=== PATIENT | female | born 1955 | race Caucasian/White ===

== ENCOUNTER 2023-06-04 11:19 | Outpatient (OUT) | payer MEDICARE, OTHER, SELFPAY ==
--- NOTE | 2023-06-04 12:31 | P.CN_ITS ---
Consult Note: HPI Data of Consult Patient: new to practice Consult date: 06/04/23 Requesting Physician: Kamryn Ceja MD Primary Care Provider: CAR Rich Narrative Reason for consult: low back pain Narrative: 68yof who presents for evaluation. ongoing axial low back pain for several years, recently worsened. mri shows multilevel facet arthropathy and spondylosis. engages in >6 weeks of provider directed home exercises, with minimal benefit. utilizing mobic and tizanidine, with mild benefit. otherwise denies adverse med side effects. cc:: CC: Kamryn Ceja MD Review of Systems ROS Status of ROS 10 or more systems reviewed and unremark able except as noted in history and below Exam Narrative Exam Narrative: Psych-alert and oriented x 3. Attentive and appropriate, constitutionally normal, displays normal mood and affect per situation.? There are no obvious deficits in memory, reasoning, or intellect.? Skin-no obvious rashes, bruising, erythema noted to the patient's area of pain. Extremities- extremities are warm with minimal edema and palpable pulses. Lumbar-no significant tenderness to palpation noted in the lumbar spine and paraspinal musculature.? Pain is elicited with extension, and lateral rotation of the lumbar spine. Range of motion is slightly diminished with these motions due to pain. Facet loading maneuvers are positive bilaterally and do appear to be concordant with the patient's normal complaints of pain.? Coordination remains intact.? Gait remains non-antalgic. Assessment and Plan Assessment and Plan (1) Lumbar spondylosis: (2) Lumbar stenosis with neurogenic claudication: Plan 68yof who presents for evaluation. failed conservative measures, as noted. imaging reviewed, as noted. given symptoms and imaging, prudent to attempt diagnostic bilateral l4-5, l5-s1 medial branch blocks under fluoroscopic guidance with intention of proceeding to radiofrequency ablation. she is in agreement. medications reviewed, no changes. follow up after procedure.
== END 2023-06-04 11:20 | disposition home or self-care (01) ==
PROVIDERS: PCP Family Medicine; Visit Provider Anesthesiology
DX: M47.816 Spondylosis without myelopathy or radiculopathy, lumbar region (principal); M48.062 Spinal stenosis, lumbar region with neurogenic claudication
CPT/HCPCS: G0463

== ENCOUNTER 2023-06-11 10:08 | Day surgery (SDC) | payer MEDICARE, OTHER, SELFPAY ==
[2023-06-11 10:51] VITALS: BP 155/93; PULSE 77; RESP 16; TEMP 36.4; O2SAT 98
[2023-06-11 11:34] VITALS: RESP 20
[2023-06-11 11:38] VITALS: BP 167/80; PULSE 78; O2SAT 96
[2023-06-11] MEDS: LIDOCAINE HCL 2% PF 100 MG/5 ML VIAL INJ (11:40)
[2023-06-11] MEDS: BUPIVACAINE HCL 0.5% PF 50 MG/10 ML VIAL 8 ML INJ (11:40)
[2023-06-11 11:41] VITALS: BP 160/76; PULSE 80; O2SAT 99
--- NOTE | 2023-06-11 11:42 | W.PM.PROCNOT ---
Date of procedure: 06/11/23 Pre-op diagnosis: Lumbar spondylosis Post-op diagnosis: same as pre-op Procedure: Procedure: Bilateral L4-5, l5-S1 medial branch block Medications: Bupivacaine 0.25% 6cc The patient was seen and examined in the preoperative holding area.? An informed consent was obtained and placed on the chart.? The patient was brought to the medical procedure unit and placed in the prone position.? A timeout was completed verifying correct patient, procedure site, positioning, plan, and special equipment.? Using aseptic technique, the needle was placed at left L4. Under direct fluoroscopic visualization a Quincke-tipped spinal needle was advanced to the junction of the superior articulating process with the transverse process at the designated medial branch segment.? Preceded by negative aspiration, the above-mentioned injectate was placed in 1 mL aliquots.? The procedure was repeated at left L5, S1.? The needle was removed and insertion site was covered. The same procedure, at the same levels, was completed on the right side. The patient was taken to the postprocedural recovery area and monitored for an appropriate length of time before found suitable for discharge in the company of a responsible adult. Anesthesia: Local Surgeon: Kamryn Ceja Pathology: none sent Condition: stable Disposition: no change
== END 2023-06-11 11:45 | disposition home or self-care (01) ==
PROVIDERS: PCP Family Medicine; Visit Provider Anesthesiology
DX: M47.816 Spondylosis without myelopathy or radiculopathy, lumbar region (principal)
CPT/HCPCS: 64493; 64494; J0665

== ENCOUNTER 2023-06-21 11:23 | Outpatient (OUT) | payer MEDICARE, OTHER, SELFPAY ==
--- NOTE | 2023-06-21 11:36 | P.CN_ITS ---
Consult Note: HPI Data of Consult Patient: new to practice Consult date: 06/04/23 Requesting Physician: Angie Casarez NP Primary Care Provider: CAR Rich Narrative Reason for consult: low back pain Narrative: 68yof who presents for evaluation. ongoing axial low back pain for several years, recently worsened. mri shows multilevel facet arthropathy and spondylosis. engages in >6 weeks of provider directed home exercises, with minimal benefit. utilizing mobic and tizanidine, with mild benefit. otherwise denies adverse med side effects. recently underwent bilateral facet medial branch block #1 with 100% immediate pain relief and functional improvement lasting hours after the procedure. Noticed increased ability in ADLs, walking up and down stairs, and getting in and out of the car. cc:: CC: Angie Casarez NP Review of Systems ROS Status of ROS 10 or more systems reviewed and unremark able except as noted in history and below [facility] Medical History (Updated 06/05/23 @ 13:39 by Naty Haile RN) Lupus ?M32.9 - Systemic lupus erythematosus, unspecified (ICD-10) Heartburn ?R12 - Heartburn (ICD-10) Hypothyroid ?E03.9 - Hypothyroidism, unspecified (ICD-10) Asthma ?J45.909 - Unspecified asthma, uncomplicated (ICD-10) Palpitations ?R00.2 - Palpitations (ICD-10) Surgical History History of hand surgery ?Z98.890 - Other specified postprocedural states (ICD-10) History of ear surgery ?Z98.890 - Other specified postprocedural states (ICD-10) History of hip surgery ?Z98.890 - Other specified postprocedural states (ICD-10) History of shoulder surgery ?Z98.890 - Other specified postprocedural states (ICD-10) Meds Home Medications and Allergies Home Medications Medication Instructions Recorded Confirmed Type albuterol 90 mcg/actuation aerosol mcg inhalation 06/05/23 History inhaler carvedilol 12.5 mg tablet 25 mg PO Q12H 06/05/23 06/11/23 History cyclosporine 0.05 % eye drops in a 1 drp ophthalmic (eye) Q12H 06/05/23 06/11/23 History dropperette (Restasis) hydrochlorothiazide 12.5 mg tablet 12.5 mg PO DAILY 06/05/23 06/11/23 History hydroxychloroquine 200 mg tablet 200 mg PO BID 06/05/23 06/11/23 History (Plaquenil) losartan 100 mg tablet 100 mg PO DAILY 06/05/23 06/11/23 History meloxicam 15 mg tablet 15 mg PO DAILY 06/05/23 06/11/23 History metoprolol succinate 25 mg 12.5 mg PO DAILY 06/05/23 06/11/23 History tablet,extended release 24 hr omeprazole 20 mg capsule,delayed 20 mg PO DAILY 06/05/23 06/11/23 History release thyroid (pork) 90 mg tablet 90 mg PO DAILY 06/05/23 06/11/23 History ([place] Thyroid) tizanidine 4 mg tablet 4 mg PO BEDTIME 06/05/23 06/11/23 History Allergies Allergy/AdvReac Type Severity Reaction Status Date / Time amoxicillin Allergy Verified 06/11/23 10:55 ciprofloxacin [From Cipro] Allergy Verified 06/11/23 10:55 gabapentin Allergy Verified 06/11/23 10:55 Sulfa (Sulfonamide Allergy Verified 06/11/23 10:55 Antibiotics) Exam Narrative Exam Narrative: Psych-alert and oriented x 3. Attentive and appropriate, constitutionally normal, displays normal mood and affect per situation.? There are no obvious deficits in memory, reasoning, or intellect.? Skin-no obvious rashes, bruising, erythema noted to the patient's area of pain. Extremities- extremities are warm with minimal edema and palpable pulses. Lumbar-no significant tenderness to palpation noted in the lumbar spine and paraspinal musculature.? Pain is elicited with extension, and lateral rotation of the lumbar spine. Range of motion is slightly diminished with these motions due to pain. Facet loading maneuvers are positive bilaterally and do appear to be concordant with the patient's normal complaints of pain.? Coordination remains intact.? Gait remains non-antalgic. Results Additional Findings Additional findings: I have checked an [place] report on this patient today and there are no aberrancies noted in the prescribing history.?? A drug screen was completed and reviewed within the last year, and if there has not been a drug screen completed we ordered one today to monitor higher risk, state monitored pain medication use. As part of providing excellent, safe, comprehensive care, the following was completed at our patient's visit: 1. A medication reconciliation and review to ensure accurate knowledge of current/active medications, including asking our patients to inform us about any [id number] medications or herbal remedies/nutritional supplements/alternative remedies. 2. A review to specifically ensure our patients have had annual screening for: elevated body mass index (BMI), tobacco use, screening for depression, and screening for unhealthy alcohol use. When screening is concerning, patients are provided with education and the specific recommendation to discuss the concerning health issue and treatment options with their primary care provider. Assessment and Plan Assessment and Plan (1) Lumbar spondylosis: (2) Lumbar stenosis with neurogenic claudication: Plan proceed with bilateral L4-5 L5-S1 facet medial branch block #2 working towards thermal RFA continue HEP as tolerated f/u 1 week after injection
--- OUTSIDE RECORDS SUMMARY | 2023-06-21 11:45 | XMS_ITS | CCD ---
Author Name Unknown Address [address] [place] [address] Organization [facility] Care Team Providers Care Gis Software Developer Name Role Phone PHYSICIAN, DEFAULT Unavailable Unavailable PHYSICIAN, DEFAULT Unavailable Unavailable ORIANA LAGUERRE Unavailable Unavailable MISC, DR CHEEK Attending Unavailable MISC, DR CHEEK Admitting Unavailable MISC, DR CHEEK Consulting Unavailable SHADE, DR ORIANA Lora Primary Care Unavailable NATY KIRKPATRICK Admitting Unavailable NATY KIRKPATRICK Consulting Unavailable NATY KIRKPATRICK Attending Unavailable SHADE, DR ORIANA Lora Referring Unavailable Abena Hawkins Unavailable Oriana Laguerre Unavailable José Miguel Grey Unavailable Addy ROUSSEAU Attending Unavailable Addy ROUSSEAU Attending Unavailable MD Oriana Laguerre Primary Care Provider SHANKAR Santiago Attending Provider ARMAND DOCKERY Attending Unavailable ORIANA LAGUERRE Attending Unavailable NATY KIRKPATRICK Referring Unavailable LATRICE PEÑA Referring Unavailable ORIANA LAGUERRE Primary Care Unavailable MD Oriana Laguerre Primary Care Provider MD Endy Abreu Attending Provider [phone] Oriana Laguerre Primary Care Unavailable Endy Abreu Admitting Unavailable Endy Abreu Attending Unavailable Huong Santiago Admitting Unavailable Huong Santiago Attending Unavailable Oriana Laguerre Primary Care Unavailable Huong Santiago Attending Unavailable Oriana Laguerre Primary Care Unavailable Huong Santiago Admitting Unavailable Marcial RAMIREZ, Kamryn Rodriguez Attending Unavailable Marcial RAMIREZ, Kamryn Rodriguez Attending Unavailable Allergies Allergy Classification Reported Allergen(s) Allergy Type Date of Onset Reaction(s) Facility (1 source) Sulfonamides (Antibiotic); Translations: [SULFA] Propensity to adverse reactions (disorder) 11-11-19 11 [facility] Repository (4 sources) gabapentin; Translations: [gabapentin] Drug Allergy 02-12-20 Hives [facility] Repository (1 source) rosuvastatin Drug Allergy 02-26-20 [facility] Repository (1 source) Sulfonamides (Antibiotic) Drug allergy (disorder) 02-26-20 [facility] Repository (7 sources) gabapentin Drug Allergy Unknown [facility] Other (7 sources) Sulfacetamide / Sulfur Drug Allergy Unknown [facility] Other (1 source) Sulfonamides (Antibiotic); Translations: [sulfa drugs] Propensity to adverse reactions (disorder) [facility] Repository (4 sources) Ciprofloxacin; Translations: [CIPROFLOXACIN] Drug Allergy 02-12-20 Unknown Reaction [facility] (3 sources) Sulfacetamide; Translations: [sulfacetamide] Drug Allergy 02-12-20 Vomiting [facility] (3 sources) Sulfur; Translations: [sulfur] Drug Allergy 02-12-20 Vomiting [facility] (1 source) gabapentin; Translations: [GABAPENTIN (BULK)] Drug Allergy 11-02-19 [facility] Repository (1 source) Hmg-Coa Reductase Inhibitors (Statins); Translations: [[id number] REDUCTASE INHIBITORS] Propensity to adverse reactions to drug (disorder) 11-02-19 [facility] Repository (1 source) Sulfonamides (Antibiotic); Translations: [SULFA (SULFONAMIDE ANTIBIOTICS)] Propensity to adverse reactions to drug (disorder) 11-02-19 [facility] Repository (1 source) gabapentin Drug Allergy 02-12-20 [facility] Repository Medications Current Medications Medication Drug Class(es) Dates Sig (Normalized) Sig (Original) acetaminophen 500 mg oral capsule (3 sources) take 2 capsules by mouth every six hours Acetaminophen 500 MG 2 capsule as needed Orally every 6 hrs Active albuterol 0.833 mg/ml / ipratropium bromide 0.167 mg/ml inhalation solution (3 sources) Anticholinergic, beta2-Adrenergic Agonist take 3 mL by inhalation every six hours as needed Ipratropium-Albute rol 0.5-2.5 (3) MG/3ML 3 mL as needed Inhalation every 6 hrs Active calcium carbonate 1250 mg oral tablet (3 sources) take 1 tablet by mouth every twelve hours Calcium 500 MG 1 tablet with meals Orally Twice a day Active carvedilol 12.5 mg oral tablet (3 sources) alpha-Adrenergic Aleks, beta-Adrenergic Aleks take 1 tablet by mouth every twelve hours Carvedilol 12.5 MG 1 tablet with food Orally Twice a day Active celecoxib 200 mg oral capsule (9 sources) Nonsteroidal Anti-inflammatory Drug Start: 02-11-2021 Celecoxib Active 200 MG PO As Directed February 10, 2021 11:00pm clotrimazole 10 mg oral lozenge (2 sources) Azole Antifungal Start: 02-11-2021 Clotrimazole Active 10 MG PO As Directed February 10, 2021 11:00pm cycloSPORINE 0.5 mg/ml ophthalmic suspension (5 sources) Calcineurin Inhibitor Immunosuppressant Start: 02-11-2021 Cyclosporine (Restasis) 0.05 % dropperette Active 0.05 DROPS OPHTHALMIC As Directed February 10, 2021 11:00pm take 1 drop(s) into the eye(s) twice daily cycloSPORINE 0.05 % 1 drop into affected eye Ophthalmic Twice a day Not-Taking Roxy-C - (3 sources) Roxy-C - as dir ected Orally Active ferrous sulfate (3 sources) take 1 tablet by delisa th once daily Ferrous Sulfate 325 (65 Fe) MG 1 tablet Orally Once a day Active take 1 tablet by delisa th every twenty-four hours Ferrous Sulfate 325 (65 Fe) MG 1 tablet Orally Once a day Active fluocinolone acetonide 0.25 mg/ml topical cream (3 sources) Corticosteroid Fluocinolone Charlie tonide 0.025 % 1 application Externally Twice a day Active furosemide 20 mg oral tablet (3 sources) Loop Diuretic Start: 2021 take 0.5 tablet by mouth twice daily Lasix 20 MG 0.5 tab Orally twice daily for 90 days Apr, Active glucosamine 750 mg oral tablet (3 sources) Glucosamine 750 MG as directed Orally Active hydroCHLOROthiazide 12.5 mg oral tablet (6 sources) Thiazide Diuretic Start: 2020 Hydrochlorothiazide Active 12.5 MG PO As Directed February 10, 2021 11:00pm take 1 capsule by [facility] every twenty-four hours hydroCHLOROthiazide 12.5 MG 1 capsule in the morning Orally Once a day Active hydroxychloroquine sulfate 200 mg oral tablet (9 sources) Antimalarial, Antirheumatic Agent Start: 02-11-2021 Hydroxychloroquine Active 200 MG PO As Directed February 10, 2021 11:00pm krill oil 500 mg oral capsule (3 sources) take 2 capsules by mouth once daily Krill Oil 500 MG 2 capsules Orally once a day Active losartan potassium 50 mg oral tablet (9 sources) Angiotensin 2 Receptor Aleks Start: 02-11-2021 Losartan Active 50 MG PO As Directed February 10, 2021 11:00pm take 1 tablet by [facility] every twenty-four hours Losartan Potassium 100 MG 1 tablet Orally Once a day Active magnesium oxide 500 mg oral tablet (3 sources) Magnesium Oxide 500 MG as directed Orally Active Magnesium Oxide 500 MG as directed Orally Active methylPREDNISolone 4 mg oral tablet (2 sources) Corticosteroid Start: 02-11-2021 Methylprednisolone Active 4 MG PO As Directed February 10, 2021 11:00pm Multi Vitamin Daily - (3 sources) take 1 tablet by mouth once daily Multi Vitamin Daily - 1 tablet Orally Once a day Active omeprazole 20 mg delayed release oral capsule (9 sources) Proton Pump Inhibitor Start: 02-11-2021 Omeprazole Active 20 MG PO As Directed February 10, 2021 11:00pm Restasis Multidose (3 sources) Restasis Multido se Active saccharomyces boulardii 250 mg oral capsule (3 sources) Probiotic 250 MG as directed Orally Active thioctic acid 100 mg oral capsule (3 sources) take 1 capsule by mouth every twenty-fou r hours Alpha-Lipoic Acid 100 MG 1 capsule Orally Once a day Active thyroid (penitentiary) 120 mg oral tablet (9 sources) Start: 02-11-2021 Thyroid (Pork) ([place] Thyroid) 120 mg tablet Active 120 MG PO As Directed February 10, 2021 11:00pm tiZANidine 4 mg oral tablet (3 sources) Central alpha-2 Adrenergic Agonist take 2 tablets by mouth once daily at bedtime as needed tiZANidine HCl 4 MG 2 tablet as needed Orally once a day at [facility] Active vitamin b12 1 mg/ml injectable solution (5 sources) Vitamin B12 Start: 02-11-2021 Cyanocobalamin (Vitamin B-12) Active 1000 MCG IM As Directed February 10, 2021 11:00pm Cyanocobalamin 1 00 MCG as directed Orally Active Vitamin D-3 125 MCG (5000 UT ) (3 sources) Vitamin D-3 125 MCG (5000 UT) as directed Orally Active Completed/Discontinued Medications Medication Drug Class(es) Dates Sig (Normalized) Sig (Original) triamcinolone acetonide 40 mg/ml injectable suspension (20 sources) Corticosteroid Start: 03-29-2022 Kenalog-40 Mar, 40 mg Start: 08-26-2021 Kenalog-40 Nov, 20 mg Start: 08-26-2021 Kenalog -40 mg Aug, 20 mg Start: 05-04-2021 Kenalog -40 mg Apr, 20 mg Start: 02-02-2021 Kenalog -40 mg Jan, 20 mg Start: 02-02-2021 Kenalog -40 mg Jan, 40 mg Start: 10-13-2020 Kenalog -40 mg September, 20 mg Start: 06-29-2020 Kenalog -40 mg Jun, 40 mg Start: 03-24-2020 Kenalog -40 mg Mar, 40 mg Problems Problem Classification Problem Date Documented Da te Episodic/Chronic Esophageal disorders (9 sources) Gastroesophageal reflux disease; Translations: [Gastro-esophageal reflux disease without esophagitis] 02-11-2021 Chronic Essential hypertension (4 sources) Essential hypertension; Translations: [Essential (primary) hypertension] Chronic Fluid and electrolyte disorders (1 source) Hypo-osmolality and hyponatremia Episodic Immunizations and screening for infectious disease (5 sources) Encounter for immunization; Translations: [Contact with and (suspected) exposure to other viral communicable diseases] Onset: 0 Episodic Osteoarthritis (14 sources) Arthropathy of joint of hand; Translations: [Primary osteoarthritis, unspecified hand] Onset: 2 Resolved: 2 Chronic Other connective tissue disease (5 sources) Pain in left hand Onset: 2 Resolved: 2 Episodic Other connective tissue disease (5 sources) Pain in right hand Onset: 2 Resolved: 2 Episodic Other connective tissue disease (1 source) Other enthesopathies, not elsewhere classified; Translations: [Other enthesopathies, not elsewhere classified] Onset: 3 Episodic Other gastrointestinal disorders (9 sources) Dysphagia; Translations: [Dysphagia, unspecified] 02-11-2021 Episodic Systemic lupus erythematosus and connective tissue disorders (1 source) Systemic involvement of connective tissue, unspecified; Translations: [Systemic involvement of connective tissue, unspecified] Onset: 3 Chronic Viral infection (4 sources) COVID-19; Translations: [COVID-19] Onset: 1 Results Test Name Value Interpretation Reference Range Facility Alanine aminotransferase [En zymatic activity/volume] in Serum or PlasmaOrdered By: Endy Abreu on 05-30-2023 ALT [Catalytic activity/Vol] 16 U/L 7-52 [facility] Albumin [Mass/volume] in Ser um or Plasma by Bromocresol green (BCG) dye binding methoOrdered By: Endy Abreu on 05-30-2023 Albumin BCG dye [Mass/Vol] 4.2 g/dL 3.5-5.7 [facility] Alkaline phosphatase [Enzyma tic activity/volume] in Serum or PlasmaOrdered By: Endy Abreu on 05-30-2023 ALP [Catalytic activity/Vol] 109 U/L 34-104 [facility] Aspartate aminotransferase [ Enzymatic activity/volume] in Serum or PlasmaOrdered By: Endy Abreu on 05-30-2023 AST [Catalytic activity/Vol] 22 U/L 13-39 [facility] Automated erythrocytes count in urine sediment (number/area)Ordered By: Endy Abreu on 05-30-2023 RBC Auto (Urine sed) [#/Area] 0-1 [HPF] 0-4 [facility] Automated leukocytes count i n urine sediment (number/area)Ordered By: Endy Abreu on 05-30-2023 WBC Auto (Urine sed) [#/Area] 0-1 [HPF] 0-4 [facility] Basophils Auto (Bld) [#/Vol] Ordered By: Endy Abreu on 05-30-2023 Basophils (Bld) [#/Vol] 0.1 10*3/uL 0.0-0.2 [facility] Basophils/100 WBC Auto (Bld) Ordered By: Endy Abreu on 05-30-2023 Basophils/100 WBC (Bld) 1.1 % . [facility] Bilirubin Test strip Ql (U)O rdered By: Endy Abreu on 05-30-2023 Bilirubin Ql (U) Negative Negative [facility] Bilirubin.total [Mass/volume ] in Serum or PlasmaOrdered By: Endy Abreu on 05-30-2023 Bilirubin [Mass/Vol] 0.5 mg/dL 0.3-1.0 [facility] Calcium [Mass/volume] in Ser um or PlasmaOrdered By: Endy Abreu on 05-30-2023 Calcium [Mass/Vol] 10.0 mg/dL 8.6-10.3 [facility] Carbon dioxide, total [Moles /volume] in Serum or PlasmaOrdered By: Endy Abreu on 05-30-2023 CO2 [Moles/Vol] 26.9 mmol/L 21.0-31.0 [facility] Chloride [Moles/volume] in S mary ellen or PlasmaOrdered By: Endy Abreu on 05-30-2023 Chloride [Moles/Vol] 98 mmol/L 98-107 [facility] Color Auto (U)Ordered By: Ngoc Abreu on 05-30-2023 Color (U) Yellow Yellow [facility] Complement C3on 05-30-2023 Complement C3 143 mg/dL Normal 82-167 [facility] Comment on above: Result Comment: Perf ormed at: CB - [facility] [place] [address] Deputy Chief Magistrate: Marvel Barahona PhD, Phone: [phone] Performed By: #### E SR, CMP, ADDONUAPLUS, CBC #### [facility] [address] [place] [address] #### C4, C3, CH50 #### [facility] , Complement C4on 05-30-2023 Complement C4 29 mg/dL Normal 12-38 [facility] Comment on above: Result Comment: PERF ORMED BY: [address] [address] PATHOLOGIST ORDNANCE ARTIFICER ALTHEA BARRAGAN M.D. Performed By: #### E SR, CMP, ADDONUAPLUS, CBC #### [place] [address] [place] #### C4, C3, CH50 #### [facility] , Complement Total (CH50)on Complement Total (CH50) >60 Normal >41 [facility] Comment on above: Result Comment: Age Male Female 1 - 30 days Not Estab. Not Estab. 31 days - 6 months >32 >20 7 months - 17 years >39 >39 >17 years >41 >41 NOTE: The adult ( >17 years ) reference interval range is used to flag abnormals on this report. If the patient is 17 years old or younger, use the table above to determine out of range values. Performed at: - [facility] [id number] Deputy Chief Magistrate: Marvel Barahona PhD, Phone: [phone] PERFORMED BY: [place] [address] PATHOLOGIST ORDNANCE ARTIFICER ALTHEA BARRAGAN M.D. Performed By: #### E SR, CMP, ADDONUAPLUS, CBC #### [address] #### C4, C3, CH50 #### [facility] , Complete Blood Count Auto Di ffon 05-30-2023 Basophils (Bld) [#/Vol] 0.1 10*3/uL Normal 0.0-0.2 [facility] Comment on above: Performed By: #### E SR, CMP, ADDONUAPLUS, CBC #### [place] [address] [place] #### C4, C3, CH50 #### [facility] , Basophils/100 WBC (Bld) 1.1 % Normal . [facility] Comment on above: Performed By: #### E SR, CMP, ADDONUAPLUS, CBC #### [facility] [address] [place] [address] [place] #### C4, C3, CH50 #### [facility] , Eosinophils (Bld) [#/Vol] 0.0 10*3/uL Normal 0.0-0.45 [facility] Comment on above: Performed By: #### E SR, CMP, ADDONUAPLUS, CBC #### [facility] [address] [place] [address] [place] #### C4, C3, CH50 #### [facility] , Eosinophils/100 WBC (Bld) 0.6 % Normal . [facility] Comment on above: Performed By: #### E SR, CMP, ADDONUAPLUS, CBC #### [address] #### C4, C3, CH50 #### [facility] , Erythrocyte distribution width (RBC) [Ratio] 13.8 % Normal 11.9-15.3 [facility] Comment on above: Performed By: #### E SR, CMP, ADDONUAPLUS, CBC #### [facility] [address] [place] [address] [place] #### C4, C3, CH50 #### [facility] , Hematocrit (Bld) [Volume fraction] 36.4 % Normal 34.0-46.4 [facility] Comment on above: Performed By: #### E SR, CMP, ADDONUAPLUS, CBC #### [place] [address] [place] #### C4, C3, CH50 #### [facility] , Hemoglobin (Bld) [Mass/Vol] 12.3 g/dL Normal 11.8-15.4 [facility] Comment on above: Performed By: #### E SR, CMP, ADDONUAPLUS, CBC #### [facility] [address] [place] [address] [place] #### C4, C3, CH50 #### [facility] , Lymphocytes (Bld) [#/Vol] 2.4 10*3/uL Normal 1.00-4.8 [facility] Comment on above: Performed By: #### E SR, CMP, ADDONUAPLUS, CBC #### [address] #### C4, C3, CH50 #### [facility] , Lymphocytes/100 WBC (Bld) 29.2 % Normal . [facility] Comment on above: Performed By: #### E SR, CMP, ADDONUAPLUS, CBC #### [address] #### C4, C3, CH50 #### [facility] , MCH (RBC) [Entitic mass] 31.0 pg Normal 24.7-34.3 [facility] Comment on above: Performed By: #### E SR, CMP, ADDONUAPLUS, CBC #### [address] #### C4, C3, CH50 #### [facility] , MCV (RBC) [Entitic vol] 91.5 fL Normal 80-100 [facility] Comment on above: Performed By: #### E SR, CMP, ADDONUAPLUS, CBC #### [facility] [address] [place] [address] [place] #### C4, C3, CH50 #### [facility] , Mean Corpuscular HGB Conc 33.8 g/dL Normal 32.0-35.0 [facility] Comment on above: Performed By: #### E SR, CMP, ADDONUAPLUS, CBC #### [place] [address] [place] #### C4, C3, CH50 #### [facility] , Monocytes (Bld) [#/Vol] 0.5 10*3/uL Normal 0.0-0.8 [facility] Comment on above: Performed By: #### E SR, CMP, ADDONUAPLUS, CBC #### [facility] [address] [place] [address] [place] #### C4, C3, CH50 #### [facility] , Monocytes/100 WBC (Bld) 6.2 % Normal . [facility] Comment on above: Performed By: #### E SR, CMP, ADDONUAPLUS, CBC #### [place] [address] [place] #### C4, C3, CH50 #### [facility] , Neutrophils (Bld) [#/Vol] 5.1 10*3/uL Normal 1.8-7.7 [facility] Comment on above: Performed By: #### E SR, CMP, ADDONUAPLUS, CBC #### [facility] [address] [place] [address] [place] #### C4, C3, CH50 #### [facility] , Neutrophils/100 WBC (Bld) 62.9 % Normal . [facility] Comment on above: Performed By: #### E SR, CMP, ADDONUAPLUS, CBC #### [place] [address] [place] #### C4, C3, CH50 #### [facility] , NRBC% 0.0 /100{WBC} Normal 0-0.5 [facility] Comment on above: Performed By: #### E SR, CMP, ADDONUAPLUS, CBC #### [facility] [address] [place] [address] [place] #### C4, C3, CH50 #### [facility] , Platelet mean volume (Bld) [Entitic vol] 7.4 fL Normal 6.3-10.7 [facility] Comment on above: Performed By: #### E SR, CMP, ADDONUAPLUS, CBC #### [address] [address] [place] #### C4, C3, CH50 #### [facility] , Platelets (Bld) [#/Vol] 461 10*3/uL High 150-450 [facility] Comment on above: Performed By: #### E SR, CMP, ADDONUAPLUS, CBC #### [facility] [address] [place] [address] [place] #### C4, C3, CH50 #### [facility] , RBC (Bld) [#/Vol] 3.97 10*6/uL Normal 3.60-5.00 [facility] Comment on above: Performed By: #### E SR, CMP, ADDONUAPLUS, CBC #### [address] #### C4, C3, CH50 #### [facility] , WBC (Bld) [#/Vol] 8.1 10*3/uL Normal 3.8-11.6 [facility] Comment on above: Performed By: #### E SR, CMP, ADDONUAPLUS, CBC #### [facility] [address] [place] [address] [place] #### C4, C3, CH50 #### [facility] , Comprehensive Metabolic Pane chema 05-30-2023 Albumin [Mass/Vol] 4.2 g/dL Normal 3.5-5.7 [facility] Comment on above: Performed By: #### E SR, CMP, ADDONUAPLUS, CBC #### [facility] [address] [place] [address] [place] #### C4, C3, CH50 #### [facility] , Albumin/Globulin [Mass ratio] 1.8 {ratio} Normal [facility] Comment on above: Performed By: #### E SR, CMP, ADDONUAPLUS, CBC #### [facility] [address] [place] [address] [place] #### C4, C3, CH50 #### [facility] , ALP [Catalytic activity/Vol] 109 U/L High 34-104 [facility] Comment on above: Result Comment: PERF ORMED BY: [place] [address] PATHOLOGIST ORDNANCE ARTIFICER ALTHEA BARRAGAN M.D. Performed By: #### E SR, CMP, ADDONUAPLUS, CBC #### [facility] [address] [place] [address] #### C4, C3, CH50 #### [facility] , ALT [Catalytic activity/Vol] 16 U/L Normal 7-52 [facility] Comment on above: Performed By: #### E SR, CMP, ADDONUAPLUS, CBC #### [address] #### C4, C3, CH50 #### [facility] , Anion gap [Moles/Vol] 12.2 mmol/L Normal 6.0-15.0 [facility] Comment on above: Performed By: #### E SR, CMP, ADDONUAPLUS, CBC #### [facility] [address] [place] [address] #### C4, C3, CH50 #### [facility] , AST [Catalytic activity/Vol] 22 U/L Normal 13-39 [facility] Comment on above: Performed By: #### E SR, CMP, ADDONUAPLUS, CBC #### [facility] [address] [place] [address] [place] #### C4, C3, CH50 #### [facility] , Bilirubin [Mass/Vol] 0.5 mg/dL Normal 0.3-1.0 [facility] Comment on above: Performed By: #### E SR, CMP, ADDONUAPLUS, CBC #### [facility] [address] [place] [address] [place] #### C4, C3, CH50 #### [facility] , Calcium [Mass/Vol] 10.0 mg/dL Normal 8.6-10.3 [facility] Comment on above: Performed By: #### E SR, CMP, ADDONUAPLUS, CBC #### [facility] [address] [place] [address] [place] #### C4, C3, CH50 #### [facility] , Chloride [Moles/Vol] 98 mmol/L Normal 98-107 [facility] Comment on above: Performed By: #### E SR, CMP, ADDONUAPLUS, CBC #### [facility] [address] [place] [address] [place] #### C4, C3, CH50 #### [facility] , CO2 [Moles/Vol] 26.9 mmol/L Normal 21.0-31.0 [facility] Comment on above: Performed By: #### E SR, CMP, ADDONUAPLUS, CBC #### [facility] [address] [place] [address] [place] #### C4, C3, CH50 #### [facility] , Creatinine [Mass/Vol] 0.86 mg/dL Normal 0.60-1.20 [facility] Comment on above: Performed By: #### E SR, CMP, ADDONUAPLUS, CBC #### [facility] [address] [place] [address] [place] #### C4, C3, CH50 #### [facility] , GFR/1.73 sq M.predicted MDRD (S/P/Bld) [Vol rate/Area] mL/min/{1.73_m2} [facility] Comment on above: Performed By: #### E SR, CMP, ADDONUAPLUS, CBC #### [facility] [address] [place] [address] [place] #### C4, C3, CH50 #### [facility] , Globulin (S) [Mass/Vol] 2.4 g/dL Normal [facility] Comment on above: Performed By: #### E SR, CMP, ADDONUAPLUS, CBC #### [facility] [address] [place] [address] [place] #### C4, C3, CH50 #### [facility] , Glucose [Mass/Vol] 123 mg/dL High 70-100 [facility] Comment on above: Result Comment: [place] Glucose Reference Range is dependent on time and content of last meal. Glucose of more than 200 mg/dL in a nonstressed, ambulatory subject supports the diagnosis of Diabetes Mellitus. ADA recommended reference range Performed By: #### E SR, CMP, ADDONUAPLUS, CBC #### [place] [address] [place] #### C4, C3, CH50 #### [facility] , Potassium [Moles/Vol] 4.1 mmol/L Normal 3.5-5.1 [facility] Comment on above: Performed By: #### E SR, CMP, ADDONUAPLUS, CBC #### [facility] [address] [place] [address] [place] #### C4, C3, CH50 #### [facility] , Protein [Mass/Vol] 6.6 g/dL Normal 6.4-8.9 [facility] Comment on above: Performed By: #### E SR, CMP, ADDONUAPLUS, CBC #### [facility] [address] [place] [address] [place] #### C4, C3, CH50 #### [facility] , Sodium [Moles/Vol] 133 mmol/L Low 136-145 [facility] Comment on above: Performed By: #### E SR, CMP, ADDONUAPLUS, CBC #### [facility] [address] [place] [address] [place] #### C4, C3, CH50 #### [facility] , Urea nitrogen [Mass/Vol] 20 mg/dL Normal 7-25 [facility] Comment on above: Performed By: #### E SR, CMP, ADDONUAPLUS, CBC #### [facility] [address] [place] [address] [place] #### C4, C3, CH50 #### [facility] , Creatinine [Mass/volume] in Serum or PlasmaOrdered By: Endy Abreu on 05-30-2023 Creatinine [Mass/Vol] 0.86 mg/dL 0.60-1.20 [facility] Dipstick and Microscopicon 0 05-30-2023 Appearance (U) Clear Normal Clear [facility] Comment on above: Order Comment: Name Collection Type:: Clean-Voided Midstream Performed By: #### E SR, CMP, ADDONUAPLUS, CBC #### [address] #### C4, C3, CH50 #### [facility] , Bacteria,Urine None Seen Normal None Seen [facility] Comment on above: Order Comment: Name Collection Type:: Clean-Voided Midstream Performed By: #### E SR, CMP, ADDONUAPLUS, CBC #### [facility] [address] [place] [address] #### C4, C3, CH50 #### [facility] , Bilirubin,Urine Negative Normal Negative [facility] Comment on above: Order Comment: Name Collection Type:: Clean-Voided Midstream Performed By: #### E SR, CMP, ADDONUAPLUS, CBC #### [facility] [address] [place] [address] [place] #### C4, C3, CH50 #### [facility] , Color (U) Yellow Normal Yellow [facility] Comment on above: Order Comment: Name Collection Type:: Clean-Voided Midstream Performed By: #### E SR, CMP, ADDONUAPLUS, CBC #### [facility] [address] [place] [address] [place] #### C4, C3, CH50 #### [facility] , Glucose Ql (U) Normal Normal Normal [facility] Comment on above: Order Comment: Name Collection Type:: Clean-Voided Midstream Performed By: #### E SR, CMP, ADDONUAPLUS, CBC #### [address] #### C4, C3, CH50 #### [facility] , Hyaline Casts,Urine None Seen Normal 0-8 [facility] Comment on above: Order Comment: Name Collection Type:: Clean-Voided Midstream Result Comment: PERF ORMED BY: [place] [address] PATHOLOGIST ORDNANCE ARTIFICER ALTHEA BARRAGAN M.D. Performed By: #### E SR, CMP, ADDONUAPLUS, CBC #### [address] #### C4, C3, CH50 #### [facility] , Ketones Ql (U) Negative Normal Negative [facility] Comment on above: Order Comment: Name Collection Type:: Clean-Voided Midstream Performed By: #### E SR, CMP, ADDONUAPLUS, CBC #### [address] #### C4, C3, CH50 #### [facility] , Leukocyte esterase Test strip Ql (U) Negative Normal Negative [facility] Comment on above: Order Comment: Name Collection Type:: Clean-Voided Midstream Performed By: #### E SR, CMP, ADDONUAPLUS, CBC #### [facility] [address] [place] [address] #### C4, C3, CH50 #### [facility] , Nitrite,Urine Negative Normal Negative [facility] Comment on above: Order Comment: Name Collection Type:: Clean-Voided Midstream Performed By: #### E SR, CMP, ADDONUAPLUS, CBC #### [address] #### C4, C3, CH50 #### [facility] , Occult Blood,Urine Negative Normal Negative [facility] Comment on above: Order Comment: Name Collection Type:: Clean-Voided Midstream Performed By: #### E SR, CMP, ADDONUAPLUS, CBC #### [address] #### C4, C3, CH50 #### [facility] , pH (U) 6.5 [pH] Normal 5.0-9.0 [facility] Comment on above: Order Comment: Name Collection Type:: Clean-Voided Midstream Performed By: #### E SR, CMP, ADDONUAPLUS, CBC #### [address] #### C4, C3, CH50 #### [facility] , Protein,Urine Negative Normal Negative [facility] Comment on above: Order Comment: Name Collection Type:: Clean-Voided Midstream Performed By: #### E SR, CMP, ADDONUAPLUS, CBC #### [address] #### C4, C3, CH50 #### [facility] , RBC LM.HPF (Urine sed) [#/Area] 0 /[HPF] Normal 0-4 [facility] Comment on above: Order Comment: Name Collection Type:: Clean-Voided Midstream Performed By: #### E SR, CMP, ADDONUAPLUS, CBC #### [address] #### C4, C3, CH50 #### [facility] , Specificy [place],Urine 1.011 Normal 1.001-1.030 [facility] Comment on above: Order Comment: Name Collection Type:: Clean-Voided Midstream Performed By: #### E SR, CMP, ADDONUAPLUS, CBC #### [place] [address] [place] #### C4, C3, CH50 #### [facility] , Squamous Epithelial Cell,Urine None Seen Normal 0-2 [facility] Comment on above: Order Comment: Name Collection Type:: Clean-Voided Midstream Performed By: #### E SR, CMP, ADDONUAPLUS, CBC #### [facility] [address] [place] [address] #### C4, C3, CH50 #### [facility] , Urobilinogen,Urine Normal Normal Normal [facility] Comment on above: Order Comment: Name Collection Type:: Clean-Voided Midstream Performed By: #### E SR, CMP, ADDONUAPLUS, CBC #### [facility] [address] [place] [address] #### C4, C3, CH50 #### [facility] , WBC LM.HPF (Urine sed) [#/Area] 0 /[HPF] Normal 0-4 [facility] Comment on above: Order Comment: Name Collection Type:: Clean-Voided Midstream Performed By: #### E SR, CMP, ADDONUAPLUS, CBC #### [facility] [address] [place] [address] #### C4, C3, CH50 #### [facility] , Eosinophils Auto (Bld) [#/Vo l]Ordered By: Endy Abreu on 05-30-2023 Eosinophils (Bld) [#/Vol] 0.0 10*3/uL 0.0-0.45 [facility] Eosinophils/100 WBC Auto (Bl d)Ordered By: Endy Abreu on 05-30-2023 Eosinophils/100 WBC (Bld) 0.6 % . [facility] Erythrocyte Sedimentation Ra sid 05-30-2023 ESR (Bld) [Velocity] 16 mm/h Normal 0-29 [facility] Comment on above: Result Comment: PERF ORMED BY: [place] [address] PATHOLOGIST ORDNANCE ARTIFICER ALTHEA BARRAGAN M.D. Performed By: #### E SR, CMP, ADDONUAPLUS, CBC #### [facility] [address] #### C4, C3, CH50 #### [facility] , Erythrocyte distribution wid th Auto (RBC) [Ratio]Ordered By: Endy Abreu on 05-30-2023 Erythrocyte distribution width (RBC) [Ratio] 13.8 % 11.9-15.3 [facility] Erythrocyte sedimentation ra te by Photometric methodOrdered By: Endy Abreu on 05-30-2023 ESR Photometric method (Bld) [Velocity] 16 mm/hr 0-29 [facility] Globulin Calc (S) [Mass/Vol] Ordered By: Endy Abreu on 05-30-2023 Globulin (S) [Mass/Vol] 2.4 g/dL [facility] Glucose [Mass/volume] in Ser um or PlasmaOrdered By: Endy Abreu on 05-30-2023 Glucose [Mass/Vol] 123 mg/dL 70-100 [facility] Comment on above: ADA recommended refe rence rangeRandom Glucose Reference Range is dependent on time and content of last meal. Glucose of more than 200 mg/dL in a nonstressed, ambulatory subject supports the diagnosis of Diabetes Mellitus. Hematocrit Auto (Bld) [Volum e fraction]Ordered By: Endy Abreu on 05-30-2023 Hematocrit (Bld) [Volume fraction] 36.4 % 34.0-46.4 [facility] Hemoglobin [Mass/volume] in BloodOrdered By: Endy Abreu on 05-30-2023 Hemoglobin (Bld) [Mass/Vol] 12.3 g/dL 11.8-15.4 [facility] Ketones Auto test strip (U) [Mass/Vol]Ordered By: Endy Abreu on 05-30-2023 Ketones (U) [Mass/Vol] Negative Negative [facility] - UrinalysisOrder ed By: Endy Abreu on 05-30-2023 Hyaline casts LM Ql (Urine sed) None seen [LPF] 0-8 [facility] Leukocytes [#/volume] correc leonor for nucleated erythrocytes in Blood by Automated counOrdered By: Endy Abreu on 05-30-2023 WBC corrected for nucl RBC Auto (Bld) [#/Vol] 8.1 10*3/uL 3.8-11.6 [facility] Lymphocytes Auto (Bld) [#/Vo l]Ordered By: Endy Abreu on 05-30-2023 Lymphocytes (Bld) [#/Vol] 2.4 10*3/uL 1.00-4.8 [facility] Lymphocytes/100 WBC Auto (Bl d)Ordered By: Endy Abreu on 05-30-2023 Lymphocytes/100 WBC (Bld) 29.2 % . [facility] MCH Auto (RBC) [Entitic mass ]Ordered By: Endy Abreu on 05-30-2023 MCH (RBC) [Entitic mass] 31.0 pg 24.7-34.3 [facility] MCHC Auto (RBC) [Mass/Vol]Or dered By: Endy Abreu on 05-30-2023 MCHC (RBC) [Mass/Vol] 33.8 g/dL 32.0-35.0 [facility] MCV Auto (RBC) [Entitic vol] Ordered By: Endy Abreu on 05-30-2023 MCV (RBC) [Entitic vol] 91.5 fL 80-100 [facility] Monocytes Auto (Bld) [#/Vol] Ordered By: Endy Abreu on 05-30-2023 Monocytes (Bld) [#/Vol] 0.5 10*3/uL 0.0-0.8 [facility] Monocytes/100 WBC Auto (Bld) Ordered By: Endy Abrue on 05-30-2023 Monocytes/100 WBC (Bld) 6.2 % . [facility] Neutrophils Auto (Bld) [#/Vo l]Ordered By: Endy Abreu on 05-30-2023 Neutrophils (Bld) [#/Vol] 5.1 10*3/uL 1.8-7.7 [facility] Neutrophils/100 WBC Auto (Bl d)Ordered By: Endy Abreu on 05-30-2023 Neutrophils/100 WBC (Bld) 62.9 % . [facility] Nitrite Test strip Ql (U)Ord ered By: Endy Abreu on 05-30-2023 Nitrite Ql (U) Negative Negative [facility] No Panel InformationOrdered By: Endy Abreu on 05-30-2023 Estimated GFR (CKD-EPI) > 60.0 mL/Min [facility] Creatinine Clearance (Chem N/A [facility] Nucleated erythrocytes [Pres ence] in Blood by Automated countOrdered By: Endy Abreu on 05-30-2023 Nucleated RBC Auto Ql (Bld) 0.0 /100{WBC} 0-0.5 [facility] Platelet mean volume Auto (B ld) [Entitic vol]Ordered By: Endy Abreu on 05-30-2023 Platelet mean volume (Bld) [Entitic vol] 7.4 fL 6.3-10.7 [facility] Platelets Auto (Bld) [#/Vol] Ordered By: Endy Abreu on 05-30-2023 Platelets (Bld) [#/Vol] 461 10*3/uL 150-450 [facility] Potassium [Moles/volume] in Serum or PlasmaOrdered By: Endy Abreu on 05-30-2023 Potassium [Moles/Vol] 4.1 mmol/L 3.5-5.1 [facility] Protein Auto test strip (U) [Mass/Vol]Ordered By: Endy Abreu on 05-30-2023 Protein (U) [Mass/Vol] Negative Negative [facility] Protein [Mass/volume] in Ser um or PlasmaOrdered By: Endy Abreu on 05-30-2023 Protein [Mass/Vol] 6.6 g/dL 6.4-8.9 [facility] RBC Auto (Bld) [#/Vol]Ordere d By: Endy Abreu on 05-30-2023 RBC (Bld) [#/Vol] 3.97 10*6/uL 3.60-5.00 [facility] Serum or plasma albumin/glob ulin mass ratioOrdered By: Endy Abreu on 05-30-2023 Albumin/Globulin [Mass ratio] 1.8 {ratio} [facility] Serum or plasma anion gap de terminationOrdered By: Endy Abreu on 05-30-2023 Anion gap [Moles/Vol] 12.2 mmol/L 6.0-15.0 [facility] Sodium [Moles/volume] in Ser um or PlasmaOrdered By: Endy Abreu on 05-30-2023 Sodium [Moles/Vol] 133 mmol/L 136-145 [facility] Specific gravity Auto test s trip (U) [Rel density]Ordered By: Endy Abreu on 05-30-2023 Specific gravity (U) [Rel density] 1.011 1.001-1.030 [facility] Squamous epithelial cells de tection in urine sediment by light microscopyOrdered By: Endy Abreu on 05-30-2023 Epithelial cells.squamous LM Ql (Urine sed) None seen [HPF] 0-2 [facility] Urea nitrogen [Mass/volume] in Serum or PlasmaOrdered By: Endy Abreu on 05-30-2023 Urea nitrogen [Mass/Vol] 20 mg/dL 7-25 [facility] Urine bacteria detection by automated methodOrdered By: Endy Abreu on 05-30-2023 Bacteria Auto Ql (U) None seen None Seen [facility] Urine clarity by refractomet ry automatedOrdered By: Endy Abreu on 05-30-2023 Clarity Refractometry automated (U) Clear Clear [facility] Urine glucose measurement by automated test strip (mass/volume)Ordered By: Endy Abreu on 05-30-2023 Glucose Auto test strip (U) [Mass/Vol] Normal mg/dL Normal [facility] Urine hemoglobin detection b y automated test stripOrdered By: Endy Abreu on 05-30-2023 Hemoglobin Auto test strip Ql (U) Negative Negative [facility] Urine leukocyte esterase det ection by automated test stripOrdered By: Endy Abreu on 05-30-2023 Leukocyte esterase Auto test strip Ql (U) Negative Negative [facility] Urobilinogen Auto test strip (U) [Mass/Vol]Ordered By: Endy Abreu on 05-30-2023 Urobilinogen (U) [Mass/Vol] Normal mg/dL Normal [facility] WBC Auto (Bld) [#/Vol]Ordere d By: Endy Abreu on 05-30-2023 WBC (Bld) [#/Vol] 8.1 10*3/uL 3.8-11.6 [facility] pH Auto test strip (U)Ordere d By: Endy Abreu on 05-30-2023 pH (U) 6.5 [pH] 5.0-9.0 [facility] BI MAMMOGRAM SCREENING TOMOS YNTHESIS BILATERALon 05-02-2023 BI MAMMOGRAM SCREENING TOMOSYNTHESIS BILATERAL This is a summary report. The complete report is available in the patient's medical record. If you cannot access the medical record, please contact the sending organization for a detailed fax or copy. EXAMINATION: BI MAMMOGRAM SCREENING TOMOSYNTHESIS BILATERAL CLINICAL HISTORY: screening COMPARISON: May 01, 2022 . RESULT: Digital mammography and 3D tomosynthesis of bilateral breasts was performed. There are scattered areas of fibroglandular density. There is no suspicious mass, asymmetry, architectural distortion, or calcification. Typically benign calcifications. Overall appearance stable. IMPRESSION: BIRADS 2 - Benign. Follow-up: Routine Screening Mamm . Board Certified Radiologists. Accredited by the ACR and FDA. MAMMOGRAPHY IS VERY IMPORTANT TO YOUR HEALTH. THE [employer] [employer] GUIDELINES RECOMMEND THAT WOMEN 40 YEARS OF AGE AND OLDER SHOULD HAVE A MAMMOGRAM EVERY YEAR. A REMINDER LETTER WILL BE SENT AT THE APPROPRIATE TIME. THIS FACILITY UTILIZES A REMINDER SYSTEM TO ENSURE ALL PATIENTS RECEIVE REMINDER NOTIFICATIONS AT THE APPROPRIATE TIME BASED ON THE RECOMMENDATIONS OF THIS EXAM. THIS INCLUDES REMINDERS FOR ROUTINE SCREENING MAMMOGRAMS, DIAGNOSTIC MAMMOGRAMS IN WHICH THE PATIENT IS ASKED TO RETURN FOR ADDITIONAL VIEWS, OR OTHER BREAST IMAGING INTERVENTIONS WHEN APPROPRIATE. THE PATIENT WILL BE PLACED IN THE APPROPRIATE REMINDER SYSTEM INCLUDING A REMINDER AT THE APPROPRIATE TIME FOR ANY PENDING ADDITIONAL VIEWS. TRANSCRIBED BY: ELECTRONICALLY SIGNED BY: Atul Bentley MD Normal Not Available DEXA BONE DENSITYon 03-19-20 DEXA BONE DENSITY DEXA BONE DENSITY : 03/19/2023 12:32 PM CLINICAL HISTORY: Hx of osteopenia COMPARISON: February 19, 2020. TECHNIQUE: The lumbar spine and left forearm were scanned. FINDINGS: The mean bone mineral density from L1 through L4 is 0.94, and the T-score is -1, which is the standard deviation below the standard reference value for young adult. The densitometry trend: L1-L4: 1.2% BMD change versus previous Bone mineral density of the mid one third forearm is 0.636 and the T-score is -0.8, which is the standard deviation below the standard reference value for young adult. These values are within the normal range. The NOF/ISD guideline recommended FRAX for patients if the lowest T score for Spine(L1-L4), Femur Neck or Femur Total indicates low bone density (T score -1 to -2.5, osteopenia). IMPRESSION: NORMAL BONE MINERAL DENSITY. RECOMMENDATIONS: !. All patients should optimize their calcium and Vitamin D intake. 2. Consider FDA approved medical therapies in Postmenopausal women and men aged 50 and older, based on the following: -A hip or vertebral (clinical or morphometric) fracture -T-score less than or equal to -2.5 at the femoral neck or spine after appropriate evaluation to exclude secondary causes -Low bone density (T-score between -1.0 and -2.5 at the femoral neck or spine) and a 10 year probability of a hip fracture greater than or equal to 3% or a 10 year probability of a major osteoporosis-relate d fracture greater than or equal to 20% based on FRAX calculation. -Clinical judgment and/or patient preferences may indicate treatment for people with 10-year facture probabilities above or below these levels -Further guidance on treatment can be found at the National Osteoporosis Foundation's website: bonesource.org. 3. Patient's with diagnosis of osteoporosis or at high risk for fracture should have regular bone mineral density tests. For patients eligible for Medicare, routine testing is allowed once every 2 years. The testing frequency can be increased to one year for patients who have rapidly progressing disease, those who are receiving or discontinuing medical therapy to restore bone mass or have additional risk factors. ELECTRONICALLY SIGNED BY: Joshua Calle, DO Normal Not Available Alanine aminotransferase [En zymatic activity/volume] in Serum or PlasmaOrdered By: Endy Abreu on 01-18-2023 ALT [Catalytic activity/Vol] 25 U/L [facility] Albumin [Mass/volume] in Ser um or Plasma by Bromocresol green (BCG) dye binding methoOrdered By: Endy Abreu on 01-18-2023 Albumin BCG dye [Mass/Vol] 4.0 g/dL 3.5-5.7 [facility] Alkaline phosphatase [Enzyma tic activity/volume] in Serum or PlasmaOrdered By: Endy Abreu on 01-18-2023 ALP [Catalytic activity/Vol] 100 U/L 34-104 [facility] Aspartate aminotransferase [ Enzymatic activity/volume] in Serum or PlasmaOrdered By: Endy Abreu on 01-18-2023 AST [Catalytic activity/Vol] 29 U/L 13-39 [facility] Automated erythrocytes count in urine sediment (number/area)Ordered By: Endy Abreu on 01-18-2023 RBC Auto (Urine sed) [#/Area] 3-4 [HPF] 0-4 [facility] Automated leukocytes count i n urine sediment (number/area)Ordered By: Endy Abreu on 01-18-2023 WBC Auto (Urine sed) [#/Area] 10-19 [HPF] 0-4 [facility] Basophils Auto (Bld) [#/Vol] Ordered By: Endy Abreu on 01-18-2023 Basophils (Bld) [#/Vol] 0.1 10*3/uL 0.0-0.2 [facility] Basophils/100 WBC Auto (Bld) Ordered By: Endy Abreu on 01-18-2023 Basophils/100 WBC (Bld) 1.3 % . [facility] Bilirubin Test strip Ql (U)O rdered By: Endy Abreu on 01-18-2023 Bilirubin Ql (U) Negative Negative [facility] Bilirubin.total [Mass/volume ] in Serum or PlasmaOrdered By: Endy Abreu on 01-18-2023 Bilirubin [Mass/Vol] 0.4 mg/dL 0.3-1.0 [facility] Calcium [Mass/volume] in Ser um or PlasmaOrdered By: Endy Abreu on 01-18-2023 Calcium [Mass/Vol] 9.9 mg/dL 8.6-10.3 [facility] Carbon dioxide, total [Moles /volume] in Serum or PlasmaOrdered By: Endy Abreu on 01-18-2023 CO2 [Moles/Vol] 30.4 mmol/L 21.0-31.0 [facility] Chloride [Moles/volume] in S mary ellen or PlasmaOrdered By: Endy Abreu on 01-18-2023 Chloride [Moles/Vol] 101 mmol/L 98-107 [facility] Color Auto (U)Ordered By: Ngoc rai Abreu on 01-18-2023 Color (U) Yellow Yellow [facility] Complement C3on 01-18-2023 Complement C3 160 mg/dL Normal 82-167 [facility] Comment on above: Result Comment: Perf ormed at: [facility] [address] [id number] Deputy Chief Magistrate: Marvel Barahona PhD, Phone: [phone] Performed By: #### E SR, CMP, ADDONUAPLUS, CBC #### [address] #### C4, C3, CH50 #### [facility] , Complement C4on 01-18-2023 Complement C4 32 mg/dL Normal 12-38 [facility] Comment on above: Result Comment: PERF ORMED BY: [place] [address] PATHOLOGIST ORDNANCE ARTIFICER ALTHEA BARRAGAN M.D. Performed By: #### E SR, CMP, ADDONUAPLUS, CBC #### [address] #### C4, C3, CH50 #### [facility] , Complement Total (CH50)on Complement Total (CH50) >60 Normal >41 [facility] Comment on above: Result Comment: Age Male Female 1 - 30 days Not Estab. Not Estab. 31 days - 6 months >32 >20 7 months - 17 years >39 >39 >17 years >41 >41 NOTE: The adult ( >17 years ) reference interval range is used to flag abnormals on this report. If the patient is 17 years old or younger, use the table above to determine out of range values. Performed at: [facility] [id number] Deputy Chief Magistrate: Marvel Barahona PhD, Phone: [phone] PERFORMED BY: [place] [address] PATHOLOGIST ORDNANCE ARTIFICER ALTHEA BARRAGAN M.D. Performed By: #### E SR, CMP, ADDONUAPLUS, CBC #### [place] [address] [place] #### C4, C3, CH50 #### [facility] , Complete Blood Count Auto Di ffon 01-18-2023 Basophils (Bld) [#/Vol] 0.1 10*3/uL Normal 0.0-0.2 [facility] Comment on above: Performed By: #### E SR, CMP, CUU, ADDONUAPLUS, CBC #### [address] #### C4, C3, CH50 #### [facility] , Basophils/100 WBC (Bld) 1.3 % Normal . [facility] Comment on above: Performed By: #### E SR, CMP, CUU, ADDONUAPLUS, CBC #### [place] [address] [place] #### C4, C3, CH50 #### [facility] , Eosinophils (Bld) [#/Vol] 0.1 10*3/uL Normal 0.0-0.45 [facility] Comment on above: Performed By: #### E SR, CMP, CUU, ADDONUAPLUS, CBC #### [place] [address] [place] #### C4, C3, CH50 #### [facility] , Eosinophils/100 WBC (Bld) 2.1 % Normal . [facility] Comment on above: Performed By: #### E SR, CMP, CUU, ADDONUAPLUS, CBC #### [place] [address] [place] #### C4, C3, CH50 #### [facility] , Erythrocyte distribution width (RBC) [Ratio] 13.2 % Normal 11.9-15.3 [facility] Comment on above: Performed By: #### E SR, CMP, CUU, ADDONUAPLUS, CBC #### [address] #### C4, C3, CH50 #### [facility] , Hematocrit (Bld) [Volume fraction] 37.1 % Normal 34.0-46.4 [facility] Comment on above: Performed By: #### E SR, CMP, CUU, ADDONUAPLUS, CBC #### [address] #### C4, C3, CH50 #### [facility] , Hemoglobin (Bld) [Mass/Vol] 12.4 g/dL Normal 11.8-15.4 [facility] Comment on above: Performed By: #### E SR, CMP, CUU, ADDONUAPLUS, CBC #### [address] #### C4, C3, CH50 #### [facility] , Lymphocytes (Bld) [#/Vol] 1.4 10*3/uL Normal 1.00-4.8 [facility] Comment on above: Performed By: #### E SR, CMP, CUU, ADDONUAPLUS, CBC #### [place] [address] [place] #### C4, C3, CH50 #### [facility] , Lymphocytes/100 WBC (Bld) 26.3 % Normal . [facility] Comment on above: Performed By: #### E SR, CMP, CUU, ADDONUAPLUS, CBC #### [address] #### C4, C3, CH50 #### [facility] , MCH (RBC) [Entitic mass] 31.0 pg Normal 24.7-34.3 [facility] Comment on above: Performed By: #### E SR, CMP, CUU, ADDONUAPLUS, CBC #### [place] [address] [place] #### C4, C3, CH50 #### [facility] , MCV (RBC) [Entitic vol] 92.6 fL Normal 80-100 [facility] Comment on above: Performed By: #### E SR, CMP, CUU, ADDONUAPLUS, CBC #### [address] #### C4, C3, CH50 #### [facility] , Mean Corpuscular HGB Conc 33.5 g/dL Normal 32.0-35.0 [facility] Comment on above: Performed By: #### E SR, CMP, CUU, ADDONUAPLUS, CBC #### [address] #### C4, C3, CH50 #### [facility] , Monocytes (Bld) [#/Vol] 0.4 10*3/uL Normal 0.0-0.8 [facility] Comment on above: Performed By: #### E SR, CMP, CUU, ADDONUAPLUS, CBC #### [place] [address] [place] #### C4, C3, CH50 #### [facility] , Monocytes/100 WBC (Bld) 8.1 % Normal . [facility] Comment on above: Performed By: #### E SR, CMP, CUU, ADDONUAPLUS, CBC #### [place] [address] [place] #### C4, C3, CH50 #### [facility] , Neutrophils (Bld) [#/Vol] 3.4 10*3/uL Normal 1.8-7.7 [facility] Comment on above: Performed By: #### E SR, CMP, CUU, ADDONUAPLUS, CBC #### [place] [address] [place] #### C4, C3, CH50 #### [facility] , Neutrophils/100 WBC (Bld) 62.2 % Normal . [facility] Comment on above: Performed By: #### E SR, CMP, CUU, ADDONUAPLUS, CBC #### [place] [address] [place] #### C4, C3, CH50 #### [facility] , NRBC% 0.1 /100{WBC} Normal 0-0.5 [facility] Comment on above: Performed By: #### E SR, CMP, CUU, ADDONUAPLUS, CBC #### [place] [address] [place] #### C4, C3, CH50 #### [facility] , Platelet mean volume (Bld) [Entitic vol] 7.5 fL Normal 6.3-10.7 [facility] Comment on above: Performed By: #### E SR, CMP, CUU, ADDONUAPLUS, CBC #### [place] [address] [place] #### C4, C3, CH50 #### [facility] , Platelets (Bld) [#/Vol] 377 10*3/uL Normal 150-450 [facility] Comment on above: Performed By: #### E SR, CMP, CUU, ADDONUAPLUS, CBC #### [facility] [address] [place] [address] [place] #### C4, C3, CH50 #### [facility] , RBC (Bld) [#/Vol] 4.01 10*6/uL Normal 3.60-5.00 [facility] Comment on above: Performed By: #### E SR, CMP, CUU, ADDONUAPLUS, CBC #### [address] #### C4, C3, CH50 #### [facility] , WBC (Bld) [#/Vol] 5.4 10*3/uL Normal 3.8-11.6 [facility] Comment on above: Performed By: #### E SR, CMP, CUU, ADDONUAPLUS, CBC #### [facility] [address] [place] [address] #### C4, C3, CH50 #### [facility] , Comprehensive Metabolic Pane chema 01-18-2023 Albumin [Mass/Vol] 4.0 g/dL Normal 3.5-5.7 [facility] Comment on above: Performed By: #### E SR, CMP, ADDONUAPLUS, CBC #### [facility] [address] [place] [address] #### C4, C3, CH50 #### [facility] , Albumin/Globulin [Mass ratio] 1.6 {ratio} Normal [facility] Comment on above: Performed By: #### E SR, CMP, ADDONUAPLUS, CBC #### [address] #### C4, C3, CH50 #### [facility] , ALP [Catalytic activity/Vol] 100 U/L Normal 34-104 [facility] Comment on above: Result Comment: PERF ORMED BY: [place] [address] PATHOLOGIST ORDNANCE ARTIFICER ALTHEA BARRAGAN M.D. Performed By: #### E SR, CMP, ADDONUAPLUS, CBC #### [place] [address] [place] #### C4, C3, CH50 #### [facility] , ALT [Catalytic activity/Vol] 25 U/L Normal 7-52 [facility] Comment on above: Performed By: #### E SR, CMP, ADDONUAPLUS, CBC #### [facility] [address] [place] [address] [place] #### C4, C3, CH50 #### [facility] , Anion gap [Moles/Vol] 9.5 mmol/L Normal 6.0-15.0 [facility] Comment on above: Performed By: #### E SR, CMP, ADDONUAPLUS, CBC #### [facility] [address] [place] [address] [place] #### C4, C3, CH50 #### [facility] , AST [Catalytic activity/Vol] 29 U/L Normal 13-39 [facility] Comment on above: Performed By: #### E SR, CMP, ADDONUAPLUS, CBC #### [facility] [address] [place] [address] #### C4, C3, CH50 #### [facility] , Bilirubin [Mass/Vol] 0.4 mg/dL Normal 0.3-1.0 [facility] Comment on above: Performed By: #### E SR, CMP, ADDONUAPLUS, CBC #### [facility] [address] [place] [address] [place] #### C4, C3, CH50 #### [facility] , Calcium [Mass/Vol] 9.9 mg/dL Normal 8.6-10.3 [facility] Comment on above: Performed By: #### E SR, CMP, ADDONUAPLUS, CBC #### [facility] [address] [place] [address] [place] #### C4, C3, CH50 #### [facility] , Chloride [Moles/Vol] 101 mmol/L Normal 98-107 [facility] Comment on above: Performed By: #### E SR, CMP, ADDONUAPLUS, CBC #### [facility] [address] [place] [address] [place] #### C4, C3, CH50 #### [facility] , CO2 [Moles/Vol] 30.4 mmol/L Normal 21.0-31.0 [facility] Comment on above: Performed By: #### E SR, CMP, ADDONUAPLUS, CBC #### [place] [address] [place] #### C4, C3, CH50 #### [facility] , Creatinine [Mass/Vol] 0.83 mg/dL Normal 0.60-1.20 [facility] Comment on above: Performed By: #### E SR, CMP, ADDONUAPLUS, CBC #### [place] [address] [place] #### C4, C3, CH50 #### [facility] , GFR/1.73 sq M.predicted MDRD (S/P/Bld) [Vol rate/Area] mL/min/{1.73_m2} [facility] Comment on above: Performed By: #### E SR, CMP, ADDONUAPLUS, CBC #### [place] [address] [place] #### C4, C3, CH50 #### [facility] , Globulin (S) [Mass/Vol] 2.5 g/dL Normal [facility] Comment on above: Performed By: #### E SR, CMP, ADDONUAPLUS, CBC #### [facility] [address] [place] [address] [place] #### C4, C3, CH50 #### [facility] , Glucose [Mass/Vol] 94 mg/dL Normal 70-100 [facility] Comment on above: Result Comment: [place] Glucose Reference Range is dependent on time and content of last meal. Glucose of more than 200 mg/dL in a nonstressed, ambulatory subject supports the diagnosis of Diabetes Mellitus. ADA recommended reference range Performed By: #### E SR, CMP, ADDONUAPLUS, CBC #### [address] [place] [address] [place] #### C4, C3, CH50 #### [facility] , Potassium [Moles/Vol] 4.9 mmol/L Normal 3.5-5.1 [facility] Comment on above: Performed By: #### E SR, CMP, ADDONUAPLUS, CBC #### [facility] [address] [place] [address] [place] #### C4, C3, CH50 #### [facility] , Protein [Mass/Vol] 6.5 g/dL Normal 6.4-8.9 [facility] Comment on above: Performed By: #### E SR, CMP, ADDONUAPLUS, CBC #### [facility] [address] [place] [address] [place] #### C4, C3, CH50 #### [facility] , Sodium [Moles/Vol] 136 mmol/L Normal 136-145 [facility] Comment on above: Performed By: #### E SR, CMP, ADDONUAPLUS, CBC #### [facility] [address] [place] [address] [place] #### C4, C3, CH50 #### [facility] , Urea nitrogen [Mass/Vol] 22 mg/dL Normal 7-25 [facility] Comment on above: Performed By: #### E SR, CMP, ADDONUAPLUS, CBC #### [facility] [address] [place] [address] [place] #### C4, C3, CH50 #### [facility] , Creatinine [Mass/volume] in Serum or PlasmaOrdered By: Endy Abreu on 01-18-2023 Creatinine [Mass/Vol] 0.83 mg/dL 0.60-1.20 [facility] Dipstick and Microscopicon 0 01-18-2023 Appearance (U) Clear Normal Clear [facility] Comment on above: Order Comment: Name Collection Type:: Clean-Voided Midstream Performed By: #### E SR, CMP, CUU, ADDONUAPLUS, CBC #### [facility] [address] [place] [address] #### C4, C3, CH50 #### [facility] , Bacteria,Urine 1+ High None Seen [facility] Comment on above: Order Comment: Name Collection Type:: Clean-Voided Midstream Performed By: #### E SR, CMP, CUU, ADDONUAPLUS, CBC #### [facility] [address] [place] [address] #### C4, C3, CH50 #### [facility] , Bilirubin,Urine Negative Normal Negative [facility] Comment on above: Order Comment: Name Collection Type:: Clean-Voided Midstream Performed By: #### E SR, CMP, CUU, ADDONUAPLUS, CBC #### [address] #### C4, C3, CH50 #### [facility] , Color (U) Yellow Normal Yellow [facility] Comment on above: Order Comment: Name Collection Type:: Clean-Voided Midstream Performed By: #### E SR, CMP, CUU, ADDONUAPLUS, CBC #### [facility] [address] [place] [address] #### C4, C3, CH50 #### [facility] , Glucose Ql (U) Normal Normal Normal [facility] Comment on above: Order Comment: Name Collection Type:: Clean-Voided Midstream Performed By: #### E SR, CMP, CUU, ADDONUAPLUS, CBC #### [facility] [address] [place] [address] [place] #### C4, C3, CH50 #### [facility] , Hyaline Casts,Urine 0-8 Normal 0-8 [facility] Comment on above: Order Comment: Name Collection Type:: Clean-Voided Midstream Result Comment: PERF ORMED BY: [place] [address] PATHOLOGIST ORDNANCE ARTIFICER ALTHEA BARRAGAN M.D. Performed By: #### E SR, CMP, CUU, ADDONUAPLUS, CBC #### [address] #### C4, C3, CH50 #### [facility] , Ketones Ql (U) Negative Normal Negative [facility] Comment on above: Order Comment: Name Collection Type:: Clean-Voided Midstream Performed By: #### E SR, CMP, CUU, ADDONUAPLUS, CBC #### [address] #### C4, C3, CH50 #### [facility] , Leukocyte esterase Test strip Ql (U) 3+ High Negative [facility] Comment on above: Order Comment: Name Collection Type:: Clean-Voided Midstream Performed By: #### E SR, CMP, CUU, ADDONUAPLUS, CBC #### [address] #### C4, C3, CH50 #### [facility] , Nitrite,Urine Negative Normal Negative [facility] Comment on above: Order Comment: Name Collection Type:: Clean-Voided Midstream Performed By: #### E SR, CMP, CUU, ADDONUAPLUS, CBC #### [address] #### C4, C3, CH50 #### [facility] , Occult Blood,Urine Negative Normal Negative [facility] Comment on above: Order Comment: Name Collection Type:: Clean-Voided Midstream Performed By: #### E SR, CMP, CUU, ADDONUAPLUS, CBC #### [address] #### C4, C3, CH50 #### [facility] , pH (U) 6.0 [pH] Normal 5.0-9.0 [facility] Comment on above: Order Comment: Name Collection Type:: Clean-Voided Midstream Performed By: #### E SR, CMP, CUU, ADDONUAPLUS, CBC #### [address] #### C4, C3, CH50 #### [facility] , Protein,Urine Trace High Negative [facility] Comment on above: Order Comment: Name Collection Type:: Clean-Voided Midstream Performed By: #### E SR, CMP, CUU, ADDONUAPLUS, CBC #### [address] #### C4, C3, CH50 #### [facility] , RBC,Urine 3-4 Normal 0-4 [facility] Comment on above: Order Comment: Name Collection Type:: Clean-Voided Midstream Performed By: #### E SR, CMP, CUU, ADDONUAPLUS, CBC #### [address] #### C4, C3, CH50 #### [facility] , Specificy [place],Urine 1.023 Normal 1.001-1.030 [facility] Comment on above: Order Comment: Name Collection Type:: Clean-Voided Midstream Performed By: #### E SR, CMP, CUU, ADDONUAPLUS, CBC #### [facility] [address] [place] [address] [place] #### C4, C3, CH50 #### [facility] , Squamous Epithelial Cell,Urine 3-4 High 0-2 [facility] Comment on above: Order Comment: Name Collection Type:: Clean-Voided Midstream Performed By: #### E SR, CMP, CUU, ADDONUAPLUS, CBC #### [address] #### C4, C3, CH50 #### [facility] , Urobilinogen,Urine Normal Normal Normal [facility] Comment on above: Order Comment: Name Collection Type:: Clean-Voided Midstream Performed By: #### E SR, CMP, CUU, ADDONUAPLUS, CBC #### [facility] [address] [place] [address] #### C4, C3, CH50 #### [facility] , WBC,Urine 10-19 High 0-4 [facility] Comment on above: Order Comment: Name Collection Type:: Clean-Voided Midstream Performed By: #### E SR, CMP, CUU, ADDONUAPLUS, CBC #### [facility] [address] [place] [address] #### C4, C3, CH50 #### [facility] , Eosinophils Auto (Bld) [#/Vo l]Ordered By: Endy Abreu on 01-18-2023 Eosinophils (Bld) [#/Vol] 0.1 10*3/uL 0.0-0.45 [facility] Eosinophils/100 WBC Auto (Bl d)Ordered By: Endy Abreu on 01-18-2023 Eosinophils/100 WBC (Bld) 2.1 % . [facility] Erythrocyte Sedimentation Ra sid 01-18-2023 ESR (Bld) [Velocity] 10 mm/h Normal 0-29 [facility] Comment on above: Result Comment: PERF ORMED BY: [place] [address] PATHOLOGIST ORDNANCE ARTIFICER ALTHEA BARRAGAN M.D. Performed By: #### E SR, CMP, CUU, ADDONUAPLUS, CBC #### [facility] [address] [place] [address] #### C4, C3, CH50 #### [facility] , Erythrocyte distribution wid th Auto (RBC) [Ratio]Ordered By: Endy Abreu on 01-18-2023 Erythrocyte distribution width (RBC) [Ratio] 13.2 % 11.9-15.3 [facility] Erythrocyte sedimentation ra te by Photometric methodOrdered By: Endy Abreu on 01-18-2023 ESR Photometric method (Bld) [Velocity] 10 mm/hr 0-29 [facility] Globulin Calc (S) [Mass/Vol] Ordered By: Endy Abreu on 01-18-2023 Globulin (S) [Mass/Vol] 2.5 g/dL [facility] Glucose [Mass/volume] in Ser um or PlasmaOrdered By: Endy Abreu on 01-18-2023 Glucose [Mass/Vol] 94 mg/dL 70-100 [facility] Comment on above: ADA recommended refe rence rangeRandom Glucose Reference Range is dependent on time and content of last meal. Glucose of more than 200 mg/dL in a nonstressed, ambulatory subject supports the diagnosis of Diabetes Mellitus. Hematocrit Auto (Bld) [Volum e fraction]Ordered By: Endy Abreu on 01-18-2023 Hematocrit (Bld) [Volume fraction] 37.1 % 34.0-46.4 [facility] Hemoglobin [Mass/volume] in BloodOrdered By: Endy Abreu on 01-18-2023 Hemoglobin (Bld) [Mass/Vol] 12.4 g/dL 11.8-15.4 [facility] Ketones Auto test strip (U) [Mass/Vol]Ordered By: Endy Abreu on 01-18-2023 Ketones (U) [Mass/Vol] Negative Negative [facility] - UrinalysisOrder ed By: Endy Abreu on 01-18-2023 Hyaline casts LM Ql (Urine sed) 0-8 [LPF] 0-8 [facility] Leukocytes [#/volume] correc leonor for nucleated erythrocytes in Blood by Automated counOrdered By: Endy Abreu on 01-18-2023 WBC corrected for nucl RBC Auto (Bld) [#/Vol] 5.4 10*3/uL 3.8-11.6 [facility] Lymphocytes Auto (Bld) [#/Vo l]Ordered By: Endy Abreu on 01-18-2023 Lymphocytes (Bld) [#/Vol] 1.4 10*3/uL 1.00-4.8 [facility] Lymphocytes/100 WBC Auto (Bl d)Ordered By: Endy Abreu on 01-18-2023 Lymphocytes/100 WBC (Bld) 26.3 % . [facility] MCH Auto (RBC) [Entitic mass ]Ordered By: Endy Abreu on 01-18-2023 MCH (RBC) [Entitic mass] 31.0 pg 24.7-34.3 [facility] MCHC Auto (RBC) [Mass/Vol]Or dered By: Endy Abreu on 01-18-2023 MCHC (RBC) [Mass/Vol] 33.5 g/dL 32.0-35.0 [facility] MCV Auto (RBC) [Entitic vol] Ordered By: Endy Abreu on 01-18-2023 MCV (RBC) [Entitic vol] 92.6 fL 80-100 [facility] Monocytes Auto (Bld) [#/Vol] Ordered By: Endy Abreu on 01-18-2023 Monocytes (Bld) [#/Vol] 0.4 10*3/uL 0.0-0.8 [facility] Monocytes/100 WBC Auto (Bld) Ordered By: Endy Abreu on 01-18-2023 Monocytes/100 WBC (Bld) 8.1 % . [facility] Neutrophils Auto (Bld) [#/Vo l]Ordered By: Endy Abreu on 01-18-2023 Neutrophils (Bld) [#/Vol] 3.4 10*3/uL 1.8-7.7 [facility] Neutrophils/100 WBC Auto (Bl d)Ordered By: Endy Abreu on 01-18-2023 Neutrophils/100 WBC (Bld) 62.2 % . [facility] Nitrite Test strip Ql (U)Ord ered By: Endy Abreu on 01-18-2023 Nitrite Ql (U) Negative Negative [facility] No Panel InformationOrdered By: Endy Abreu on 01-18-2023 Estimated GFR (CKD-EPI) > 60.0 mL/Min [facility] Creatinine Clearance (Chem N/A [facility] Nucleated erythrocytes [Pres ence] in Blood by Automated countOrdered By: Endy Abreu on 01-18-2023 Nucleated RBC Auto Ql (Bld) 0.1 /100{WBC} 0-0.5 [facility] Platelet mean volume Auto (B ld) [Entitic vol]Ordered By: Endy Abreu on 01-18-2023 Platelet mean volume (Bld) [Entitic vol] 7.5 fL 6.3-10.7 [facility] Platelets Auto (Bld) [#/Vol] Ordered By: Endy Abreu on 01-18-2023 Platelets (Bld) [#/Vol] 377 10*3/uL 150-450 [facility] Potassium [Moles/volume] in Serum or PlasmaOrdered By: Endy Abreu on 01-18-2023 Potassium [Moles/Vol] 4.9 mmol/L 3.5-5.1 [facility] Protein Auto test strip (U) [Mass/Vol]Ordered By: Endy Abreu on 01-18-2023 Protein (U) [Mass/Vol] Trace mg/dL Negative [facility] Protein [Mass/volume] in Ser um or PlasmaOrdered By: Endy Abreu on 01-18-2023 Protein [Mass/Vol] 6.5 g/dL 6.4-8.9 [facility] RBC Auto (Bld) [#/Vol]Ordere d By: Endy Abreu on 01-18-2023 RBC (Bld) [#/Vol] 4.01 10*6/uL 3.60-5.00 [facility] Serum or plasma albumin/glob ulin mass ratioOrdered By: Endy Abreu on 01-18-2023 Albumin/Globulin [Mass ratio] 1.6 {ratio} [facility] Serum or plasma anion gap de terminationOrdered By: Endy Abreu on 01-18-2023 Anion gap [Moles/Vol] 9.5 mmol/L 6.0-15.0 [facility] Sodium [Moles/volume] in Ser um or PlasmaOrdered By: Endy Abreu on 01-18-2023 Sodium [Moles/Vol] 136 mmol/L 136-145 [facility] Specific gravity Auto test s trip (U) [Rel density]Ordered By: Endy Abreu on 01-18-2023 Specific gravity (U) [Rel density] 1.023 1.001-1.030 [facility] Squamous epithelial cells de tection in urine sediment by light microscopyOrdered By: Endy Abreu on 01-18-2023 Epithelial cells.squamous LM Ql (Urine sed) 3-4 [HPF] 0-2 [facility] Urea nitrogen [Mass/volume] in Serum or PlasmaOrdered By: Endy Abreu on 01-18-2023 Urea nitrogen [Mass/Vol] 22 mg/dL 7-25 [facility] Urine Cultureon 01-18-2023 Bacteria identified Cx Nom (U) 15,000 colonies/ml mixed bacterial skin contaminants 2 Days PERFORMED BY: [place] [address] PATHOLOGIST ORDNANCE ARTIFICER ALTHEA BARRAGAN M.D. Normal [facility] Comment on above: Performed By: #### E SR, CMP, ADDONUAPLUS, CBC #### [place] [address] [place] #### C4, C3, CH50 #### [facility] , Urine bacteria detection by automated methodOrdered By: Endy Abreu on 01-18-2023 Bacteria Auto Ql (U) 1+ None Seen [facility] Urine clarity by refractomet ry automatedOrdered By: Endy Abreu on 01-18-2023 Clarity Refractometry automated (U) Clear Clear [facility] Urine glucose measurement by automated test strip (mass/volume)Ordered By: Endy Abreu on 01-18-2023 Glucose Auto test strip (U) [Mass/Vol] Normal mg/dL Normal [facility] Urine hemoglobin detection b y automated test stripOrdered By: Endy Abreu on 01-18-2023 Hemoglobin Auto test strip Ql (U) Negative Negative [facility] Urine leukocyte esterase det ection by automated test stripOrdered By: Endy Abreu on 01-18-2023 Leukocyte esterase Auto test strip Ql (U) 3+ Negative [facility] Urobilinogen Auto test strip (U) [Mass/Vol]Ordered By: Endy Abreu on 01-18-2023 Urobilinogen (U) [Mass/Vol] Normal mg/dL Normal [facility] WBC Auto (Bld) [#/Vol]Ordere d By: Endy Abreu on 01-18-2023 WBC (Bld) [#/Vol] 5.4 10*3/uL 3.8-11.6 [facility] pH Auto test strip (U)Ordere d By: Endy Abreu on 01-18-2023 pH (U) 6.0 [pH] 5.0-9.0 [facility] Auth for Release of Medical Recordson 12-25-2022 Auth for Release of Medical Records [id number] Normal [facility] Complement C3on 10-12-2022 Complement C3 134 mg/dL Normal 82-167 [facility] Comment on above: Result Comment: Perf ormed at: - [facility] [address] [id number] Deputy Chief Magistrate: Marvel Barahona PhD, Phone: [phone] Performed By: #### E SR, CMP, ADDONUAPLUS, CBC #### [facility] [address] [place] [address] #### C4, C3, CH50 #### [facility] , Complement C4on 10-12-2022 Complement C4 29 mg/dL Normal 12-38 [facility] Comment on above: Result Comment: PERF ORMED BY: [place] [address] PATHOLOGIST ORDNANCE ARTIFICER ALTHEA BARRAGAN M.D. Performed By: #### E SR, CMP, ADDONUAPLUS, CBC #### [facility] [address] [place] [address] #### C4, C3, CH50 #### [facility] , Complement Total (CH50)on Complement Total (CH50) >60 Normal >41 [facility] Comment on above: Result Comment: Age Male Female 1 - 30 days Not Estab. Not Estab. 31 days - 6 months >32 >20 7 months - 17 years >39 >39 >17 years >41 >41 NOTE: The adult ( >17 years ) reference interval range is used to flag abnormals on this report. If the patient is 17 years old or younger, use the table above to determine out of range values. Performed at: - [facility] [id number] Deputy Chief Magistrate: Marvel Barahona PhD, Phone: [phone] PERFORMED BY: [place] [address] PATHOLOGIST ORDNANCE ARTIFICER ALTHEA BARRAGAN M.D. Performed By: #### E SR, CMP, ADDONUAPLUS, CBC #### [address] #### C4, C3, CH50 #### [facility] , Complete Blood Count Auto Di ffon 10-12-2022 Basophils (Bld) [#/Vol] 0.1 10*3/uL Normal 0.0-0.2 [facility] Comment on above: Performed By: #### E SR, CMP, ADDONUAPLUS, CBC #### [place] [address] [place] #### C4, C3, CH50 #### [facility] , Basophils/100 WBC (Bld) 0.8 % Normal . [facility] Comment on above: Performed By: #### E SR, CMP, ADDONUAPLUS, CBC #### [place] [address] [place] #### C4, C3, CH50 #### [facility] , Eosinophils (Bld) [#/Vol] 0.2 10*3/uL Normal 0.0-0.45 [facility] Comment on above: Performed By: #### E SR, CMP, ADDONUAPLUS, CBC #### [place] [address] [place] #### C4, C3, CH50 #### [facility] , Eosinophils/100 WBC (Bld) 2.6 % Normal . [facility] Comment on above: Performed By: #### E SR, CMP, ADDONUAPLUS, CBC #### [place] [address] [place] #### C4, C3, CH50 #### [facility] , Erythrocyte distribution width (RBC) [Ratio] 13.0 % Normal 11.9-15.3 [facility] Comment on above: Performed By: #### E SR, CMP, ADDONUAPLUS, CBC #### [place] [address] [place] #### C4, C3, CH50 #### [facility] , Hematocrit (Bld) [Volume fraction] 35.9 % Normal 34.0-46.4 [facility] Comment on above: Performed By: #### E SR, CMP, ADDONUAPLUS, CBC #### [place] [address] [place] #### C4, C3, CH50 #### [facility] , Hemoglobin (Bld) [Mass/Vol] 12.1 g/dL Normal 11.8-15.4 [facility] Comment on above: Performed By: #### E SR, CMP, ADDONUAPLUS, CBC #### [place] [address] [place] #### C4, C3, CH50 #### [facility] , Lymphocytes (Bld) [#/Vol] 1.9 10*3/uL Normal 1.00-4.8 [facility] Comment on above: Performed By: #### E SR, CMP, ADDONUAPLUS, CBC #### [facility] [address] [place] [address] [place] #### C4, C3, CH50 #### [facility] , Lymphocytes/100 WBC (Bld) 27.9 % Normal . [facility] Comment on above: Performed By: #### E SR, CMP, ADDONUAPLUS, CBC #### [address] #### C4, C3, CH50 #### [facility] , MCH (RBC) [Entitic mass] 32.1 pg Normal 24.7-34.3 [facility] Comment on above: Performed By: #### E SR, CMP, ADDONUAPLUS, CBC #### [place] [address] [place] #### C4, C3, CH50 #### [facility] , MCV (RBC) [Entitic vol] 95.1 fL Normal 80-100 [facility] Comment on above: Performed By: #### E SR, CMP, ADDONUAPLUS, CBC #### [address] #### C4, C3, CH50 #### [facility] , Mean Corpuscular HGB Conc 33.8 g/dL Normal 32.0-35.0 [facility] Comment on above: Performed By: #### E SR, CMP, ADDONUAPLUS, CBC #### [address] #### C4, C3, CH50 #### [facility] , Monocytes (Bld) [#/Vol] 0.4 10*3/uL Normal 0.0-0.8 [facility] Comment on above: Performed By: #### E SR, CMP, ADDONUAPLUS, CBC #### [place] [address] [place] #### C4, C3, CH50 #### [facility] , Monocytes/100 WBC (Bld) 6.2 % Normal . [facility] Comment on above: Performed By: #### E SR, CMP, ADDONUAPLUS, CBC #### [place] [address] [place] #### C4, C3, CH50 #### [facility] , Neutrophils (Bld) [#/Vol] 4.3 10*3/uL Normal 1.8-7.7 [facility] Comment on above: Performed By: #### E SR, CMP, ADDONUAPLUS, CBC #### [facility] [address] [place] [address] #### C4, C3, CH50 #### [facility] , Neutrophils/100 WBC (Bld) 62.5 % Normal . [facility] Comment on above: Performed By: #### E SR, CMP, ADDONUAPLUS, CBC #### [place] [address] [place] #### C4, C3, CH50 #### [facility] , NRBC% 0.1 /100{WBC} Normal 0-0.5 [facility] Comment on above: Performed By: #### E SR, CMP, ADDONUAPLUS, CBC #### [facility] [address] [place] [address] [place] #### C4, C3, CH50 #### [facility] , Platelet mean volume (Bld) [Entitic vol] 7.7 fL Normal 6.3-10.7 [facility] Comment on above: Performed By: #### E SR, CMP, ADDONUAPLUS, CBC #### [facility] [address] [place] [address] [place] #### C4, C3, CH50 #### [facility] , Platelets (Bld) [#/Vol] 321 10*3/uL Normal 150-450 [facility] Comment on above: Performed By: #### E SR, CMP, ADDONUAPLUS, CBC #### [facility] [address] [place] [address] [place] #### C4, C3, CH50 #### [facility] , RBC (Bld) [#/Vol] 3.77 10*6/uL Normal 3.60-5.00 [facility] Comment on above: Performed By: #### E SR, CMP, ADDONUAPLUS, CBC #### [facility] [address] [place] [address] [place] #### C4, C3, CH50 #### [facility] , WBC (Bld) [#/Vol] 6.9 10*3/uL Normal 3.8-11.6 [facility] Comment on above: Performed By: #### E SR, CMP, ADDONUAPLUS, CBC #### [facility] [address] [place] [address] #### C4, C3, CH50 #### [facility] , Comprehensive Metabolic Pane chema 10-12-2022 Albumin [Mass/Vol] 3.9 g/dL Normal 3.5-5.7 [facility] Comment on above: Performed By: #### E SR, CMP, ADDONUAPLUS, CBC #### [facility] [address] [place] [address] #### C4, C3, CH50 #### [facility] , Albumin/Globulin [Mass ratio] 1.6 {ratio} Normal [facility] Comment on above: Performed By: #### E SR, CMP, ADDONUAPLUS, CBC #### [address] #### C4, C3, CH50 #### [facility] , ALP [Catalytic activity/Vol] 97 U/L Normal 34-104 [facility] Comment on above: Result Comment: PERF ORMED BY: [place] [address] PATHOLOGIST ORDNANCE ARTIFICER ALTHEA BARRAGAN M.D. Performed By: #### E SR, CMP, ADDONUAPLUS, CBC #### [place] [address] [place] #### C4, C3, CH50 #### [facility] , ALT [Catalytic activity/Vol] 28 U/L Normal 7-52 [facility] Comment on above: Performed By: #### E SR, CMP, ADDONUAPLUS, CBC #### [facility] [address] [place] [address] [place] #### C4, C3, CH50 #### [facility] , Anion gap [Moles/Vol] 9.9 mmol/L Normal 6.0-15.0 [facility] Comment on above: Performed By: #### E SR, CMP, ADDONUAPLUS, CBC #### [facility] [address] [place] [address] [place] #### C4, C3, CH50 #### [facility] , AST [Catalytic activity/Vol] 31 U/L Normal 13-39 [facility] Comment on above: Performed By: #### E SR, CMP, ADDONUAPLUS, CBC #### [facility] [address] [place] [address] [place] #### C4, C3, CH50 #### [facility] , Bilirubin [Mass/Vol] 0.6 mg/dL Normal 0.3-1.0 [facility] Comment on above: Performed By: #### E SR, CMP, ADDONUAPLUS, CBC #### [facility] [address] [place] [address] [place] #### C4, C3, CH50 #### [facility] , Calcium [Mass/Vol] 9.2 mg/dL Normal 8.6-10.3 [facility] Comment on above: Performed By: #### E SR, CMP, ADDONUAPLUS, CBC #### [facility] [address] [place] [address] [place] #### C4, C3, CH50 #### [facility] , Chloride [Moles/Vol] 100 mmol/L Normal 98-107 [facility] Comment on above: Performed By: #### E SR, CMP, ADDONUAPLUS, CBC #### [facility] [address] [place] [address] [place] #### C4, C3, CH50 #### [facility] , CO2 [Moles/Vol] 28.4 mmol/L Normal 21.0-31.0 [facility] Comment on above: Performed By: #### E SR, CMP, ADDONUAPLUS, CBC #### [place] [address] [place] #### C4, C3, CH50 #### [facility] , Creatinine [Mass/Vol] 0.92 mg/dL Normal 0.60-1.20 [facility] Comment on above: Performed By: #### E SR, CMP, ADDONUAPLUS, CBC #### [place] [address] [place] #### C4, C3, CH50 #### [facility] , GFR/1.73 sq M.predicted MDRD (S/P/Bld) [Vol rate/Area] mL/min/{1.73_m2} Normal [facility] Comment on above: Performed By: #### E SR, CMP, ADDONUAPLUS, CBC #### [facility] [address] [place] [address] [place] #### C4, C3, CH50 #### [facility] , Globulin (S) [Mass/Vol] 2.5 g/dL Normal [facility] Comment on above: Performed By: #### E SR, CMP, ADDONUAPLUS, CBC #### [place] [address] [place] #### C4, C3, CH50 #### [facility] , Glucose [Mass/Vol] 109 mg/dL High 70-100 [facility] Comment on above: Result Comment: [place] Glucose Reference Range is dependent on time and content of last meal. Glucose of more than 200 mg/dL in a nonstressed, ambulatory subject supports the diagnosis of Diabetes Mellitus. ADA recommended reference range Performed By: #### E SR, CMP, ADDONUAPLUS, CBC #### [facility] [address] [place] [address] [place] #### C4, C3, CH50 #### [facility] , Potassium [Moles/Vol] 4.3 mmol/L Normal 3.5-5.1 [facility] Comment on above: Performed By: #### E SR, CMP, ADDONUAPLUS, CBC #### [facility] [address] [place] [address] [place] #### C4, C3, CH50 #### [facility] , Protein [Mass/Vol] 6.4 g/dL Normal 6.4-8.9 [facility] Comment on above: Performed By: #### E SR, CMP, ADDONUAPLUS, CBC #### [address] #### C4, C3, CH50 #### [facility] , Sodium [Moles/Vol] 134 mmol/L Low 136-145 [facility] Comment on above: Performed By: #### E SR, CMP, ADDONUAPLUS, CBC #### [facility] [address] [place] [address] [place] #### C4, C3, CH50 #### [facility] , Urea nitrogen [Mass/Vol] 19 mg/dL Normal 7-25 [facility] Comment on above: Performed By: #### E SR, CMP, ADDONUAPLUS, CBC #### [place] [address] [place] #### C4, C3, CH50 #### [facility] , Dipstick and Microscopicon 0 10-12-2022 Appearance (U) Clear Normal Clear [facility] Comment on above: Order Comment: Name Collection Type:: Clean-Voided Midstream Performed By: #### E SR, CMP, ADDONUAPLUS, CBC #### [facility] [address] [place] [address] [place] #### C4, C3, CH50 #### [facility] , Bacteria,Urine None Seen Normal None Seen [facility] Comment on above: Order Comment: Name Collection Type:: Clean-Voided Midstream Performed By: #### E SR, CMP, ADDONUAPLUS, CBC #### [address] #### C4, C3, CH50 #### [facility] , Bilirubin,Urine Negative Normal Negative [facility] Comment on above: Order Comment: Name Collection Type:: Clean-Voided Midstream Performed By: #### E SR, CMP, ADDONUAPLUS, CBC #### [address] #### C4, C3, CH50 #### [facility] , Color (U) Yellow Normal Yellow [facility] Comment on above: Order Comment: Name Collection Type:: Clean-Voided Midstream Performed By: #### E SR, CMP, ADDONUAPLUS, CBC #### [place] [address] [place] #### C4, C3, CH50 #### [facility] , Glucose Ql (U) Normal Normal Normal [facility] Comment on above: Order Comment: Name Collection Type:: Clean-Voided Midstream Performed By: #### E SR, CMP, ADDONUAPLUS, CBC #### [facility] [address] [place] [address] [place] #### C4, C3, CH50 #### [facility] , Hyaline Casts,Urine None Seen Normal 0-8 [facility] Comment on above: Order Comment: Name Collection Type:: Clean-Voided Midstream Result Comment: PERF ORMED BY: [place] [address] PATHOLOGIST ORDNANCE ARTIFICER ALTHEA BARRAGAN M.D. Performed By: #### E SR, CMP, ADDONUAPLUS, CBC #### [place] [id number] [place] #### C4, C3, CH50 #### [facility] , Ketones Ql (U) Negative Normal Negative [facility] Comment on above: Order Comment: Name Collection Type:: Clean-Voided Midstream Performed By: #### E SR, CMP, ADDONUAPLUS, CBC #### [address] #### C4, C3, CH50 #### [facility] , Leukocyte esterase Test strip Ql (U) Negative Normal Negative [facility] Comment on above: Order Comment: Name Collection Type:: Clean-Voided Midstream Performed By: #### E SR, CMP, ADDONUAPLUS, CBC #### [address] #### C4, C3, CH50 #### [facility] , Nitrite,Urine Negative Normal Negative [facility] Comment on above: Order Comment: Name Collection Type:: Clean-Voided Midstream Performed By: #### E SR, CMP, ADDONUAPLUS, CBC #### [address] #### C4, C3, CH50 #### [facility] , Occult Blood,Urine Negative Normal Negative [facility] Comment on above: Order Comment: Name Collection Type:: Clean-Voided Midstream Performed By: #### E SR, CMP, ADDONUAPLUS, CBC #### [address] #### C4, C3, CH50 #### [facility] , pH (U) 6.0 [pH] Normal 5.0-9.0 [facility] Comment on above: Order Comment: Name Collection Type:: Clean-Voided Midstream Performed By: #### E SR, CMP, ADDONUAPLUS, CBC #### [address] #### C4, C3, CH50 #### [facility] , Protein,Urine Negative Normal Negative [facility] Comment on above: Order Comment: Name Collection Type:: Clean-Voided Midstream Performed By: #### E SR, CMP, ADDONUAPLUS, CBC #### [address] #### C4, C3, CH50 #### [facility] , RBC,Urine 3-4 Normal 0-4 [facility] Comment on above: Order Comment: Name Collection Type:: Clean-Voided Midstream Performed By: #### E SR, CMP, ADDONUAPLUS, CBC #### [address] #### C4, C3, CH50 #### [facility] , Specificy [place],Urine 1.019 Normal 1.001-1.030 [facility] Comment on above: Order Comment: Name Collection Type:: Clean-Voided Midstream Performed By: #### E SR, CMP, ADDONUAPLUS, CBC #### [address] #### C4, C3, CH50 #### [facility] , Squamous Epithelial Cell,Urine None Seen Normal 0-2 [facility] Comment on above: Order Comment: Name Collection Type:: Clean-Voided Midstream Performed By: #### E SR, CMP, ADDONUAPLUS, CBC #### [facility] [address] [place] [address] [place] #### C4, C3, CH50 #### [facility] , Urobilinogen,Urine Normal Normal Normal [facility] Comment on above: Order Comment: Name Collection Type:: Clean-Voided Midstream Performed By: #### E SR, CMP, ADDONUAPLUS, CBC #### [address] #### C4, C3, CH50 #### [facility] , WBC LM.HPF (Urine sed) [#/Area] 0 /[HPF] Normal 0-4 [facility] Comment on above: Order Comment: Name Collection Type:: Clean-Voided Midstream Performed By: #### E SR, CMP, ADDONUAPLUS, CBC #### [facility] [address] #### C4, C3, CH50 #### [facility] , Erythrocyte Sedimentation Ra sid 10-12-2022 ESR (Bld) [Velocity] 12 mm/h Normal 0-29 [facility] Comment on above: Result Comment: PERF ORMED BY: [place] [address] PATHOLOGIST ORDNANCE ARTIFICER ALTHEA BARRAGAN M.D. Performed By: #### E SR, CMP, ADDONUAPLUS, CBC #### [facility] [address] #### C4, C3, CH50 #### [facility] , Pre-Certification Formon Pre-Certification Form [id number] 62#1.00CD:127 Normal [facility] Family Medicine Office/Clini c Noteon 02-13-2022 Family Medicine Office/Clinic Note Chief Complaint Yearly Check Up HPI Staff Jersey is a 66 year old female who presents for a yearly follow up. She has a chronic history of hypothyroidism. Currently taking [place] Thyroid 120mg once daily, as directed without adverse reaction. Patient denies fatigue, palpitations, hot/cold intolerance, constipation, hair/skin/nail issues. She has recent labs to review. She continues to fill her hormones through [facility] in [place]. History of Present Illness I have reviewed and verified the staff HPI to be accurate for this encounter. Review of Systems PHQ Score Initial Depression Screen Score: 0 Constitutional: no fever, no chills, no sweats, no weakness Respiratory: no shortness of breath, no cough, no orthopnea, no wheezing Cardiovascular: no chest pain, no palpitations, no edema Additional ROS info: Except as noted in the above Review of Systems and in the History of Present Illness all other systems have been reviewed and are negative or noncontributory. Physical Exam Vitals & Measurements T: 36.2 ?C(Temporal Artery) HR: 92(Peripheral) BP: 140/82 SpO2: 98% HT: 64 in HT: 162 cm WT: 81.6 kg WT: 179.52 lb BMI: 31.09 General: alert, no acute distress Skin: warm, dry Head: no trauma, normocephalic Neck: Trachea midline, no adenopathy, no tenderness Eye: normal conjunctiva, sclera clear ENMT: TM's clear, oral mucosa moist, no pharyngeal erythema or exudate Cardiovascular: regular rate and rhythm, normal peripheral perfusion Respiratory: Lungs CTA, respirations non labored Chest wall: no deformity. Gastrointestinal: soft, non distended, no tenderness, no guarding. Back: No tenderness, Normal ROM, Normal alignment. Extremities: no deformity, no trauma Neurological: oriented x 4, LOC appropriate for age, CN II-XII intact, motor strength equal & normal bilaterally, sensation equal & normal bilaterally, speech normal Psychiatric: cooperative, affect appropriate for age, normal judgement, normal psychiatric thoughts. Assessment/Plan 1. Lupus (M32.8: Other forms of systemic lupus erythematosus) She is well-maintained on the HCQ. 2. Rheumatoid arthritis (M06.9: Rheumatoid arthritis, unspecified) Well-maintained on the HCQ 3. Hormone imbalance (E34.9: Endocrine disorder, unspecified) she is maintained on bioidentical hormones 4. Hypertension (I10: Essential (primary) hypertension) repeat 142/82. Monitor heart rate with thyroid medication adjustment. If the heart rate does not come down will start low dose beta aleks 5. Hypothyroidism (E03.8: Other specified hypothyroidism) will decrease dose. d/c the 30's Orders: thyroid desiccated, See Instructions, 1 tab(s) Oral 3 times weekly with 120., # 36 tab(s), Refills(s) 3, [facility]acy: [facility], 162, cm, 02/01/21 11:08:00 EDT, Height/Length Dosing, 84.7, kg, 02/01/21 11:08:00 EDT, Weight Dosing Follow-up With When Contact Information Addy ROUSSEAU DO, FAM In [address] [place] [address]- Additional Instructions: Problem List/Past Medical History Ongoing BMI 30.0-30.9,adult Chronic fatigue Hormone imbalance Hypertension Hypothyroidism Lupus Non-smoker Rheumatoid arthritis Historical No qualifying data Procedure/Surgical History cervix, Endometrial biopsy, skull repair, Tonsillectomy, Total replacement of right hip joint. Medications cyanocobalamin 1000 mcg/mL Inj, 1000 mcg= 1 mL, IntraMuscular, qMonth, 1 refills Estriol/Estradiol/P rogesterone 2 mg/.5 mg/300 mg, See Instructions, 1 refills etodolac 500 mg Tab hydrochlorothiazide 12.5 mg Tab losartan 50 mg Tab, 50 mg= 1 tab(s), Oral, Daily PLANNING SUPERVISOR Thyroid 120 mg oral tablet, 120 mg= 1 tab(s), Oral, Daily, 3 refills PLANNING SUPERVISOR Thyroid 30 mg oral tablet, See Instructions omeprazole 20 mg Cap-DR, 20 mg= 1 cap(s), Oral, Daily tiZANidine 4 mg Tab, 1-2 tabs, Oral, Once a day (at bedtime) Allergies gabapentin (Hives) sulfa drugs (Upset stomach) Social History Alcohol - Denies Alcohol Use, 07/07/2019 Substance Abuse - Denies Substance Abuse, 07/07/2019 Tobacco - Denies Tobacco Use, 02/01/2021 Never (less than 100 in lifetime) Tobacco Use:. Never Smokeless Tobacco Use:., 01/15/2020 Family History Hypertension: Mother. Hyperthyroidism: Mother. Primary malignant neoplasm of prostate: Father. Immunizations Vaccine Date Status Comments influenza virus vaccine, inactivated - Not Given Patient Refuses Normal [facility] Comment on above: Result Comment: Elec tronically Signed By: Addy ROUSSEAU DO\.br\Date and Time Signed: 02/13/22 14:08 EDT Pre-Visit Planningon 022 Pre-Visit Planning -- From: Bianca WARD, Piedad To: Addy ROUSSEAU DO; Sent: 02/10/2022 09:19:11 EDT Subject: Pre-Visit Planning Due Date/Time: 02/10/2022 09:19:00 EDT Caller Name: PALOMA JERSEY A; Caller Number: H , M CESILIA During pre-visit planning review the Jose Antonion report shows that Naty Kirkpatrick documented e27.40 unspecified adrenocortical insufficiency on 03/16/2021. I do not have the actual document so I do not have further details. MARIN Alaniz, RN, [facility], CCDS -- From: Addy ROUSSEAU DO To: Bianca WARD, Piedad; Sent: 02/11/2022 11:06:34 EDT Subject: RE: Pre-Visit Planning Caller Name: JERSEY DOW; Caller Number: Stefanie , M I will look into it thanks Normal [address] [facility] Lab Reportson 02-10-2022 Lab Reports [id number] 13#1.00CD:127 Normal [facility] Basic Metabolic Panelon 01-0 Anion gap [Moles/Vol] 18 mmol/L Normal 12-20 [facility] Specialist Comment on above: Result Comment: Effe ctive 05/26/2019 reference range changed. Performed By: #### B MP, CBC #### [facility] [address] [place], [place] [id number] Calcium [Mass/Vol] 10.2 mg/dL Normal 8.6-10.2 [facility] Fusing Line Inspector Comment on above: Performed By: #### B MP, CBC #### [facility] [address] [place], [place] [id number] Chloride [Moles/Vol] 99 mmol/L Normal 98-107 [facility] Fusing Line Inspector Comment on above: Performed By: #### B MP, CBC #### [facility] [address] [facility] [place] [id number] CO2 [Moles/Vol] 22 mmol/L Normal 20-31 [facility] Specialist Comment on above: Performed By: #### B MP, CBC #### [facility] [address] [place], [place] [id number] Creatinine [Mass/Vol] 0.7 mg/dL Normal 0.6-1.4 [facility] Comment on above: Performed By: #### B MP, CBC #### [facility] [address] [place], [place] [id number] eGFRAA 109 mL/min/1.73m2 Normal >60 [facility] Comment on above: Performed By: #### B MP, CBC #### [facility] [address] [place], [place] [id number] eGFRNAA 90 mL/min/1.73m2 Normal >60 [facility] Comment on above: Performed By: #### B MP, CBC #### [facility] [address] [place], [place] [id number] Glucose [Mass/Vol] 88 mg/dL Normal 65-99 [facility] Specialist Comment on above: Result Comment: For FASTING Glucose --- ADA reference ranges: Normal 65-99 mg/dl Prediabetes 100-125 Diabetes >/= 126 Performed By: #### B MP, CBC #### [facility] [address] [place], [place] [id number] Potassium [Moles/Vol] 4.6 mmol/L Normal 3.5-5.5 [facility] Comment on above: Performed By: #### B MP, CBC #### [facility] [address] [place], [place] [id number] Sodium [Moles/Vol] 134 mmol/L Low 135-146 [facility] Specialist Comment on above: Performed By: #### B MP, CBC #### [facility] [address] [place], [place] [id number] Urea nitrogen [Mass/Vol] 17 mg/dL Normal 7-25 [facility] Comment on above: Performed By: #### B MP, CBC #### [facility] [address] [place], [place] [id number] Complete Blood Counton 05-23 Erythrocyte distribution width (RBC) [Ratio] 12.5 % Normal 11.0-15.0 [facility] Comment on above: Performed By: #### B MP, CBC #### [facility] [address] [place], [place] [id number] Hematocrit (Bld) [Volume fraction] 38.5 % Normal 35.0-47.0 [facility] Comment on above: Performed By: #### B MP, CBC #### [facility] [address] [place], [place] [id number] Hemoglobin (Bld) [Mass/Vol] 12.8 g/dL Normal 11.6-15.5 [facility] Specialist Comment on above: Performed By: #### B MP, CBC #### [facility] [address] [place], [place] [id number] MCH (RBC) [Entitic mass] 31.6 pg Normal 27.0-33.0 [facility] Comment on above: Performed By: #### B MP, CBC #### [facility] [address] [place], [place] [id number] MCHC (RBC) [Mass/Vol] 33.2 g/dL Normal 32.0-36.0 [facility] Comment on above: Performed By: #### B MP, CBC #### [facility] [address] [place], [place] [id number] MCV (RBC) [Entitic vol] 95 fL Normal 80-100 [facility] Comment on above: Performed By: #### B MP, CBC #### [facility] [address] [place], [place] [id number] Platelet mean volume (Bld) [Entitic vol] 9.40 fL Normal 7.50-12.50 [facility] Comment on above: Performed By: #### B MP, CBC #### [facility] [address] [place], [place] [id number] Platelets (Bld) [#/Vol] 372 10*3/uL Normal 140-400 [facility] Specialist Comment on above: Performed By: #### B MP, CBC #### [facility] [address] [place], [place] [id number] RBC (Bld) [#/Vol] 4.05 10*6/uL Normal 3.90-5.20 [facility] Specialist Comment on above: Performed By: #### B MP, CBC #### [facility] [address] [place], [place] [id number] RDW-SD 43.9 fL Normal 37.0-50.0 [facility] Specialist Comment on above: Performed By: #### B MP, CBC #### [facility] [address] [place], [place] [id number] WBC (Bld) [#/Vol] 6.4 10*3/uL Normal 3.8-11.0 [facility] Comment on above: Performed By: #### B MP, CBC #### [facility] [address] [place], [place] [id number] Q - SARS CoV2 COVID 19 Ab Ig To 05-23-2021 SARS-CoV-2 (COVID-19) Ab IA Qn >150.00 High <1.00 [facility] Fusing Line Inspector Comment on above: Order Comment: [facility] performed at: Q, [facility], [address] [place] [address], [address] [place] [address], [id number], Lead Installer: Mihir Arzola MD [facility] Collection Date/Time: [facility] Results Received Date/Time: [facility] Reported Date/Time: Result Comment: This test is intended to help identify individuals with antibodies to SARS-CoV-2 (COVID-19). The results of this semi-quantitative test should not be interpreted as an indication or degree of immunity or protection from reinfection. A test result that is 1.00 or more (Positive) means antibodies to SARS-CoV-2 were detected in the blood sample by the test. This could mean that the individual may have an immune response to a recent or prior infection with SARS-CoV-2. Positive results may occur after COVID-19 vaccination, but the clinical significance of a positive antibody result for individuals that have received a COVID-19 vaccine is unknown, and the performance of the test has not been established in COVID-19 vaccinees. False positive results for the test may occur due to cross-reactivity from pre-existing antibodies or other possible causes. A test result that is less than 1.00 (Negative) means that antibodies were not detected in the blood sample by the test. This could mean that the individual has not been previously infected with SARS-CoV-2. The clinical significance of a negative antibody result for individuals that have received a COVID-19 vaccine is unknown. The performance of the test has not been established in COVID-19 vaccinees. False negative results for the test may occur if the individual's antibodies have not reached a sufficient level for the test to be able to detect them. Antibodies can take up to two to three weeks (sometimes longer) to develop after someone is infected. How long antibodies to SARS-CoV-2 last after infection is not known. This test should not be used to diagnose an active SARS-CoV-2 infection. If an active infection is suspected, direct molecular or antigen testing for SARS-CoV-2 is recommended. Please review the Fact Sheets available for healthcare providers and patients using the following websites: [email or web address] Healthcare Providers: For additional information please refer to: http://education.CleanMyCRM.eGifter/faq/JFX838 (This link is being provided for informational/educational purposes only.) This test has been authorized by the FDA under an Emergency Use Authorization (EUA) for use by authorized laboratories. The FDA authorized labeling is available on the [employer] website: www.[employer]ill.eGifter/Covid19. Performed By: #### 3 [id number] #### [facility] [address] [place] [address] XR Chest 2 Views*on 05-18-20 XR Chest 2 Views* HISTORY: Follow up pneumonia FINDINGS: Mild basilar interstitial prominence, likely post inflammatory sequela. No significant peripheral consolidation, pleural effusion or pulmonary edema. No lymphadenopathy. Normal cardiac silhouette size. IMPRESSION: 1. Slight basilar interstitial prominence, likely post inflammatory sequela. 2. No significant parenchymal consolidation or edema. Report reported and signed by Atul Bentley on 05/18/2021 1321 Normal [facility] Fusing Line Inspector MRI Hip w/o Righton 05-03-20 21 MRI Hip w/o Right History: Right hip pain for 4 months radiating down the leg and into the lower back. Right groin pain. Technique: Routine MRI of the pelvis and hips with dedicated small field of view imaging of the right hip. Comparison: None. RESULT: RIGHT HIP: Moderate area of full-thickness cartilage loss involving the superior weightbearing aspects with small amount of underlying subchondral edema within the acetabulum, osteophytes. No evidence for fracture. No joint effusion. Degenerative signal in the labrum. LEFT HIP: Unremarkable on large field of view imaging. SI JOINTS: Normal appearing sacroiliac joints bilaterally. PUBIC SYMPHYSIS: Normal appearance. BONE MARROW: There is no evidence of fracture, bone bruise, marrow replacing lesion or osteonecrosis. TENDONS: The rectus femoris tendons, iliopsoas tendons, hamstring tendons, hip adductor and abductor tendons appear to be intact bilaterally. MUSCLE: Muscle bulk and signal intensity are within normal limits. NERVES: The visualized portions of the lumbosacral plexus and sciatic nerves appear to be within normal limits. VISCERAL PELVIS: Limited evaluation. Nabothian cysts within the cervix. Colonic diverticulosis. LOWER LUMBAR SPINE: Limited evaluation with degenerative changes. OTHER: No other significant abnormality. IMPRESSION: Moderate degenerative changes right hip. Report reported and signed by Bentley Hua on 05/03/2021 1548 [facility] SCREENING MAMMOGRAM W/RUY, BILATERAL*on 04-28-2021 SCREENING MAMMOGRAM W/RUY, BILATERAL* CLINICAL HISTORY: Screening Mammogram COMPARISON: Dating back to September 02, 2020, February 20, 2020, February 19, 2020 TECHNIQUE: 2D and 3D Tomosynthesis of the right and left breasts was performed. FINDINGS: Breast composition demonstrates scattered fibroglandular densities. No suspicious microcalcifications , asymmetry, architectural distortion, or associated features are present. Less conspicuous dense tissue left outer breast on the CC view from the prior examination. Typically benign calcification. IMPRESSION: BIRADS 2: Benign mammogram Board Certified Radiologist. Accredited by the ACR and FDA. MAMMOGRAPHY IS VERY IMPORTANT TO YOUR HEALTH. THE CURRENT [employer] GUIDELINES RECOMMENDS ANNUAL MAMMOGRAPHY BEGINNING AT AGE 40 THIS FACILITY USES A REMINDER SYSTEM TO ENSURE ALL PATIENTS RECEIVE REMINDER NOTIFICATIONS AT THE APPROPRIATE TIME BASED ON THE RECOMMENDATIONS OF THIS EXAM. Report reported and signed by Atul Bentley on 04/28/2021 1533 [facility] COVID-19 PCRon 04-11-2020 SARS-CoV-2 (COVID-19) RNA GRISELDA+probe Ql (Unsp spec) Not detected Normal Not Detected [facility] Comment on above: Result Comment: This nucleic acid amplification test was developed and its performance characteristics determined by [employer]. Nucleic acid amplification tests include PCR and TMA. This test has not been FDA cleared or approved. This test has been authorized by FDA under an Emergency Use Authorization (EUA). This test is only authorized for the duration of time the declaration that circumstances exist justifying the authorization of the emergency use of in vitro diagnostic tests for detection of SARS-CoV-2 virus and/or diagnosis of COVID-19 infection under section 564(b)(1) of the Act, 21 U.S.C. 360bbb-3(b) (1), unless the authorization is terminated or revoked sooner. When diagnostic testing is negative, the possibility of a false negative result should be considered in the context of a patient's recent exposures and the presence of clinical signs and symptoms consistent with COVID-19. An individual without symptoms of COVID-19 and who is not shedding SARS-CoV-2 virus would expect to have a negative (not detected) result in this assay. Performed By: #### C VDPCR #### [facility] [address] [place] [address] Giselle Pattie Brock 12-03-2018 CNTARIQ Office Visit (UROLLN) ---- JERSEY DOW ([id number]) 1955 F Date Time Provider Department 12/03/18 4:00 PM CELESTE SHAFFER During your visit today, we recorded the following information about you: Pulse Blood pressure Weight 100/minute 148/70 79.4 kg Ariela Lovett 12/03/2018 3:45 PM Signed [facility] LAB FACTS LAB HOURS: Lab is open 7:30am to 6pm M-, open 7:30am -5pm on Sunday and open 8am-12pm Sunday. Routine Lab Orders 45 days after they are entered. If your lab orders , you may be required to wait in the lab while they are reinstated FUTURE ORDERS are lab tests to be completed on the ?EXPECTED? date. These orders 45 days after the expected date. STANDING ORDERS are recurring orders with an expiration date. The interval will indicate how often the test should be completed. FASTING LAB means nothing to eat or drink (except water) 10-12 hours before your blood is drawn. CT/MRI/IVP If you have one of these radiology exams ordered along with blood work, please complete the blood work at least one day prior to the scheduled exam. Celeste Shaffer, LEGAL SERVICES MANAGER.CHIEF MARKETING OFFICER 12/03/2018 4:23 PM Signed [place] Dow [address] [place] [address] HISTORY OF PRESENT ILLNESS: Seen 09/11/18 for cystitis Pt stated that had pain in bladder in 2011 went to urologist in [place] cysto and bladder bx completed and noted it was IC, pt stated that get yeast and symptoms returned Pt was following the IC diet with good results Denies kidney/bladder stone Pt stated notice vaginal/urinary tract area and itching swelling noted in Feb And started cologene powder Painful intercourse not very active because of this Vaginal dryness will trial premarin vaginal cream Drink 3 16 oz water daily Drink 12-16 oz ice tea daily PVR=11 ml Coming for IC/bladder pain Denies gross hematuria Denies burning with urination Pt stated symptoms is much better with removing of spices from diet Pt stated that premarin vaginal cream is helping with vaginal issues U/A 09/12/18=neg Culture 09/12/18=neg ? Location: IC/bladder pain ? Pain Character: aching and swelling vaginal to urethral area ? Severity Scale: see lab ? Duration: few months PAST MEDICAL HISTORY Diagnosis Date - Bladder pain - IC (interstitial cystitis) - UTI (urinary tract infection) - Vaginal dryness No past surgical history on file. No family history on file. Social History Tobacco Use - Smoking status: Never Smoker - Smokeless tobacco: Never Used Substance Use Topics - Alcohol use: Not on file - Drug use: Not on file MEDICATIONS: Current Outpatient Medications: Hydrochlorothiazide 12.5 mg capsule Take 12.5 mg by mouth once daily. Takes 1/2 tab daily. losartan (COZAAR) 50 mg tablet Take 50 mg by mouth once daily. thyroid (ARMOUR THYROID) 120 mg tablet cyanocobalamin 1,000 mcg/mL soln conjugated estrogens (PREMARIN) vaginal cream Use 0.5 g vaginally once daily. Start daily for 2 wks then twice weekly COMPOUNDED PRESCRIPTION Bio identical hormons itraconazole (SPORANOX) 100 mg capsule No current facility-administer ed medications for this visit. ALLERGY: ALLERGIES Allergen Reactions - Gabapentin Hives REVIEW OF SYSTEMS GENERAL: No fever, no fatigue and no weight loss. HEAD AND NECK: No headache, no blurred vision and no hearing loss. CARDIOVASCULAR: No chest pain, no palpitations and no leg edema. RESPIRATORY: No cough, wheezing and no shortness of breath. : As indicated in HPI. GI: No epigastric discomfort, no blood in stool and no changes in bowel habits. MUSCLOSKELETAL: No neck pain, no back anin and no joint pain. SKIN: No varicose veins, no rash and no abnormal itching. NEUROLOGICAL: No numbness, no seizures and no tremor. BLOOD: No ekimosis, no hematomas or no bleeding from the gums. PHYSICAL EXAM: VITALS: BP 148/70 Pulse 100 Wt 79.4 kg (175 lb) BMI 30.04 kg/m? GENERAL: Alert, oriented and in no distress. HEAD: Conjuctiva: no palor Sclera: no jaundice NECK: No enlarged thyroid, no palpable lymph nodes, and no engorged neck veins. HEART: Regular, no pericardial rub CHEST: Bilateral symetrical, no crepitations. ABDOMEN: Soft, non tender with no masses or organomegaly. No CVA tenderness. HERNIA: Negative EXTREMITIES: No leg edema, No joint swelling GENITALIA: Deferred IMPRESSION: (Diagnostic Possibilities): Interstitial Cystitis Bladder pain Vaginal and urethra swelling Painful intercourse Vaginal dryness Vaginal atrophy HST of UTI Pt went though menopause at age of 42 Pt stated that had pain in bladder in 2012 went to urologist in [place] cysto and bladder bx completed and noted it was IC, pt stated that get yeast and PLAN: (Management Options): Will get urine if becomes symptomatic Pt take powder cologene for IC Bio identical hormones Cont premarin vaginal cream Probiotics tabs and natural Cont increase water intake rto 6 month for evaluation for evaluation, U/A, culture Celeste Shaffer APRN.CHIEF MARKETING OFFICER Referring Provider: CELESTE SHAFFER [[id number]] Allergies As of Date: 12/03/2018 Noted Allergy Reaction GABAPENTIN 09/11/2018 4 - Hives Date Reviewed: 12/03/2018 Reviewed by: Ariela Lovett - Fully Assessed Reason for Visit: Follow Up [171] Primary Visit Diagnosis:IC (interstitial cystitis) [N30.10] Other Visit Diagnoses:Urinary tract infection without hematuria, site unspecified [N39.0] Vaginal atrophy [N95.2] Order(s):UA CHEMSTRIP ONLY [SQUA] Order #: [id number] FUTURE URINE CULTURE [SQURCUL] Order #: [id number] conjugated estrogens (PREMARIN) vaginal creamUse 0.5 g vaginally once daily. twice weeklyDisp: 1 TubeRfl: 3 Prescriptions as of 12/03/2018 Sig: CONJUGATED ESTROGENS 0.625 MG* Use 0.5 g vaginally once liliana* HYDROCHLOROTHIAZIDE 12.5 MG C* Take 12.5 mg by mouth once da* LOSARTAN 50 MG TABLET Take 50 mg by mouth once liliana* THYROID (PORK) 120 MG TABLET CYANOCOBALAMIN (VIT B-12) 1,0* COMPOUNDED PRESCRIPTION Bio identical hormons ITRACONAZOLE 100 MG CAPSULE Problem List As Of Date 12/03/2018 Noted Resolved UTI (urinary tract infection) [N39.0] Other instructions from your clinician: [facility] LAB FACTS LAB HOURS: Lab is open 7:30am to 6pm M-, open 7:30am -5pm on Sunday and open 8am-12pm Sunday. Routine Lab Orders 45 days after they are entered. If your lab orders , you may be required to wait in the lab while they are reinstated FUTURE ORDERS are lab tests to be completed on the ?EXPECTED? date. These orders 45 days after the expected date. STANDING ORDERS are recurring orders with an expiration date. The interval will indicate how often the test should be completed. FASTING LAB means nothing to eat or drink (except water) 10-12 hours before your blood is drawn. CT/MRI/IVP If you have one of these radiology exams ordered along with blood work, please complete the blood work at least one day prior to the scheduled exam. Prescriptions ordered this encounter Disp Refills Start End CONJUGATED ESTROGENS 0.625 MG/GRAM V* 1 Tu* 3 12/03/2018 03/03/2019 Route: VAGINAL Sig: Use 0.5 g vaginally once daily. twice weekly Medications Discontinued During This Encounter conjugated estrogens (PREMARIN) vagi* 1 Tu* 3 09/11/2018 12/03/2018 Route: VAGINAL Sig: Use 0.5 g vaginally once daily. Start daily for 2 wks then twice weekly Disc: Reason for discontinue is not on file. Disposition: Return in about 6 months (around 06/05/2019) for rto for evaluation of recurrent UTI . Follow-up and Disposition History Recorded Encounter Status:Closed by CELESTE SHAFFER CNP on 12/03/18 [facility] PROGRESSon 12-03-2018 PROGRESS HNO ID: [id number] Author: eCleste Shaffer Service: ? Author Type: Nurse Practitioner Type: Progress Notes Filed: 12/03/2018 4:23 PM Note Text: [place] Dow [address] [place] [address] HISTORY OF PRESENT ILLNESS: Seen 09/11/18 for cystitis Pt stated that had pain in bladder in 2011 went to urologist in [place] cysto and bladder bx completed and noted it was IC, pt stated that get yeast and symptoms returned Pt was following the IC diet with good results Denies kidney/bladder stone Pt stated notice vaginal/urinary tract area and itching swelling noted in Feb And started cologene powder Painful intercourse not very active because of this Vaginal dryness will trial premarin vaginal cream Drink 3 16 oz water daily Drink 12-16 oz ice tea daily PVR=11 ml Coming for IC/bladder pain Denies gross hematuria Denies burning with urination Pt stated symptoms is much better with removing of spices from diet Pt stated that premarin vaginal cream is helping with vaginal issues U/A 09/12/18=neg Culture 09/12/18=neg ? Location: IC/bladder pain ? Pain Character: aching and swelling vaginal to urethral area ? Severity Scale: see lab ? Duration: few months PAST MEDICAL HISTORY Diagnosis Date - Bladder pain - IC (interstitial cystitis) - UTI (urinary tract infection) - Vaginal dryness No past surgical history on file. No family history on file. Social History Tobacco Use - Smoking status: Never Smoker - Smokeless tobacco: Never Used Substance Use Topics - Alcohol use: Not on file - Drug use: Not on file MEDICATIONS: Current Outpatient Medications: Hydrochlorothiazide 12.5 mg capsule Take 12.5 mg by mouth once daily. Takes 1/2 tab daily. losartan (COZAAR) 50 mg tablet Take 50 mg by mouth once daily. thyroid (ARMOUR THYROID) 120 mg tablet cyanocobalamin 1,000 mcg/mL soln conjugated estrogens (PREMARIN) vaginal cream Use 0.5 g vaginally once daily. Start daily for 2 wks then twice weekly COMPOUNDED PRESCRIPTION Bio identical hormons itraconazole (SPORANOX) 100 mg capsule No current facility-administer ed medications for this visit. ALLERGY: ALLERGIES Allergen Reactions - Gabapentin Hives REVIEW OF SYSTEMS GENERAL: No fever, no fatigue and no weight loss. HEAD AND NECK: No headache, no blurred vision and no hearing loss. CARDIOVASCULAR: No chest pain, no palpitations and no leg edema. RESPIRATORY: No cough, wheezing and no shortness of breath. : As indicated in HPI. GI: No epigastric discomfort, no blood in stool and no changes in bowel habits. MUSCLOSKELETAL: No neck pain, no back anin and no joint pain. SKIN: No varicose veins, no rash and no abnormal itching. NEUROLOGICAL: No numbness, no seizures and no tremor. BLOOD: No ekimosis, no hematomas or no bleeding from the gums. PHYSICAL EXAM: VITALS: BP 148/70 Pulse 100 Wt 79.4 kg (175 lb) BMI 30.04 kg/m? GENERAL: Alert, oriented and in no distress. HEAD: Conjuctiva: no palor Sclera: no jaundice NECK: No enlarged thyroid, no palpable lymph nodes, and no engorged neck veins. HEART: Regular, no pericardial rub CHEST: Bilateral symetrical, no crepitations. ABDOMEN: Soft, non tender with no masses or organomegaly. No CVA tenderness. HERNIA: Negative EXTREMITIES: No leg edema, No joint swelling GENITALIA: Deferred IMPRESSION: (Diagnostic Possibilities): Interstitial Cystitis Bladder pain Vaginal and urethra swelling Painful intercourse Vaginal dryness Vaginal atrophy HST of UTI Pt went though menopause at age of 42 Pt stated that had pain in bladder in 2011 went to urologist in [place] cysto and bladder bx completed and noted it was IC, pt stated that get yeast and PLAN: (Management Options): Will get urine if becomes symptomatic Pt take powder cologene for IC Bio identical hormones Cont premarin vaginal cream Probiotics tabs and natural Cont increase water intake rto 6 month for evaluation for evaluation, U/A, culture Celeste Shaffer APRN.JB [facility] Urine Cultureon 09-12-2018 Bacteria identified Cx Nom (U) Sp. Request/Comment: - Specimen received in preservative Culture Result - No growth (<100 CFU/ml) [facility] Comment on above: Performed By: #### U RCUL #### [facility] [address] [address] CNOVon 09-11-2018 CNOV Office Visit (UROLLN) ---- JERSEY DOW ([id number]) 1955 F Date Time Provider Department 09/11/18 8:00 AM CELESTE SHAFFER ([facility]) UROLLN During your visit today, we recorded the following information about you: Pulse Blood pressure Height 95/minute 128/86 1.626 m Ariela Lovett 09/11/2018 8:06 AM Signed [facility] LAB FACTS LAB HOURS: Lab is open 7:30am to 6pm M-, open 7:30am -5pm on Sunday and open 8am-12pm Sunday. Routine Lab Orders 45 days after they are entered. If your lab orders , you may be required to wait in the lab while they are reinstated FUTURE ORDERS are lab tests to be completed on the ?EXPECTED? date. These orders 45 days after the expected date. STANDING ORDERS are recurring orders with an expiration date. The interval will indicate how often the test should be completed. FASTING LAB means nothing to eat or drink (except water) 10-12 hours before your blood is drawn. CT/MRI/IVP If you have one of these radiology exams ordered along with blood work, please complete the blood work at least one day prior to the scheduled exam. Celeste Shaffer APRN.CHIEF MARKETING OFFICER 09/11/2018 2:03 PM Signed [place] Dow [address] [place] [address] is a 63 year old female and is here today at the request of SELF. My final recommendation will be communicated back to the requesting physician by way of shared medical record or letter. Ms. Dow presents with chief complaints of: IC/bladder pain HISTORY OF PRESENT ILLNESS: Coming for cystitis Pt stated that had pain in bladder in 2011 went to urologist in [place] cysto and bladder bx completed and noted it was IC, pt stated that get yeast and symptoms returned Pt was following the IC diet with good results Denies kidney/bladder stone Pt stated notice vaginal/urinary tract area and itching swelling noted in Feb And started cologene powder Painful intercourse not very active because of this Vaginal dryness will trial premarin vaginal cream Drink 3 16 oz water daily Drink 12-16 oz ice tea daily PVR=11 ml ? Location: IC/bladder pain ? Pain Character: aching and swelling vaginal to urethral area ? Severity Scale: see lab ? Duration: few months ? Timing: intermittently ? Modifying Factors: None ? Associated signs and symptoms: IC PAST MEDICAL HISTORY Diagnosis Date - IC (interstitial cystitis) - UTI (urinary tract infection) - Vaginal dryness No past surgical history on file. No family history on file. Social History Tobacco Use - Smoking status: Never Smoker - Smokeless tobacco: Never Used Substance Use Topics - Alcohol use: Not on file - Drug use: Not on file MEDICATIONS: Current Outpatient Medications: Hydrochlorothiazide 12.5 mg capsule Take 12.5 mg by mouth once daily. Takes 1/2 tab daily. losartan (COZAAR) 50 mg tablet Take 50 mg by mouth once daily. COMPOUNDED PRESCRIPTION Bio identical hormons thyroid (ARMOUR THYROID) 120 mg tablet itraconazole (SPORANOX) 100 mg capsule cyanocobalamin 1,000 mcg/mL soln conjugated estrogens (PREMARIN) vaginal cream Use 0.5 g vaginally once daily. Start daily for 2 wks then twice weekly No current facility-administer ed medications for this visit. ALLERGY: ALLERGIES Allergen Reactions - Gabapentin Hives REVIEW OF SYSTEMS GENERAL: No fever, no fatigue and no weight loss. HEAD AND NECK: No headache, no blurred vision and no hearing loss. CARDIOVASCULAR: No chest pain, no palpitations and no leg edema. RESPIRATORY: No cough, wheezing and no shortness of breath. : As indicated in HPI. GI: No epigastric discomfort, no blood in stool and no changes in bowel habits. MUSCLOSKELETAL: No neck pain, no back anin and no joint pain. SKIN: No varicose veins, no rash and no abnormal itching. NEUROLOGICAL: No numbness, no seizures and no tremor. BLOOD: No ekimosis, no hematomas or no bleeding from the gums. PHYSICAL EXAM: VITALS: BP 128/86 Pulse 95 Ht 162.6 cm (5' 4 ) GENERAL: Alert, oriented and in no distress. HEAD: Conjuctiva: no palor Sclera: no jaundice NECK: No enlarged thyroid, no palpable lymph nodes, and no engorged neck veins. HEART: Regular, no pericardial rub CHEST: Bilateral symetrical, no crepitations. ABDOMEN: Soft, non tender with no masses or organomegaly. No CVA tenderness. HERNIA: Negative EXTREMITIES: No leg edema, No joint swelling GENITALIA: Deferred IMPRESSION: (Diagnostic Possibilities): Interstitial Cystitis Bladder pain Vaginal and urethra swelling Painful intercourse Vaginal dryness Vaginal atrophy HST of UTI Pt went though menopause at age of 42 PLAN: (Management Options): U/A, culture, PVR call with results Pt take powder cologene for IC Hold Bio identical hormones and trial premarin vaginal cream Probiotics tabs and natural Cont increase water intake rto 3 month for evaluation for evaluation Celeste Shaffer APRN.CHIEF MARKETING OFFICER Referring Provider: SELF [[id number]] Allergies As of Date: 09/11/2018 Noted Allergy Reaction GABAPENTIN 09/11/2018 4 - Hives Date Reviewed: 09/11/2018 Reviewed by: Ariela Lovett - Fully Assessed Reason for Visit: Consult [173] Primary Visit Diagnosis:IC (interstitial cystitis) [N30.10] Other Visit Diagnoses:Vaginal dryness [N89.8] Urinary tract infection without hematuria, site unspecified [N39.0] Bladder pain [R39.89] Order(s):conjugated estrogens (PREMARIN) vaginal creamUse 0.5 g vaginally once daily. Start daily for 2 wks then twice weeklyDisp: 1 TubeRfl: 3 Prescriptions as of 09/11/2018 Sig: HYDROCHLOROTHIAZIDE 12.5 MG C* Take 12.5 mg by mouth once da* LOSARTAN 50 MG TABLET Take 50 mg by mouth once liliana* COMPOUNDED PRESCRIPTION Bio identical hormons THYROID (PORK) 120 MG TABLET ITRACONAZOLE 100 MG CAPSULE CYANOCOBALAMIN (VIT B-12) 1,0* CONJUGATED ESTROGENS 0.625 MG* Use 0.5 g vaginally once liliana* Problem List As Of Date 09/11/2018 Noted Resolved UTI (urinary tract infection) [N39.0] Other instructions from your clinician: [facility] LAB FACTS LAB HOURS: Lab is open 7:30am to 6pm M-, open 7:30am -5pm on Sunday and open 8am-12pm Sunday. Routine Lab Orders 45 days after they are entered. If your lab orders , you may be required to wait in the lab while they are reinstated FUTURE ORDERS are lab tests to be completed on the ?EXPECTED? date. These orders 45 days after the expected date. STANDING ORDERS are recurring orders with an expiration date. The interval will indicate how often the test should be completed. FASTING LAB means nothing to eat or drink (except water) 10-12 hours before your blood is drawn. CT/MRI/IVP If you have one of these radiology exams ordered along with blood work, please complete the blood work at least one day prior to the scheduled exam. Prescriptions ordered this encounter Disp Refills Start End CONJUGATED ESTROGENS 0.625 MG/GRAM V* 1 Tu* 3 09/11/2018 Route: VAGINAL Sig: Use 0.5 g vaginally once daily. Start daily for 2 wks then twice weekly Disposition: Return in about 3 months (around 12/11/2018) for rto for evaluation of IC . Follow-up and Disposition History Recorded Encounter Status:Closed by CELESTE SHAFFER CNP on 09/11/18 [facility] PROGRESSon 09-11-2018 PROGRESS HNO ID: [id number] Author: Celeste Shaffer Service: ? Author Type: Nurse Practitioner Type: Progress Notes Filed: 09/11/2018 2:03 PM Note Text: [place] Riley Paloma [address] [place] [address] is a 63 year old female and is here today at the request of SELF. My final recommendation will be communicated back to the requesting physician by way of shared medical record or letter. Ms. Dow presents with chief complaints of: IC/bladder pain HISTORY OF PRESENT ILLNESS: Coming for cystitis Pt stated that had pain in bladder in 2011 went to urologist in [place] cysto and bladder bx completed and noted it was IC, pt stated that get yeast and symptoms returned Pt was following the IC diet with good results Denies kidney/bladder stone Pt stated notice vaginal/urinary tract area and itching swelling noted in Feb And started cologene powder Painful intercourse not very active because of this Vaginal dryness will trial premarin vaginal cream Drink 3 16 oz water daily Drink 12-16 oz ice tea daily PVR=11 ml ? Location: IC/bladder pain ? Pain Character: aching and swelling vaginal to urethral area ? Severity Scale: see lab ? Duration: few months ? Timing: intermittently ? Modifying Factors: None ? Associated signs and symptoms: IC PAST MEDICAL HISTORY Diagnosis Date - IC (interstitial cystitis) - UTI (urinary tract infection) - Vaginal dryness No past surgical history on file. No family history on file. Social History Tobacco Use - Smoking status: Never Smoker - Smokeless tobacco: Never Used Substance Use Topics - Alcohol use: Not on file - Drug use: Not on file MEDICATIONS: Current Outpatient Medications: Hydrochlorothiazide 12.5 mg capsule Take 12.5 mg by mouth once daily. Takes 1/2 tab daily. losartan (COZAAR) 50 mg tablet Take 50 mg by mouth once daily. COMPOUNDED PRESCRIPTION Bio identical hormons thyroid (ARMOUR THYROID) 120 mg tablet itraconazole (SPORANOX) 100 mg capsule cyanocobalamin 1,000 mcg/mL soln conjugated estrogens (PREMARIN) vaginal cream Use 0.5 g vaginally once daily. Start daily for 2 wks then twice weekly No current facility-administer ed medications for this visit. ALLERGY: ALLERGIES Allergen Reactions - Gabapentin Hives REVIEW OF SYSTEMS GENERAL: No fever, no fatigue and no weight loss. HEAD AND NECK: No headache, no blurred vision and no hearing loss. CARDIOVASCULAR: No chest pain, no palpitations and no leg edema. RESPIRATORY: No cough, wheezing and no shortness of breath. : As indicated in HPI. GI: No epigastric discomfort, no blood in stool and no changes in bowel habits. MUSCLOSKELETAL: No neck pain, no back anin and no joint pain. SKIN: No varicose veins, no rash and no abnormal itching. NEUROLOGICAL: No numbness, no seizures and no tremor. BLOOD: No ekimosis, no hematomas or no bleeding from the gums. PHYSICAL EXAM: VITALS: BP 128/86 Pulse 95 Ht 162.6 cm (5' 4 ) GENERAL: Alert, oriented and in no distress. HEAD: Conjuctiva: no palor Sclera: no jaundice NECK: No enlarged thyroid, no palpable lymph nodes, and no engorged neck veins. HEART: Regular, no pericardial rub CHEST: Bilateral symetrical, no crepitations. ABDOMEN: Soft, non tender with no masses or organomegaly. No CVA tenderness. HERNIA: Negative EXTREMITIES: No leg edema, No joint swelling GENITALIA: Deferred IMPRESSION: (Diagnostic Possibilities): Interstitial Cystitis Bladder pain Vaginal and urethra swelling Painful intercourse Vaginal dryness Vaginal atrophy HST of UTI Pt went though menopause at age of 42 PLAN: (Management Options): U/A, culture, PVR call with results Pt take powder cologene for IC Hold Bio identical hormones and trial premarin vaginal cream Probiotics tabs and natural Cont increase water intake rto 3 month for evaluation for evaluation Celeste Shaffer, LEGAL SERVICES MANAGER.CHIEF MARKETING OFFICER Normal [facility] Urinalysison 09-11-2018 Bilirubin, Urine Negative Normal Negative [facility] Comment on above: Performed By: #### U A #### [place] [id number] [place] [address] Clarity (U) Clear Normal Clear [facility] Comment on above: Performed By: #### U A #### [place] [id number] [place] [address] Color (U) Yellow Normal Yellow [facility] Comment on above: Performed By: #### U A #### [place] [id number] [place] [address] Comments SEE COMMENT Normal [facility] Comment on above: Result Comment: Micr oscopic not warranted Performed By: #### U A #### [facility] [address] [place] [address] Glucose Ql (U) Negative Normal Negative [facility] Comment on above: Performed By: #### U A #### [place] [id number] [place] [address] Hemoglobin/Blood,Ur Negative Normal Negative [facility] Comment on above: Performed By: #### U A #### [facility] [address] [place], [place] [address] Ketones Ql (U) Negative Normal Negative [facility] Comment on above: Performed By: #### U A #### [place] [id number] [place], [place] [address] Leukest Negative Normal Negative [facility] Comment on above: Performed By: #### U A #### [place] [address] Nitrite Ql (U) Negative Normal Negative [facility] Comment on above: Performed By: #### U A #### [place] [address] pH (Bld) 7.0 Normal 4.5-8.0 [facility] Comment on above: Performed By: #### U A #### [place] [address] Protein (U) [Mass/Vol] Negative Normal Negative [facility] Comment on above: Performed By: #### U A #### [place] [address] Specific [place], Ur 1.005 Normal 1.005-1.030 [facility] Comment on above: Performed By: #### U A #### [place] [address] Urine Jayme Comment SEE COMMENT Normal [facility] Comment on above: Result Comment: N/A Performed By: #### U A #### [place] [address] Urobilinogen Qn (U) Normal Normal Normal [facility] Comment on above: Performed By: #### U A #### [address] [address] Vital Signs Date Time Vital Sign Value Performing Clinician Facility 09-12-2022 11:45-0400 Body height 161.29 cm Abena Hawkins Other [facility] Other 09-12-2022 11:45-0400 Body mass index (BMI) [Ratio] 32.43 kg/m2 Abena Hawkins Other [facility] Other 09-12-2022 11:45-0400 Body weight 84.37 kg Abena Hawkins Other [facility] Other 05-10-2022 10:40-0500 Body height 161.29 cm José Miguel AguirreMaya's Mom Other [facility] Other 05-10-2022 10:40-0500 Body mass index (BMI) [Ratio] 32.5 kg/m2 José Miguel [employer] Other [facility] Other 05-10-2022 10:40-0500 Body temperature 96.2 [degF] José Miguel [employer] Other [facility] Other 05-10-2022 10:40-0500 Body weight 84.55 kg Azval[employer] Other [facility] Other 05-10-2022 10:40-0500 Diastolic blood pressure 98 mm[Hg] [employer] Other [facility] Other 05-10-2022 10:40-0500 Respiratory rate 18 /min José Miguel [employer] Other [facility] Other 05-10-2022 10:40-0500 SaO2% (BldA) [Mass fraction] 96 % [employer] Other [facility] Other 05-10-2022 10:40-0500 Systolic blood pressure 158 mm[Hg] José Miguel Grey Other [facility] Other Encounters Encounter Date Encounter Type Care Provider Facility Start: 06-11-2023 End: 06-12-2023 ambulatory Kamryn Ceja MD Facility:[facility] Start: 06-04-2023 End: 06-05-2023 ambulatory [facility] Start: 05-30-2023 End: 05-30-2023 ambulatory Oriana Laguerre Facility:[facility] Start: 05-30-2023 End: 05-30-2023 ambulatory MD Oriana Laguerre Work Phone: [facility] Work Phone: Start: 05-30-2023 End: 05-30-2023 Patient encounter procedure MD Oriana Laguerre Work Phone: [facility] [address] Work Phone: Start: 05-07-2023 End: 05-21-2023 ambulatory LATRICE Lora [facility] Start: 05-02-2023 End: 05-03-2023 ambulatory NATY KIRKPATRICK Not Available Start: 04-23-2023 End: 04-24-2023 ambulatory ORIANA LAGUERRE Not Available Start: 04-10-2023 End: 04-10-2023 ambulatory ARMAND DOCKERY Not Available Start: 02-13-2023 ambulatory Addy De La Rosa y:ISMA Hinojosa Start: 01-18-2023 End: 01-18-2023 ambulatory Huong Santiago Facility:[facility] Start: 01-18-2023 End: 01-18-2023 ambulatory MD Oriana Laguerre Work Phone: [facility] Work Phone: Start: 01-18-2023 End: 01-18-2023 Patient encounter procedure MD Oriana Laguerre Work Phone: [facility] [place] Work Phone: Start: 10-12-2022 End: 10-12-2022 ambulatory Huong Santiago Facility:[facility] Start: 09-12-2022 End: 09-12-2022 ambulatory Abena Calvey Other [facility] Other Start: 09-12-2022 Office outpatient visit 15 minutes Abena Calvey [facility] Start: 06-14-2022 End: 06-14-2022 ambulatory Abena Calvey Other [facility] Other Start: 06-14-2022 Office outpatient visit 15 minutes Abena Calvey [facility] Start: 05-10-2022 End: 05-10-2022 ambulatory Aziz Bakhous Other [facility] Other Start: 05-10-2022 Office outpatient ne w 30 minutes Aziz Bakhous [facility] Start: 03-29-2022 End: 03-29-2022 ambulatory Abena Calvey Other [facility] Other Start: 03-29-2022 Office outpatient visit 15 minutes Abena Calvey [facility] Start: 02-13-2022 End: 02-14-2022 ambulatory Addy ROUSSEAU Facility:[facility] Start: 12-13-2021 End: 12-13-2021 ambulatory Abena Calvey Other [facility] Other Start: 12-13-2021 Office outpatient visit 25 minutes Abena Calvey [facility] Start: 08-26-2021 End: 08-26-2021 ambulatory Abena Calvey Other [facility] Other Start: 08-26-2021 Encounter by bryon Laguerre [facility] Start: 08-26-2021 Office outpatient visit 15 minutes [facility] Start: 02-25-2021 End: 02-25-[address] DOCTOR FOURNIER Facility:[facility] Start: 04-09-2020 End: 04-10-2020 ambulatory NATYLIEN KIRKPATRICK Facility:[facility] Start: 12-25-2016 End: 12-26-2016 Ambulatory DEFAULT PHYSICIAN Facility:[facility] Plan of Treatment Date Care Activity Detail Author Start: 05-30-2023 Hemolytic complement CH50 level [facility] Start: 01-18-2023 Bacteria identified in Urine by Culture [facility] Start: 01-18-2023 Hemolytic complement CH50 level [facility] Complement C3 [Mass/ volume] in Serum or Plasma [facility] Complement C3 [Mass/ volume] in Serum or Plasma [facility] Complement C4 [Mass/ volume] in Serum or Plasma [facility] Complement C4 [Mass/ volume] in Serum or Plasma [facility] Payers Date Payer Category Payer Medicare 2023 Unknown 2022 Self-pay [id number] 1959 Medicare [id number] 1959 Unknown [id number] 1955 Unknown [id number] 2.16.84 [id number] 1955 Unknown [id number] 2.16.84 0.1.539007.3.579.2.593 1955 Unknown [id number] 2.16.8 40.1.956418.3.579.2.727 1955 Unknown [id number] 2.16.8 40.1.874936.3.579.2.727 1955 Unknown [id number] 2.16.840 .1.190706.3.579.2.1259 1955 Unknown [id number] 2.16.840 .1.504806.3.579.2.1259 1955 Unknown [id number] 2.16.840 .1.851254.3.579.2.1259 1955 Unknown [id number] 2.16.84 0.1.304099.3.579.2.1286 1955 Unknown [id number] 2.16. 840.1.821248.3.579.2.196 1955 Unknown [id number] 2.16. 840.1.454796.3.579.2.196 Unknown [id number] 2.16.8 40.1.018766.3.579.2.531 Unknown [id number] 2.16.8 40.1.003986.3.579.2.531 Unknown [id number] 2.16.8 40.1.316338.3.579.2.531 Social History Date Type Detail Facility Sex Assigned At [facility] Other Start: 02-11-2021 End: 02-11-2021 Tobacco smoking status TNIS Never smoked tobacco (finding) [facility] Start: 1955 Sex Assigned At Female F [facility] Evaluation note 09-12-2022 Note Date & Type Note Facility 09-12-2022 Evaluation note Encounter Date Diagnosis Assessment Notes Aug, Arthritis of carpometacarpal joint (ICD-10 - M19.049) We performed a cortisone injection into the bilateral CMC joint under sterile technique. The patient tolerated this well without complication . We discussed that the finger may feel numb and tingle for hours after this injection. Aug, Pain in left hand (ICD-10 - M79.642) Aug, Pain in right hand (ICD-10 - M79.641) [facility] Other Evaluation note 06-14-2022 Note Date & Type Note Facility 06-14-2022 Evaluation note Encounter Date Diagnosis Assessment Notes May, Arthritis of carpometacarpal joint (ICD-10 - M19.049) Bilateral thumb CMC joints injected with cortisone under sterile technique, patient tolerated well May, Pain in left hand (ICD-10 - M79.642) May, Pain in right hand (ICD-10 - M79.641) [facility] Other Evaluation note 05-10-2022 Note Date & Type Note Facility 05-10-2022 Evaluation note Encounter Date Diagnosis Assessment Notes Apr, Hyponatremia (ICD-10 - E87.1) The patient has history of hyponatremia 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 Patient was on thiazide diuretics which also cause renal loss of sodium and subsequent hyponatremia. Last serum sodium level check is normal at 135 mmol/L.Patient is currently off thiazide diuretic. I asked the patient to follow fluid restriction of 2 L a day. I will add Lasix 2 mg twice daily to help blood pressure control And follow-up with the patient in 6 months Apr, Primary hypertension (ICD-10 - I10) Blood pressure is elevated. I will add Lasix 10 mg twice daily. I will continue same follow-up blood pressure medication [facility] Other Evaluation note 03-29-2022 Note Date & Type Note Facility 03-29-2022 Evaluation note Encounter Date Diagnosis Assessment Notes Mar, Arthritis of carpometacarpal joint (ICD-10 - M19.049) The patient continues to have pain from CMC arthritis in both thumbs. Extensive discussion was held with the patient regarding treatment options. We discussed repeating cortisone injections. The patient would like to repeat the cortisone injections today. After sterile prep, cortisone injections were performed into bilateral thumb CMC joints. Patient tolerated well. Mar, Pain in left hand (ICD-10 - M79.642) Mar, Pain in right hand (ICD-10 - M79.641) [facility] Other Evaluation note 12-13-2021 Note Date & Type Note Facility 12-13-2021 Evaluation note Encounter Date Diagnosis Assessment Notes Nov, Arthritis of carpometacarpal joint (ICD-10 - M19.049) The patient continues to have pain from CMC arthritis in both thumbs. Extensive discussion was held with the patient regarding treatment options. We discussed repeating cortisone injections as well as surgical options. The patient would like to repeat the cortisone injections today. After sterile prep, cortisone injections were performed into bilateral thumb CMC joints. Patient tolerated well. Nov, Pain in left hand (ICD-10 - M79.642) Nov, Pain in right hand (ICD-10 - M79.641) [facility] Other Evaluation note 08-26-2021 Note Date & Type Note Facility 08-26-2021 Evaluation note Encounter Date Diagnosis Assessment Notes Aug, Arthritis of carpometacarpal joint (ICD-10 - M19.049) We performed kenalog cortisone injection into the bilateral thumbs CMC joints under sterile technique. The patient tolerated this well without complication . We discussed that the finger may feel numb and tingle for hours after this injection. Aug, Pain in left hand (ICD-10 - M79.642) Aug, Pain in right hand (ICD-10 - M79.641) [facility] Other Evaluation note Note Date & Type Note Facility Evaluation note No Information [facility] Other Evaluation note Note Date & Type Note Facility Evaluation note No assessment information [facility] Work Phone: History general Narrative - Reported Note Date & Type Note Facility History general Narrative - Reported Type Medical History chronic fatigue Medical History rheumatoid arthritis Medical History sjogren syndrome Medical History lupus Surgical History tonsillectomy and adenoidectomy Surgical History cervix repair Surgical History mastoidectomy Surgical History skull surgery Hospitalization History see above Hospitalization History kidney infection Hospitalization History child Hospitalization History broken arm [facility] Other History general Narrative - Reported Note Date & Type Note Facility History general Narrative - Reported Type Medical History chronic fatigue Medical History rheumatoid arthritis Medical History sjogren syndrome Medical History lupus Medical History influenza A Medical History pneumonia Medical History CYCSTITIS OF BLADDER Medical History hyponatremia Surgical History tonsillectomy and adenoidectomy Surgical History cervix repair Surgical History mastoidectomy Surgical History skull surgery Surgical History RIGHT TOTAL HIP REPLACEMENT Surgical History LEFT ROTATOR CUFF REPAIR Surgical History EYE SURGERIES AFTER CATARACTS Surgical History CATARACTS Hospitalization History see above Hospitalization History kidney infection Hospitalization History child Hospitalization History broken arm Hospitalization History INFLUENZA A AND PNEUMONI A Hospitalization History COMPLICATIONS AFTER SKUL L SURGERY [facility] Other Summary Purpose Family History No Family History Records Found Relationship Condition Age at Onset Recorded Date/T leona Not Specified Heart disease Unknown brother Hypertension Unknown Diabetes mellitus Unknown natural son Malignant neoplasm Unknown Advance Directives No Advanced Directives Records Found Advance Directive Response Recorded Date/ Time Advance Directives No December 23 7:16am Advance Directive Response Recorded Date/ Time Advance Directives No December 23 6:16am Chief Complaint and Reason for Visit Chief Complaint M15.0 M35.9 Z79.899 Additional Source Comments INFORMATION SOURCE (unrecogn ized section and content) DATE CREATED AUTHOR 11/14/2017 [facility] DATE CREATED AUTHOR AUTHOR'S ORGANIZ ATION 12/05/2018 [facility] DATE CREATED AUTHOR AUTHOR'S ORGANIZ ATION 03/17/2021 [facility] DATE CREATED AUTHOR AUTHOR'S ORGANIZ ATION 05/25/2021 [facility] Specialist DATE CREATED AUTHOR AUTHOR'S ORGANIZ ATION 12/25/[address] [place] [facility] DATE CREATED AUTHOR AUTHOR'S ORGANIZ ATION 05/07/2023 [facility] dical Specialists [facility] DATE CREATED AUTHOR AUTHOR'S ORGANIZ ATION 05/21/2023 [facility] DATE CREATED AUTHOR AUTHOR'S ORGANIZ ATION 06/06/2023 [facility] DATE CREATED AUTHOR AUTHOR'S ORGANIZ ATION 06/15/2023 [facility] REASON FOR VISIT (unrecogniz ed section and content) Recheck Bilateral HandsUpdat e Kios[employer] DemographicsRecheck Bilateral HandsRecheck Bilateral HandsRENAL HYPONATREMIARecheck Bilateral HandsRecheck Bilateral Hands Care Teams (unrecognized sec tion and content) Team Status: Active Member Role Status Dates Oriana Laguerre MD Primary Care Provider Active Team Status: Inactive Member Role Status Dates Oriana Laguerre MD Primary Care Provider Active SHANKAR Gamble Attending Provider Active Team Status: Inactive Member Role Status Dates Oriana Laguerre MD Primary Care Provider Active Endy Abreu MD Attending Provider Active Goals (unrecognized section and content) Goals may be documented in a n alternate section FOR RECORDS PERTAINING TO PATIENTS WHO ARE OR HAVE BEEN ENROLLED IN A CHEMICAL DEPENDENCY/SUBSTANCEABUSE PROGRAM, SOME INFORMATION MAY BE OMITTED. This clinical summary was aggregated from multiple sources. Caution should be exercised in using it in the provision of clinical care. This summary normalizes information from multiple sources, and as a consequence, information in this document may materially change the coding, format and clinical context of patient data. In addition, data may be omitted in some cases. CLINICAL DECISIONS SHOULD BE BASED ON THE PRIMARY CLINICAL RECORDS. [facility]. provides no warranty or guarantee of the accuracy or completeness of information in this document.
== END 2023-06-21 11:24 | disposition home or self-care (01) ==
LOC: PM 11:24
PROVIDERS: PCP Family Medicine; Visit Provider Nurse Practitioner
DX: M47.816 Spondylosis without myelopathy or radiculopathy, lumbar region (principal); M48.062 Spinal stenosis, lumbar region with neurogenic claudication
CPT/HCPCS: G0463

== ENCOUNTER 2023-07-02 07:36 | Day surgery (SDC) | payer MEDICARE, OTHER, SELFPAY ==
--- OUTSIDE RECORDS SUMMARY | 2023-07-02 07:40 | XMS_ITS | CCD ---
Author Name Unknown Address [address] [place] [address] Organization [facility] Care Team Providers Care Networking Technology Instructor Name Role Phone PHYSICIAN, DEFAULT Unavailable Unavailable PHYSICIAN, DEFAULT Unavailable Unavailable ORIANA LAGUERRE Unavailable Unavailable MISC, DR CHEEK Attending Unavailable MISC, DR CHEEK Admitting Unavailable MISC, DR CHEEK Consulting Unavailable SHADE, DR ORIANA Lora Primary Care Unavailable NATY KIRKPATRICK Admitting Unavailable NATY KIRKPATRICK Unavailable ANTY KIRKPATRICK Attending Unavailable SHADE, DR ORIANA Lora Referring Unavailable Abena Hawkins Unavailable Oriana Laguerre Unavailable José Miguel Grey Unavailable Addy ROUSSEAU Attending Unavailable Addy ROUSSEAU Attending Unavailable MD Oriana Laguerre Primary Care Provider SHANKAR Santiago Attending Provider RHODA DOCKERY Attending Unavailable ORIANA LAGUERRE Attending Unavailable NATY KIRKPATRICK Referring Unavailable LATRICE PEÑA Referring Unavailable ORIANA LAGUERRE Primary Care Unavailable MD Oriana Laguerre Primary Care Provider MD Endy Abreu Attending Provider Marcial RAMIREZ, Kamryn Rodriguez Attending Unavailable Marcial RAMIREZ, Kamryn Rodriguez Attending Unavailable Oriana Laguerre MD Primary Care Provider Huong Santiago Admitting Unavailable Huong Santiago Attending Unavailable Oriana Laguerre Primary Care Unavailable Huong Santiago Attending Unavailable Oriana Laguerre Primary Care Unavailable Huong Santiago Admitting Unavailable Oriana Laguerre Primary Care Unavailable Endy Abreu Admitting Unavailable Endy Abreu Attending Unavailable RHODA JIN Attending Unavailable CLEMENTINA DIEGO Referring Unavailable ORIANA LAGUERRE Primary Care Unavailable Allergies Allergy Classification Reported Allergen(s) Allergy Type Date of Onset Reaction(s) Facility (1 source) Sulfonamides (Antibiotic); Translations: [SULFA] Propensity to adverse reactions (disorder) 11-11-19 11 [facility] Repository (4 sources) gabapentin; Translations: [gabapentin] Drug Allergy 02-12-20 21 [facility] Repository (1 source) rosuvastatin Drug Allergy 02-26-20 21 [facility] Repository (1 source) Sulfonamides (Antibiotic) Drug allergy (disorder) 02-26-20 [facility] Repository (8 sources) gabapentin Drug Allergy 11-02-19 17 [facility] (7 sources) Sulfacetamide / Sulfur Drug Allergy Unknown [facility] Other (1 source) Sulfonamides (Antibiotic); Translations: [sulfa drugs] Propensity to adverse reactions (disorder) [facility] Repository (6 sources) Ciprofloxacin; Translations: [CIPROFLOXACIN] Drug Allergy 02-12-20 21 Unknown Reaction [facility] (3 sources) Sulfacetamide; Translations: [sulfacetamide] Drug Allergy 02-12-20 21 Vomiting [facility] (3 sources) Sulfur; Translations: [sulfur] Drug Allergy 02-12-20 [facility] (2 sources) gabapentin; Translations: [GABAPENTIN (BULK)] Drug Allergy 11-02-19 17 [facility] Repository (3 sources) Hmg-Coa Reductase Inhibitors (Statins); Translations: [XEKGWIB-GOH-UWO REDUCTASE INHIBITORS] Propensity to adverse reactions to drug (disorder) 11-02-19 17 pain [facility] Repository (3 sources) Sulfonamides (Antibiotic); Translations: [SULFA (SULFONAMIDE ANTIBIOTICS)] Propensity to adverse reactions to drug (disorder) 11-02-19 17 GI Disturbance [facility] Repository (1 source) gabapentin Drug Allergy 12-13-19 23 [facility] Repository Medications Current Medications Medication Drug Class(es) Dates Sig (Normalized) Sig (Original) acetaminophen 500 mg oral tablet (4 sources) Start: 07-01-2021 take 2 tablets by mouth every six hours acetaminophen (TYLENOL EXTRA STRENGTH) 500 mg tablet Take 2 tablets (1,000 mg total) by mouth every 6 (six) hours. 30 tablet 0 07/01/2021 Active take 2 capsules by m outh every six hours Acetaminophen 500 MG 2 capsule as needed Orally every 6 hrs Active [id number] 200 actuat albuterol 0.09 mg/actuat metered dose inhaler (1 source) beta2-Adrenergic Agonist take 2 puff(s) by inhalation every six hours as needed for wheezing albuterol (PROVENTIL HFA;VENTOLIN HFA) 90 mcg/actuation inhaler Inhale 2 puffs every 6 (six) hours as needed for wheezing. 0 Active albuterol 0.833 mg/ml / ipratropium bromide 0.167 mg/ml inhalation solution (4 sources) Anticholinergic, beta2-Adrenergic Agonist Start: 022 take 3 mL by inhalation every four hours as needed for wheezing ipratropium-albutero L (DUONEB) 0.5 mg-3 mg(2.5 mg base)/3 mL nebulizer Indications: Influenza A Inhale 3 mL by nebulization every 4 (four) hours as needed for wheezing. 50 mL 0 04/17/2022 Active take 3 mL by inhalat ion every six hours as needed Ipratropium-Albuterol 0.5-2.5 (3) MG/3ML 3 mL as needed Inhalation every 6 hrs Active Calcium Carbonate (4 sources) take 1 tablet by delisa th twice daily calcium carbonate (CALCIUM 500 ORAL) Take 1 tablet by mouth 2 (two) times a day. 0 Active take 1 tablet by mouth every twe lve hours Calcium 500 MG 1 tablet with meals Orally Twice a day Active carvedilol 12.5 mg oral tablet (4 sources) alpha-Adrenergic Aleks, beta-Adrenergic Aleks Start: 03-06-2022 take 1 tablet by mouth in the morning, then take 1 tablet by mouth at mealtime carvediloL (COREG) 12.5 mg tablet Take 1 tablet (12.5 mg total) by mouth in the morning and 1 tablet (12.5 mg total) in the evening. Take with meals. 0 03/06/2022 Active celecoxib 200 mg oral capsule (9 sources) Nonsteroidal Anti-inflammatory Drug Start: 02-11-2021 Celecoxib Active 200 MG PO As Directed February 10, 2021 11:00pm cholecalciferol 0.05 mg oral capsule (1 source) Vitamin D cholecalciferol, vitamin D3, 2,000 units capsule Take 5,000 Units by mouth daily. 0 Active clotrimazole 10 mg oral lozenge (2 sources) Azole Antifungal Start: 02-11-2021 Clotrimazole Active 10 MG PO As Directed February 10, 2021 11:00pm cycloSPORINE 0.5 mg/ml ophthalmic suspension (6 sources) Calcineurin Inhibitor Immunosuppressant Start: 02-11-2021 Cyclosporine [...] Orally Once a day Active fluocinolone acetonide 0.32953 mg/mg topical ointment (4 sources) Corticosteroid Start: 03-16-2022 fluocinolone ( SYNALAR) 0.025 % ointment Indications: Chronic eczematous otitis externa of both ears Apply 1 application topically 2 (two) times a week. Apply to external auditory canals twice weekly 30 g 0 03/16/2022 Active Fluocinolone Charlie tonide 0.025 % 1 application Externally Twice a day Active furosemide 20 mg oral tablet (3 sources) Loop Diuretic Start: 05-10-2022 take 0.5 tablet by mouth twice daily Lasix 20 MG 0.5 tab Orally twice daily for 90 days Apr, Active ivfzhwwy-yxfn-cvh6-C-man g-bosw 750-625-30 mg tablet (1 source) take 1 tablet by mouth once daily sydygvnm-homw-wbv1-C-ma ng-bosw 750-625-30 mg tablet Take 1 tablet by mouth daily. 0 Active glucosamine 750 mg oral tablet (3 sources) Glucosamine 750 MG as directed Orally Active hydroCHLOROthiazide 12.5 mg oral tablet (7 sources) Thiazide Diuretic Start: 02-11-2021 Hydrochlorothiazide Active 12.5 MG PO As Directed February 10, 2021 11:00pm take 1 capsule by mo [facility] every twenty-four hours hydroCHLOROthiazide 12.5 MG 1 capsule in the morning Orally Once a day Active hydroxychloroquine sulfate 200 mg oral tablet (10 sources) Antimalarial, Antirheumatic Agent Start: 02-11-2021 Hydroxychloroquine Active 200 MG PO As Directed February 10, 2021 11:00pm krill oil 500 mg oral capsule (4 sources) take 2 capsules by mouth once daily krill oil 500 mg capsule Take 2 capsules by mouth daily. 0 Active lactobacillus acidophilus [id number] unt / pectin 100 mg oral tablet (1 source) take 1 tablet by mouth once daily at breakfast acidophilus-pectin, citrus 25 million cell -100 mg tablet Take 1 tablet by mouth daily with breakfast. 0 Active losartan potassium 50 mg oral tablet (10 sources) Angiotensin 2 Receptor Aleks Start: 02-11-2021 Losartan Active 50 MG PO As Directed February 10, 2021 11:00pm Start: 10-17-2016 losartan (COZA AR) 100 mg tablet 1 tablet (100 mg total) in the morning. 0 10/17/2016 Active magnesium oxide 500 mg oral tablet (4 sources) take 1 tablet by delisa in the morning magnesium oxide 500 mg tablet Take 1 tablet (500 mg total) by mouth in the morning. 0 Active Magnesium Oxide 500 MG as directed Orally Active meloxicam 15 mg oral tablet (1 source) Nonsteroidal Anti-inflammatory Drug Start: 01-30-2023 take 1 tablet by mouth once daily meloxicam (MOBIC) 15 mg tablet TAKE 1 TABLET BY MOUTH EVERY DAY 0 01/30/2023 Active methylPREDNISolone 4 mg oral tablet (3 sources) Corticosteroid Start: 02-11-2021 take 1 tablet by mouth in the morning methylPREDNISolone (MEDROL, HUGO,) 4 mg tablet Take 1 tablet (4 mg total) by mouth in the morning. follow package directions. 21 tablet 0 04/17/2022 Active 24 hr metoprolol succinate 25 mg extended release oral tablet (1 source) beta-Adrenergic Aleks take 1 tablet by mouth once daily in the morning metoprolol succinate XL (TOPROL XL) 25 mg 24 hr tablet TAKE 1 TABLET BY MOUTH EVERY MORNING 0 Active Multi Vitamin Daily - (3 sources) take 1 tablet by mouth once daily Multi Vitamin Daily - 1 tablet Orally Once a day Active ozqnmgqt-ykfd-SS-calc ium &mins (THERAGRAN-M) 9 mg iron-400 mcg tablet (1 source) dnjdbsfu-eciy-NP -calc ium &mins (THERAGRAN-M) 9 mg iron-400 mcg tablet Take 1 tablet by mouth in the morning. 0 Active omeprazole 20 mg delayed release oral capsule (10 sources) Proton Pump Inhibitor Start: 02-08-2021 Omeprazole Active 20 MG PO As Directed February 10, 2021 11:00pm Restasis Multidose (3 sources) Restasis Multido se Active saccharomyces boulardii 250 mg oral capsule (3 sources) Probiotic 250 MG as directed Orally Active thioctic acid 100 mg oral capsule (3 sources) take 1 capsule by mouth every twenty-fou r hours Alpha-Lipoic Acid 100 MG 1 capsule Orally Once a day Active thyroid (residential) 120 mg oral tablet (10 sources) Start: 10-31-2016 Thyroid (Pork) ([place] Thyroid) 120 mg tablet Active 120 MG PO As Directed February 10, 2021 11:00pm tiZANidine 4 mg oral tablet (4 sources) Central alpha-2 Adrenergic Agonist take 2 tablets by mouth once daily as needed for muscle spasms tiZANidine (ZANAFLEX) 4 mg tablet Take 2 tablets (8 mg total) by mouth nightly as needed for muscle spasms. 0 Active vitamin b12 1 mg/ml injectable solution (5 sources) Vitamin B12 Start: 02-11-2021 Cyanocobalamin (Vitamin B-12) Active 1000 MCG IM As Directed February 10, 2021 11:00pm Cyanocobalamin 1 00 MCG as directed Orally Active Vitamin D-3 125 MCG (5000 UT) (3 sources) Vitamin D-3 125 MCG (5000 UT) as directed Orally Active zinc acetate 25 mg oral capsule (1 source) take 1 tablet by delisa th once daily zinc acetate 25 mg (zinc) capsule Take 1 tablet by mouth daily. 0 Active Completed/Discontinued Medications Medication Drug Class(es) Dates Sig (Normalized) Sig (Original) triamcinolone acetonide 40 mg/ml injectable suspension (20 sources) Corticosteroid Start: 03-29-2022 Kenalog-40 Mar, 40 mg Start: 08-26-2021 Kenalog-40 Nov, 20 mg Start: 08-26-2021 Kenalog -40 mg Aug, 20 mg Start: 05-04-2021 Kenalog -40 mg Apr, 20 mg Start: 02-02-2021 Kenalog -40 mg Jan, 20 mg Start: 02-02-2021 Kenalog -40 mg 15 Jan, 2021 40 mg Start: 10-13-2020 Kenalog -40 mg September, 20 mg Start: 06-29-2020 Kenalog -40 mg Jun, 40 mg Start: 03-24-2020 Kenalog -40 mg Mar, 40 mg Problems Active Problems Problem Classification Problem Date Documented Da te Episodic/Chronic Asthma (1 source) Asthma; Translations: [Unspecified asthma, uncomplicated] Onset: 2 04-16-2022 Chronic Diverticulosis and diverticulitis (1 source) Diverticulum of large intestine without hemorrhage; Translations: [Diverticulosis of large intestine without perforation or abscess without bleeding] Onset: 7 11-01-2016 Chronic Esophageal disorders (9 sources) Gastroesophageal reflux disease; Translations: [Gastro-esophageal reflux disease without esophagitis] 02-11-2021 Chronic Essential hypertension (5 sources) Essential hypertension; Translations: [Essential (primary) hypertension] Onset: 2 Chronic Immunizations and screening for infectious disease (5 sources) Encounter for immunization; Translations: [Contact with and (suspected) exposure to other viral communicable diseases] Onset: 0 Episodic Nervous system congenital anomalies (2 sources) Encephalocele; 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, 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 Osteoarthritis (15 sources) Arthropathy of joint of hand; Translations: [...] not elsewhere classified] Onset: 3 Episodic Other ear and sense organ disorders (1 source) Sensorineural hearing loss, bilateral; Translations: [Sensorineural hearing loss, bilateral] 06-26-2023 Chronic Other ear and sense organ disorders (1 source) Hearing loss; Translations: [Unspecified hearing loss, unspecified ear] Onset: 2 01-18-2022 Chronic Other ear and sense organ disorders (1 source) Sensorineural hearing loss, bilateral; Translations: [Sensorineural hearing loss, bilateral] Onset: 4 Chronic Other gastrointestinal disorders (9 sources) Dysphagia; Translations: [Dysphagia, unspecified] 02-11-2021 Episodic Systemic lupus erythematosus and connective tissue disorders (1 source) Systemic involvement of connective tissue, unspecified; Translations: [Systemic involvement of connective tissue, unspecified] Onset: 3 Chronic Thyroid disorders (1 source) Hypothyroidism; Translations: [Hypothyroidism, unspecified] Onset: 2 04-16-2022 Chronic Viral infection (4 sources) COVID-19; Translations: [COVID-19] Onset: 1 Past or Other Problems Problem Classification Problem Date Documented Da te Episodic/Chronic Fluid and electrolyte disorders (2 sources) Hypo-osmolality and hyponatremia; Translations: [Hyponatremia] Onset: 04-16-2022 Episodic Influenza (1 source) Influenza due to Influenza A virus; Translations: [Influenza due to other identified influenza virus with other respiratory manifestations] Onset: 04-16-2022 04-16-2022 Episodic Other and unspecified benign neoplasm (1 source) Hyperplastic polyp of intestine; Translations: [Polyp of colon] Onset: 11-15-2016 11-15-2016 Episodic Other non-traumatic joint disorders (1 source) Pain in right hip joint; Translations: [Pain in right hip] Onset: 04-27-2021 04-27-2021 Episodic Other screening for suspected conditions (not mental disorders or infectious disease) (1 source) Patient encounter status; Translations: [Encounter for screening for other suspected endocrine disorder] Onset: 02-07-2023 02-07-2023 Episodic Otitis media and related conditions (2 sources) Dysfunction of eustachian tube; Translations: [Unspecified Eustachian tube disorder, left ear] Onset: 01-18-2022 01-18-2022 Episodic Spondylosis; intervertebral disc disorders; other back problems (1 source) Disorder of sacrum; Translations: [Sacrococcygeal disorders, not elsewhere classified] Onset: 04-27-2021 04-27-2021 Episodic Results Test Name Value Interpretation Reference Range Facility Comprehensive hearing testOr dered By: Roya Schroeder on 06-26-[address] [facility] Alanine aminotransferase [En zymatic activity/volume] in Serum or PlasmaOrdered By: Endy Abreu on 05-30-2023 ALT [Catalytic activity/Vol] 16 U/L 7-52 [facility] Albumin [Mass/volume] in Ser um or Plasma by Bromocresol green (BCG) dye binding methoOrdered By: Endy Abreu on 05-30-2023 Albumin BCG dye [Mass/Vol] 4.2 g/dL 3.5-5.7 [facility] Alkaline phosphatase [Enzyma tic activity/volume] in Serum or PlasmaOrdered By: Endy Abreu on 05-30-2023 ALP [Catalytic activity/Vol] 109 U/L 34-104 [facility] Aspartate aminotransferase [ Enzymatic activity/volume] in Serum or PlasmaOrdered By: Endy Abreu on 05-30-2023 AST [Catalytic activity/Vol] 22 U/L 13-39 [facility] Automated erythrocytes count in urine sediment (number/area)Ordered By: Endy Abreu on 05-30-2023 RBC Auto (Urine sed) [#/Area] 0-1 [HPF] 0-4 [facility] Automated leukocytes count i n urine sediment (number/area)Ordered By: Endy Abreu on 05-30-2023 WBC Auto (Urine sed) [#/Area] 0-1 [HPF] 0-4 [facility] Basophils Auto (Bld) [#/Vol] Ordered By: Endy Abreu on 05-30-2023 Basophils (Bld) [#/Vol] 0.1 10*3/uL 0.0-0.2 [facility] Basophils/100 WBC Auto (Bld) Ordered By: Endy Abreu on 05-30-2023 Basophils/100 WBC (Bld) 1.1 % . [facility] Bilirubin Test strip Ql (U)O rdered By: Endy Brady on 05-30-2023 Bilirubin Ql (U) Negative Negative [facility] Bilirubin.total [Mass/volume ] in Serum or PlasmaOrdered By: Endy Abreu on 05-30-2023 Bilirubin [Mass/Vol] 0.5 mg/dL 0.3-1.0 [facility] Calcium [Mass/volume] in Ser um or PlasmaOrdered By: Endy Abreu on 05-30-2023 Calcium [Mass/Vol] 10.0 mg/dL 8.6-10.3 [facility] Carbon dioxide, total [Moles /volume] in Serum or PlasmaOrdered By: Endy Abreu on 05-30-2023 CO2 [Moles/Vol] 26.9 mmol/L 21.0-31.0 [facility] Chloride [Moles/volume] in S mary ellen or PlasmaOrdered By: Endy Abreu on 05-30-2023 Chloride [Moles/Vol] 98 mmol/L 98-107 [facility] Color Auto (U)Ordered By: Ngoc Abreu on 05-30-2023 Color (U) Yellow Yellow [facility] Complement C3on 05-30-2023 Complement C3 143 mg/dL Normal 82-167 [facility] Comment on above: Result Comment: Perf ormed at: CB - [facility] [address] [id number] Induction Coordination Power Engineer: Marvel Barahona PhD, Phone: [phone] Performed By: #### C MP, ESR, CBC, ADDONUAPLUS #### [address] #### CH50, C3, C4 #### [facility] , Complement C4on 05-30-2023 Complement C4 29 mg/dL Normal 12-38 [facility] Comment on above: Result Comment: PERF ORMED BY: [place] [address] PATHOLOGIST RN PSYCHIATRIC ALTHEA BARRAGAN M.D. Performed By: #### C MP, ESR, CBC, ADDONUAPLUS #### [address] #### CH50, C3, C4 #### [facility] , Complement Total (CH50)on Complement Total (CH50) >60 Normal >41 F [facility] Comment on above: Result Comment: Age Male [...] determine out of range values. Performed at: [address] [id number] Induction Coordination Power Engineer: Marvel Barahona PhD, Phone: [phone] PERFORMED BY: [place] [address] PATHOLOGIST RN PSYCHIATRIC ALTHEA BARRAGAN M.D. Performed By: #### C MP, ESR, CBC, ADDONUAPLUS #### [address] #### CH50, C3, C4 #### [facility] , Complete Blood Count Auto Di ffon 05-30-2023 Basophils (Bld) [#/Vol] 0.1 10*3/uL Normal 0.0-0.2 [facility] Comment on above: Performed By: #### C MP, ESR, CBC, ADDONUAPLUS #### [address] #### CH50, C3, C4 #### [facility] , Basophils/100 WBC (Bld) 1.1 % Normal . [facility] Comment on above: Performed By: #### C MP, ESR, CBC, ADDONUAPLUS #### [place] [address] [place] #### CH50, C3, C4 #### [facility] , Eosinophils (Bld) [#/Vol] 0.0 10*3/uL Normal 0.0-0.45 [facility] Comment on above: Performed By: #### C MP, ESR, CBC, ADDONUAPLUS #### [address] #### CH50, C3, C4 #### [facility] , Eosinophils/100 WBC (Bld) 0.6 % Normal . [facility] Comment on above: Performed By: #### C MP, ESR, CBC, ADDONUAPLUS #### [address] #### CH50, C3, C4 #### [facility] , Erythrocyte distribution width (RBC) [Ratio] 13.8 % Normal 11.9-15.3 [facility] Comment on above: Performed By: #### C MP, ESR, CBC, ADDONUAPLUS #### [place] [address] [place] #### CH50, C3, C4 #### [facility] , Hematocrit (Bld) [Volume fraction] 36.4 % Normal 34.0-46.4 [facility] Comment on above: Performed By: #### C MP, ESR, CBC, ADDONUAPLUS #### [facility] [address] [place] [address] [place] #### CH50, C3, C4 #### [facility] , Hemoglobin (Bld) [Mass/Vol] 12.3 g/dL Normal 11.8-15.4 [facility] Comment on above: Performed By: #### C MP, ESR, CBC, ADDONUAPLUS #### [place] [address] [place] #### CH50, C3, C4 #### [facility] , Lymphocytes (Bld) [#/Vol] 2.4 10*3/uL Normal 1.00-4.8 [facility] Comment on above: Performed By: #### C MP, ESR, CBC, ADDONUAPLUS #### [address] #### CH50, C3, C4 #### [facility] , Lymphocytes/100 WBC (Bld) 29.2 % Normal . [facility] Comment on above: Performed By: #### C MP, ESR, CBC, ADDONUAPLUS #### [address] #### CH50, C3, C4 #### [facility] , MCH (RBC) [Entitic mass] 31.0 pg Normal 24.7-34.3 [facility] Comment on above: Performed By: #### C MP, ESR, CBC, ADDONUAPLUS #### [address] #### CH50, C3, C4 #### [facility] , MCV (RBC) [Entitic vol] 91.5 fL Normal 80-100 [facility] Comment on above: Performed By: #### C MP, ESR, CBC, ADDONUAPLUS #### [address] #### CH50, C3, C4 #### [facility] , Mean Corpuscular HGB Conc 33.8 g/dL Normal 32.0-35.0 [facility] Comment on above: Performed By: #### C MP, ESR, CBC, ADDONUAPLUS #### [place] [address] [place] #### CH50, C3, C4 #### [facility] , Monocytes (Bld) [#/Vol] 0.5 10*3/uL Normal 0.0-0.8 [facility] Comment on above: Performed By: #### C MP, ESR, CBC, ADDONUAPLUS #### [place] [address] [place] #### CH50, C3, C4 #### [facility] , Monocytes/100 WBC (Bld) 6.2 % Normal . [facility] Comment on above: Performed By: #### C MP, ESR, CBC, ADDONUAPLUS #### [place] [address] [place] #### CH50, C3, C4 #### [facility] , Neutrophils (Bld) [#/Vol] 5.1 10*3/uL Normal 1.8-7.7 [facility] Comment on above: Performed By: #### C MP, ESR, CBC, ADDONUAPLUS #### [address] #### CH50, C3, C4 #### [facility] , Neutrophils/100 WBC (Bld) 62.9 % Normal . [facility] Comment on above: Performed By: #### C MP, ESR, CBC, ADDONUAPLUS #### [place] [address] [place] #### CH50, C3, C4 #### [facility] , NRBC% 0.0 /100{WBC} Normal 0-0.5 [facility] Comment on above: Performed By: #### C MP, ESR, CBC, ADDONUAPLUS #### [place] [address] [place] #### CH50, C3, C4 #### [facility] , Platelet mean volume (Bld) [Entitic vol] 7.4 fL Normal 6.3-10.7 [facility] Comment on above: Performed By: #### C MP, ESR, CBC, ADDONUAPLUS #### [place] [address] [place] #### CH50, C3, C4 #### [facility] , Platelets (Bld) [#/Vol] 461 10*3/uL High 150-450 [facility] Comment on above: Performed By: #### C MP, ESR, CBC, ADDONUAPLUS #### [facility] [address] [place] [address] [place] #### CH50, C3, C4 #### [facility] , RBC (Bld) [#/Vol] 3.97 10*6/uL Normal 3.60-5.00 [facility] Comment on above: Performed By: #### C MP, ESR, CBC, ADDONUAPLUS #### [facility] [address] [place] [address] [place] #### CH50, C3, C4 #### [facility] , WBC (Bld) [#/Vol] 8.1 10*3/uL Normal 3.8-11.6 [facility] Comment on above: Performed By: #### C MP, ESR, CBC, ADDONUAPLUS #### [facility] [address] [place] [address] [place] #### CH50, C3, C4 #### [facility] , Comprehensive Metabolic Pane chema 05-30-2023 Albumin [Mass/Vol] 4.2 g/dL Normal 3.5-5.7 [facility] Comment on above: Performed By: #### C MP, ESR, CBC, ADDONUAPLUS #### [facility] [address] [place] [address] [place] #### CH50, C3, C4 #### [facility] , Albumin/Globulin [Mass ratio] 1.8 {ratio} Normal [facility] Comment on above: Performed By: #### C MP, ESR, CBC, ADDONUAPLUS #### [facility] [address] [place] [address] [place] #### CH50, C3, C4 #### [facility] , ALP [Catalytic activity/Vol] 109 U/L High 34-104 [facility] Comment on above: Result Comment: PERF ORMED BY: [place] [address] PATHOLOGIST RN PSYCHIATRIC ALTHEA BARRAGAN M.D. Performed By: #### C MP, ESR, CBC, ADDONUAPLUS #### [address] #### CH50, C3, C4 #### [facility] , ALT [Catalytic activity/Vol] 16 U/L Normal 7-52 [facility] Comment on above: Performed By: #### C MP, ESR, CBC, ADDONUAPLUS #### [address] #### CH50, C3, C4 #### [facility] , Anion gap [Moles/Vol] 12.2 mmol/L Normal 6.0-15.0 [facility] Comment on above: Performed By: #### C MP, ESR, CBC, ADDONUAPLUS #### [address] #### CH50, C3, C4 #### [facility] , AST [Catalytic activity/Vol] 22 U/L Normal 13-39 [facility] Comment on above: Performed By: #### C MP, ESR, CBC, ADDONUAPLUS #### [address] #### CH50, C3, C4 #### [facility] , Bilirubin [Mass/Vol] 0.5 mg/dL Normal 0.3-1.0 [facility] Comment on above: Performed By: #### C MP, ESR, CBC, ADDONUAPLUS #### [place] [address] [place] #### CH50, C3, C4 #### [facility] , Calcium [Mass/Vol] 10.0 mg/dL Normal 8.6-10.3 [facility] Comment on above: Performed By: #### C MP, ESR, CBC, ADDONUAPLUS #### [facility] [address] [place] [address] [place] #### CH50, C3, C4 #### [facility] , Chloride [Moles/Vol] 98 mmol/L Normal 98-107 [facility] Comment on above: Performed By: #### C MP, ESR, CBC, ADDONUAPLUS #### [facility] [address] [place] [address] [place] #### CH50, C3, C4 #### [facility] , CO2 [Moles/Vol] 26.9 mmol/L Normal 21.0-31.0 [facility] Comment on above: Performed By: #### C MP, ESR, CBC, ADDONUAPLUS #### [place] [address] [place] #### CH50, C3, C4 #### [facility] , Creatinine [Mass/Vol] 0.86 mg/dL Normal 0.60-1.20 [facility] Comment on above: Performed By: #### C MP, ESR, CBC, ADDONUAPLUS #### [address] #### CH50, C3, C4 #### [facility] , GFR/1.73 sq M.predicted MDRD (S/P/Bld) [Vol rate/Area] mL/min/{1.73_m2} Normal [facility] Comment on above: Performed By: #### C MP, ESR, CBC, ADDONUAPLUS #### [facility] [address] [place] [address] [place] #### CH50, C3, C4 #### [facility] , Globulin (S) [Mass/Vol] 2.4 g/dL Normal [facility] Comment on above: Performed By: #### C MP, ESR, CBC, ADDONUAPLUS #### [address] #### CH50, C3, C4 #### [facility] , Glucose [Mass/Vol] 123 mg/dL High 70-100 [facility] Comment on above: Result Comment: [facility] Glucose Reference Range is dependent on time and content of last meal. Glucose of more than 200 mg/dL in a nonstressed, ambulatory subject supports the diagnosis of Diabetes Mellitus. ADA recommended reference range Performed By: #### C MP, ESR, CBC, ADDONUAPLUS #### [address] #### CH50, C3, C4 #### [facility] , Potassium [Moles/Vol] 4.1 mmol/L Normal 3.5-5.1 [facility] Comment on above: Performed By: #### C MP, ESR, CBC, ADDONUAPLUS #### [place] [address] [place] #### CH50, C3, C4 #### [facility] , Protein [Mass/Vol] 6.6 g/dL Normal 6.4-8.9 [facility] Comment on above: Performed By: #### C MP, ESR, CBC, ADDONUAPLUS #### [address] #### CH50, C3, C4 #### [facility] , Sodium [Moles/Vol] 133 mmol/L Low 136-145 [facility] Comment on above: Performed By: #### C MP, ESR, CBC, ADDONUAPLUS #### [place] [address] [place] #### CH50, C3, C4 #### [facility] , Urea nitrogen [Mass/Vol] 20 mg/dL Normal 7-25 [facility] Comment on above: Performed By: #### C MP, ESR, CBC, ADDONUAPLUS #### [address] [place] [address] [place] #### CH50, C3, C4 #### [facility] , Creatinine [Mass/volume] in Serum or PlasmaOrdered By: Endy Abreu on 05-30-2023 Creatinine [Mass/Vol] 0.86 mg/dL 0.60-1.20 [facility] Dipstick and Microscopicon 0 05-30-2023 Appearance (U) Clear Normal Clear [facility] Comment on above: Order Comment: Name Collection Type:: Clean-Voided Midstream Performed By: #### C MP, ESR, CBC, ADDONUAPLUS #### [facility] [address] [place] [address] #### CH50, C3, C4 #### [facility] , Bacteria,Urine None Seen Normal None Seen [facility] Comment on above: Order Comment: Name Collection Type:: Clean-Voided Midstream Performed By: #### C MP, ESR, CBC, ADDONUAPLUS #### [facility] [address] [place] [address] #### CH50, C3, C4 #### [facility] , Bilirubin,Urine Negative Normal Negative [facility] Comment on above: Order Comment: Name Collection Type:: Clean-Voided Midstream Performed By: #### C MP, ESR, CBC, ADDONUAPLUS #### [facility] [address] [place] [address] #### CH50, C3, C4 #### [facility] , Color (U) Yellow Normal Yellow [facility] Comment on above: Order Comment: Name Collection Type:: Clean-Voided Midstream Performed By: #### C MP, ESR, CBC, ADDONUAPLUS #### [facility] [address] [place] [address] #### CH50, C3, C4 #### [facility] , Glucose Ql (U) Normal Normal Normal [facility] Comment on above: Order Comment: Name Collection Type:: Clean-Voided Midstream Performed By: #### C MP, ESR, CBC, ADDONUAPLUS #### [address] #### CH50, C3, C4 #### [facility] , Hyaline Casts,Urine None Seen Normal 0-8 [facility] Comment on above: Order Comment: Name Collection Type:: Clean-Voided Midstream Result Comment: PERF ORMED BY: [place] [address] PATHOLOGIST RN PSYCHIATRIC ALTHEA BARRAGAN M.D. Performed By: #### C MP, ESR, CBC, ADDONUAPLUS #### [address] #### CH50, C3, C4 #### [facility] , Ketones Ql (U) Negative Normal Negative [facility] Comment on above: Order Comment: Name Collection Type:: Clean-Voided Midstream Performed By: #### C MP, ESR, CBC, ADDONUAPLUS #### [address] #### CH50, C3, C4 #### [facility] , Leukocyte esterase Test strip Ql (U) Negative Normal Negative [facility] Comment on above: Order Comment: Name Collection Type:: Clean-Voided Midstream Performed By: #### C MP, ESR, CBC, ADDONUAPLUS #### [address] #### CH50, C3, C4 #### [facility] , Nitrite,Urine Negative Normal Negative [facility] Comment on above: Order Comment: Name Collection Type:: Clean-Voided Midstream Performed By: #### C MP, ESR, CBC, ADDONUAPLUS #### [address] #### CH50, C3, C4 #### [facility] , Occult Blood,Urine Negative Normal Negative [facility] Comment on above: Order Comment: Name Collection Type:: Clean-Voided Midstream Performed By: #### C MP, ESR, CBC, ADDONUAPLUS #### [address] #### CH50, C3, C4 #### [facility] , pH (U) 6.5 [pH] Normal 5.0-9.0 [facility] Comment on above: Order Comment: Name Collection Type:: Clean-Voided Midstream Performed By: #### C MP, ESR, CBC, ADDONUAPLUS #### [address] #### CH50, C3, C4 #### [facility] , Protein,Urine Negative Normal Negative [facility] Comment on above: Order Comment: Name Collection Type:: Clean-Voided Midstream Performed By: #### C MP, ESR, CBC, ADDONUAPLUS #### [address] #### CH50, C3, C4 #### [facility] , RBC LM.HPF (Urine sed) [#/Area] 0 /[HPF] Normal 0-4 [facility] Comment on above: Order Comment: Name Collection Type:: Clean-Voided Midstream Performed By: #### C MP, ESR, CBC, ADDONUAPLUS #### [address] #### CH50, C3, C4 #### [facility] , Specificy [place],Urine 1.011 Normal 1.001-1.030 [facility] Comment on above: Order Comment: Name Collection Type:: Clean-Voided Midstream Performed By: #### C MP, ESR, CBC, ADDONUAPLUS #### [address] #### CH50, C3, C4 #### [facility] , Squamous Epithelial Cell,Urine None Seen Normal 0-2 [facility] Comment on above: Order Comment: Name Collection Type:: Clean-Voided Midstream Performed By: #### C MP, ESR, CBC, ADDONUAPLUS #### [facility] [address] [place] [address] #### CH50, C3, C4 #### [facility] , Urobilinogen,Urine Normal Normal Normal [facility] Comment on above: Order Comment: Name Collection Type:: Clean-Voided Midstream Performed By: #### C MP, ESR, CBC, ADDONUAPLUS #### [facility] [address] [place] [address] #### CH50, C3, C4 #### [facility] , WBC LM.HPF (Urine sed) [#/Area] 0 /[HPF] Normal 0-4 [facility] Comment on above: Order Comment: Name Collection Type:: Clean-Voided Midstream Performed By: #### C MP, ESR, CBC, ADDONUAPLUS #### [facility] [address] [place] [address] #### CH50, C3, C4 #### [facility] , Eosinophils Auto (Bld) [#/Vo l]Ordered By: Endy Abreu on 05-30-2023 Eosinophils (Bld) [#/Vol] 0.0 10*3/uL 0.0-0.45 [facility] Eosinophils/100 WBC Auto (Bl d)Ordered By: Endy Abreu on 05-30-2023 Eosinophils/100 WBC (Bld) 0.6 % . [facility] Erythrocyte Sedimentation Ra sid 05-30-2023 ESR (Bld) [Velocity] 16 mm/h Normal 0-29 [facility] Comment on above: Result Comment: PERF ORMED BY: [place] [address] PATHOLOGIST RN PSYCHIATRIC ALTHEA BARRAGAN M.D. Performed By: #### C MP, ESR, CBC, ADDONUAPLUS #### [address] [place] [address] [facility] #### CH50, C3, C4 #### [facility] , Erythrocyte distribution wid th Auto (RBC) [Ratio]Ordered By: Endy Abreu on 05-30-2023 Erythrocyte distribution width (RBC) [Ratio] 13.8 % 11.9-15.3 [facility] Erythrocyte sedimentation ra te by Photometric methodOrdered By: Endy Abreu on 05-30-2023 ESR Photometric method (Bld) [Velocity] 16 mm/hr 0-29 [facility] Globulin Calc (S) [Mass/Vol] Ordered By: Endy Abreu on 05-30-2023 Globulin (S) [Mass/Vol] 2.4 g/dL F [facility] Glucose [Mass/volume] in Ser um or PlasmaOrdered By: Endy Abreu on 05-30-2023 Glucose [Mass/Vol] 123 mg/dL 70-100 [facility] Comment on above: ADA recommended refe rence rangeRandom Glucose Reference Range is dependent on time and content of last meal. Glucose of more than 200 mg/dL in a nonstressed, ambulatory subject supports the diagnosis of Diabetes Mellitus. Hematocrit Auto (Bld) [Volum e fraction]Ordered By: Endy Abreu on 05-30-2023 Hematocrit (Bld) [Volume fraction] 36.4 % 34.0-46.4 [facility] Hemoglobin [Mass/volume] in BloodOrdered By: Endy Abreu on 05-30-2023 Hemoglobin (Bld) [Mass/Vol] 12.3 g/dL 11.8-15.4 [facility] Ketones Auto test strip (U) [Mass/Vol]Ordered By: Endy Abreu on 05-30-2023 Ketones (U) [Mass/Vol] Negative Negative Fi [facility]aFormerly [facility] - UrinalysisOrder ed By: Endy Abreu on 05-30-2023 Hyaline casts LM Ql (Urine sed) None seen [LPF] 0-8 [facility] Leukocytes [#/volume] correc leonor for nucleated erythrocytes in Blood by Automated counOrdered By: Endy Abreu on 05-30-2023 WBC corrected for nucl RBC Auto (Bld) [#/Vol] 8.1 10*3/uL 3.8-11.6 [facility] Lymphocytes Auto (Bld) [#/Vo l]Ordered By: Endy Abreu on 05-30-2023 Lymphocytes (Bld) [#/Vol] 2.4 10*3/uL 1.00-4.8 [facility] Lymphocytes/100 WBC Auto (Bl d)Ordered By: Endy Abreu on 05-30-2023 Lymphocytes/100 WBC (Bld) 29.2 % . [facility] MCH Auto (RBC) [Entitic mass ]Ordered By: Endy Abreu on 05-30-2023 MCH (RBC) [Entitic mass] 31.0 pg 24.7-34.3 [facility] MCHC Auto (RBC) [Mass/Vol]Or dered By: Endy Abreu on 05-30-2023 MCHC (RBC) [Mass/Vol] 33.8 g/dL 32.0-35.0 [facility] MCV Auto (RBC) [Entitic vol] Ordered By: Endy Abreu on 05-30-2023 MCV (RBC) [Entitic vol] 91.5 fL 80-100 [facility] Monocytes Auto (Bld) [#/Vol] Ordered By: Endy Abreu on 05-30-2023 Monocytes (Bld) [#/Vol] 0.5 10*3/uL 0.0-0.8 [facility] Monocytes/100 WBC Auto (Bld) Ordered By: Endy Abreu on 05-30-2023 Monocytes/100 WBC (Bld) 6.2 % . [facility] Neutrophils Auto (Bld) [#/Vo l]Ordered By: Endy Abreu on 05-30-2023 Neutrophils (Bld) [#/Vol] 5.1 10*3/uL 1.8-7.7 [facility] Neutrophils/100 WBC Auto (Bl d)Ordered By: Endy Abreu on 05-30-2023 Neutrophils/100 WBC (Bld) 62.9 % . [facility] Nitrite Test strip Ql (U)Ord ered By: Endy Abreu on 05-30-2023 Nitrite Ql (U) Negative Negative [facility] No Panel InformationOrdered By: Endy Abreu on 05-30-2023 Estimated GFR (CKD-EPI) > 60.0 mL/Min [facility] Creatinine Clearance (Chem N/A [facility] Nucleated erythrocytes [Pres ence] in Blood by Automated countOrdered By: Endy Abreu on 05-30-2023 Nucleated RBC Auto Ql (Bld) 0.0 /100{WBC} 0-0.5 [facility] Platelet mean volume Auto (B ld) [Entitic vol]Ordered By: Endy Abreu on 05-30-2023 Platelet mean volume (Bld) [Entitic vol] 7.4 fL 6.3-10.7 [facility] Platelets Auto (Bld) [#/Vol] Ordered By: Endy Abreu on 05-30-2023 Platelets (Bld) [#/Vol] 461 10*3/uL 150-450 [facility] Potassium [Moles/volume] in Serum or PlasmaOrdered By: Endy Abreu on 05-30-2023 Potassium [Moles/Vol] 4.1 mmol/L 3.5-5.1 [facility] Protein Auto test strip (U) [Mass/Vol]Ordered By: Endy Abreu on 05-30-2023 Protein (U) [Mass/Vol] Negative Negative [facility] Protein [Mass/volume] in Ser um or PlasmaOrdered By: Endy Abreu on 05-30-2023 Protein [Mass/Vol] 6.6 g/dL 6.4-8.9 [facility] RBC Auto (Bld) [#/Vol]Ordere d By: Endy Abreu on 05-30-2023 RBC (Bld) [#/Vol] 3.97 10*6/uL 3.60-5.00 [facility] Serum or plasma albumin/glob ulin mass ratioOrdered By: Endy Abreu on 05-30-2023 Albumin/Globulin [Mass ratio] 1.8 {ratio} [facility] Serum or plasma anion gap de terminationOrdered By: Endy Abreu on 05-30-2023 Anion gap [Moles/Vol] 12.2 mmol/L 6.0-15.0 [facility] Sodium [Moles/volume] in Ser um or PlasmaOrdered By: Endy Abreu on 05-30-2023 Sodium [Moles/Vol] 133 mmol/L 136-145 [facility] Specific gravity Auto test s trip (U) [Rel density]Ordered By: Endy Abreu on 05-30-2023 Specific gravity (U) [Rel density] 1.011 1.001-1.030 [facility] Squamous epithelial cells de tection in urine sediment by light microscopyOrdered By: Endy Abreu on 05-30-2023 Epithelial cells.squamous LM Ql (Urine sed) None seen [HPF] 0-2 [facility] Urea nitrogen [Mass/volume] in Serum or PlasmaOrdered By: Endy Abreu on 05-30-2023 Urea nitrogen [Mass/Vol] 20 mg/dL 7-25 [facility] Urine bacteria detection by automated methodOrdered By: Endy Abreu on 05-30-2023 Bacteria Auto Ql (U) None seen None Seen [facility] Urine clarity by refractomet ry automatedOrdered By: Endy Abreu on 05-30-2023 Clarity Refractometry automated (U) Clear Clear [facility] Urine glucose measurement by automated test strip (mass/volume)Ordered By: Endy Abreu on 05-30-2023 Glucose Auto test strip (U) [Mass/Vol] Normal mg/dL Normal [facility] Urine hemoglobin detection b y automated test stripOrdered By: Endy Abreu on 05-30-2023 Hemoglobin Auto test strip Ql (U) Negative Negative [facility] Urine leukocyte esterase det ection by automated test stripOrdered By: Endy Abreu on 05-30-2023 Leukocyte esterase Auto test strip Ql (U) Negative Negative [facility] Urobilinogen Auto test strip (U) [Mass/Vol]Ordered By: Endy Abreu on 05-30-2023 Urobilinogen (U) [Mass/Vol] Normal mg/dL Normal [facility] WBC Auto (Bld) [#/Vol]Ordere d By: Endy Abreu on 05-30-2023 WBC (Bld) [#/Vol] 8.1 10*3/uL 3.8-11.6 [facility] pH Auto test strip (U)Ordere d By: Endy Abreu on 05-30-2023 pH (U) 6.5 [pH] 5.0-9.0 [facility] BI MAMMOGRAM SCREENING TOMOS YNTHESIS BILATERALon [...] IS VERY IMPORTANT TO YOUR HEALTH. THE CITIZEN OF [place] [employer]ETY GUIDELINES RECOMMEND THAT WOMEN 40 [...] on 01-18-2023 ALT [Catalytic activity/Vol] 25 U/L 7-52 [facility] Albumin [Mass/volume] in Ser um or Plasma by Bromocresol green (BCG) dye binding methoOrdered By: Endy Abreu on 01-18-2023 Albumin BCG dye [Mass/Vol] 4.0 g/dL 3.5-5.7 [facility] Alkaline phosphatase [Enzyma tic activity/volume] in Serum or PlasmaOrdered By: Endy Abreu on 01-18-2023 ALP [Catalytic activity/Vol] 100 U/L 34-104 [facility] Aspartate aminotransferase [ Enzymatic activity/volume] in Serum or PlasmaOrdered By: Endy Abreu on 01-18-2023 AST [Catalytic activity/Vol] 29 U/L 13-39 [facility] Automated erythrocytes count in urine sediment (number/area)Ordered By: Endy Abreu on 01-18-2023 RBC Auto (Urine sed) [#/Area] 3-4 [HPF] 0-4 [facility] Automated leukocytes count i n urine sediment (number/area)Ordered By: Endy Abreu on 01-18-2023 WBC Auto (Urine sed) [#/Area] 10-19 [HPF] 0-4 [facility] Basophils Auto (Bld) [#/Vol] Ordered By: Endy Abreu on 01-18-2023 Basophils (Bld) [#/Vol] 0.1 10*3/uL 0.0-0.2 [facility] Basophils/100 WBC Auto (Bld) Ordered By: Endy Abreu on 01-18-2023 Basophils/100 WBC (Bld) 1.3 % . [facility] Bilirubin Test strip Ql (U)O rdered By: Endy Abreu on 01-18-2023 Bilirubin Ql (U) Negative Negative [facility] Bilirubin.total [Mass/volume ] in Serum or PlasmaOrdered By: Endy Abreu on 01-18-2023 Bilirubin [Mass/Vol] 0.4 mg/dL 0.3-1.0 [facility] Calcium [Mass/volume] in Ser um or PlasmaOrdered By: Endy Abreu on 01-18-2023 Calcium [Mass/Vol] 9.9 mg/dL 8.6-10.3 [facility] Carbon dioxide, total [Moles /volume] in Serum or PlasmaOrdered By: Endy Abreu on 01-18-2023 CO2 [Moles/Vol] 30.4 mmol/L 21.0-31.0 [facility] Chloride [Moles/volume] in S mary ellen or PlasmaOrdered By: Endy Abreu on 01-18-2023 Chloride [Moles/Vol] 101 mmol/L 98-107 [facility] Color Auto (U)Ordered By: Ngoc Abreu on 01-18-2023 Color (U) Yellow Yellow [facility] Complement C3on 01-18-2023 Complement C3 160 mg/dL Normal 82-167 [facility] Comment on above: Result Comment: Perf ormed at: [address] [id number] [employer] Coordination Power Engineer: Marvel Barahona PhD, Phone: [phone] Performed By: #### C MP, ESR, CBC, ADDONUAPLUS #### [address] #### CH50, C3, C4 #### [facility] , Complement C4on 01-18-2023 Complement C4 32 mg/dL Normal 12-38 [facility] Comment on above: Result Comment: PERF ORMED BY: [place] [address] PATHOLOGIST RN PSYCHIATRIC ALTHEA BARRAGAN M.D. Performed By: #### C MP, ESR, CBC, ADDONUAPLUS #### [address] #### CH50, C3, C4 #### [facility] , Complement Total (CH50)on Complement Total (CH50) >60 Normal >41 [facility] Comment on above: Result Comment: Age Male [...] determine out of range values. Performed at: [facility] [id number] Induction Coordination Power Engineer: Marvel Barahona PhD, Phone: [phone] PERFORMED BY: [place] [address] PATHOLOGIST RN PSYCHIATRIC ALTHEA BARRAGAN M.D. Performed By: #### C MP, ESR, CBC, ADDONUAPLUS #### [address] #### CH50, C3, C4 #### [facility] , Complete Blood Count Auto Di ffon 01-18-2023 Basophils (Bld) [#/Vol] 0.1 10*3/uL Normal 0.0-0.2 [facility] Comment on above: Performed By: #### E SR, CBC, ADDONUAPLUS, CUU, CMP #### [address] #### CH50, C3, C4 #### [facility] , Basophils/100 WBC (Bld) 1.3 % Normal . [facility] Comment on above: Performed By: #### E SR, CBC, ADDONUAPLUS, CUU, CMP #### [address] #### CH50, C3, C4 #### [facility] , Eosinophils (Bld) [#/Vol] 0.1 10*3/uL Normal 0.0-0.45 [facility] Comment on above: Performed By: #### E SR, CBC, ADDONUAPLUS, CUU, CMP #### [place] [address] [place] #### CH50, C3, C4 #### [facility] , Eosinophils/100 WBC (Bld) 2.1 % Normal . [facility] Comment on above: Performed By: #### E SR, CBC, ADDONUAPLUS, CUU, CMP #### [address] #### CH50, C3, C4 #### [facility] , Erythrocyte distribution width (RBC) [Ratio] 13.2 % Normal 11.9-15.3 [facility] Comment on above: Performed By: #### E SR, CBC, ADDONUAPLUS, CUU, CMP #### [place] [address] [place] #### CH50, C3, C4 #### [facility] , Hematocrit (Bld) [Volume fraction] 37.1 % Normal 34.0-46.4 [facility] Comment on above: Performed By: #### E SR, CBC, ADDONUAPLUS, CUU, CMP #### [place] [address] [place] #### CH50, C3, C4 #### [facility] , Hemoglobin (Bld) [Mass/Vol] 12.4 g/dL Normal 11.8-15.4 [facility] Comment on above: Performed By: #### E SR, CBC, ADDONUAPLUS, CUU, CMP #### [place] [address] [place] #### CH50, C3, C4 #### [facility] , Lymphocytes (Bld) [#/Vol] 1.4 10*3/uL Normal 1.00-4.8 [facility] Comment on above: Performed By: #### E SR, CBC, ADDONUAPLUS, CUU, CMP #### [address] #### CH50, C3, C4 #### [facility] , Lymphocytes/100 WBC (Bld) 26.3 % Normal . [facility] Comment on above: Performed By: #### E SR, CBC, ADDONUAPLUS, CUU, CMP #### [facility] [address] [place] [address] [place] #### CH50, C3, C4 #### [facility] , MCH (RBC) [Entitic mass] 31.0 pg Normal 24.7-34.3 [facility] Comment on above: Performed By: #### E SR, CBC, ADDONUAPLUS, CUU, CMP #### [place] [address] [place] #### CH50, C3, C4 #### [facility] , MCV (RBC) [Entitic vol] 92.6 fL Normal 80-100 [facility] Comment on above: Performed By: #### E SR, CBC, ADDONUAPLUS, CUU, CMP #### [place] [address] [place] #### CH50, C3, C4 #### [facility] , Mean Corpuscular HGB Conc 33.5 g/dL Normal 32.0-35.0 [facility] Comment on above: Performed By: #### E SR, CBC, ADDONUAPLUS, CUU, CMP #### [address] #### CH50, C3, C4 #### [facility] , Monocytes (Bld) [#/Vol] 0.4 10*3/uL Normal 0.0-0.8 [facility] Comment on above: Performed By: #### E SR, CBC, ADDONUAPLUS, CUU, CMP #### [place] [address] [place] #### CH50, C3, C4 #### [facility] , Monocytes/100 WBC (Bld) 8.1 % Normal . [facility] Comment on above: Performed By: #### E SR, CBC, ADDONUAPLUS, CUU, CMP #### [place] [address] [place] #### CH50, C3, C4 #### [facility] , Neutrophils (Bld) [#/Vol] 3.4 10*3/uL Normal 1.8-7.7 [facility] Comment on above: Performed By: #### E SR, CBC, ADDONUAPLUS, CUU, CMP #### [address] [place] [address] [place] #### CH50, C3, C4 #### [facility] , Neutrophils/100 WBC (Bld) 62.2 % Normal . [facility] Comment on above: Performed By: #### E SR, CBC, ADDONUAPLUS, CUU, CMP #### [facility] [address] [place] [address] #### CH50, C3, C4 #### [facility] , NRBC% 0.1 /100{WBC} Normal 0-0.5 [facility] Comment on above: Performed By: #### E SR, CBC, ADDONUAPLUS, CUU, CMP #### [address] #### CH50, C3, C4 #### [facility] , Platelet mean volume (Bld) [Entitic vol] 7.5 fL Normal 6.3-10.7 [facility] Comment on above: Performed By: #### E SR, CBC, ADDONUAPLUS, CUU, CMP #### [place] [address] [place] #### CH50, C3, C4 #### [facility] , Platelets (Bld) [#/Vol] 377 10*3/uL Normal 150-450 [facility] Comment on above: Performed By: #### E SR, CBC, ADDONUAPLUS, CUU, CMP #### [place] [address] [place] #### CH50, C3, C4 #### [facility] , RBC (Bld) [#/Vol] 4.01 10*6/uL Normal 3.60-5.00 [facility] Comment on above: Performed By: #### E SR, CBC, ADDONUAPLUS, CUU, CMP #### [place] [address] [place] #### CH50, C3, C4 #### [facility] , WBC (Bld) [#/Vol] 5.4 10*3/uL Normal 3.8-11.6 [facility] Comment on above: Performed By: #### E SR, CBC, ADDONUAPLUS, CUU, CMP #### [address] #### CH50, C3, C4 #### [facility] , Comprehensive Metabolic Pane chema 01-18-2023 Albumin [Mass/Vol] 4.0 g/dL Normal 3.5-5.7 [facility] Comment on above: Performed By: #### C MP, ESR, CBC, ADDONUAPLUS #### [address] #### CH50, C3, C4 #### [facility] , Albumin/Globulin [Mass ratio] 1.6 {ratio} Normal [facility] Comment on above: Performed By: #### C MP, ESR, CBC, ADDONUAPLUS #### [address] #### CH50, C3, C4 #### [facility] , ALP [Catalytic activity/Vol] 100 U/L Normal 34-104 [facility] Comment on above: Result Comment: PERF ORMED BY: [place] [address] PATHOLOGIST RN PSYCHIATRIC ALTHEA BARRAGAN M.D. Performed By: #### C MP, ESR, CBC, ADDONUAPLUS #### [place] [address] [place] #### CH50, C3, C4 #### [facility] , ALT [Catalytic activity/Vol] 25 U/L Normal 7-52 [facility] Comment on above: Performed By: #### C MP, ESR, CBC, ADDONUAPLUS #### [place] [address] [place] #### CH50, C3, C4 #### [facility] , Anion gap [Moles/Vol] 9.5 mmol/L Normal 6.0-15.0 [facility] Comment on above: Performed By: #### C MP, ESR, CBC, ADDONUAPLUS #### [facility] [address] [place] [address] #### CH50, C3, C4 #### [facility] , AST [Catalytic activity/Vol] 29 U/L Normal 13-39 [facility] Comment on above: Performed By: #### C MP, ESR, CBC, ADDONUAPLUS #### [facility] [address] [place] [address] #### CH50, C3, C4 #### [facility] , Bilirubin [Mass/Vol] 0.4 mg/dL Normal 0.3-1.0 [facility] Comment on above: Performed By: #### C MP, ESR, CBC, ADDONUAPLUS #### [facility] [address] [place] [address] #### CH50, C3, C4 #### [facility] , Calcium [Mass/Vol] 9.9 mg/dL Normal 8.6-10.3 [facility] Comment on above: Performed By: #### C MP, ESR, CBC, ADDONUAPLUS #### [facility] [address] [place] [address] [place] #### CH50, C3, C4 #### [facility] , Chloride [Moles/Vol] 101 mmol/L Normal 98-107 [facility] Comment on above: Performed By: #### C MP, ESR, CBC, ADDONUAPLUS #### [facility] [address] [place] [address] [place] #### CH50, C3, C4 #### [facility] , CO2 [Moles/Vol] 30.4 mmol/L Normal 21.0-31.0 [facility] Comment on above: Performed By: #### C MP, ESR, CBC, ADDONUAPLUS #### [place] [address] [place] #### CH50, C3, C4 #### [facility] , Creatinine [Mass/Vol] 0.83 mg/dL Normal 0.60-1.20 [facility] Comment on above: Performed By: #### C MP, ESR, CBC, ADDONUAPLUS #### [address] #### CH50, C3, C4 #### [facility] , GFR/1.73 sq M.predicted MDRD (S/P/Bld) [Vol rate/Area] mL/min/{1.73_m2} [facility] Comment on above: Performed By: #### C MP, ESR, CBC, ADDONUAPLUS #### [address] #### CH50, C3, C4 #### [facility] , Globulin (S) [Mass/Vol] 2.5 g/dL Normal [facility] Comment on above: Performed By: #### C MP, ESR, CBC, ADDONUAPLUS #### [address] #### CH50, C3, C4 #### [facility] , Glucose [Mass/Vol] 94 mg/dL Normal 70-100 [facility] Comment on above: Result Comment: [place] Glucose Reference Range is dependent on time and content of last meal. Glucose of more than 200 mg/dL in a nonstressed, ambulatory subject supports the diagnosis of Diabetes Mellitus. ADA recommended reference range Performed By: #### C MP, ESR, CBC, ADDONUAPLUS #### [address] #### CH50, C3, C4 #### [facility] , Potassium [Moles/Vol] 4.9 mmol/L Normal 3.5-5.1 [facility] Comment on above: Performed By: #### C MP, ESR, CBC, ADDONUAPLUS #### [facility] [address] [place] [address] [place] #### CH50, C3, C4 #### [facility] , Protein [Mass/Vol] 6.5 g/dL Normal 6.4-8.9 [facility] Comment on above: Performed By: #### C MP, ESR, CBC, ADDONUAPLUS #### [place] [address] [place] #### CH50, C3, C4 #### [facility] , Sodium [Moles/Vol] 136 mmol/L Normal 136-145 [facility] Comment on above: Performed By: #### C MP, ESR, CBC, ADDONUAPLUS #### [place] [address] [place] #### CH50, C3, C4 #### [facility] , Urea nitrogen [Mass/Vol] 22 mg/dL Normal 7-25 [facility] Comment on above: Performed By: #### C MP, ESR, CBC, ADDONUAPLUS #### [place] [address] [place] #### CH50, C3, C4 #### [facility] , Creatinine [Mass/volume] in Serum or PlasmaOrdered By: Endy Arbeu on 01-18-2023 Creatinine [Mass/Vol] 0.83 mg/dL 0.60-1.20 [facility] Dipstick and Microscopicon 0 01-18-2023 Appearance (U) Clear Normal Clear [facility] Comment on above: Order Comment: Name Collection Type:: Clean-Voided Midstream Performed By: #### E SR, CBC, ADDONUAPLUS, CUU, CMP #### [facility] [address] [place] [address] [place] #### CH50, C3, C4 #### [facility] , Bacteria,Urine 1+ High None Seen [facility] Comment on above: Order Comment: Name Collection Type:: Clean-Voided Midstream Performed By: #### E SR, CBC, ADDONUAPLUS, CUU, CMP #### [facility] [address] [place] [address] #### CH50, C3, C4 #### [facility] , Bilirubin,Urine Negative Normal Negative [facility] Comment on above: Order Comment: Name Collection Type:: Clean-Voided Midstream Performed By: #### E SR, CBC, ADDONUAPLUS, CUU, CMP #### [facility] [address] [place] [address] #### CH50, C3, C4 #### [facility] , Color (U) Yellow Normal Yellow [facility] Comment on above: Order Comment: Name Collection Type:: Clean-Voided Midstream Performed By: #### E SR, CBC, ADDONUAPLUS, CUU, CMP #### [facility] [address] [place] [address] #### CH50, C3, C4 #### [facility] , Glucose Ql (U) Normal Normal Normal [facility] Comment on above: Order Comment: Name Collection Type:: Clean-Voided Midstream Performed By: #### E SR, CBC, ADDONUAPLUS, CUU, CMP #### [facility] [address] [place] [address] #### CH50, C3, C4 #### [facility] , Hyaline Casts,Urine 0-8 Normal 0-8 [facility] Comment on above: Order Comment: Name Collection Type:: Clean-Voided Midstream Result Comment: PERF ORMED BY: [place] [address] PATHOLOGIST RN PSYCHIATRIC ALTHEA BARRAGAN M.D. Performed By: #### E SR, CBC, ADDONUAPLUS, CUU, CMP #### [address] #### CH50, C3, C4 #### [facility] , Ketones Ql (U) Negative Normal Negative [facility] Comment on above: Order Comment: Name Collection Type:: Clean-Voided Midstream Performed By: #### E SR, CBC, ADDONUAPLUS, CUU, CMP #### [address] #### CH50, C3, C4 #### [facility] , Leukocyte esterase Test strip Ql (U) 3+ High Negative [facility] Comment on above: Order Comment: Name Collection Type:: Clean-Voided Midstream Performed By: #### E SR, CBC, ADDONUAPLUS, CUU, CMP #### [address] #### CH50, C3, C4 #### [facility] , Nitrite,Urine Negative Normal Negative [facility] Comment on above: Order Comment: Name Collection Type:: Clean-Voided Midstream Performed By: #### E SR, CBC, ADDONUAPLUS, CUU, CMP #### [address] #### CH50, C3, C4 #### [facility] , Occult Blood,Urine Negative Normal Negative [facility] Comment on above: Order Comment: Name Collection Type:: Clean-Voided Midstream Performed By: #### E SR, CBC, ADDONUAPLUS, CUU, CMP #### [place] [address] [place] #### CH50, C3, C4 #### [facility] , pH (U) 6.0 [pH] Normal 5.0-9.0 [facility] Comment on above: Order Comment: Name Collection Type:: Clean-Voided Midstream Performed By: #### E SR, CBC, ADDONUAPLUS, CUU, CMP #### [address] #### CH50, C3, C4 #### [facility] , Protein,Urine Trace High Negative [facility] Comment on above: Order Comment: Name Collection Type:: Clean-Voided Midstream Performed By: #### E SR, CBC, ADDONUAPLUS, CUU, CMP #### [address] #### CH50, C3, C4 #### [facility] , RBC,Urine 3-4 Normal 0-4 [facility] Comment on above: Order Comment: Name Collection Type:: Clean-Voided Midstream Performed By: #### E SR, CBC, ADDONUAPLUS, CUU, CMP #### [address] #### CH50, C3, C4 #### [facility] , Specificy [place],Urine 1.023 Normal 1.001-1.030 [facility] Comment on above: Order Comment: Name Collection Type:: Clean-Voided Midstream Performed By: #### E SR, CBC, ADDONUAPLUS, CUU, CMP #### [address] #### CH50, C3, C4 #### [facility] , Squamous Epithelial Cell,Urine 3-4 High 0-2 [facility] Comment on above: Order Comment: Name Collection Type:: Clean-Voided Midstream Performed By: #### E SR, CBC, ADDONUAPLUS, CUU, CMP #### [facility] [address] [place] [address] [place] #### CH50, C3, C4 #### [facility] , Urobilinogen,Urine Normal Normal Normal [facility] Comment on above: Order Comment: Name Collection Type:: Clean-Voided Midstream Performed By: #### E SR, CBC, ADDONUAPLUS, CUU, CMP #### [facility] [address] [place] [address] #### CH50, C3, C4 #### [facility] , WBC,Urine 10-19 High 0-4 [facility] Comment on above: Order Comment: Name Collection Type:: Clean-Voided Midstream Performed By: #### E SR, CBC, ADDONUAPLUS, CUU, CMP #### [facility] [address] [place] [address] #### CH50, C3, C4 #### [facility] , Eosinophils Auto (Bld) [#/Vo l]Ordered By: Endy Abreu on 01-18-2023 Eosinophils (Bld) [#/Vol] 0.1 10*3/uL 0.0-0.45 [facility] Eosinophils/100 WBC Auto (Bl d)Ordered By: Endy Abreu on 01-18-2023 Eosinophils/100 WBC (Bld) 2.1 % . [facility] Erythrocyte Sedimentation Ra sid 01-18-2023 ESR (Bld) [Velocity] 10 mm/h Normal 0- [facility] Comment on above: Result Comment: PERF ORMED BY: [place] [address] PATHOLOGIST RN PSYCHIATRIC ALTHEA BARRAGAN M.D. Performed By: #### E SR, CBC, ADDONUAPLUS, CUU, CMP #### [facility] [address] [place] [address] #### CH50, C3, C4 #### [facility] , Erythrocyte distribution wid th Auto (RBC) [Ratio]Ordered By: Endy Abreu on 01-18-2023 Erythrocyte distribution width (RBC) [Ratio] 13.2 % 11.9-15.3 [facility] Erythrocyte sedimentation ra te by Photometric methodOrdered By: Endy Abreu on 01-18-2023 ESR Photometric method (Bld) [Velocity] 10 mm/hr 0-29 [facility] Globulin Calc (S) [Mass/Vol] Ordered By: Endy Abreu on 01-18-2023 Globulin (S) [Mass/Vol] 2.5 g/dL [facility] Glucose [Mass/volume] in Ser um or PlasmaOrdered By: Endy Abreu on 01-18-2023 Glucose [Mass/Vol] 94 mg/dL 70-100 [facility] Comment on above: ADA recommended refe rence rangeRandom Glucose Reference Range is dependent on time and content of last meal. Glucose of more than 200 mg/dL in a nonstressed, ambulatory subject supports the diagnosis of Diabetes Mellitus. Hematocrit Auto (Bld) [Volum e fraction]Ordered By: Endy Abreu on 01-18-2023 Hematocrit (Bld) [Volume fraction] 37.1 % 34.0-46.4 [facility] Hemoglobin [Mass/volume] in BloodOrdered By: Endy Abreu on 01-18-2023 Hemoglobin (Bld) [Mass/Vol] 12.4 g/dL 11.8-15.4 [facility] Ketones Auto test strip (U) [Mass/Vol]Ordered By: Endy Abreu on 01-18-2023 Ketones (U) [Mass/Vol] Negative Negative [facility] - UrinalysisOrder ed By: Endy Abreu on 01-18-2023 Hyaline casts LM Ql (Urine sed) 0-8 [LPF] 0-8 [facility] Leukocytes [#/volume] correc leonor for nucleated erythrocytes in Blood by Automated counOrdered By: Endy Abreu on 01-18-2023 WBC corrected for nucl RBC Auto (Bld) [#/Vol] 5.4 10*3/uL 3.8-11.6 [facility] Lymphocytes Auto (Bld) [#/Vo l]Ordered By: Endy Abreu on 01-18-2023 Lymphocytes (Bld) [#/Vol] 1.4 10*3/uL 1.00-4.8 [facility] Lymphocytes/100 WBC Auto (Bl d)Ordered By: Endy Abreu on 01-18-2023 Lymphocytes/100 WBC (Bld) 26.3 % . [facility] MCH Auto (RBC) [Entitic mass ]Ordered By: Endy Abreu on 01-18-2023 MCH (RBC) [Entitic mass] 31.0 pg 24.7-34.3 [facility] MCHC Auto (RBC) [Mass/Vol]Or dered By: Endy Abreu on 01-18-2023 MCHC (RBC) [Mass/Vol] 33.5 g/dL 32.0-35.0 [facility] MCV Auto (RBC) [Entitic vol] Ordered By: Endy Abreu on 01-18-2023 MCV (RBC) [Entitic vol] 92.6 fL 80-100 [facility] Monocytes Auto (Bld) [#/Vol] Ordered By: Endy Abreu on 01-18-2023 Monocytes (Bld) [#/Vol] 0.4 10*3/uL 0.0-0.8 [facility] Monocytes/100 WBC Auto (Bld) Ordered By: Endy Abreu on 01-18-2023 Monocytes/100 WBC (Bld) 8.1 % . [facility] Neutrophils Auto (Bld) [#/Vo l]Ordered By: Endy Abreu on 01-18-2023 Neutrophils (Bld) [#/Vol] 3.4 10*3/uL 1.8-7.7 [facility] Neutrophils/100 WBC Auto (Bl d)Ordered By: Endy Abreu on 01-18-2023 Neutrophils/100 WBC (Bld) 62.2 % . [facility] Nitrite Test strip Ql (U)Ord ered By: Endy Abreu on 01-18-2023 Nitrite Ql (U) Negative Negative [facility] No Panel InformationOrdered By: Endy Abreu on 01-18-2023 Estimated GFR (CKD-EPI) > 60.0 mL/Min [facility] Creatinine Clearance (Chem N/A [facility] Nucleated erythrocytes [Pres ence] in Blood by Automated countOrdered By: Endy Abreu on 01-18-2023 Nucleated RBC Auto Ql (Bld) 0.1 /100{WBC} 0-0.5 [facility] Platelet mean volume Auto (B ld) [Entitic vol]Ordered By: Endy Abreu on 01-18-2023 Platelet mean volume (Bld) [Entitic vol] 7.5 fL 6.3-10.7 [facility] Platelets Auto (Bld) [#/Vol] Ordered By: Endy Abreu on 01-18-2023 Platelets (Bld) [#/Vol] 377 10*3/uL 150-450 [facility] Potassium [Moles/volume] in Serum or PlasmaOrdered By: Endy Abreu on 01-18-2023 Potassium [Moles/Vol] 4.9 mmol/L 3.5-5.1 [facility] Protein Auto test strip (U) [Mass/Vol]Ordered By: Endy Abreu on 01-18-2023 Protein (U) [Mass/Vol] Trace mg/dL Negative [facility] Protein [Mass/volume] in Ser um or PlasmaOrdered By: Endy Abreu on 01-18-2023 Protein [Mass/Vol] 6.5 g/dL 6.4-8.9 [facility] RBC Auto (Bld) [#/Vol]Ordere d By: Endy Abreu on 01-18-2023 RBC (Bld) [#/Vol] 4.01 10*6/uL 3.60-5.00 [facility] Serum or plasma albumin/glob ulin mass ratioOrdered By: Endy Abreu on 01-18-2023 Albumin/Globulin [Mass ratio] 1.6 {ratio} [facility] Serum or plasma anion gap de terminationOrdered By: Endy Abreu on 01-18-2023 Anion gap [Moles/Vol] 9.5 mmol/L 6.0-15.0 [facility] Sodium [Moles/volume] in Ser um or PlasmaOrdered By: Endy Abreu on 01-18-2023 Sodium [Moles/Vol] 136 mmol/L 136-145 [facility] Specific gravity Auto test s trip (U) [Rel density]Ordered By: Endy Abreu on 01-18-2023 Specific gravity (U) [Rel density] 1.023 1.001-1.030 [facility] Squamous epithelial cells de tection in urine sediment by light microscopyOrdered By: Endy Abreu on 01-18-2023 Epithelial cells.squamous LM Ql (Urine sed) 3-4 [HPF] 0-2 [facility] Urea nitrogen [Mass/volume] in Serum or PlasmaOrdered By: Endy Abreu on 01-18-2023 Urea nitrogen [Mass/Vol] 22 mg/dL 7-25 [facility] Urine Cultureon 01-18-2023 Bacteria identified Cx Nom (U) 15,000 colonies/ml mixed bacterial skin contaminants 2 Days PERFORMED BY: [place] [address] PATHOLOGIST RN PSYCHIATRIC ALTHEA BARRAGAN M.D. Normal [facility] Comment on above: Performed By: #### C MP, ESR, CBC, ADDONUAPLUS #### [place] [address] [place] #### CH50, C3, C4 #### [facility] , Urine bacteria detection by automated methodOrdered By: Endy Abreu on 01-18-2023 Bacteria Auto Ql (U) 1+ None Seen [facility] Urine clarity by refractomet ry automatedOrdered By: Endy Abreu on 01-18-2023 Clarity Refractometry automated (U) Clear Clear [facility] Urine glucose measurement by automated test strip (mass/volume)Ordered By: Endy Abreu on 01-18-2023 Glucose Auto test strip (U) [Mass/Vol] Normal mg/dL Normal [facility] Urine hemoglobin detection b y automated test stripOrdered By: Endy Abreu on 01-18-2023 Hemoglobin Auto test strip Ql (U) Negative Negative [facility] Urine leukocyte esterase det ection by automated test stripOrdered By: Endy Abreu on 01-18-2023 Leukocyte esterase Auto test strip Ql (U) 3+ Negative [facility] Urobilinogen Auto test strip (U) [Mass/Vol]Ordered By: Endy Abreu on 01-18-2023 Urobilinogen (U) [Mass/Vol] Normal mg/dL Normal [facility] WBC Auto (Bld) [#/Vol]Ordere d By: Endy Abreu on 01-18-2023 WBC (Bld) [#/Vol] 5.4 10*3/uL 3.8-11.6 [facility] pH Auto test strip (U)Ordere d By: Endyrahul Abreu on 01-18-2023 pH (U) 6.0 [pH] 5.0-9.0 [facility] Auth for Release of Medical Recordson 12-25-2022 Auth for Release of Medical Records [id number] Normal [facility] Complement C3on 10-12-2022 Complement C3 134 mg/dL Normal 82-167 [facility] Comment on above: Result Comment: Perf ormed at: - [facility] [address] [id number] Induction Coordination Power Engineer: Marvel Barahona PhD, Phone: [phone] Performed By: #### C MP, ESR, CBC, ADDONUAPLUS #### [facility] [address] [place] [address] #### CH50, C3, C4 #### [facility] , Complement C4on 10-12-2022 Complement C4 29 mg/dL Normal 12-38 [facility] Comment on above: Result Comment: PERF ORMED BY: [place] [address] PATHOLOGIST RN PSYCHIATRIC ALTHEA BARRAGAN M.D. Performed By: #### C MP, ESR, CBC, ADDONUAPLUS #### [facility] [address] [place] [address] #### CH50, C3, C4 #### [facility] , Complement Total (CH50)on Complement Total (CH50) >60 Normal >41 [facility] Comment on above: Result Comment: Age Male [...] out of range values. Performed at: - [facility] [id number] Induction Coordination Power Engineer: Marvel Barahona PhD, Phone: [phone] PERFORMED BY: [place] [address] PATHOLOGIST RN PSYCHIATRIC ALTHEA BARRAGAN M.D. Performed By: #### C MP, ESR, CBC, ADDONUAPLUS #### [address] #### CH50, C3, C4 #### [facility] , Complete Blood Count Auto Di ffon 10-12-2022 Basophils (Bld) [#/Vol] 0.1 10*3/uL Normal 0.0-0.2 [facility] Comment on above: Performed By: #### C MP, ESR, CBC, ADDONUAPLUS #### [address] #### CH50, C3, C4 #### [facility] , Basophils/100 WBC (Bld) 0.8 % Normal . [facility] Comment on above: Performed By: #### C MP, ESR, CBC, ADDONUAPLUS #### [address] #### CH50, C3, C4 #### [facility] , Eosinophils (Bld) [#/Vol] 0.2 10*3/uL Normal 0.0-0.45 [facility] Comment on above: Performed By: #### C MP, ESR, CBC, ADDONUAPLUS #### [place] [address] [place] #### CH50, C3, C4 #### [facility] , Eosinophils/100 WBC (Bld) 2.6 % Normal . [facility] Comment on above: Performed By: #### C MP, ESR, CBC, ADDONUAPLUS #### [address] #### CH50, C3, C4 #### [facility] , Erythrocyte distribution width (RBC) [Ratio] 13.0 % Normal 11.9-15.3 [facility] Comment on above: Performed By: #### C MP, ESR, CBC, ADDONUAPLUS #### [place] [address] [place] #### CH50, C3, C4 #### [facility] , Hematocrit (Bld) [Volume fraction] 35.9 % Normal 34.0-46.4 [facility] Comment on above: Performed By: #### C MP, ESR, CBC, ADDONUAPLUS #### [address] #### CH50, C3, C4 #### [facility] , Hemoglobin (Bld) [Mass/Vol] 12.1 g/dL Normal 11.8-15.4 [facility] Comment on above: Performed By: #### C MP, ESR, CBC, ADDONUAPLUS #### [address] #### CH50, C3, C4 #### [facility] , Lymphocytes (Bld) [#/Vol] 1.9 10*3/uL Normal 1.00-4.8 [facility] Comment on above: Performed By: #### C MP, ESR, CBC, ADDONUAPLUS #### [place] [address] [place] #### CH50, C3, C4 #### [facility] , Lymphocytes/100 WBC (Bld) 27.9 % Normal . [facility] Comment on above: Performed By: #### C MP, ESR, CBC, ADDONUAPLUS #### [place] [address] [place] #### CH50, C3, C4 #### [facility] , MCH (RBC) [Entitic mass] 32.1 pg Normal 24.7-34.3 [facility] Comment on above: Performed By: #### C MP, ESR, CBC, ADDONUAPLUS #### [address] #### CH50, C3, C4 #### [facility] , MCV (RBC) [Entitic vol] 95.1 fL Normal 80-100 [facility] Comment on above: Performed By: #### C MP, ESR, CBC, ADDONUAPLUS #### [address] #### CH50, C3, C4 #### [facility] , Mean Corpuscular HGB Conc 33.8 g/dL Normal 32.0-35.0 [facility] Comment on above: Performed By: #### C MP, ESR, CBC, ADDONUAPLUS #### [address] #### CH50, C3, C4 #### [facility] , Monocytes (Bld) [#/Vol] 0.4 10*3/uL Normal 0.0-0.8 [facility] Comment on above: Performed By: #### C MP, ESR, CBC, ADDONUAPLUS #### [place] [address] [place] #### CH50, C3, C4 #### [facility] , Monocytes/100 WBC (Bld) 6.2 % Normal . [facility] Comment on above: Performed By: #### C MP, ESR, CBC, ADDONUAPLUS #### [place] [address] [place] #### CH50, C3, C4 #### [facility] , Neutrophils (Bld) [#/Vol] 4.3 10*3/uL Normal 1.8-7.7 [facility] Comment on above: Performed By: #### C MP, ESR, CBC, ADDONUAPLUS #### [place] [address] [place] #### CH50, C3, C4 #### [facility] , Neutrophils/100 WBC (Bld) 62.5 % Normal . [facility] Comment on above: Performed By: #### C MP, ESR, CBC, ADDONUAPLUS #### [place] [address] [place] #### CH50, C3, C4 #### [facility] , NRBC% 0.1 /100{WBC} Normal 0-0.5 [facility] Comment on above: Performed By: #### C MP, ESR, CBC, ADDONUAPLUS #### [address] #### CH50, C3, C4 #### [facility] , Platelet mean volume (Bld) [Entitic vol] 7.7 fL Normal 6.3-10.7 [facility] Comment on above: Performed By: #### C MP, ESR, CBC, ADDONUAPLUS #### [place] [address] [place] #### CH50, C3, C4 #### [facility] , Platelets (Bld) [#/Vol] 321 10*3/uL Normal 150-450 [facility] Comment on above: Performed By: #### C MP, ESR, CBC, ADDONUAPLUS #### [place] [address] [place] #### CH50, C3, C4 #### [facility] , RBC (Bld) [#/Vol] 3.77 10*6/uL Normal 3.60-5.00 [facility] Comment on above: Performed By: #### C MP, ESR, CBC, ADDONUAPLUS #### [place] [address] [place] #### CH50, C3, C4 #### [facility] , WBC (Bld) [#/Vol] 6.9 10*3/uL Normal 3.8-11.6 [facility] Comment on above: Performed By: #### C MP, ESR, CBC, ADDONUAPLUS #### [address] #### CH50, C3, C4 #### [facility] , Comprehensive Metabolic Pane chema 10-12-2022 Albumin [Mass/Vol] 3.9 g/dL Normal 3.5-5.7 [facility] Comment on above: Performed By: #### C MP, ESR, CBC, ADDONUAPLUS #### [address] #### CH50, C3, C4 #### [facility] , Albumin/Globulin [Mass ratio] 1.6 {ratio} Normal [facility] Comment on above: Performed By: #### C MP, ESR, CBC, ADDONUAPLUS #### [address] #### CH50, C3, C4 #### [facility] , ALP [Catalytic activity/Vol] 97 U/L Normal 34-104 [facility] Comment on above: Result Comment: PERF ORMED BY: [place] [address] PATHOLOGIST RN PSYCHIATRIC ALTHEA BARRAGAN M.D. Performed By: #### C MP, ESR, CBC, ADDONUAPLUS #### [place] [address] [place] #### CH50, C3, C4 #### [facility] , ALT [Catalytic activity/Vol] 28 U/L Normal 7-52 [facility] Comment on above: Performed By: #### C MP, ESR, CBC, ADDONUAPLUS #### [place] [address] [place] #### CH50, C3, C4 #### [facility] , Anion gap [Moles/Vol] 9.9 mmol/L Normal 6.0-15.0 [facility] [facility] Comment on above: Performed By: #### C MP, ESR, CBC, ADDONUAPLUS #### [facility] [address] [place] [address] [place] #### CH50, C3, C4 #### [facility] , AST [Catalytic activity/Vol] 31 U/L Normal 13-39 [facility] Comment on above: Performed By: #### C MP, ESR, CBC, ADDONUAPLUS #### [address] #### CH50, C3, C4 #### [facility] , Bilirubin [Mass/Vol] 0.6 mg/dL Normal 0.3-1.0 [facility] Comment on above: Performed By: #### C MP, ESR, CBC, ADDONUAPLUS #### [place] [address] [place] #### CH50, C3, C4 #### [facility] , Calcium [Mass/Vol] 9.2 mg/dL Normal 8.6-10.3 [facility] Comment on above: Performed By: #### C MP, ESR, CBC, ADDONUAPLUS #### [facility] [address] [place] [address] [place] #### CH50, C3, C4 #### [facility] , Chloride [Moles/Vol] 100 mmol/L Normal 98-107 [facility] Comment on above: Performed By: #### C MP, ESR, CBC, ADDONUAPLUS #### [place] [address] [place] #### CH50, C3, C4 #### [facility] , CO2 [Moles/Vol] 28.4 mmol/L Normal 21.0-31.0 [facility] [place] Comment on above: Performed By: #### C MP, ESR, CBC, ADDONUAPLUS #### [facility] [address] [place] [address] [place] #### CH50, C3, C4 #### [facility] , Creatinine [Mass/Vol] 0.92 mg/dL Normal 0.60-1.20 [facility] Comment on above: Performed By: #### C MP, ESR, CBC, ADDONUAPLUS #### [address] #### CH50, C3, C4 #### [facility] , GFR/1.73 sq M.predicted MDRD (S/P/Bld) [Vol rate/Area] mL/min/{1.73_m2} Normal [facility] Comment on above: Performed By: #### C MP, ESR, CBC, ADDONUAPLUS #### [address] #### CH50, C3, C4 #### [facility] , Globulin (S) [Mass/Vol] 2.5 g/dL Normal [facility] Comment on above: Performed By: #### C MP, ESR, CBC, ADDONUAPLUS #### [place] [address] [place] #### CH50, C3, C4 #### [facility] , Glucose [Mass/Vol] 109 mg/dL High 70-100 [facility] Comment on above: Result Comment: [place] Glucose Reference Range is dependent on time and content of last meal. Glucose of more than 200 mg/dL in a nonstressed, ambulatory subject supports the diagnosis of Diabetes Mellitus. ADA recommended reference range Performed By: #### C MP, ESR, CBC, ADDONUAPLUS #### [place] [address] [place] #### CH50, C3, C4 #### [facility] , Potassium [Moles/Vol] 4.3 mmol/L Normal 3.5-5.1 [facility] Comment on above: Performed By: #### C MP, ESR, CBC, ADDONUAPLUS #### [facility] [address] [place] [address] [place] #### CH50, C3, C4 #### [facility] , Protein [Mass/Vol] 6.4 g/dL Normal 6.4-8.9 [facility] Comment on above: Performed By: #### C MP, ESR, CBC, ADDONUAPLUS #### [facility] [address] [place] [address] [place] #### CH50, C3, C4 #### [facility] , Sodium [Moles/Vol] 134 mmol/L Low 136-145 [facility] Comment on above: Performed By: #### C MP, ESR, CBC, ADDONUAPLUS #### [place] [address] [place] #### CH50, C3, C4 #### [facility] , Urea nitrogen [Mass/Vol] 19 mg/dL Normal - [facility] Comment on above: Performed By: #### C MP, ESR, CBC, ADDONUAPLUS #### [place] [address] [place] #### CH50, C3, C4 #### [facility] , Dipstick and Microscopicon 0 10-12-2022 Appearance (U) Clear Normal Clear [facility] Comment on above: Order Comment: Name Collection Type:: Clean-Voided Midstream Performed By: #### C MP, ESR, CBC, ADDONUAPLUS #### [facility] [address] [place] [address] [place] #### CH50, C3, C4 #### [facility] , Bacteria,Urine None Seen Normal None Seen [facility] Comment on above: Order Comment: Name Collection Type:: Clean-Voided Midstream Performed By: #### C MP, ESR, CBC, ADDONUAPLUS #### [address] #### CH50, C3, C4 #### [facility] , Bilirubin,Urine Negative Normal Negative [facility] Comment on above: Order Comment: Name Collection Type:: Clean-Voided Midstream Performed By: #### C MP, ESR, CBC, ADDONUAPLUS #### [address] #### CH50, C3, C4 #### [facility] , Color (U) Yellow Normal Yellow [facility] Comment on above: Order Comment: Name Collection Type:: Clean-Voided Midstream Performed By: #### C MP, ESR, CBC, ADDONUAPLUS #### [address] #### CH50, C3, C4 #### [facility] , Glucose Ql (U) Normal Normal Normal [facility] Comment on above: Order Comment: Name Collection Type:: Clean-Voided Midstream Performed By: #### C MP, ESR, CBC, ADDONUAPLUS #### [address] #### CH50, C3, C4 #### [facility] , Hyaline Casts,Urine None Seen Normal 0-8 [facility] Comment on above: Order Comment: Name Collection Type:: Clean-Voided Midstream Result Comment: PERF ORMED BY: [place] [address] PATHOLOGIST RN PSYCHIATRIC ALTHEA BARRAGAN M.D. Performed By: #### C MP, ESR, CBC, ADDONUAPLUS #### [place] [address] [place] #### CH50, C3, C4 #### [facility] , Ketones Ql (U) Negative Normal Negative [facility] Comment on above: Order Comment: Name Collection Type:: Clean-Voided Midstream Performed By: #### C MP, ESR, CBC, ADDONUAPLUS #### [address] #### CH50, C3, C4 #### [facility] , Leukocyte esterase Test strip Ql (U) Negative Normal Negative [facility] Comment on above: Order Comment: Name Collection Type:: Clean-Voided Midstream Performed By: #### C MP, ESR, CBC, ADDONUAPLUS #### [address] #### CH50, C3, C4 #### [facility] , Nitrite,Urine Negative Normal Negative [facility] Comment on above: Order Comment: Name Collection Type:: Clean-Voided Midstream Performed By: #### C MP, ESR, CBC, ADDONUAPLUS #### [address] #### CH50, C3, C4 #### [facility] , Occult Blood,Urine Negative Normal Negative [facility] Comment on above: Order Comment: Name Collection Type:: Clean-Voided Midstream Performed By: #### C MP, ESR, CBC, ADDONUAPLUS #### [address] #### CH50, C3, C4 #### [facility] , pH (U) 6.0 [pH] Normal 5.0-9.0 [facility] Comment on above: Order Comment: Name Collection Type:: Clean-Voided Midstream Performed By: #### C MP, ESR, CBC, ADDONUAPLUS #### [address] #### CH50, C3, C4 #### [facility] , Protein,Urine Negative Normal Negative [facility] Comment on above: Order Comment: Name Collection Type:: Clean-Voided Midstream Performed By: #### C MP, ESR, CBC, ADDONUAPLUS #### [address] #### CH50, C3, C4 #### [facility] , RBC,Urine 3-4 Normal 0-4 [facility] Comment on above: Order Comment: Name Collection Type:: Clean-Voided Midstream Performed By: #### C MP, ESR, CBC, ADDONUAPLUS #### [address] #### CH50, C3, C4 #### [facility] , Specificy [place],Urine 1.019 Normal 1.001-1.030 [facility] Comment on above: Order Comment: Name Collection Type:: Clean-Voided Midstream Performed By: #### C MP, ESR, CBC, ADDONUAPLUS #### [address] #### CH50, C3, C4 #### [facility] , Squamous Epithelial Cell,Urine None Seen Normal 0-2 [facility] Comment on above: Order Comment: Name Collection Type:: Clean-Voided Midstream Performed By: #### C MP, ESR, CBC, ADDONUAPLUS #### [address] #### CH50, C3, C4 #### [facility] , Urobilinogen,Urine Normal Normal Normal [facility] Comment on above: Order Comment: Name Collection Type:: Clean-Voided Midstream Performed By: #### C MP, ESR, CBC, ADDONUAPLUS #### [address] #### CH50, C3, C4 #### [facility] , WBC LM.HPF (Urine sed) [#/Area] 0 /[HPF] Normal 0-4 [facility] Comment on above: Order Comment: Name Collection Type:: Clean-Voided Midstream Performed By: #### C MP, ESR, CBC, ADDONUAPLUS #### [facility] [address] #### CH50, C3, C4 #### [facility] , Erythrocyte Sedimentation Ra sid 10-12-2022 ESR (Bld) [Velocity] 12 mm/h Normal 0-29 [facility] Comment on above: Result Comment: PERF ORMED BY: [facility] [address] [place] [address] PATHOLOGIST RN PSYCHIATRIC ALTHEA BARRAGAN M.D. Performed By: #### C MP, ESR, CBC, ADDONUAPLUS #### [facility] [address] #### CH50, C3, C4 #### [facility] , Pre-Certification Formon Pre-Certification Form [id number] 62#1.00CD:127 Normal [facility] Family Medicine Office/Clini c Noteon 02-13-2022 Family Medicine Office/Clinic Note Chief Complaint Yearly Check Up HPI Staff Jersey is a 66 year old female who presents for a yearly follow up. She has a chronic history of hypothyroidism. Currently taking [place] Thyroid 120mg once daily, as directed without adverse reaction. Patient denies fatigue, palpitations, hot/cold intolerance, constipation, hair/skin/nail issues. She has recent labs to review. She continues to fill her hormones through [facility] in [place]. 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 30 mg oral tablet, See Instructions [...] inactivated - Not Given Patient Refuses Normal [facility] Comment on above: Result Comment: Elec tronically Signed By: Addy ROUSSEAU DO\.br\Date and Time Signed: 02/13/22 14:08 EDT Pre-Visit Planningon 022 Pre-Visit Planning -- From: Bianca WARD, Piedad To: Addy ROUSSEAU DO; Sent: 02/10/2022 09:19:11 EDT Subject: Pre-Visit Planning Due Date/Time: 02/10/2022 09:19:00 EDT Caller Name: JERSEY DOW; Caller Number: , [facility] During pre-visit planning review the Jose Antonion report shows that Naty Kirkpatrick documented e27.40 unspecified adrenocortical insufficiency on 03/16/2021. I do not have the actual document so I do not have further details. MARIN Alaniz, RN, [facility], CCDS -- From: Addy ROUSSEAU DO To: Bianca WARD, Piedad; Sent: 02/11/2022 11:06:34 EDT Subject: RE: Pre-Visit Planning Caller Name: JERSEY DOW; Caller Number: Stefanie , M I will look into it thanks Normal [address] [facility] Lab Reportson 02-10-2022 Lab Reports [id number] 13#1.00CD:127 Normal [facility] Basic Metabolic Panelon 01-0 Anion gap [Moles/Vol] 18 mmol/L Normal 12-20 [facility] Specialist Comment on above: Result Comment: Effe ctive 05/26/2019 reference range changed. Performed By: #### B MP, CBC #### [facility] [address] [facility] [place] [id number] Calcium [Mass/Vol] 10.2 mg/dL Normal 8.6-10.2 [facility] Specialist Comment on above: Performed By: #### B MP, CBC #### [facility] [address] [place], [place] [id number] Chloride [Moles/Vol] 99 mmol/L Normal 98-107 [facility] Specialist Comment on above: Performed By: #### B MP, CBC #### [facility] [address] [place], [place] [id number] CO2 [Moles/Vol] 22 mmol/L Normal 20-31 [facility] Specialist Comment on above: Performed By: #### B MP, CBC #### [facility] [address] [place], [place] [id number] Creatinine [Mass/Vol] 0.7 mg/dL Normal 0.6-1.4 [facility] Specialist Comment on above: Performed By: #### B MP, CBC #### [facility] [address] [place], [place] [id number] eGFRAA 109 mL/min/1.73m2 Normal >60 [facility] Comment on above: Performed By: #### B MP, CBC #### [facility] [address] [place], [place] [id number] eGFRNAA 90 mL/min/1.73m2 Normal >60 [facility] Comment on above: Performed By: #### B MP, CBC #### [facility] [address] [place], [place] [id number] Glucose [Mass/Vol] 88 mg/dL Normal 65-99 [facility] Comment on above: Result Comment: For FASTING Glucose --- ADA reference ranges: Normal 65-99 mg/dl Prediabetes 100-125 Diabetes >/= 126 Performed By: #### B MP, CBC #### [facility] [address] [place], [place] [id number] Potassium [Moles/Vol] 4.6 mmol/L Normal 3.5-5.5 [facility] Comment on above: Performed By: #### B MP, CBC #### [facility] [address] [place], [place] [id number] Sodium [Moles/Vol] 134 mmol/L Low 135-146 [facility] Specialist Comment on above: Performed By: #### B MP, CBC #### [facility] [address] [place], [place] [id number] Urea nitrogen [Mass/Vol] 17 mg/dL Normal 7-25 [facility] Comment on above: Performed By: #### B MP, CBC #### [facility] [address] [place], [place] [id number] Complete Blood Counton 05-23 Erythrocyte distribution width (RBC) [Ratio] 12.5 % Normal 11.0-15.0 [facility] Comment on above: Performed By: #### B MP, CBC #### [facility] [address] [place], [place] [id number] Hematocrit (Bld) [Volume fraction] 38.5 % Normal 35.0-47.0 [facility] Comment on above: Performed By: #### B MP, CBC #### [facility] [address] [place], [place] [id number] Hemoglobin (Bld) [Mass/Vol] 12.8 g/dL Normal 11.6-15.5 [facility] Comment on above: Performed By: #### B MP, CBC #### [facility] [address] [place], [place] [id number] MCH (RBC) [Entitic mass] 31.6 pg Normal 27.0-33.0 [facility] Specialist Comment on above: Performed By: #### B MP, CBC #### [facility] [address] [place], [place] [id number] MCHC (RBC) [Mass/Vol] 33.2 g/dL Normal 32.0-36.0 [facility] Comment on above: Performed By: #### B MP, CBC #### [facility] [address] [place], [place] [id number] MCV (RBC) [Entitic vol] 95 fL Normal 80-100 [facility] Comment on above: Performed By: #### B MP, CBC #### [facility] [address] [place], [place] [id number] Platelet mean volume (Bld) [Entitic vol] 9.40 fL Normal 7.50-12.50 [facility] Comment on above: Performed By: #### B MP, CBC #### [facility] [address] [place], [place] [id number] Platelets (Bld) [#/Vol] 372 10*3/uL Normal 140-400 [facility] Specialist Comment on above: Performed By: #### B MP, CBC #### [facility] [address] [place], [place] [id number] RBC (Bld) [#/Vol] 4.05 10*6/uL Normal 3.90-5.20 [facility] Comment on above: Performed By: #### B MP, CBC #### [facility] [address] [place], [place] [id number] RDW-SD 43.9 fL Normal 37.0-50.0 [facility] Specialist Comment on above: Performed By: #### B MP, CBC #### [facility] [address] [place], [place] [id number] WBC (Bld) [#/Vol] 6.4 10*3/uL Normal 3.8-11.0 [facility] Recruitment Manager Comment on above: Performed By: #### B MP, CBC #### [facility] [address] [place], [place] [id number] Q - SARS CoV2 COVID 19 Ab Ig To 05-23-2021 SARS-CoV-2 (COVID-19) Ab IA Qn >150.00 High <1.00 [facility] Recruitment Manager Comment on above: Order Comment: [facility] Testing performed at: [employer], [facility], [address] [place] [address], [address] [place] [address], [id number], Construction Project Mgr: Mihir Arzola MD [facility] Collection Date/Time: [facility] [...] providers and patients using the following websites: http://patient.[employer].com/[facility]-HCP http://patient.[employer].com/[facility]-Patients Healthcare Providers: For additional information please refer to: http://education.Heartscape/faq/OCF441 (This link is being provided for informational/educational purposes only.) This test has been authorized by the FDA under an Emergency Use Authorization (EUA) for use by authorized laboratories. The FDA authorized labeling is available on the [facility] website: www.[employer]/Covid19. Performed By: #### 3 4499 #### [facility] [address] [place] [address] XR Chest 2 Views*on 05-18-20 21 XR Chest 2 Views* HISTORY: Follow up pneumonia FINDINGS: Mild basilar interstitial prominence, likely post inflammatory sequela. No significant peripheral consolidation, pleural effusion or pulmonary edema. No lymphadenopathy. Normal cardiac silhouette size. IMPRESSION: 1. Slight basilar interstitial prominence, likely post inflammatory sequela. 2. No significant parenchymal consolidation or edema. Report reported and signed by Atul Bentley on 05/18/2021 1321 Normal [facility] MRI Hip w/o Righton 05-03-20 21 MRI [...] by Bentley Hua on 05/03/2021 1548 Normal [facility] SCREENING MAMMOGRAM W/RUY, BILATERAL*on 04-28-2021 SCREENING MAMMOGRAM [...] VERY IMPORTANT TO YOUR HEALTH. THE CURRENT CITIZEN OF [place] COLLEGE OF RADIOLOGY AND NATIONAL COMPREHENSIVE CANCER NETWORK GUIDELINES RECOMMENDS ANNUAL MAMMOGRAPHY BEGINNING AT AGE 40 THIS FACILITY USES A REMINDER SYSTEM TO ENSURE ALL PATIENTS RECEIVE REMINDER NOTIFICATIONS AT THE APPROPRIATE TIME BASED ON THE RECOMMENDATIONS OF THIS EXAM. Report reported and signed by Atul Bentley on 04/28/2021 1533 Normal [facility] COVID-19 PCRon 04-11-2020 SARS-CoV-2 (COVID-19) RNA GRISELDA+probe Ql (Unsp spec) Not detected Normal Not Detected [facility] Comment on above: Result Comment: This nucleic acid amplification test was developed and its performance characteristics determined by [facility]. Nucleic acid amplification tests include PCR and [...] assay. Performed By: #### C VDPCR #### [facility] [address] [place] [address] Giselle Brock 12-03-2018 CNTARIQ Office Visit (UROLIBERTADN) ---- JERSEY DOW ([id number]) 1955 F Date Time Provider Department 12/03/18 4:00 PM CELESTE SHAFFER During your visit today, we recorded the following information about you: Pulse Blood pressure Weight 100/minute 148/70 79.4 kg Ariela Lovett 12/03/2018 3:45 PM Signed [facility] FACTS LAB HOURS: Lab is open [...] prior to the scheduled exam. Celeste Shaffer APRN.STATION MASTER 12/03/2018 4:23 PM Signed Jersey Dow [address] [place] [address] HISTORY OF PRESENT ILLNESS: Seen 09/11/18 for [...] evaluation for evaluation, U/A, culture Celeste Shaffer APRN.STATION MASTER Referring Provider: CELESTE SHAFFER [[id number]] Allergies As of Date: 12/03/2018 Noted Allergy Reaction GABAPENTIN 09/11/2018 4 - Hives Date Reviewed: 12/03/2018 Reviewed by: Ariela Lovett - Fully Assessed Reason for Visit: Follow Up [171] Primary Visit Diagnosis:IC (interstitial cystitis) [N30.10] Other Visit Diagnoses:Urinary tract infection without hematuria, site unspecified [N39.0] Vaginal atrophy [N95.2] Order(s):UA CHEMSTRIP ONLY [SQUA] Order #: [id number] FUTURE URINE CULTURE [SQURCUL] Order #: [id number] conjugated estrogens (PREMARIN) vaginal creamUse 0.5 g [...] [N39.0] Other instructions from your clinician: [facility] FACTS LAB HOURS: Lab is open [...] Status:Closed by CELESTE SHAFFER CNP on 12/03/18 Normal [facility] PROGRESSon 12-03-2018 PROGRESS HNO ID: [id number] Author: Celeste Shaffer Service: ? Author Type: Nurse Practitioner Type: Progress Notes Filed: 12/03/2018 4:23 PM Note Text: Jersey Dow [address] [place] [address] HISTORY OF PRESENT ILLNESS: Seen 09/11/18 for cystitis Pt stated that had pain in bladder in 2011 went to urologist in [place] cysto and bladder bx completed and noted [...] evaluation, U/A, culture Celeste Shaffer APRN.JB Normal [facility] Urine Cultureon 09-12-2018 Bacteria identified Cx Nom (U) Sp. Request/Comment: - Specimen received in preservative Culture Result - No growth (<100 CFU/ml) Normal [facility] Comment on above: Performed By: #### U RCUL #### [facility] [address] [place] [address] CNOVon 09-11-2018 CNOV Office Visit (UROLLN) ---- JERSEY DOW ([id number]) 1955 F Date Time Provider Department 09/11/18 8:00 AM CELESTE SHAFFER (STATION MASTER) UROLLCherie During your visit today, we recorded the following information about you: Pulse Blood pressure Height 95/minute 128/86 1.626 m Ariela Lovett 09/11/2018 8:06 AM Signed [facility] FACTS LAB HOURS: Lab is open [...] prior to the scheduled exam. Celeste Shaffer, CAIN.STATION MASTER 09/11/2018 2:03 PM Signed Jersey Riley Paloma [address] [place] [address] is a 63 year old female and [...] month for evaluation for evaluation Celeste Shaffer APRN.STATION MASTER Referring Provider: SELF [200] Allergies As of [...] [N39.0] Other instructions from your clinician: [facility] FACTS LAB HOURS: Lab is open 7:30am to 6pm -, open 7:30am -5pm on Sunday and open [...] Status:Closed by CELESTE SHAFFER CNP on 09/11/18 [facility] PROGRESSon 09-11-2018 PROGRESS HNO ID: [id number] Author: Celeste Desai (Karlee Shaffer Service: ? Author Type: Nurse Practitioner Type: Progress Notes Filed: 09/11/2018 2:03 PM Note Text: Jersey Riley Paloma [address] [place] [address] is a 63 year old female and [...] month for evaluation for evaluation Celeste Shaffer, PATIENT ACCOUNT LIAISON.STATION MASTER Normal [facility] Urinalysison 09-11-2018 Bilirubin, Urine Negative Normal Negative [facility] Comment on above: Performed By: #### U A #### [place] [address] Clarity (U) Clear Normal Clear [facility] Comment on above: Performed By: #### U A #### [place] [address] [place] [address] Color (U) Yellow Normal Yellow [facility] Comment on above: Performed By: #### U A #### [address] [address] Comments SEE COMMENT Normal [facility] Comment on above: Result Comment: Micr oscopic not warranted Performed By: #### U A #### [place] [address] [place] [address] Glucose Ql (U) Negative Normal Negative [facility] Comment on above: Performed By: #### U A #### [place] [address] [place] [address] Hemoglobin/Blood,Ur Negative Normal Negative [facility] Comment on above: Performed By: #### U A #### [place] [address] [place] [phone] Ketones Ql (U) Negative Normal Negative [facility] Comment on above: Performed By: #### U A #### [facility] [address] [place], [place] [address] Leukest Negative Normal Negative [facility] Comment on above: Performed By: #### U A #### [place] [address] [place], [place] [address] Nitrite Ql (U) Negative Normal Negative [facility] Comment on above: Performed By: #### U A #### [address] [address] pH (Bld) 7.0 Normal 4.5-8.0 [facility] Comment on above: Performed By: #### U A #### [address] [address] Protein (U) [Mass/Vol] Negative Normal Negative [facility] Comment on above: Performed By: #### U A #### [address] [address] Specific [place], Ur 1.005 Normal 1.005-1.030 [facility] Comment on above: Performed By: #### U A #### [address] [address] Urine Jayme Comment SEE COMMENT Normal [facility] Comment on above: Result Comment: N/A Performed By: #### U A #### [place] [address] [place], [place] [address] Urobilinogen Qn (U) Normal Normal Normal [facility] Comment on above: Performed By: #### U A #### [address] [address] Vital Signs Date Time Vital Sign Value Performing Clinician Facility 09-12-2022 11:45-0400 Body height 161.29 cm Abena Hawkins Other [facility] Other 09-12-2022 11:45-0400 Body mass index (BMI) [Ratio] 32.43 kg/m2 Abena Hawkins Other [facility] Other 09-12-2022 11:45-0400 Body weight 84.37 kg Abena Hawkins Other [facility] Other 05-10-2022 10:40-0500 Body height 161.29 cm Aziz Bakhous Other [facility] Other 05-10-2022 10:40-0500 Body mass index (BMI) [Ratio] 32.5 kg/m2 Aziz Bakhous Other [facility] Other 05-10-2022 10:40-0500 Body temperature 96.2 [degF] Aziz Bakhous Other [facility] Other 05-10-2022 10:40-0500 Body weight 84.55 kg Aziz Bakhous Other [facility] Other 05-10-2022 10:40-0500 Diastolic blood pressure 98 mm[Hg] Aziz Bakhous Other [facility] Other 05-10-2022 10:40-0500 Respiratory rate 18 /min Aziz Bakhous Other [facility] Other 05-10-2022 10:40-0500 SaO2% (BldA) [Mass fraction] 96 % Aziz Bakhous Other [facility] Other 05-10-2022 10:40-0500 Systolic blood pressure 158 mm[Hg] Aziz Bakhous Other [facility] Other Encounters Encounter Date Encounter Type Care Provider Facility Start: 06-26-2023 End: 06-27-2023 Clinical Support Clementina Diego MD Work Phone: [facility] - Audiology Comment on above: Encephalocele (CMS-H CC) (Primary Dx); Sensorineural hearing loss (SNHL), bilateral Start: 06-11-2023 End: 06-12-2023 ambulatory [facility] Start: 06-04-2023 End: 06-05-2023 ambulatory Kamryn Ceja MD Facility:[facility] Start: 05-30-2023 End: 05-30-2023 ambulatory Oriana Laguerre Facility:[facility] Start: 05-30-2023 End: 05-30-2023 ambulatory MD Oriana Laguerre Work Phone: [facility] Work Phone: Start: 05-30-2023 End: 05-30-2023 Patient encounter procedure MD Oriana Laguerre Work Phone: [facility] [address] Work Phone: Start: 05-07-2023 End: 05-21-2023 ambulatory LATRICE PEÑA [facility] Start: 05-02-2023 End: 05-03-2023 ambulatory NATY KIRKPATRICK Not Available Start: 04-23-2023 End: 04-24-2023 ambulatory ORIANA LAGUERRE Not Available Start: 04-10-2023 End: 04-10-2023 ambulatory RHODA DOCKERY Not Available Start: 02-13-2023 ambulatory Addy De La Rosa y:ISMA Hinojosa Start: 01-18-2023 End: 01-18-2023 ambulatory Huong Santiago Facility:[facility] Start: 01-18-2023 End: 01-18-2023 ambulatory MD Oriana Laguerre Work Phone: [facility] Work Phone: Start: 01-18-2023 End: 01-18-2023 Patient encounter procedure MD Oriana Laguerre Work Phone: [facility] [address] [place] Work Phone: Start: 10-12-2022 End: 10-12-2022 ambulatory Huong Santiago Facility:[facility] Start: 09-12-2022 End: 09-12-2022 ambulatory Abena Calvey Other [facility] Other Start: 09-12-2022 Office outpatient vi sit 15 minutes Abena Calvey [facility] Start: 06-14-2022 End: 06-14-2022 ambulatory Abena Calvey Other [facility] Other Start: 06-14-2022 Office outpatient vi sit 15 minutes Abena Calvey [facility] Start: 05-10-2022 End: 05-10-2022 ambulatory Aziz Bakhous Other [facility] Other Start: 05-10-2022 Office outpatient ne w 30 minutes Aziz Bakhous [facility] Start: 03-29-2022 End: 03-29-2022 ambulatory Abena Calvey Other [facility] Other Start: 03-29-2022 Office outpatient vi sit 15 minutes Abena Calvey [facility] Start: 02-13-2022 End: 02-14-2022 ambulatory Addy ROUSSEAU Facility:[facility] Start: 12-13-2021 End: 12-13-2021 ambulatory Abena Calvey Other [facility] Other Start: 12-13-2021 Office outpatient vi sit 25 minutes Abena Calvey [facility] Start: 08-26-2021 End: 08-26-2021 ambulatory Abena Calvey Other [facility] Other Start: 08-26-2021 Encounter by bryon mortensen Oriana Laguerre [facility] Start: 08-26-2021 Office outpatient vi sit 15 minutes Abenageorgette Hawkins [facility] Start: 02-25-2021 End: 02-25-[address] DOCTOR FOURNIER Facility:[facility] Start: 04-09-2020 End: 04-10-2020 ambulatory NATY KIRKPATRICK Facility:[facility] Start: 12-25-2016 End: 12-26-2016 Ambulatory DEFAULT PHYSICIAN Facility:[facility] Procedures Date Procedure Procedure Detail Performing Clinician Start: 06-26-2023 COMPREHENSIVE HEARING TEST Clementina Diego MD Work Phone: Plan of Treatment Date Care Activity Detail Author Start: 02-20-2028 DTaP,Tdap and Td Vaccines (4 - Td or Tdap) DTaP,Tdap and Td Vaccines (4 - Td or Tdap) [facility] Start: 02-21-2024 Adult BMI Screening Adult BMI Screening [facility] Start: 02-21-2024 Tobacco Screening Tobacco Screening [facility] Start: 05-30-2023 Hemolytic complement CH50 level [facility] Start: 01-19-2023 Influenza vaccination Influenza Vaccine [facility] Start: 01-18-2023 Bacteria identified in Urine by Culture [facility] Start: 01-18-2023 Hemolytic complement CH50 level [facility] Start: 01-18-2020 Fall Risk Screening Fall Risk Screening [facility] Start: 03-15-2019 Administration of varicella zoster vaccine Zoster (Shingles) Vaccine (2 of 2) [facility] Start: 1973 Adult BMI Follow Up Plan Adult BMI Follow Up Plan [facility] Start: 1967 Depression Screening Depression Screening [facility] Start: 1955 Medicare Annual Wellness Visit Medicare Annual Wellness Visit [facility] Complement C3 [Mass/volume] in Serum or Plasma [facility] Complement C3 [Mass/volume] in Serum or Plasma [facility] Complement C4 [Mass/volume] in Serum or Plasma [facility] Complement C4 [Mass/volume] in Serum or Plasma [facility] Immunizations Immunization Date Immunization Notes Care Provider [facility] 02-09-2020 influenza virus vaccine, unspecified formulation [facility] 01-18-2019 zoster vaccine, unspecified formulation Rhoda Jin AUD Work Phone: [facility] Payers Date Payer Category Payer Self-pay [id number] 2019 Medicare 2019 Unknown 1959 Medicare [id number] 1959 Unknown [id number] 1955 Unknown [id number] 2.16.84 [id number] 1955 Unknown [id number] 2.16.84 [id number] 1955 Unknown [id number] 2.16.8 [id number] 1955 Unknown [id number] 2.16.8 [id number] 1955 Unknown [id number] 2.16.840 .1.127419.3.579.2.1259 1955 Unknown [id number] 2.16.840 .1.031196.3.579.2.1259 1955 Unknown [id number] 2.16.840 .1.674528.3.579.2.1259 1955 Unknown [id number] 2.16.84 0.1.906721.3.579.2.1286 1955 Unknown [id number] 2.16. [id number] 1955 Unknown [id number] 2.16. [id number] 1955 Unknown [id number] 2.16.8 40.1.817089.3.579.2.1286 Unknown [id number] 2.16.8 40.1.627744.3.579.2.531 Unknown [id number] 2.16.8 [id number] Unknown [id number] 2.16.8 [id number] Social History Date Type Detail Facility Start: 07-01-2020 End: 02-20-2023 Sex Assigned At [facility] Start: 02-11-2021 End: 03-15-2022 Tobacco smoking status NHIS Never smoked tobacco (finding) [facility] Start: 1955 Sex Assigned At Female F [facility] Start: 03-15-2022 Tobacco use and exposure Smokeless tobacco non-user 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 Start: 07-01-2020 End: 02-20-2023 History of Social function [facility] Childcare Unknown [facility] Start: 1955 Sex Assigned At Not on file [facility] Medical Equipment Procedure Code Equipment Code Equipment Origin al Text Equipment Identifier Dates Cement Bn Hydros et Sub Void Saad Ca Phos 3ml Inj Ostcndc Strl - Sna - [id number] Start: 02-20-2023 Graft Snth Tiss Thk2.5mm Thk.45mm [id number] Pe Npor Mdpr Tsi - Sna - [id number] Start: 02-20-2023 Stem Fem 4 2 Tpr Flt [place] Mectagrip Hip Lateralize + - [id number] Start: 06-30-2021 Screw Bn 20mm 6. 5mm Flt Hd Canc Hip Mpact - [id number] Start: 06-30-2021 Goals Date Patient Goal Desired Activity /State Personal health goal Comment on above: Formatting of this n ote might be different from the original. Evaluation of progress towards goal: In progress: DC to home with outpatient therapy. Clinical Notes 08-26-2021 to 06-26-2023 YARA Reyes - 06/26/2023 1:00 PM EST Note Date & Type Note Facility 06-26-2023 History of Presen t illness Narrative HEARING EVALUATION REPORT Patient: Jersey Dow : 1955 Date: 06/26/2023 Ordering Provider: Clementina Diego MD History: Jersey Dow 68 y.o., was seen today at [facility] for a comprehensive audiologic evaluation. She was referred by Clementina Diego MD. She reports surgery last year in February. She reports improvement since her surgery. Results: Otoscopic inspection revealed clear canals bilaterally. A comprehensive hearing test was completed to determine the patient's hearing sensitivity and speech recognition abilities. Right Ear The audiogram revealed mild from 250 Hz to 3000 Hz sloping to moderate sensorineural hearing loss. Speech recognition scores were 100%. Testing reliability is judged to be good. Left Ear The audiogram revealed moderate rising to mild sensorineural hearing loss to 3000 Hz sloping to severe hearing loss. Speech recognition scores were 100%. Testing reliability is judged to be good. Impressions: Today's results are of good reliability and indicate a bilateral sensorineural hearing loss with the left ear poorer than the right at 6000 Hz and 8000 Hz. Recommendations: Follow up medically with referring provider. Thank you for allowing me to participate in the hearing health of your patient. YARA Reyes documented in this encounter [facility] 09-12-2022 Evaluation note Encounter Date Diagnosis Assessment [...] Pain in right hand (ICD-10 - M79.641) [facility] Other 01-25-2023 Evaluation note* Encounter Date Diagnosis Assessment Notes Treatment Notes Treatment Clinical Notes May, Arthritis of carpometacarpal joint (ICD-10 - M19.049) Bilateral thumb CMC joints injected with cortisone under sterile technique, patient tolerated well May, Pain in left hand (ICD-10 - M79.642) May, Pain in right hand (ICD-10 - M79.641) [facility] Other 12-21-2022 Evaluation note* Encounter Date Diagnosis Assessment Notes Treatment Notes Treatment Clinical Notes Apr, Hyponatremia (ICD-10 - E87.1) The [...] will continue same follow-up blood pressure medication [facility] Other 11-09-2022 Evaluation note* Encounter Date Diagnosis Assessment Notes Treatment Notes Treatment Clinical Notes Mar, Arthritis of carpometacarpal joint (ICD-10 [...] Pain in right hand (ICD-10 - M79.641) [facility] Other 07-26-2022 Evaluation note* Encounter Date Diagnosis Assessment Notes Treatment Notes Treatment Clinical Notes Nov, Arthritis of carpometacarpal joint (ICD-10 [...] Pain in right hand (ICD-10 - M79.641) [facility] Other 04-08-2022 Evaluation note* Encounter Date Diagnosis Assessment Notes Treatment Notes Treatment Clinical Notes Aug, Arthritis of carpometacarpal joint (ICD-10 - M19.049) We performed kenalog cortisone injection into the bilateral thumbs CMC joints under sterile technique. The patient tolerated this well without complication. We discussed that the finger may feel numb and tingle for hours after this injection. 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), bilateral [facility] - [facility]orted* Type Description Date Medical History chronic fatigue Medical History rheumatoid arthritis Medical History sjogren syndrome Medical History lupus Surgical History tonsillectomy and adenoidectomy Surgical History cervix repair Surgical History mastoidectomy Surgical History skull surgery Hospitalization History see above Hospitalization History kidney infection Hospitalization History child Hospitalization History broken arm [facility] Other Hiswqlq general Narrative - Reported* Type Description Date Medical History chronic fatigue Medical History rheumatoid [...] Hospitalization History COMPLICATIONS AFTER SKUL L SURGERY [facility] Other InstructionsNot on filedocumented in this encounter [facility] Summary Purpose Family History No Family History [...] Time Advance Directives No December 23 6:16am Latest Code Status on File Code Status Date Activated Date Inactivated Comments Full Code 04/16/2022 2:24 AM 04/17/2022 8:05 PM Code Status History Code Status Date Activated Date Inactivated Comments Full Code 06/30/2021 4:58 PM 07/02/2021 7:00 PM Chief Complaint and Reason for Visit Chief Complaint M15.0 M35.9 Z79.899 Additional Source Comments INFORMATION SOURCE (unrecogn ized section and content) DATE CREATED AUTHOR 11/14/2017 [facility] DATE CREATED AUTHOR AUTHOR'S ORGANIZ ATION 12/05/2018 [facility] DATE CREATED AUTHOR AUTHOR'S ORGANIZ ATION 03/17/2021 [facility] DATE CREATED AUTHOR AUTHOR'S ORGANIZ ATION 05/25/2021 [facility] DATE CREATED AUTHOR AUTHOR'S ORGANIZ ATION 12/25/2022 [facility] DATE CREATED AUTHOR AUTHOR'S ORGANIZ ATION 05/07/2023 [facility] DATE CREATED AUTHOR AUTHOR'S ORGANIZ ATION 05/21/2023 [facility] DATE CREATED AUTHOR AUTHOR'S ORGANIZ ATION 06/15/2023 [facility] DATE CREATED AUTHOR AUTHOR'S ORGANIZ ATION 06/29/2023 [facility] DATE CREATED AUTHOR AUTHOR'S ORGANIZ ATION 07/02/2023 [facility] REASON FOR VISIT (unrecogniz ed section and content) Specialty Diagnoses / Procedures Referred By Contac t Referred To Contact Diagnoses Encephalocele ([facility]) Procedures Comprehensive hearing test Clementina Diego MD [address] [place] [address] Referral ID Status Reason Start Date Expiration Date V isits Requested Visits Authorized [id number] Pending Review 03/13/2023 03/12/2024 1 1 Care Teams (unrecognized sec tion and content) Team Status: Active Member Role Status Dates Oriana Laguerre MD Primary Care Provider Active Team Status: Inactive Member Role Status Dates Oriana Laguerre MD Primary Care Provider Active Huong Santiago NP-C Attending Provider Active Team Status: Inactive Member Role Status Dates Oriana Laguerre MD Primary Care Provider Active Endy Abreu MD Attending Provider Active Networking Technology Instructor Relationship Specialty Start Date End Date Oriana Laguerre MD [address] [place] [address] PCP - General Family Medicine 10/06/16 Goals (unrecognized section and content) Goals may [...] BE BASED ON THE PRIMARY CLINICAL RECORDS. [facility] [employer] provides no warranty or guarantee of the accuracy or completeness of information in this document.
[2023-07-02 07:57] VITALS: BP 151/91; PULSE 81; RESP 16; TEMP 36.6; O2SAT 97
[2023-07-02 08:44] VITALS: BP 146/71; BP 150/71; PULSE 78; PULSE 79; RESP 18; O2SAT 96; O2SAT 98
[2023-07-02] MEDS: BUPIVACAINE HCL 0.25% PF 25 MG/10 ML VIAL 8 ML INJ (08:45)
[2023-07-02] MEDS: LIDOCAINE HCL 2% PF 100 MG/5 ML VIAL 1 ML INJ (08:45)
--- NOTE | 2023-07-02 08:47 | W.PM.PROCNOT ---
Date of procedure: 07/02/23 Pre-op diagnosis: Lumbar spondylosis Post-op diagnosis: same as pre-op Procedure: Procedure: Bilateral L4-5, L5-S1 medial branch block Medications: Bupivacaine 0.25% 6cc The patient was seen and examined in the preoperative holding area.? An informed consent was obtained and placed on the chart.? The patient was brought to the medical procedure unit and placed in the prone position.? A timeout was completed verifying correct patient, procedure site, positioning, plan, and special equipment.? Using aseptic technique, the needle was placed at left L4. Under direct fluoroscopic visualization a Quincke-tipped spinal needle was advanced to the junction of the superior articulating process with the transverse process at the designated medial branch segment.? Preceded by negative aspiration, the above-mentioned injectate was placed in 1 mL aliquots.? The procedure was repeated at left L5, S1.? The needle was removed and insertion site was covered. The same procedure, at the same levels, was completed on the right side. The patient was taken to the postprocedural recovery area and monitored for an appropriate length of time before found suitable for discharge in the company of a responsible adult. Surgeon: Kamryn Ceja Pathology: none sent Condition: stable Disposition: no change
== END 2023-07-02 08:51 | disposition home or self-care (01) ==
PROVIDERS: PCP Family Medicine; Visit Provider Anesthesiology
DX: M47.816 Spondylosis without myelopathy or radiculopathy, lumbar region (principal)
CPT/HCPCS: 64493; 64494; J0665

== ENCOUNTER 2023-07-05 14:33 | Outpatient (OUT) | payer MEDICARE, OTHER, SELFPAY ==
--- NOTE | 2023-07-05 14:56 | P.CN_ITS ---
Consult Note: HPI Data of Consult Patient: known to practice within the last 3 years Consult date: 06/04/23 Requesting Physician: Angie Casarez NP Primary Care Provider: CAR Rich Narrative Reason for consult: low back pain Narrative: 68yof who presents for evaluation. ongoing axial low back pain for several years, recently worsened. mri shows multilevel facet arthropathy and spondylosis. engages in >6 weeks of provider directed home exercises, with minimal benefit. utilizing mobic and tizanidine, with mild benefit. otherwise denies adverse med side effects. recently underwent bilateral facet medial branch block #2 with 100% immediate pain relief and functional improvement lasting hours after the procedure. Noticed increased ability in ADLs, walking up and down stairs, and getting in and out of the car. cc:: CC: Angie Casarez NP Review of Systems ROS Status of ROS 10 or more systems reviewed and unremark able except as noted in history and below Musculoskeletal Reports: back pain PFSH PFSH Medical History (Updated 06/05/23 @ 13:39 by Naty Haile RN) Lupus ?M32.9 - Systemic lupus erythematosus, unspecified (ICD-10) Heartburn ?R12 - Heartburn (ICD-10) Hypothyroid ?E03.9 - Hypothyroidism, unspecified (ICD-10) Asthma ?J45.909 - Unspecified asthma, uncomplicated (ICD-10) Palpitations ?R00.2 - Palpitations (ICD-10) Surgical History History of hand surgery ?Z98.890 - Other specified postprocedural states (ICD-10) History of ear surgery ?Z98.890 - Other specified postprocedural states (ICD-10) History of hip surgery ?Z98.890 - Other specified postprocedural states (ICD-10) History of shoulder surgery ?Z98.890 - Other specified postprocedural states (ICD-10) Meds Home Medications and Allergies Home Medications Medication Instructions Recorded Confirmed Type albuterol 90 mcg/actuation aerosol mcg inhalation 06/05/23 History inhaler carvedilol 12.5 mg tablet 25 mg PO Q12H 06/05/23 07/02/23 History cyclosporine 0.05 % eye drops in a 1 drp ophthalmic (eye) Q12H 06/05/23 07/02/23 History dropperette (Restasis) hydrochlorothiazide 12.5 mg tablet 12.5 mg PO DAILY 06/05/23 07/02/23 History hydroxychloroquine 200 mg tablet 200 mg PO BID 06/05/23 07/02/23 History (Plaquenil) losartan 100 mg tablet 100 mg PO DAILY 06/05/23 07/02/23 History meloxicam 15 mg tablet 15 mg PO DAILY 06/05/23 07/02/23 History metoprolol succinate 25 mg 12.5 mg PO DAILY 06/05/23 07/02/23 History tablet,extended release 24 hr omeprazole 20 mg capsule,delayed 20 mg PO DAILY 06/05/23 07/02/23 History release thyroid (pork) 90 mg tablet 90 mg PO DAILY 06/05/23 07/02/23 History ([place] Thyroid) tizanidine 4 mg tablet 4 mg PO BEDTIME 06/05/23 07/02/23 History brompheniramine-phenylpropanolamine 1 ea PO 07/02/23 History oral elixir Allergies Allergy/AdvReac Type Severity Reaction Status Date / Time amoxicillin Allergy Verified 07/02/23 07:56 ciprofloxacin [From Cipro] Allergy Verified 07/02/23 07:56 gabapentin Allergy Verified 07/02/23 07:56 Sulfa (Sulfonamide Allergy Verified 07/02/23 07:56 Antibiotics) Exam Narrative Exam Narrative: Psych-alert and oriented x 3. Attentive and appropriate, constitutionally normal, displays normal mood and affect per situation.? There are no obvious deficits in memory, reasoning, or intellect.? Skin-no obvious rashes, bruising, erythema noted to the patient's area of pain. Extremities- extremities are warm with minimal edema and palpable pulses. Lumbar-no significant tenderness to palpation noted in the lumbar spine and paraspinal musculature.? Pain is elicited with extension, and lateral rotation of the lumbar spine. Range of motion is slightly diminished with these motions due to pain. Facet loading maneuvers are positive bilaterally and do appear to be concordant with the patient's normal complaints of pain.? Coordination remains intact.? Gait remains non-antalgic. Constitutional Documenting provider has reviewed patient's vital signs: yes Common normals: no apparent distress, oriented x3, healthy appearing, alert and well nourished General appearance: cooperative HENMT Common normals: normocephalic, hearing grossly normal bilaterally and moist oral mucous membranes Head and scalp: normocephalic Eye Common normals: PERRL Pupil: PERRL Neck & C-Spine Common normals: full ROM General: normal visual inspection Chest Common normals: inspection of chest normal Respiratory Common normals: normal respiratory effort, no retractions and no use of accessory muscles Neuro Common normals: oriented x3, CN's II-XII intact bilaterally, moves all extremities, no focal motor deficits, no sensory deficits noted and deep tendon reflexes 2+ bilaterally Sensorium/orientation: alert Motor exam: strength 5/5 throughout and no movement abnormalities noted Psych Common normals: mental status grossly normal, thought process normal, cooperative, affect normal, speech normal and activity/motor behavior normal Speech: normal speech Thought process: normal thought process Results Additional Findings Additional findings: I have checked an OARRS report on this patient today and there are no aberrancies noted in the prescribing history.?? A drug screen was completed and reviewed within the last year, and if there has not been a drug screen completed we ordered one today to monitor higher risk, state monitored pain medication use. As part of providing excellent, safe, comprehensive care, the following was completed at our patient's visit: 1. A medication reconciliation and review to ensure accurate knowledge of current/active medications, including asking our patients to inform us about any [id number] medications or herbal remedies/nutritional supplements/alternative remedies. 2. A review to specifically ensure our patients have had annual screening for: elevated body mass index (BMI), tobacco use, screening for depression, and screening for unhealthy alcohol use. When screening is concerning, patients are provided with education and the specific recommendation to discuss the concerning health issue and treatment options with their primary care provider. Assessment and Plan Assessment and Plan (1) Lumbar spondylosis: (2) Lumbar stenosis with neurogenic claudication: Plan bilateral L4-5 L5-S1 facet medial branch thermal RFA under fluoroscopy, risks vs benefits discussed continue HEP as tolerated f/u 1 month after RFA
--- OUTSIDE RECORDS SUMMARY | 2023-07-05 15:02 | XMS_ITS | CCD ---
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 Role Phone PHYSICIAN, DEFAULT Unavailable Unavailable PHYSICIAN, DEFAULT Unavailable Unavailable ORIANA LAGUERRE Unavailable Unavailable MISC, DR CHEEK Attending Unavailable MISC, DR CHEEK Admitting Unavailable MISC, DR CHEEK Consulting Unavailable SHADE, DR ORIANA Lora Primary Care Unavailable NATY KIRKPATRICK Admitting Unavailable NATY KIRKPATRICK Unavailable NATY KIRKPATRICK Attending Unavailable SHADE, DR ORIANA Lora Referring Unavailable Abena Hawkins Unavailable Oriana Laguerre Unavailable José Miguel Grey Unavailable Addy ROUSSEAU Attending Unavailable Addy ROUSSEAU Attending Unavailable MD Oriana Laguerre Primary Care Provider [phone] SHANKAR Santiago Attending Provider RHODA DOCKERY Attending [...] Propensity to adverse reactions (disorder) 11-11-19 11 [facility] Repository (4 sources) gabapentin; Translations: [gabapentin] Drug Allergy 02-12-20 21 [facility] Repository (1 source) rosuvastatin Drug Allergy 02-26-20 21 [facility] Repository (1 source) Sulfonamides (Antibiotic) Drug allergy (disorder) 02-26-20 [facility] Repository (8 sources) gabapentin Drug Allergy 11-02-19 17 [facility] (7 sources) Sulfacetamide / Sulfur Drug Allergy Unknown [facility] Other (1 source) Sulfonamides (Antibiotic); Translations: [sulfa drugs] Propensity to adverse reactions (disorder) [facility] Repository (6 sources) Ciprofloxacin; Translations: [CIPROFLOXACIN] Drug Allergy 02-12-20 21 Unknown Reaction [facility] (3 sources) Sulfacetamide; Translations: [sulfacetamide] Drug Allergy 02-12-20 21 Vomiting [facility] (3 sources) Sulfur; Translations: [sulfur] Drug Allergy 02-12-20 [facility] (2 sources) gabapentin; Translations: [GABAPENTIN (BULK)] Drug Allergy 11-02-19 17 [facility] Repository (3 sources) Hmg-Coa Reductase Inhibitors (Statins); Translations: [CXWAPQO-SQC-UQQ REDUCTASE INHIBITORS] Propensity to adverse reactions to drug (disorder) 11-02-19 17 pain [facility] Repository (3 sources) Sulfonamides (Antibiotic); Translations: [SULFA (SULFONAMIDE ANTIBIOTICS)] Propensity to adverse reactions to drug (disorder) 11-02-19 17 GI Disturbance [facility] Repository (1 source) gabapentin Drug Allergy 12-13-19 23 [facility] Repository Medications Current Medications Medication Drug Class(es) [...] as needed Orally every 6 hrs Active [id number] 200 actuat albuterol 0.09 mg/actuat metered dose [...] Orally Once a day Active fluocinolone acetonide 0.63985 mg/mg topical ointment (4 sources) Corticosteroid Start: [...] twice daily for 90 days Apr, Active jnjrvknb-arkg-toy3-C-man g-bosw 750-625-30 mg tablet (1 source) take 1 tablet by mouth once daily eshcafry-tfwg-gwu6-C-ma ng-bosw 750-625-30 mg tablet Take 1 tablet by mouth daily. 0 Active glucosamine 750 mg oral tablet (3 sources) Glucosamine 750 MG as directed Orally Active hydroCHLOROthiazide 12.5 mg oral tablet (7 sources) Thiazide Diuretic Start: 02-11-2021 Hydrochlorothiazide Active 12.5 MG PO As Directed February 10, 2021 11:00pm take 1 capsule by mo [facility] every twenty-four hours hydroCHLOROthiazide 12.5 MG 1 [...] by mouth daily. 0 Active lactobacillus acidophilus [id number] unt / pectin 100 mg oral tablet [...] 1 tablet Orally Once a day Active olwjiwqk-zdcm-BC-calc ium &mins (THERAGRAN-M) 9 mg iron-400 mcg tablet (1 source) dgauymon-noww-OQ -calc ium &mins (THERAGRAN-M) 9 mg iron-400 [...] capsule Orally Once a day Active thyroid (fci) 120 mg oral tablet (10 sources) Start: 10-31-2016 Thyroid (Pork) (Elmer Thyroid) 120 mg tablet Active 120 MG [...] testOr dered By: Roya Schroeder on 06-26-2023 [facility] Alanine aminotransferase [En zymatic activity/volume] in Serum or PlasmaOrdered By: Endy Abreu on 05-30-2023 ALT [Catalytic activity/Vol] 16 U/L 7-52 [facility] Albumin [Mass/volume] in Ser um or Plasma by Bromocresol green (BCG) dye binding methoOrdered By: Endy Abreu on 05-30-2023 Albumin BCG dye [Mass/Vol] 4.2 g/dL 3.5-5.7 [facility] Alkaline phosphatase [Enzyma tic activity/volume] in Serum or PlasmaOrdered By: Endy Abreu on 05-30-2023 ALP [Catalytic activity/Vol] 109 U/L 34-104 [facility] Aspartate aminotransferase [ Enzymatic activity/volume] in Serum or PlasmaOrdered By: Endy Abreu on 05-30-2023 AST [Catalytic activity/Vol] 22 U/L 13-39 [facility] Automated erythrocytes count in urine sediment (number/area)Ordered By: Endy Abreu on 05-30-2023 RBC Auto (Urine sed) [#/Area] 0-1 [HPF] 0-4 [facility] Automated leukocytes count i n urine sediment (number/area)Ordered By: Endy Abreu on 05-30-2023 WBC Auto (Urine sed) [#/Area] 0-1 [HPF] 0-4 [facility] Basophils Auto (Bld) [#/Vol] Ordered By: Endy Abreu on 05-30-2023 Basophils (Bld) [#/Vol] 0.1 10*3/uL 0.0-0.2 [facility] Basophils/100 WBC Auto (Bld) Ordered By: Endy Abreu on 05-30-2023 Basophils/100 WBC (Bld) 1.1 % . [facility] Bilirubin Test strip Ql (U)O rdered By: Endy Brady on 05-30-2023 Bilirubin Ql (U) Negative Negative [facility] Bilirubin.total [Mass/volume ] in Serum or PlasmaOrdered By: Endy Abreu on 05-30-2023 Bilirubin [Mass/Vol] 0.5 mg/dL 0.3-1.0 [facility] Calcium [Mass/volume] in Ser um or PlasmaOrdered By: Endy Abreu on 05-30-2023 Calcium [Mass/Vol] 10.0 mg/dL 8.6-10.3 [facility] Carbon dioxide, total [Moles /volume] in Serum or PlasmaOrdered By: Endy Abreu on 05-30-2023 CO2 [Moles/Vol] 26.9 mmol/L 21.0-31.0 [facility] Chloride [Moles/volume] in S mary ellen or PlasmaOrdered By: Endy Abreu on 05-30-2023 Chloride [Moles/Vol] 98 mmol/L 98-107 [facility] Color Auto (U)Ordered By: Ngoc Abreu on 05-30-2023 Color (U) Yellow Yellow [facility] Complement C3on 05-30-2023 Complement C3 143 mg/dL Normal 82-167 [facility] Comment on above: Result Comment: Perf ormed at: CB - [facility] [address] [id number] Structural Steel Detailer: Marvel Barahona PhD, Phone: [phone] Performed By: #### C MP, ESR, CBC, ADDONUAPLUS #### [address] #### CH50, C3, C4 #### [facility] , Complement C4on 05-30-2023 Complement C4 29 mg/dL Normal 12-38 [facility] Comment on above: Result Comment: PERF ORMED BY: [place] [address] PATHOLOGIST RESHIPPING CLERK ALTHEA BARRAGAN M.D. Performed By: #### C MP, ESR, CBC, ADDONUAPLUS #### [address] #### CH50, C3, C4 #### [facility] , Complement Total (CH50)on Complement Total (CH50) >60 Normal >41 [facility] Comment on above: Result Comment: Age [...] determine out of range values. Performed at: [address] [id number] Structural Steel Detailer: Marvel Barahona PhD, Phone: [phone] PERFORMED BY: [place] [address] PATHOLOGIST RESHIPPING CLERK ALTHEA BARRAGAN M.D. Performed By: #### C MP, ESR, CBC, ADDONUAPLUS #### [address] #### CH50, C3, C4 #### [facility] , Complete Blood Count Auto Di ffon 05-30-2023 Basophils (Bld) [#/Vol] 0.1 10*3/uL Normal 0.0-0.2 [facility] Comment on above: Performed By: #### C MP, ESR, CBC, ADDONUAPLUS #### [address] #### CH50, C3, C4 #### [facility] , Basophils/100 WBC (Bld) 1.1 % Normal . [facility] Comment on above: Performed By: #### C MP, ESR, CBC, ADDONUAPLUS #### [place] [address] [place] #### CH50, C3, C4 #### [facility] , Eosinophils (Bld) [#/Vol] 0.0 10*3/uL Normal 0.0-0.45 [facility] Comment on above: Performed By: #### C MP, ESR, CBC, ADDONUAPLUS #### [address] #### CH50, C3, C4 #### [facility] , Eosinophils/100 WBC (Bld) 0.6 % Normal . [facility] Comment on above: Performed By: #### C MP, ESR, CBC, ADDONUAPLUS #### [address] #### CH50, C3, C4 #### [facility] , Erythrocyte distribution width (RBC) [Ratio] 13.8 % Normal 11.9-15.3 [facility] Comment on above: Performed By: #### C MP, ESR, CBC, ADDONUAPLUS #### [place] [address] [place] #### CH50, C3, C4 #### [facility] , Hematocrit (Bld) [Volume fraction] 36.4 % Normal 34.0-46.4 [facility] Comment on above: Performed By: #### C MP, ESR, CBC, ADDONUAPLUS #### [facility] [address] [place] [address] [place] #### CH50, C3, C4 #### [facility] , Hemoglobin (Bld) [Mass/Vol] 12.3 g/dL Normal 11.8-15.4 [facility] Comment on above: Performed By: #### C MP, ESR, CBC, ADDONUAPLUS #### [place] [address] [place] #### CH50, C3, C4 #### [facility] , Lymphocytes (Bld) [#/Vol] 2.4 10*3/uL Normal 1.00-4.8 [facility] Comment on above: Performed By: #### C MP, ESR, CBC, ADDONUAPLUS #### [address] #### CH50, C3, C4 #### [facility] , Lymphocytes/100 WBC (Bld) 29.2 % Normal . [facility] Comment on above: Performed By: #### C MP, ESR, CBC, ADDONUAPLUS #### [address] #### CH50, C3, C4 #### [facility] , MCH (RBC) [Entitic mass] 31.0 pg Normal 24.7-34.3 [facility] Comment on above: Performed By: #### C MP, ESR, CBC, ADDONUAPLUS #### [address] #### CH50, C3, C4 #### [facility] , MCV (RBC) [Entitic vol] 91.5 fL Normal 80-100 [facility] Comment on above: Performed By: #### C MP, ESR, CBC, ADDONUAPLUS #### [address] #### CH50, C3, C4 #### [facility] , Mean Corpuscular HGB Conc 33.8 g/dL Normal 32.0-35.0 [facility] Comment on above: Performed By: #### C MP, ESR, CBC, ADDONUAPLUS #### [place] [address] [place] #### CH50, C3, C4 #### [facility] , Monocytes (Bld) [#/Vol] 0.5 10*3/uL Normal 0.0-0.8 [facility] Comment on above: Performed By: #### C MP, ESR, CBC, ADDONUAPLUS #### [place] [address] [place] #### CH50, C3, C4 #### [facility] , Monocytes/100 WBC (Bld) 6.2 % Normal . [facility] Comment on above: Performed By: #### C MP, ESR, CBC, ADDONUAPLUS #### [place] [address] [place] #### CH50, C3, C4 #### [facility] , Neutrophils (Bld) [#/Vol] 5.1 10*3/uL Normal 1.8-7.7 [facility] Comment on above: Performed By: #### C MP, ESR, CBC, ADDONUAPLUS #### [address] #### CH50, C3, C4 #### [facility] , Neutrophils/100 WBC (Bld) 62.9 % Normal . [facility] Comment on above: Performed By: #### C MP, ESR, CBC, ADDONUAPLUS #### [place] [address] [place] #### CH50, C3, C4 #### [facility] , NRBC% 0.0 /100{WBC} Normal 0-0.5 [facility] Comment on above: Performed By: #### C MP, ESR, CBC, ADDONUAPLUS #### [place] [address] [place] #### CH50, C3, C4 #### [facility] , Platelet mean volume (Bld) [Entitic vol] 7.4 fL Normal 6.3-10.7 [facility] Comment on above: Performed By: #### C MP, ESR, CBC, ADDONUAPLUS #### [place] [address] [place] #### CH50, C3, C4 #### [facility] , Platelets (Bld) [#/Vol] 461 10*3/uL High 150-450 [facility] Comment on above: Performed By: #### C MP, ESR, CBC, ADDONUAPLUS #### [facility] [address] [place] [address] [place] #### CH50, C3, C4 #### [facility] , RBC (Bld) [#/Vol] 3.97 10*6/uL Normal 3.60-5.00 [place] Comment on above: Performed By: #### C MP, ESR, CBC, ADDONUAPLUS #### [facility] [address] [place] [address] [place] #### CH50, C3, C4 #### [facility] , WBC (Bld) [#/Vol] 8.1 10*3/uL Normal 3.8-11.6 [facility] Comment on above: Performed By: #### C MP, ESR, CBC, ADDONUAPLUS #### [facility] [address] [place] [address] [place] #### CH50, C3, C4 #### [facility] , Comprehensive Metabolic Pane chema 05-30-2023 Albumin [Mass/Vol] 4.2 g/dL Normal 3.5-5.7 [facility] Comment on above: Performed By: #### C MP, ESR, CBC, ADDONUAPLUS #### [facility] [address] [place] [address] [place] #### CH50, C3, C4 #### [facility] , Albumin/Globulin [Mass ratio] 1.8 {ratio} Normal [facility] Comment on above: Performed By: #### C MP, ESR, CBC, ADDONUAPLUS #### [facility] [address] [place] [address] [place] #### CH50, C3, C4 #### [facility] , ALP [Catalytic activity/Vol] 109 U/L High 34-104 [facility] Comment on above: Result Comment: PERF ORMED BY: [place] [address] PATHOLOGIST RESHIPPING CLERK ALTHEA BARRAGAN M.D. Performed By: #### C MP, ESR, CBC, ADDONUAPLUS #### [address] #### CH50, C3, C4 #### [facility] , ALT [Catalytic activity/Vol] 16 U/L Normal 7-52 [facility] Comment on above: Performed By: #### C MP, ESR, CBC, ADDONUAPLUS #### [address] #### CH50, C3, C4 #### [facility] , Anion gap [Moles/Vol] 12.2 mmol/L Normal 6.0-15.0 [facility] Comment on above: Performed By: #### C MP, ESR, CBC, ADDONUAPLUS #### [address] #### CH50, C3, C4 #### [facility] , AST [Catalytic activity/Vol] 22 U/L Normal 13-39 [facility] Comment on above: Performed By: #### C MP, ESR, CBC, ADDONUAPLUS #### [address] #### CH50, C3, C4 #### [facility] , Bilirubin [Mass/Vol] 0.5 mg/dL Normal 0.3-1.0 [facility] Comment on above: Performed By: #### C MP, ESR, CBC, ADDONUAPLUS #### [place] [address] [place] #### CH50, C3, C4 #### [facility] , Calcium [Mass/Vol] 10.0 mg/dL Normal 8.6-10.3 [facility] Comment on above: Performed By: #### C MP, ESR, CBC, ADDONUAPLUS #### [facility] [address] [place] [address] [place] #### CH50, C3, C4 #### [facility] , Chloride [Moles/Vol] 98 mmol/L Normal 98-107 [facility] Comment on above: Performed By: #### C MP, ESR, CBC, ADDONUAPLUS #### [facility] [address] [place] [address] [place] #### CH50, C3, C4 #### [facility] , CO2 [Moles/Vol] 26.9 mmol/L Normal 21.0-31.0 [facility] Comment on above: Performed By: #### C MP, ESR, CBC, ADDONUAPLUS #### [place] [address] [place] #### CH50, C3, C4 #### [facility] , Creatinine [Mass/Vol] 0.86 mg/dL Normal 0.60-1.20 [facility] Comment on above: Performed By: #### C MP, ESR, CBC, ADDONUAPLUS #### [address] #### CH50, C3, C4 #### [facility] , GFR/1.73 sq M.predicted MDRD (S/P/Bld) [Vol rate/Area] mL/min/{1.73_m2} Normal [facility] Comment on above: Performed By: #### C MP, ESR, CBC, ADDONUAPLUS #### [facility] [address] [place] [address] [place] #### CH50, C3, C4 #### [facility] , Globulin (S) [Mass/Vol] 2.4 g/dL Normal [facility] Comment on above: Performed By: #### C MP, ESR, CBC, ADDONUAPLUS #### [address] #### CH50, C3, C4 #### [facility] , Glucose [Mass/Vol] 123 mg/dL High 70-100 [facility] Comment on above: Result Comment: [facility] Glucose Reference Range is dependent on time and content of last meal. Glucose of more than 200 mg/dL in a nonstressed, ambulatory subject supports the diagnosis of Diabetes Mellitus. ADA recommended reference range Performed By: #### C MP, ESR, CBC, ADDONUAPLUS #### [address] #### CH50, C3, C4 #### [facility] , Potassium [Moles/Vol] 4.1 mmol/L Normal 3.5-5.1 [facility] Comment on above: Performed By: #### C MP, ESR, CBC, ADDONUAPLUS #### [place] [address] [place] #### CH50, C3, C4 #### [facility] , Protein [Mass/Vol] 6.6 g/dL Normal 6.4-8.9 [facility] Comment on above: Performed By: #### C MP, ESR, CBC, ADDONUAPLUS #### [address] #### CH50, C3, C4 #### [facility] , Sodium [Moles/Vol] 133 mmol/L Low 136-145 [facility] Comment on above: Performed By: #### C MP, ESR, CBC, ADDONUAPLUS #### [place] [address] [place] #### CH50, C3, C4 #### [facility] , Urea nitrogen [Mass/Vol] 20 mg/dL Normal 7-25 [facility] Comment on above: Performed By: #### C MP, ESR, CBC, ADDONUAPLUS #### [address] [place] [address] [place] #### CH50, C3, C4 #### [facility] , Creatinine [Mass/volume] in Serum or PlasmaOrdered By: Endy Abreu on 05-30-2023 Creatinine [Mass/Vol] 0.86 mg/dL 0.60-1.20 [facility] Dipstick and Microscopicon 0 05-30-2023 Appearance (U) Clear Normal Clear [facility] Comment on above: Order Comment: Name Collection Type:: Clean-Voided Midstream Performed By: #### C MP, ESR, CBC, ADDONUAPLUS #### [facility] [address] [place] [address] #### CH50, C3, C4 #### [facility] , Bacteria,Urine None Seen Normal None Seen [facility] Comment on above: Order Comment: Name Collection Type:: Clean-Voided Midstream Performed By: #### C MP, ESR, CBC, ADDONUAPLUS #### [facility] [address] [place] [address] #### CH50, C3, C4 #### [facility] , Bilirubin,Urine Negative Normal Negative [facility] Comment on above: Order Comment: Name Collection Type:: Clean-Voided Midstream Performed By: #### C MP, ESR, CBC, ADDONUAPLUS #### [facility] [address] [place] [address] #### CH50, C3, C4 #### [facility] , Color (U) Yellow Normal Yellow [facility] Comment on above: Order Comment: Name Collection Type:: Clean-Voided Midstream Performed By: #### C MP, ESR, CBC, ADDONUAPLUS #### [facility] [address] [place] [address] #### CH50, C3, C4 #### [facility] , Glucose Ql (U) Normal Normal Normal [facility] Comment on above: Order Comment: Name Collection Type:: Clean-Voided Midstream Performed By: #### C MP, ESR, CBC, ADDONUAPLUS #### [address] #### CH50, C3, C4 #### [facility] , Hyaline Casts,Urine None Seen Normal 0-8 [place] Comment on above: Order Comment: Name Collection Type:: Clean-Voided Midstream Result Comment: PERF ORMED BY: [place] [address] PATHOLOGIST RESHIPPING CLERK ALTHEA BARRAGAN M.D. Performed By: #### C MP, ESR, CBC, ADDONUAPLUS #### [address] #### CH50, C3, C4 #### [facility] , Ketones Ql (U) Negative Normal Negative [facility] Comment on above: Order Comment: Name Collection Type:: Clean-Voided Midstream Performed By: #### C MP, ESR, CBC, ADDONUAPLUS #### [address] #### CH50, C3, C4 #### [facility] , Leukocyte esterase Test strip Ql (U) Negative Normal Negative [facility] Comment on above: Order Comment: Name Collection Type:: Clean-Voided Midstream Performed By: #### C MP, ESR, CBC, ADDONUAPLUS #### [address] #### CH50, C3, C4 #### [facility] , Nitrite,Urine Negative Normal Negative [facility] Comment on above: Order Comment: Name Collection Type:: Clean-Voided Midstream Performed By: #### C MP, ESR, CBC, ADDONUAPLUS #### [address] #### CH50, C3, C4 #### [facility] , Occult Blood,Urine Negative Normal Negative [facility] Comment on above: Order Comment: Name Collection Type:: Clean-Voided Midstream Performed By: #### C MP, ESR, CBC, ADDONUAPLUS #### [address] #### CH50, C3, C4 #### [facility] , pH (U) 6.5 [pH] Normal 5.0-9.0 [facility] Comment on above: Order Comment: Name Collection Type:: Clean-Voided Midstream Performed By: #### C MP, ESR, CBC, ADDONUAPLUS #### [address] #### CH50, C3, C4 #### [facility] , Protein,Urine Negative Normal Negative [facility] Comment on above: Order Comment: Name Collection Type:: Clean-Voided Midstream Performed By: #### C MP, ESR, CBC, ADDONUAPLUS #### [address] #### CH50, C3, C4 #### [facility] , RBC LM.HPF (Urine sed) [#/Area] 0 /[HPF] Normal 0-4 [facility] Comment on above: Order Comment: Name Collection Type:: Clean-Voided Midstream Performed By: #### C MP, ESR, CBC, ADDONUAPLUS #### [address] #### CH50, C3, C4 #### [facility] , Specificy [place],Urine 1.011 Normal 1.001-1.030 [facility] Comment on above: Order Comment: Name Collection Type:: Clean-Voided Midstream Performed By: #### C MP, ESR, CBC, ADDONUAPLUS #### [address] #### CH50, C3, C4 #### [facility] , Squamous Epithelial Cell,Urine None Seen Normal 0-2 [facility] Comment on above: Order Comment: Name Collection Type:: Clean-Voided Midstream Performed By: #### C MP, ESR, CBC, ADDONUAPLUS #### [facility] [address] [place] [address] #### CH50, C3, C4 #### [facility] , Urobilinogen,Urine Normal Normal Normal [facility] Comment on above: Order Comment: Name Collection Type:: Clean-Voided Midstream Performed By: #### C MP, ESR, CBC, ADDONUAPLUS #### [facility] [address] [place] [address] #### CH50, C3, C4 #### [facility] , WBC LM.HPF (Urine sed) [#/Area] 0 /[HPF] Normal 0-4 [facility] Comment on above: Order Comment: Name Collection Type:: Clean-Voided Midstream Performed By: #### C MP, ESR, CBC, ADDONUAPLUS #### [facility] [address] [place] [address] #### CH50, C3, C4 #### [facility] , Eosinophils Auto (Bld) [#/Vo l]Ordered By: Endy Abreu on 05-30-2023 Eosinophils (Bld) [#/Vol] 0.0 10*3/uL 0.0-0.45 [facility] Eosinophils/100 WBC Auto (Bl d)Ordered By: Endy Abreu on 05-30-2023 Eosinophils/100 WBC (Bld) 0.6 % . [facility] Erythrocyte Sedimentation Ra sid 05-30-2023 ESR (Bld) [Velocity] 16 mm/h Normal 0-29 [facility] Comment on above: Result Comment: PERF ORMED BY: [place] [address] PATHOLOGIST RESHIPPING CLERK ALTHEA BARRAGAN M.D. Performed By: #### C MP, ESR, CBC, ADDONUAPLUS #### [address] [place] [address] [facility] [place] #### CH50, C3, C4 #### [facility] , Erythrocyte distribution wid th Auto (RBC) [Ratio]Ordered By: Endy Abreu on 05-30-2023 Erythrocyte distribution width (RBC) [Ratio] 13.8 % 11.9-15.3 [facility] Erythrocyte sedimentation ra te by Photometric methodOrdered By: Endy Abreu on 05-30-2023 ESR Photometric method (Bld) [Velocity] 16 mm/hr 0-29 [facility] Globulin Calc (S) [Mass/Vol] Ordered By: Endy Abreu on 05-30-2023 Globulin (S) [Mass/Vol] 2.4 g/dL F [facility] Glucose [Mass/volume] in Ser um or PlasmaOrdered By: Endy Abreu on 05-30-2023 Glucose [Mass/Vol] 123 mg/dL 70-100 [facility] Comment on above: ADA recommended refe rence rangeRandom Glucose Reference Range is dependent on time and content of last meal. Glucose of more than 200 mg/dL in a nonstressed, ambulatory subject supports the diagnosis of Diabetes Mellitus. Hematocrit Auto (Bld) [Volum e fraction]Ordered By: Endy Abreu on 05-30-2023 Hematocrit (Bld) [Volume fraction] 36.4 % 34.0-46.4 [facility] Hemoglobin [Mass/volume] in BloodOrdered By: Endy Abreu on 05-30-2023 Hemoglobin (Bld) [Mass/Vol] 12.3 g/dL 11.8-15.4 [facility] Ketones Auto test strip (U) [Mass/Vol]Ordered By: Endy Abreu on 05-30-2023 Ketones (U) [Mass/Vol] Negative Negative [facility] - UrinalysisOrder ed By: Endy Abreu on 05-30-2023 Hyaline casts LM Ql (Urine sed) None seen [LPF] 0-8 [facility] Leukocytes [#/volume] correc leonor for nucleated erythrocytes in Blood by Automated counOrdered By: Endy Abreu on 05-30-2023 WBC corrected for nucl RBC Auto (Bld) [#/Vol] 8.1 10*3/uL 3.8-11.6 [facility] Lymphocytes Auto (Bld) [#/Vo l]Ordered By: Endy Abreu on 05-30-2023 Lymphocytes (Bld) [#/Vol] 2.4 10*3/uL 1.00-4.8 [facility] Lymphocytes/100 WBC Auto (Bl d)Ordered By: Endy Abreu on 05-30-2023 Lymphocytes/100 WBC (Bld) 29.2 % . [facility] MCH Auto (RBC) [Entitic mass ]Ordered By: Endy Abreu on 05-30-2023 MCH (RBC) [Entitic mass] 31.0 pg 24.7-34.3 [facility] MCHC Auto (RBC) [Mass/Vol]Or dered By: Endy Abreu on 05-30-2023 MCHC (RBC) [Mass/Vol] 33.8 g/dL 32.0-35.0 [facility] MCV Auto (RBC) [Entitic vol] Ordered By: Endy Abreu on 05-30-2023 MCV (RBC) [Entitic vol] 91.5 fL 80-100 [facility] Monocytes Auto (Bld) [#/Vol] Ordered By: Endy Abreu on 05-30-2023 Monocytes (Bld) [#/Vol] 0.5 10*3/uL 0.0-0.8 [facility] Monocytes/100 WBC Auto (Bld) Ordered By: Endy Abreu on 05-30-2023 Monocytes/100 WBC (Bld) 6.2 % . [facility] Neutrophils Auto (Bld) [#/Vo l]Ordered By: Endy Abreu on 05-30-2023 Neutrophils (Bld) [#/Vol] 5.1 10*3/uL 1.8-7.7 [facility] Neutrophils/100 WBC Auto (Bl d)Ordered By: Endy Abreu on 05-30-2023 Neutrophils/100 WBC (Bld) 62.9 % . [facility] Nitrite Test strip Ql (U)Ord ered By: Endy Abreu on 05-30-2023 Nitrite Ql (U) Negative Negative [facility] No Panel InformationOrdered By: Endy Abreu on 05-30-2023 Estimated GFR (CKD-EPI) > 60.0 mL/Min [facility] Creatinine Clearance (Chem N/A [facility] Nucleated erythrocytes [Pres ence] in Blood by Automated countOrdered By: Endy Abreu on 05-30-2023 Nucleated RBC Auto Ql (Bld) 0.0 /100{WBC} 0-0.5 [facility] Platelet mean volume Auto (B ld) [Entitic vol]Ordered By: Endy Abreu on 05-30-2023 Platelet mean volume (Bld) [Entitic vol] 7.4 fL 6.3-10.7 [facility] Platelets Auto (Bld) [#/Vol] Ordered By: Endy Abreu on 05-30-2023 Platelets (Bld) [#/Vol] 461 10*3/uL 150-450 [facility] Potassium [Moles/volume] in Serum or PlasmaOrdered By: Endy Abreu on 05-30-2023 Potassium [Moles/Vol] 4.1 mmol/L 3.5-5.1 [facility] Protein Auto test strip (U) [Mass/Vol]Ordered By: Endy Abreu on 05-30-2023 Protein (U) [Mass/Vol] Negative Negative [facility] Protein [Mass/volume] in Ser um or PlasmaOrdered By: Endy Abreu on 05-30-2023 Protein [Mass/Vol] 6.6 g/dL 6.4-8.9 [facility] RBC Auto (Bld) [#/Vol]Ordere d By: Endy Abreu on 05-30-2023 RBC (Bld) [#/Vol] 3.97 10*6/uL 3.60-5.00 [place] Serum or plasma albumin/glob ulin mass ratioOrdered By: Endy Abreu on 05-30-2023 Albumin/Globulin [Mass ratio] 1.8 {ratio} [facility] Serum or plasma anion gap de terminationOrdered By: Endy Abreu on 05-30-2023 Anion gap [Moles/Vol] 12.2 mmol/L 6.0-15.0 [facility] Sodium [Moles/volume] in Ser um or PlasmaOrdered By: Endy Abreu on 05-30-2023 Sodium [Moles/Vol] 133 mmol/L 136-145 [facility] Specific gravity Auto test s trip (U) [Rel density]Ordered By: Endy Abreu on 05-30-2023 Specific gravity (U) [Rel density] 1.011 1.001-1.030 [facility] Squamous epithelial cells de tection in urine sediment by light microscopyOrdered By: Endy Abreu on 05-30-2023 Epithelial cells.squamous LM Ql (Urine sed) None seen [HPF] 0-2 [facility] Urea nitrogen [Mass/volume] in Serum or PlasmaOrdered By: Endy Abreu on 05-30-2023 Urea nitrogen [Mass/Vol] 20 mg/dL 7-25 [facility] Urine bacteria detection by automated methodOrdered By: Endy Abreu on 05-30-2023 Bacteria Auto Ql (U) None seen None Seen [facility] Urine clarity by refractomet ry automatedOrdered By: Endy Abreu on 05-30-2023 Clarity Refractometry automated (U) Clear Clear [facility] Urine glucose measurement by automated test strip (mass/volume)Ordered By: Endy Abreu on 05-30-2023 Glucose Auto test strip (U) [Mass/Vol] Normal mg/dL Normal [facility] Urine hemoglobin detection b y automated test stripOrdered By: Endy Abreu on 05-30-2023 Hemoglobin Auto test strip Ql (U) Negative Negative [facility] Urine leukocyte esterase det ection by automated test stripOrdered By: Endy Abreu on 05-30-2023 Leukocyte esterase Auto test strip Ql (U) Negative Negative [facility] Urobilinogen Auto test strip (U) [Mass/Vol]Ordered By: Endy Abreu on 05-30-2023 Urobilinogen (U) [Mass/Vol] Normal mg/dL Normal [facility] WBC Auto (Bld) [#/Vol]Ordere d By: Endy Abreu on 05-30-2023 WBC (Bld) [#/Vol] 8.1 10*3/uL 3.8-11.6 [facility] pH Auto test strip (U)Ordere d By: Endy Abreu on 05-30-2023 pH (U) 6.5 [pH] 5.0-9.0 [facility] BI MAMMOGRAM SCREENING TOMOS YNTHESIS BILATERALon 05-02-2023 [...] IS VERY IMPORTANT TO YOUR HEALTH. THE [place] GUIDELINES RECOMMEND THAT WOMEN 40 [...] 01-18-2023 ALT [Catalytic activity/Vol] 25 U/L 7-52 [facility] Albumin [Mass/volume] in Ser um or Plasma by Bromocresol green (BCG) dye binding methoOrdered By: Endy Abreu on 01-18-2023 Albumin BCG dye [Mass/Vol] 4.0 g/dL 3.5-5.7 [facility] Alkaline phosphatase [Enzyma tic activity/volume] in Serum or PlasmaOrdered By: Endy Abreu on 01-18-2023 ALP [Catalytic activity/Vol] 100 U/L 34-104 [facility] Aspartate aminotransferase [ Enzymatic activity/volume] in Serum or PlasmaOrdered By: Endy Abreu on 01-18-2023 AST [Catalytic activity/Vol] 29 U/L 13-39 [facility] Automated erythrocytes count in urine sediment (number/area)Ordered By: Endy Abreu on 01-18-2023 RBC Auto (Urine sed) [#/Area] 3-4 [HPF] 0-4 [facility] Automated leukocytes count i n urine sediment (number/area)Ordered By: Endy Abreu on 01-18-2023 WBC Auto (Urine sed) [#/Area] 10-19 [HPF] 0-4 [facility] Basophils Auto (Bld) [#/Vol] Ordered By: Endy Abreu on 01-18-2023 Basophils (Bld) [#/Vol] 0.1 10*3/uL 0.0-0.2 [facility] Basophils/100 WBC Auto (Bld) Ordered By: Endy Abreu on 01-18-2023 Basophils/100 WBC (Bld) 1.3 % . [facility] Bilirubin Test strip Ql (U)O rdered By: Endy Abreu on 01-18-2023 Bilirubin Ql (U) Negative Negative [facility] Bilirubin.total [Mass/volume ] in Serum or PlasmaOrdered By: Endy Abreu on 01-18-2023 Bilirubin [Mass/Vol] 0.4 mg/dL 0.3-1.0 [facility] Calcium [Mass/volume] in Ser um or PlasmaOrdered By: Endy Abreu on 01-18-2023 Calcium [Mass/Vol] 9.9 mg/dL 8.6-10.3 [facility] Carbon dioxide, total [Moles /volume] in Serum or PlasmaOrdered By: Endy Abreu on 01-18-2023 CO2 [Moles/Vol] 30.4 mmol/L 21.0-31.0 [facility] Chloride [Moles/volume] in S mary ellen or PlasmaOrdered By: Endy Abreu on 01-18-2023 Chloride [Moles/Vol] 101 mmol/L 98-107 [facility] Color Auto (U)Ordered By: Ngoc Abreu on 01-18-2023 Color (U) Yellow Yellow [facility] Complement C3on 01-18-2023 Complement C3 160 mg/dL Normal 82-167 [facility] Comment on above: Result Comment: Perf ormed at: [address] [id number] Structural Steel Detailer: Marvel Barahona PhD, Phone: [phone] Performed By: #### C MP, ESR, CBC, ADDONUAPLUS #### [address] #### CH50, C3, C4 #### [facility] , Complement C4on 01-18-2023 Complement C4 32 mg/dL Normal 12-38 [facility] Comment on above: Result Comment: PERF ORMED BY: [place] [address] PATHOLOGIST RESHIPPING CLERK ALTHEA BARRAGAN M.D. Performed By: #### C MP, ESR, CBC, ADDONUAPLUS #### [address] #### CH50, C3, C4 #### [facility] , Complement Total (CH50)on Complement Total (CH50) >60 Normal >41 [facility] Comment on above: Result Comment: Age [...] determine out of range values. Performed at: [facility] [id number] [employer] Detailer: Marvel Barahona PhD, Phone: [phone] PERFORMED BY: [place] [address] PATHOLOGIST RESHIPPING CLERK ALTHEA BARRAGAN M.D. Performed By: #### C MP, ESR, CBC, ADDONUAPLUS #### [address] #### CH50, C3, C4 #### [facility] , Complete Blood Count Auto Di ffon 01-18-2023 Basophils (Bld) [#/Vol] 0.1 10*3/uL Normal 0.0-0.2 [facility] Comment on above: Performed By: #### E SR, CBC, ADDONUAPLUS, CUU, CMP #### [address] #### CH50, C3, C4 #### [facility] , Basophils/100 WBC (Bld) 1.3 % Normal . [facility] Comment on above: Performed By: #### E SR, CBC, ADDONUAPLUS, CUU, CMP #### [address] #### CH50, C3, C4 #### [facility] , Eosinophils (Bld) [#/Vol] 0.1 10*3/uL Normal 0.0-0.45 [facility] Comment on above: Performed By: #### E SR, CBC, ADDONUAPLUS, CUU, CMP #### [place] [address] [place] #### CH50, C3, C4 #### [facility] , Eosinophils/100 WBC (Bld) 2.1 % Normal . [facility] Comment on above: Performed By: #### E SR, CBC, ADDONUAPLUS, CUU, CMP #### [address] #### CH50, C3, C4 #### [facility] , Erythrocyte distribution width (RBC) [Ratio] 13.2 % Normal 11.9-15.3 [facility] Comment on above: Performed By: #### E SR, CBC, ADDONUAPLUS, CUU, CMP #### [place] [address] [place] #### CH50, C3, C4 #### [facility] , Hematocrit (Bld) [Volume fraction] 37.1 % Normal 34.0-46.4 [facility] Comment on above: Performed By: #### E SR, CBC, ADDONUAPLUS, CUU, CMP #### [place] [address] [place] #### CH50, C3, C4 #### [facility] , Hemoglobin (Bld) [Mass/Vol] 12.4 g/dL Normal 11.8-15.4 [facility] Comment on above: Performed By: #### E SR, CBC, ADDONUAPLUS, CUU, CMP #### [place] [address] [place] #### CH50, C3, C4 #### [facility] , Lymphocytes (Bld) [#/Vol] 1.4 10*3/uL Normal 1.00-4.8 [facility] Comment on above: Performed By: #### E SR, CBC, ADDONUAPLUS, CUU, CMP #### [address] #### CH50, C3, C4 #### [facility] , Lymphocytes/100 WBC (Bld) 26.3 % Normal . [facility] Comment on above: Performed By: #### E SR, CBC, ADDONUAPLUS, CUU, CMP #### [facility] [address] [place] [address] [place] #### CH50, C3, C4 #### [facility] , MCH (RBC) [Entitic mass] 31.0 pg Normal 24.7-34.3 [facility] Comment on above: Performed By: #### E SR, CBC, ADDONUAPLUS, CUU, CMP #### [place] [address] [place] #### CH50, C3, C4 #### [facility] , MCV (RBC) [Entitic vol] 92.6 fL Normal 80-100 [facility] Comment on above: Performed By: #### E SR, CBC, ADDONUAPLUS, CUU, CMP #### [place] [address] [place] #### CH50, C3, C4 #### [facility] , Mean Corpuscular HGB Conc 33.5 g/dL Normal 32.0-35.0 [facility] Comment on above: Performed By: #### E SR, CBC, ADDONUAPLUS, CUU, CMP #### [address] #### CH50, C3, C4 #### [facility] , Monocytes (Bld) [#/Vol] 0.4 10*3/uL Normal 0.0-0.8 [facility] Comment on above: Performed By: #### E SR, CBC, ADDONUAPLUS, CUU, CMP #### [place] [address] [place] #### CH50, C3, C4 #### [facility] , Monocytes/100 WBC (Bld) 8.1 % Normal . [facility] Comment on above: Performed By: #### E SR, CBC, ADDONUAPLUS, CUU, CMP #### [place] [address] [place] #### CH50, C3, C4 #### [facility] , Neutrophils (Bld) [#/Vol] 3.4 10*3/uL Normal 1.8-7.7 [facility] Comment on above: Performed By: #### E SR, CBC, ADDONUAPLUS, CUU, CMP #### [address] [place] [address] [place] #### CH50, C3, C4 #### [facility] , Neutrophils/100 WBC (Bld) 62.2 % Normal . [facility] Comment on above: Performed By: #### E SR, CBC, ADDONUAPLUS, CUU, CMP #### [facility] [address] [place] [address] #### CH50, C3, C4 #### [facility] , NRBC% 0.1 /100{WBC} Normal 0-0.5 [facility] Comment on above: Performed By: #### E SR, CBC, ADDONUAPLUS, CUU, CMP #### [address] #### CH50, C3, C4 #### [facility] , Platelet mean volume (Bld) [Entitic vol] 7.5 fL Normal 6.3-10.7 [facility] Comment on above: Performed By: #### E SR, CBC, ADDONUAPLUS, CUU, CMP #### [place] [address] [place] #### CH50, C3, C4 #### [facility] , Platelets (Bld) [#/Vol] 377 10*3/uL Normal 150-450 [facility] Comment on above: Performed By: #### E SR, CBC, ADDONUAPLUS, CUU, CMP #### [place] [address] [place] #### CH50, C3, C4 #### [facility] , RBC (Bld) [#/Vol] 4.01 10*6/uL Normal 3.60-5.00 [place] Comment on above: Performed By: #### E SR, CBC, ADDONUAPLUS, CUU, CMP #### [place] [address] [place] #### CH50, C3, C4 #### [facility] , WBC (Bld) [#/Vol] 5.4 10*3/uL Normal 3.8-11.6 [facility] Comment on above: Performed By: #### E SR, CBC, ADDONUAPLUS, CUU, CMP #### [address] #### CH50, C3, C4 #### [facility] , Comprehensive Metabolic Pane chema 01-18-2023 Albumin [Mass/Vol] 4.0 g/dL Normal 3.5-5.7 [facility] Comment on above: Performed By: #### C MP, ESR, CBC, ADDONUAPLUS #### [address] #### CH50, C3, C4 #### [facility] , Albumin/Globulin [Mass ratio] 1.6 {ratio} Normal [facility] Comment on above: Performed By: #### C MP, ESR, CBC, ADDONUAPLUS #### [address] #### CH50, C3, C4 #### [facility] , ALP [Catalytic activity/Vol] 100 U/L Normal 34-104 [facility] Comment on above: Result Comment: PERF ORMED BY: [place] [address] PATHOLOGIST RESHIPPING CLERK ALTHEA BARRAGAN M.D. Performed By: #### C MP, ESR, CBC, ADDONUAPLUS #### [place] [address] [place] #### CH50, C3, C4 #### [facility] , ALT [Catalytic activity/Vol] 25 U/L Normal 7-52 [facility] Comment on above: Performed By: #### C MP, ESR, CBC, ADDONUAPLUS #### [place] [address] [place] #### CH50, C3, C4 #### [facility] , Anion gap [Moles/Vol] 9.5 mmol/L Normal 6.0-15.0 [facility] Comment on above: Performed By: #### C MP, ESR, CBC, ADDONUAPLUS #### [facility] [address] [place] [address] #### CH50, C3, C4 #### [facility] , AST [Catalytic activity/Vol] 29 U/L Normal 13-39 [facility] Comment on above: Performed By: #### C MP, ESR, CBC, ADDONUAPLUS #### [facility] [address] [place] [address] #### CH50, C3, C4 #### [facility] , Bilirubin [Mass/Vol] 0.4 mg/dL Normal 0.3-1.0 [facility] Comment on above: Performed By: #### C MP, ESR, CBC, ADDONUAPLUS #### [facility] [address] [place] [address] #### CH50, C3, C4 #### [facility] , Calcium [Mass/Vol] 9.9 mg/dL Normal 8.6-10.3 [facility] Comment on above: Performed By: #### C MP, ESR, CBC, ADDONUAPLUS #### [facility] [address] [place] [address] [place] #### CH50, C3, C4 #### [facility] , Chloride [Moles/Vol] 101 mmol/L Normal 98-107 [facility] Comment on above: Performed By: #### C MP, ESR, CBC, ADDONUAPLUS #### [facility] [address] [place] [address] [place] #### CH50, C3, C4 #### [facility] , CO2 [Moles/Vol] 30.4 mmol/L Normal 21.0-31.0 [facility] Comment on above: Performed By: #### C MP, ESR, CBC, ADDONUAPLUS #### [place] [address] [place] #### CH50, C3, C4 #### [facility] , Creatinine [Mass/Vol] 0.83 mg/dL Normal 0.60-1.20 [facility] Comment on above: Performed By: #### C MP, ESR, CBC, ADDONUAPLUS #### [address] #### CH50, C3, C4 #### [facility] , GFR/1.73 sq M.predicted MDRD (S/P/Bld) [Vol rate/Area] mL/min/{1.73_m2} [facility] Comment on above: Performed By: #### C MP, ESR, CBC, ADDONUAPLUS #### [address] #### CH50, C3, C4 #### [facility] , Globulin (S) [Mass/Vol] 2.5 g/dL Normal [facility] Comment on above: Performed By: #### C MP, ESR, CBC, ADDONUAPLUS #### [address] #### CH50, C3, C4 #### [facility] , Glucose [Mass/Vol] 94 mg/dL Normal 70-100 [facility] Comment on above: Result Comment: [facility] Glucose Reference Range is dependent on time and content of last meal. Glucose of more than 200 mg/dL in a nonstressed, ambulatory subject supports the diagnosis of Diabetes Mellitus. ADA recommended reference range Performed By: #### C MP, ESR, CBC, ADDONUAPLUS #### [address] #### CH50, C3, C4 #### [facility] , Potassium [Moles/Vol] 4.9 mmol/L Normal 3.5-5.1 [facility] Comment on above: Performed By: #### C MP, ESR, CBC, ADDONUAPLUS #### [facility] [address] [place] [address] [place] #### CH50, C3, C4 #### [facility] , Protein [Mass/Vol] 6.5 g/dL Normal 6.4-8.9 [facility] Comment on above: Performed By: #### C MP, ESR, CBC, ADDONUAPLUS #### [place] [address] [place] #### CH50, C3, C4 #### [facility] , Sodium [Moles/Vol] 136 mmol/L Normal 136-145 [facility] Comment on above: Performed By: #### C MP, ESR, CBC, ADDONUAPLUS #### [place] [address] [place] #### CH50, C3, C4 #### [facility] , Urea nitrogen [Mass/Vol] 22 mg/dL Normal 7-25 [facility] Comment on above: Performed By: #### C MP, ESR, CBC, ADDONUAPLUS #### [place] [address] [place] #### CH50, C3, C4 #### [facility] , Creatinine [Mass/volume] in Serum or PlasmaOrdered By: Endy Abreu on 01-18-2023 Creatinine [Mass/Vol] 0.83 mg/dL 0.60-1.20 [facility] Dipstick and Microscopicon 0 01-18-2023 Appearance (U) Clear Normal Clear [facility] Comment on above: Order Comment: Name Collection Type:: Clean-Voided Midstream Performed By: #### E SR, CBC, ADDONUAPLUS, CUU, CMP #### [facility] [address] [place] [address] [place] #### CH50, C3, C4 #### [facility] , Bacteria,Urine 1+ High None Seen [facility] Comment on above: Order Comment: Name Collection Type:: Clean-Voided Midstream Performed By: #### E SR, CBC, ADDONUAPLUS, CUU, CMP #### [facility] [address] [place] [address] #### CH50, C3, C4 #### [facility] , Bilirubin,Urine Negative Normal Negative [facility] Comment on above: Order Comment: Name Collection Type:: Clean-Voided Midstream Performed By: #### E SR, CBC, ADDONUAPLUS, CUU, CMP #### [facility] [address] [place] [address] #### CH50, C3, C4 #### [facility] , Color (U) Yellow Normal Yellow [facility] Comment on above: Order Comment: Name Collection Type:: Clean-Voided Midstream Performed By: #### E SR, CBC, ADDONUAPLUS, CUU, CMP #### [facility] [address] [place] [address] #### CH50, C3, C4 #### [facility] , Glucose Ql (U) Normal Normal Normal [facility] Comment on above: Order Comment: Name Collection Type:: Clean-Voided Midstream Performed By: #### E SR, CBC, ADDONUAPLUS, CUU, CMP #### [facility] [address] [place] [address] #### CH50, C3, C4 #### [facility] , Hyaline Casts,Urine 0-8 Normal 0-8 [place] Comment on above: Order Comment: Name Collection Type:: Clean-Voided Midstream Result Comment: PERF ORMED BY: [place] [address] PATHOLOGIST RESHIPPING CLERK ALTHEA BARRAGAN M.D. Performed By: #### E SR, CBC, ADDONUAPLUS, CUU, CMP #### [address] #### CH50, C3, C4 #### [facility] , Ketones Ql (U) Negative Normal Negative [facility] Comment on above: Order Comment: Name Collection Type:: Clean-Voided Midstream Performed By: #### E SR, CBC, ADDONUAPLUS, CUU, CMP #### [address] #### CH50, C3, C4 #### [facility] , Leukocyte esterase Test strip Ql (U) 3+ High Negative [facility] Comment on above: Order Comment: Name Collection Type:: Clean-Voided Midstream Performed By: #### E SR, CBC, ADDONUAPLUS, CUU, CMP #### [address] #### CH50, C3, C4 #### [facility] , Nitrite,Urine Negative Normal Negative [facility] Comment on above: Order Comment: Name Collection Type:: Clean-Voided Midstream Performed By: #### E SR, CBC, ADDONUAPLUS, CUU, CMP #### [address] #### CH50, C3, C4 #### [facility] , Occult Blood,Urine Negative Normal Negative [facility] Comment on above: Order Comment: Name Collection Type:: Clean-Voided Midstream Performed By: #### E SR, CBC, ADDONUAPLUS, CUU, CMP #### [place] [address] [place] #### CH50, C3, C4 #### [facility] , pH (U) 6.0 [pH] Normal 5.0-9.0 [facility] Comment on above: Order Comment: Name Collection Type:: Clean-Voided Midstream Performed By: #### E SR, CBC, ADDONUAPLUS, CUU, CMP #### [address] #### CH50, C3, C4 #### [facility] , Protein,Urine Trace High Negative [facility] Comment on above: Order Comment: Name Collection Type:: Clean-Voided Midstream Performed By: #### E SR, CBC, ADDONUAPLUS, CUU, CMP #### [address] #### CH50, C3, C4 #### [facility] , RBC,Urine 3-4 Normal 0-4 [facility] Comment on above: Order Comment: Name Collection Type:: Clean-Voided Midstream Performed By: #### E SR, CBC, ADDONUAPLUS, CUU, CMP #### [address] #### CH50, C3, C4 #### [facility] , Specificy [place],Urine 1.023 Normal 1.001-1.030 [facility] Comment on above: Order Comment: Name Collection Type:: Clean-Voided Midstream Performed By: #### E SR, CBC, ADDONUAPLUS, CUU, CMP #### [address] #### CH50, C3, C4 #### [facility] , Squamous Epithelial Cell,Urine 3-4 High 0-2 [facility] Comment on above: Order Comment: Name Collection Type:: Clean-Voided Midstream Performed By: #### E SR, CBC, ADDONUAPLUS, CUU, CMP #### [facility] [address] [place] [address] [place] #### CH50, C3, C4 #### [facility] , Urobilinogen,Urine Normal Normal Normal [facility] Comment on above: Order Comment: Name Collection Type:: Clean-Voided Midstream Performed By: #### E SR, CBC, ADDONUAPLUS, CUU, CMP #### [facility] [address] [place] [address] #### CH50, C3, C4 #### [facility] , WBC,Urine 10-19 High 0-4 [facility] Comment on above: Order Comment: Name Collection Type:: Clean-Voided Midstream Performed By: #### E SR, CBC, ADDONUAPLUS, CUU, CMP #### [facility] [address] [place] [address] #### CH50, C3, C4 #### [facility] , Eosinophils Auto (Bld) [#/Vo l]Ordered By: Endy Abreu on 01-18-2023 Eosinophils (Bld) [#/Vol] 0.1 10*3/uL 0.0-0.45 [facility] Eosinophils/100 WBC Auto (Bl d)Ordered By: Endy Abreu on 01-18-2023 Eosinophils/100 WBC (Bld) 2.1 % . [facility] Erythrocyte Sedimentation Ra sid 01-18-2023 ESR (Bld) [Velocity] 10 mm/h Normal 0- [facility] Comment on above: Result Comment: PERF ORMED BY: [place] [address] PATHOLOGIST RESHIPPING CLERK ALTHEA BARRAGAN M.D. Performed By: #### E SR, CBC, ADDONUAPLUS, CUU, CMP #### [facility] [address] [place] [address] #### CH50, C3, C4 #### [facility] , Erythrocyte distribution wid th Auto (RBC) [Ratio]Ordered By: Endy Abreu on 01-18-2023 Erythrocyte distribution width (RBC) [Ratio] 13.2 % 11.9-15.3 [facility] Erythrocyte sedimentation ra te by Photometric methodOrdered By: Endy Abreu on 01-18-2023 ESR Photometric method (Bld) [Velocity] 10 mm/hr 0-29 [facility] Globulin Calc (S) [Mass/Vol] Ordered By: Endy Abreu on 01-18-2023 Globulin (S) [Mass/Vol] 2.5 g/dL F [facility] Glucose [Mass/volume] in Ser um or PlasmaOrdered By: Endy Abreu on 01-18-2023 Glucose [Mass/Vol] 94 mg/dL 70-100 [facility] Comment on above: ADA recommended refe rence rangeRandom Glucose Reference Range is dependent on time and content of last meal. Glucose of more than 200 mg/dL in a nonstressed, ambulatory subject supports the diagnosis of Diabetes Mellitus. Hematocrit Auto (Bld) [Volum e fraction]Ordered By: Endy Abreu on 01-18-2023 Hematocrit (Bld) [Volume fraction] 37.1 % 34.0-46.4 [facility] Hemoglobin [Mass/volume] in BloodOrdered By: Endy Abreu on 01-18-2023 Hemoglobin (Bld) [Mass/Vol] 12.4 g/dL 11.8-15.4 [facility] Ketones Auto test strip (U) [Mass/Vol]Ordered By: Endy Abreu on 01-18-2023 Ketones (U) [Mass/Vol] Negative Negative [facility] - UrinalysisOrder ed By: Endy Abreu on 01-18-2023 Hyaline casts LM Ql (Urine sed) 0-8 [LPF] 0-8 [facility] Leukocytes [#/volume] correc leonor for nucleated erythrocytes in Blood by Automated counOrdered By: Endy Abreu on 01-18-2023 WBC corrected for nucl RBC Auto (Bld) [#/Vol] 5.4 10*3/uL 3.8-11.6 [facility] Lymphocytes Auto (Bld) [#/Vo l]Ordered By: Endy Abreu on 01-18-2023 Lymphocytes (Bld) [#/Vol] 1.4 10*3/uL 1.00-4.8 [facility] Lymphocytes/100 WBC Auto (Bl d)Ordered By: Endy Abreu on 01-18-2023 Lymphocytes/100 WBC (Bld) 26.3 % . [facility] MCH Auto (RBC) [Entitic mass ]Ordered By: Endy Abreu on 01-18-2023 MCH (RBC) [Entitic mass] 31.0 pg 24.7-34.3 [facility] MCHC Auto (RBC) [Mass/Vol]Or dered By: Endy Abreu on 01-18-2023 MCHC (RBC) [Mass/Vol] 33.5 g/dL 32.0-35.0 Fir [facility] MCV Auto (RBC) [Entitic vol] Ordered By: Endy Abreu on 01-18-2023 MCV (RBC) [Entitic vol] 92.6 fL 80-100 F [facility] Monocytes Auto (Bld) [#/Vol] Ordered By: Endy Abreu on 01-18-2023 Monocytes (Bld) [#/Vol] 0.4 10*3/uL 0.0-0.8 [facility] Monocytes/100 WBC Auto (Bld) Ordered By: Endy Abreu on 01-18-2023 Monocytes/100 WBC (Bld) 8.1 % . F [facility] Neutrophils Auto (Bld) [#/Vo l]Ordered By: Endy Abreu on 01-18-2023 Neutrophils (Bld) [#/Vol] 3.4 10*3/uL 1.8-7.7 [facility] Neutrophils/100 WBC Auto (Bl d)Ordered By: Endy Abreu on 01-18-2023 Neutrophils/100 WBC (Bld) 62.2 % . [facility] Nitrite Test strip Ql (U)Ord ered By: Endy Abreu on 01-18-2023 Nitrite Ql (U) Negative Negative [facility] No Panel InformationOrdered By: Endy Abreu on 01-18-2023 Estimated GFR (CKD-EPI) > 60.0 mL/Min [facility] Creatinine Clearance (Chem N/A [facility] Nucleated erythrocytes [Pres ence] in Blood by Automated countOrdered By: Endy Abreu on 01-18-2023 Nucleated RBC Auto Ql (Bld) 0.1 /100{WBC} 0-0.5 [facility] Platelet mean volume Auto (B ld) [Entitic vol]Ordered By: Endy Abreu on 01-18-2023 Platelet mean volume (Bld) [Entitic vol] 7.5 fL 6.3-10.7 [facility] Platelets Auto (Bld) [#/Vol] Ordered By: Endy Abreu on 01-18-2023 Platelets (Bld) [#/Vol] 377 10*3/uL 150-450 [facility] Potassium [Moles/volume] in Serum or PlasmaOrdered By: Endy Abreu on 01-18-2023 Potassium [Moles/Vol] 4.9 mmol/L 3.5-5.1 [facility] Protein Auto test strip (U) [Mass/Vol]Ordered By: Endy Abreu on 01-18-2023 Protein (U) [Mass/Vol] Trace mg/dL Negative F [facility] Protein [Mass/volume] in Ser um or PlasmaOrdered By: Endy Abreu on 01-18-2023 Protein [Mass/Vol] 6.5 g/dL 6.4-8.9 [facility] RBC Auto (Bld) [#/Vol]Ordere d By: Endy Abreu on 01-18-2023 RBC (Bld) [#/Vol] 4.01 10*6/uL 3.60-5.00 [place] Serum or plasma albumin/glob ulin mass ratioOrdered By: Endy Abreu on 01-18-2023 Albumin/Globulin [Mass ratio] 1.6 {ratio} [facility] Serum or plasma anion gap de terminationOrdered By: Endy Abreu on 01-18-2023 Anion gap [Moles/Vol] 9.5 mmol/L 6.0-15.0 [facility] Sodium [Moles/volume] in Ser um or PlasmaOrdered By: Endy Abreu on 01-18-2023 Sodium [Moles/Vol] 136 mmol/L 136-145 [facility] Specific gravity Auto test s trip (U) [Rel density]Ordered By: Endy Abreu on 01-18-2023 Specific gravity (U) [Rel density] 1.023 1.001-1.030 [facility] Squamous epithelial cells de tection in urine sediment by light microscopyOrdered By: Endy Abreu on 01-18-2023 Epithelial cells.squamous LM Ql (Urine sed) 3-4 [HPF] 0-2 [facility] Urea nitrogen [Mass/volume] in Serum or PlasmaOrdered By: Endy Abreu on 01-18-2023 Urea nitrogen [Mass/Vol] 22 mg/dL 7-25 [facility] Urine Cultureon 01-18-2023 Bacteria identified Cx Nom (U) 15,000 colonies/ml mixed bacterial skin contaminants 2 Days PERFORMED BY: [place] [address] PATHOLOGIST RESHIPPING CLERK ALTHEA BARRAGAN M.D. Normal [facility] Comment on above: Performed By: #### C MP, ESR, CBC, ADDONUAPLUS #### [place] [address] [place] #### CH50, C3, C4 #### [facility] , Urine bacteria detection by automated methodOrdered By: Endy Abreu on 01-18-2023 Bacteria Auto Ql (U) 1+ None Seen [facility] Urine clarity by refractomet ry automatedOrdered By: Endy Abreu on 01-18-2023 Clarity Refractometry automated (U) Clear Clear [facility] Urine glucose measurement by automated test strip (mass/volume)Ordered By: Endy Abreu on 01-18-2023 Glucose Auto test strip (U) [Mass/Vol] Normal mg/dL Normal [facility] Urine hemoglobin detection b y automated test stripOrdered By: Endy Abreu on 01-18-2023 Hemoglobin Auto test strip Ql (U) Negative Negative [facility] Urine leukocyte esterase det ection by automated test stripOrdered By: Endy Abreu on 01-18-2023 Leukocyte esterase Auto test strip Ql (U) 3+ Negative [facility] Urobilinogen Auto test strip (U) [Mass/Vol]Ordered By: Endy Abreu on 01-18-2023 Urobilinogen (U) [Mass/Vol] Normal mg/dL Normal [facility] WBC Auto (Bld) [#/Vol]Ordere d By: Endy Abreu on 01-18-2023 WBC (Bld) [#/Vol] 5.4 10*3/uL 3.8-11.6 [facility] pH Auto test strip (U)Ordere d By: Endyrahul Abreu on 01-18-2023 pH (U) 6.0 [pH] 5.0-9.0 [facility] Auth for Release of Medical Recordson 12-25-2022 Auth for Release of Medical Records [id number] 42#1.00CD:127 Normal [facility] Complement C3on 10-12-2022 Complement C3 134 mg/dL Normal 82-167 [facility] Comment on above: Result Comment: Perf ormed at: - [facility] [address] [id number] Structural Steel Detailer: Marvel Barahona PhD, Phone: [phone] Performed By: #### C MP, ESR, CBC, ADDONUAPLUS #### [facility] [address] [place] [address] #### CH50, C3, C4 #### [facility] , Complement C4on 10-12-2022 Complement C4 29 mg/dL Normal 12-38 [facility] Comment on above: Result Comment: PERF ORMED BY: [place] [address] PATHOLOGIST RESHIPPING CLERK ALTHEA BARRAGAN M.D. Performed By: #### C MP, ESR, CBC, ADDONUAPLUS #### [facility] [address] [place] [address] #### CH50, C3, C4 #### [facility] , Complement Total (CH50)on Complement Total (CH50) >60 Normal >41 F [facility] Comment on above: Result Comment: Age [...] out of range values. Performed at: - [facility] [id number] Structural Steel Detailer: Marvel Barahona PhD, Phone: [phone] PERFORMED BY: [place] [address] PATHOLOGIST RESHIPPING CLERK ALTHEA BARRAGAN M.D. Performed By: #### C MP, ESR, CBC, ADDONUAPLUS #### [address] #### CH50, C3, C4 #### [facility] , Complete Blood Count Auto Di ffon 10-12-2022 Basophils (Bld) [#/Vol] 0.1 10*3/uL Normal 0.0-0.2 [facility] Comment on above: Performed By: #### C MP, ESR, CBC, ADDONUAPLUS #### [address] #### CH50, C3, C4 #### [facility] , Basophils/100 WBC (Bld) 0.8 % Normal . [facility] Comment on above: Performed By: #### C MP, ESR, CBC, ADDONUAPLUS #### [address] #### CH50, C3, C4 #### [facility] , Eosinophils (Bld) [#/Vol] 0.2 10*3/uL Normal 0.0-0.45 [facility] Comment on above: Performed By: #### C MP, ESR, CBC, ADDONUAPLUS #### [place] [address] [place] #### CH50, C3, C4 #### [facility] , Eosinophils/100 WBC (Bld) 2.6 % Normal . [facility] Comment on above: Performed By: #### C MP, ESR, CBC, ADDONUAPLUS #### [address] #### CH50, C3, C4 #### [facility] , Erythrocyte distribution width (RBC) [Ratio] 13.0 % Normal 11.9-15.3 [facility] Comment on above: Performed By: #### C MP, ESR, CBC, ADDONUAPLUS #### [place] [address] [place] #### CH50, C3, C4 #### [facility] , Hematocrit (Bld) [Volume fraction] 35.9 % Normal 34.0-46.4 [facility] Comment on above: Performed By: #### C MP, ESR, CBC, ADDONUAPLUS #### [address] #### CH50, C3, C4 #### [facility] , Hemoglobin (Bld) [Mass/Vol] 12.1 g/dL Normal 11.8-15.4 [facility] Comment on above: Performed By: #### C MP, ESR, CBC, ADDONUAPLUS #### [address] #### CH50, C3, C4 #### [facility] , Lymphocytes (Bld) [#/Vol] 1.9 10*3/uL Normal 1.00-4.8 [facility] Comment on above: Performed By: #### C MP, ESR, CBC, ADDONUAPLUS #### [place] [address] [place] #### CH50, C3, C4 #### [facility] , Lymphocytes/100 WBC (Bld) 27.9 % Normal . [facility] Comment on above: Performed By: #### C MP, ESR, CBC, ADDONUAPLUS #### [place] [address] [place] #### CH50, C3, C4 #### [facility] , MCH (RBC) [Entitic mass] 32.1 pg Normal 24.7-34.3 [facility] Comment on above: Performed By: #### C MP, ESR, CBC, ADDONUAPLUS #### [address] #### CH50, C3, C4 #### [facility] , MCV (RBC) [Entitic vol] 95.1 fL Normal 80-100 F [facility] Comment on above: Performed By: #### C MP, ESR, CBC, ADDONUAPLUS #### [address] #### CH50, C3, C4 #### [facility] , Mean Corpuscular HGB Conc 33.8 g/dL Normal 32.0-35.0 [facility] Comment on above: Performed By: #### C MP, ESR, CBC, ADDONUAPLUS #### [address] #### CH50, C3, C4 #### [facility] , Monocytes (Bld) [#/Vol] 0.4 10*3/uL Normal 0.0-0.8 [facility] Comment on above: Performed By: #### C MP, ESR, CBC, ADDONUAPLUS #### [place] [address] [place] #### CH50, C3, C4 #### [facility] , Monocytes/100 WBC (Bld) 6.2 % Normal . F [facility] Comment on above: Performed By: #### C MP, ESR, CBC, ADDONUAPLUS #### [place] [address] [place] #### CH50, C3, C4 #### [facility] , Neutrophils (Bld) [#/Vol] 4.3 10*3/uL Normal 1.8-7.7 [facility] Comment on above: Performed By: #### C MP, ESR, CBC, ADDONUAPLUS #### [place] [address] [place] #### CH50, C3, C4 #### [facility] , Neutrophils/100 WBC (Bld) 62.5 % Normal . [facility] Comment on above: Performed By: #### C MP, ESR, CBC, ADDONUAPLUS #### [place] [address] [place] #### CH50, C3, C4 #### [facility] , NRBC% 0.1 /100{WBC} Normal 0-0.5 [facility] Comment on above: Performed By: #### C MP, ESR, CBC, ADDONUAPLUS #### [address] #### CH50, C3, C4 #### [facility] , Platelet mean volume (Bld) [Entitic vol] 7.7 fL Normal 6.3-10.7 [facility] Comment on above: Performed By: #### C MP, ESR, CBC, ADDONUAPLUS #### [place] [address] [place] #### CH50, C3, C4 #### [facility] , Platelets (Bld) [#/Vol] 321 10*3/uL Normal 150-450 [facility] Comment on above: Performed By: #### C MP, ESR, CBC, ADDONUAPLUS #### [place] [address] [place] #### CH50, C3, C4 #### [facility] , RBC (Bld) [#/Vol] 3.77 10*6/uL Normal 3.60-5.00 [place] Comment on above: Performed By: #### C MP, ESR, CBC, ADDONUAPLUS #### [place] [address] [place] #### CH50, C3, C4 #### [facility] , WBC (Bld) [#/Vol] 6.9 10*3/uL Normal 3.8-11.6 [facility] Comment on above: Performed By: #### C MP, ESR, CBC, ADDONUAPLUS #### [address] #### CH50, C3, C4 #### [facility] , Comprehensive Metabolic Pane chema 10-12-2022 Albumin [Mass/Vol] 3.9 g/dL Normal 3.5-5.7 [facility] Comment on above: Performed By: #### C MP, ESR, CBC, ADDONUAPLUS #### [address] #### CH50, C3, C4 #### [facility] , Albumin/Globulin [Mass ratio] 1.6 {ratio} Normal [facility] Comment on above: Performed By: #### C MP, ESR, CBC, ADDONUAPLUS #### [address] #### CH50, C3, C4 #### [facility] , ALP [Catalytic activity/Vol] 97 U/L Normal 34-104 [facility] Comment on above: Result Comment: PERF ORMED BY: [place] [address] PATHOLOGIST RESHIPPING CLERK ALTHEA BARRAGAN M.D. Performed By: #### C MP, ESR, CBC, ADDONUAPLUS #### [place] [address] [place] #### CH50, C3, C4 #### [facility] , ALT [Catalytic activity/Vol] 28 U/L Normal 7-52 [facility] Comment on above: Performed By: #### C MP, ESR, CBC, ADDONUAPLUS #### [place] [address] [place] #### CH50, C3, C4 #### [facility] , Anion gap [Moles/Vol] 9.9 mmol/L Normal 6.0-15.0 [facility] Comment on above: Performed By: #### C MP, ESR, CBC, ADDONUAPLUS #### [facility] [address] [place] [address] [place] #### CH50, C3, C4 #### [facility] , AST [Catalytic activity/Vol] 31 U/L Normal 13-39 [facility] Comment on above: Performed By: #### C MP, ESR, CBC, ADDONUAPLUS #### [address] #### CH50, C3, C4 #### [facility] , Bilirubin [Mass/Vol] 0.6 mg/dL Normal 0.3-1.0 [facility] Comment on above: Performed By: #### C MP, ESR, CBC, ADDONUAPLUS #### [place] [address] [place] #### CH50, C3, C4 #### [facility] , Calcium [Mass/Vol] 9.2 mg/dL Normal 8.6-10.3 [facility] Comment on above: Performed By: #### C MP, ESR, CBC, ADDONUAPLUS #### [facility] [address] [place] [address] [place] #### CH50, C3, C4 #### [facility] , Chloride [Moles/Vol] 100 mmol/L Normal 98-107 [facility] Comment on above: Performed By: #### C MP, ESR, CBC, ADDONUAPLUS #### [place] [address] [place] #### CH50, C3, C4 #### [facility] , CO2 [Moles/Vol] 28.4 mmol/L Normal 21.0-31.0 [facility] Comment on above: Performed By: #### C MP, ESR, CBC, ADDONUAPLUS #### [facility] [address] [place] [address] [place] #### CH50, C3, C4 #### [facility] , Creatinine [Mass/Vol] 0.92 mg/dL Normal 0.60-1.20 [facility] Comment on above: Performed By: #### C MP, ESR, CBC, ADDONUAPLUS #### [address] #### CH50, C3, C4 #### [facility] , GFR/1.73 sq M.predicted MDRD (S/P/Bld) [Vol rate/Area] mL/min/{1.73_m2} Normal [facility] Comment on above: Performed By: #### C MP, ESR, CBC, ADDONUAPLUS #### [address] #### CH50, C3, C4 #### [facility] , Globulin (S) [Mass/Vol] 2.5 g/dL Normal [facility] Comment on above: Performed By: #### C MP, ESR, CBC, ADDONUAPLUS #### [place] [address] [place] #### CH50, C3, C4 #### [facility] , Glucose [Mass/Vol] 109 mg/dL High 70-100 [facility] Comment on above: Result Comment: [place] Glucose Reference Range is dependent on time and content of last meal. Glucose of more than 200 mg/dL in a nonstressed, ambulatory subject supports the diagnosis of Diabetes Mellitus. ADA recommended reference range Performed By: #### C MP, ESR, CBC, ADDONUAPLUS #### [place] [address] [place] #### CH50, C3, C4 #### [facility] , Potassium [Moles/Vol] 4.3 mmol/L Normal 3.5-5.1 [facility] Comment on above: Performed By: #### C MP, ESR, CBC, ADDONUAPLUS #### [facility] [address] [place] [address] [place] #### CH50, C3, C4 #### [facility] , Protein [Mass/Vol] 6.4 g/dL Normal 6.4-8.9 [facility] Comment on above: Performed By: #### C MP, ESR, CBC, ADDONUAPLUS #### [facility] [address] [place] [address] [place] #### CH50, C3, C4 #### [facility] , Sodium [Moles/Vol] 134 mmol/L Low 136-145 [facility] Comment on above: Performed By: #### C MP, ESR, CBC, ADDONUAPLUS #### [place] [address] [place] #### CH50, C3, C4 #### [facility] , Urea nitrogen [Mass/Vol] 19 mg/dL Normal - [facility] Comment on above: Performed By: #### C MP, ESR, CBC, ADDONUAPLUS #### [place] [address] [place] #### CH50, C3, C4 #### [facility] , Dipstick and Microscopicon 0 10-12-2022 Appearance (U) Clear Normal Clear [facility] Comment on above: Order Comment: Name Collection Type:: Clean-Voided Midstream Performed By: #### C MP, ESR, CBC, ADDONUAPLUS #### [facility] [address] [place] [address] [place] #### CH50, C3, C4 #### [facility] , Bacteria,Urine None Seen Normal None Seen [facility] Comment on above: Order Comment: Name Collection Type:: Clean-Voided Midstream Performed By: #### C MP, ESR, CBC, ADDONUAPLUS #### [address] #### CH50, C3, C4 #### [facility] , Bilirubin,Urine Negative Normal Negative [facility] Comment on above: Order Comment: Name Collection Type:: Clean-Voided Midstream Performed By: #### C MP, ESR, CBC, ADDONUAPLUS #### [address] #### CH50, C3, C4 #### [facility] , Color (U) Yellow Normal Yellow [facility] Comment on above: Order Comment: Name Collection Type:: Clean-Voided Midstream Performed By: #### C MP, ESR, CBC, ADDONUAPLUS #### [address] #### CH50, C3, C4 #### [facility] , Glucose Ql (U) Normal Normal Normal [facility] Comment on above: Order Comment: Name Collection Type:: Clean-Voided Midstream Performed By: #### C MP, ESR, CBC, ADDONUAPLUS #### [address] #### CH50, C3, C4 #### [facility] , Hyaline Casts,Urine None Seen Normal 0-8 [place] Comment on above: Order Comment: Name Collection Type:: Clean-Voided Midstream Result Comment: PERF ORMED BY: [place] [address] PATHOLOGIST RESHIPPING CLERK ALTHEA BARRAGAN M.D. Performed By: #### C MP, ESR, CBC, ADDONUAPLUS #### [place] [address] [place] #### CH50, C3, C4 #### [facility] , Ketones Ql (U) Negative Normal Negative [facility] Comment on above: Order Comment: Name Collection Type:: Clean-Voided Midstream Performed By: #### C MP, ESR, CBC, ADDONUAPLUS #### [address] #### CH50, C3, C4 #### [facility] , Leukocyte esterase Test strip Ql (U) Negative Normal Negative [facility] Comment on above: Order Comment: Name Collection Type:: Clean-Voided Midstream Performed By: #### C MP, ESR, CBC, ADDONUAPLUS #### [address] #### CH50, C3, C4 #### [facility] , Nitrite,Urine Negative Normal Negative [facility] Comment on above: Order Comment: Name Collection Type:: Clean-Voided Midstream Performed By: #### C MP, ESR, CBC, ADDONUAPLUS #### [address] #### CH50, C3, C4 #### [facility] , Occult Blood,Urine Negative Normal Negative [facility] Comment on above: Order Comment: Name Collection Type:: Clean-Voided Midstream Performed By: #### C MP, ESR, CBC, ADDONUAPLUS #### [address] #### CH50, C3, C4 #### [facility] , pH (U) 6.0 [pH] Normal 5.0-9.0 [facility] Comment on above: Order Comment: Name Collection Type:: Clean-Voided Midstream Performed By: #### C MP, ESR, CBC, ADDONUAPLUS #### [address] #### CH50, C3, C4 #### [facility] , Protein,Urine Negative Normal Negative [facility] Comment on above: Order Comment: Name Collection Type:: Clean-Voided Midstream Performed By: #### C MP, ESR, CBC, ADDONUAPLUS #### [address] #### CH50, C3, C4 #### [facility] , RBC,Urine 3-4 Normal 0-4 [facility] Comment on above: Order Comment: Name Collection Type:: Clean-Voided Midstream Performed By: #### C MP, ESR, CBC, ADDONUAPLUS #### [address] #### CH50, C3, C4 #### [facility] , Specificy [place],Urine 1.019 Normal 1.001-1.030 [facility] Comment on above: Order Comment: Name Collection Type:: Clean-Voided Midstream Performed By: #### C MP, ESR, CBC, ADDONUAPLUS #### [address] #### CH50, C3, C4 #### [facility] , Squamous Epithelial Cell,Urine None Seen Normal 0-2 [facility] Comment on above: Order Comment: Name Collection Type:: Clean-Voided Midstream Performed By: #### C MP, ESR, CBC, ADDONUAPLUS #### [address] #### CH50, C3, C4 #### [facility] , Urobilinogen,Urine Normal Normal Normal [facility] Comment on above: Order Comment: Name Collection Type:: Clean-Voided Midstream Performed By: #### C MP, ESR, CBC, ADDONUAPLUS #### [address] #### CH50, C3, C4 #### [facility] , WBC LM.HPF (Urine sed) [#/Area] 0 /[HPF] Normal 0-4 [facility] Comment on above: Order Comment: Name Collection Type:: Clean-Voided Midstream Performed By: #### C MP, ESR, CBC, ADDONUAPLUS #### [facility] [address] #### CH50, C3, C4 #### [facility] , Erythrocyte Sedimentation Ra sid 10-12-2022 ESR (Bld) [Velocity] 12 mm/h Normal 0-29 [facility] Comment on above: Result Comment: PERF ORMED BY: [place] [address] [place] [address] PATHOLOGIST RESHIPPING CLERK ALTHEA BARRAGAN M.D. Performed By: #### C MP, ESR, CBC, ADDONUAPLUS #### [facility] [address] #### CH50, C3, C4 #### [facility] , Pre-Certification Formon Pre-Certification Form [id number] 62#1.00CD:127 Normal [facility] Family Medicine Office/Clini c Noteon 02-13-2022 Family Medicine Office/Clinic Note Chief Complaint Yearly Check Up HPI Staff Jersey is a 66 year old female who presents for a yearly follow up. She has a chronic history of hypothyroidism. Currently taking Elmer Thyroid 120mg once daily, as directed without adverse reaction. Patient denies fatigue, palpitations, hot/cold intolerance, constipation, hair/skin/nail issues. She has recent labs to review. She continues to fill her hormones through [facility] in [place]. 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 30 mg oral tablet, See Instructions [...] inactivated - Not Given Patient Refuses Normal [facility] Comment on above: Result Comment: Elec tronically Signed By: Addy ROUSSEAU DO\.br\Date and Time Signed: 02/13/22 14:08 EDT Pre-Visit Planningon 022 Pre-Visit Planning -- From: Bianca WARD, Piedad To: Addy ROUSSEAU DO; Sent: 02/10/2022 09:19:11 EDT Subject: Pre-Visit Planning Due Date/Time: 02/10/2022 09:19:00 EDT Caller Name: JERSEY DOW; Caller Number: , [facility] During pre-visit planning review the Jose Antonion report shows that Naty Kirkpatrick documented e27.40 unspecified adrenocortical insufficiency on 03/16/2021. I do not have the actual document so I do not have further details. MARIN Alaniz, RN, [facility], CCDS -- From: Addy ROUSSEAU DO To: Bianca WARD, Piedad; Sent: 02/11/2022 11:06:34 EDT Subject: RE: Pre-Visit Planning Caller Name: JERSEY DOW; Caller Number: Stefanie , M I will look into it thanks Normal [address] [facility] Lab Reportson 02-10-2022 Lab Reports [id number] 13#1.00CD:127 Normal [facility] Basic Metabolic Panelon 01-0 Anion gap [Moles/Vol] 18 mmol/L Normal 12-20 [facility] Specialist Comment on above: Result Comment: Effe ctive 05/26/2019 reference range changed. Performed By: #### B MP, CBC #### [facility] [address] [facility] [place] [id number] Calcium [Mass/Vol] 10.2 mg/dL Normal 8.6-10.2 [facility] Specialist Comment on above: Performed By: #### B MP, CBC #### [facility] [address] [place], [place] [id number] Chloride [Moles/Vol] 99 mmol/L Normal 98-107 [facility] Specialist Comment on above: Performed By: #### B MP, CBC #### [facility] [address] [place], [place] [id number] CO2 [Moles/Vol] 22 mmol/L Normal 20-31 [facility] Specialist Comment on above: Performed By: #### B MP, CBC #### [facility] [address] [place], [place] [id number] Creatinine [Mass/Vol] 0.7 mg/dL Normal 0.6-1.4 [facility] Specialist Comment on above: Performed By: #### B MP, CBC #### [facility] [address] [place], [place] [id number] eGFRAA 109 mL/min/1.73m2 Normal >60 [facility] Comment on above: Performed By: #### B MP, CBC #### [facility] [address] [place], [place] [id number] eGFRNAA 90 mL/min/1.73m2 Normal >60 [facility] Comment on above: Performed By: #### B MP, CBC #### [facility] [address] [place], [place] [id number] Glucose [Mass/Vol] 88 mg/dL Normal 65-99 [facility] Comment on above: Result Comment: For FASTING Glucose --- ADA reference ranges: Normal 65-99 mg/dl Prediabetes 100-125 Diabetes >/= 126 Performed By: #### B MP, CBC #### [facility] [address] [place], [place] [id number] Potassium [Moles/Vol] 4.6 mmol/L Normal 3.5-5.5 [facility] Comment on above: Performed By: #### B MP, CBC #### [facility] [address] [place], [place] [id number] Sodium [Moles/Vol] 134 mmol/L Low 135-146 [facility] Specialist Comment on above: Performed By: #### B MP, CBC #### [facility] [address] [place], [place] [id number] Urea nitrogen [Mass/Vol] 17 mg/dL Normal 7-25 [facility] Comment on above: Performed By: #### B MP, CBC #### [facility] [address] [place], [place] [id number] Complete Blood Counton 05-23 Erythrocyte distribution width (RBC) [Ratio] 12.5 % Normal 11.0-15.0 [facility] Comment on above: Performed By: #### B MP, CBC #### [facility] [address] [place], [place] [id number] Hematocrit (Bld) [Volume fraction] 38.5 % Normal 35.0-47.0 [facility] Comment on above: Performed By: #### B MP, CBC #### [facility] [address] [place], [place] [id number] Hemoglobin (Bld) [Mass/Vol] 12.8 g/dL Normal 11.6-15.5 [facility] Comment on above: Performed By: #### B MP, CBC #### [facility] [address] [place], [place] [id number] MCH (RBC) [Entitic mass] 31.6 pg Normal 27.0-33.0 [facility] Comment on above: Performed By: #### B MP, CBC #### [facility] [address] [place], [place] [id number] MCHC (RBC) [Mass/Vol] 33.2 g/dL Normal 32.0-36.0 [facility] Comment on above: Performed By: #### B MP, CBC #### [facility] [address] [place], [place] [id number] MCV (RBC) [Entitic vol] 95 fL Normal 80-100 [facility] Comment on above: Performed By: #### B MP, CBC #### [facility] [address] [place], [place] [id number] Platelet mean volume (Bld) [Entitic vol] 9.40 fL Normal 7.50-12.50 [facility] Comment on above: Performed By: #### B MP, CBC #### [facility] [address] [place], [place] [id number] Platelets (Bld) [#/Vol] 372 10*3/uL Normal 140-400 [facility] Comment on above: Performed By: #### B MP, CBC #### [facility] [address] [place], [place] [id number] RBC (Bld) [#/Vol] 4.05 10*6/uL Normal 3.90-5.20 [facility] [place] [facility] Comment on above: Performed By: #### B MP, CBC #### [facility] [address] [place], [place] [id number] RDW-SD 43.9 fL Normal 37.0-50.0 [facility] Comment on above: Performed By: #### B MP, CBC #### [facility] [address] [place], [place] [id number] WBC (Bld) [#/Vol] 6.4 10*3/uL Normal 3.8-11.0 [facility] Cashier Manager Comment on above: Performed By: #### B MP, CBC #### [facility] [address] [place], [place] [id number] Q - SARS CoV2 COVID 19 Ab Ig To 05-23-2021 SARS-CoV-2 (COVID-19) Ab IA Qn >150.00 High <1.00 [facility] Cashier Manager Comment on above: Order Comment: [facility] Testing performed at: [employer] [facility], [address] [place] [address], [address] [place] [address], [id number], Operations Lieutenant: Mhiir Arzola MD [facility] Collection Date/Time: [facility] Results [...] providers and patients using the following websites: http://patient.[email or web address]/[employer]-HCP http://patient.[email or web address]/[employer]-Patients Healthcare Providers: For additional information please refer to: http://education.Sansan/faq/EDH374 (This link is being provided for informational/educational purposes only.) This test has been authorized by the FDA under an Emergency Use Authorization (EUA) for use by authorized laboratories. The FDA authorized labeling is available on the [employer] website: www.[employer]One/Covid19. Performed By: #### 3 4499 #### [facility] [address] [place] [address] XR Chest 2 Views*on 05-18-20 21 XR [...] by Atul Bentley on 05/18/2021 1321 Normal [facility] MRI Hip w/o Righton 05-03-20 21 MRI [...] by Bentley Hua on 05/03/2021 1548 Normal [facility] SCREENING MAMMOGRAM W/RUY, BILATERAL*on 04-28-2021 SCREENING MAMMOGRAM [...] VERY IMPORTANT TO YOUR HEALTH. THE CURRENT [employer] [employer] GUIDELINES RECOMMENDS ANNUAL MAMMOGRAPHY BEGINNING AT AGE 40 THIS FACILITY USES A REMINDER SYSTEM TO ENSURE ALL PATIENTS RECEIVE REMINDER NOTIFICATIONS AT THE APPROPRIATE TIME BASED ON THE RECOMMENDATIONS OF THIS EXAM. Report reported and signed by Atul Bentley on 04/28/2021 1533 Normal [facility] COVID-19 PCRon 04-11-2020 SARS-CoV-2 (COVID-19) RNA GRISELDA+probe Ql (Unsp spec) Not detected Normal Not Detected [facility] Comment on above: Result Comment: This nucleic acid amplification test was developed and its performance characteristics determined by [employer]. Nucleic acid amplification tests include PCR and [...] assay. Performed By: #### C VDPCR #### [facility] [address] [place] [address] Giselle Brock 12-03-2018 CNTARIQ Office Visit (UROLIBERTADN) ---- JERSEY DOW ([id number]) 1955 F Date Time Provider Department 12/03/18 4:00 PM CELESTE SHAFFER During your visit today, we recorded the following information about you: Pulse Blood pressure Weight 100/minute 148/70 79.4 kg Ariela Lovett 12/03/2018 3:45 PM Signed [facility] FACTS LAB HOURS: Lab is open [...] prior to the scheduled exam. Celeste Shaffer APRN.ACCOUNTING TUTOR 12/03/2018 4:23 PM Signed Jersey Dow [address] [place] [address] HISTORY OF PRESENT ILLNESS: Seen 09/11/18 for [...] evaluation for evaluation, U/A, culture Celeste Shaffer APRN.ACCOUNTING TUTOR Referring Provider: CELESTE SHAFFER [[id number]] Allergies As of Date: 12/03/2018 Noted Allergy Reaction GABAPENTIN 09/11/2018 4 - Hives Date Reviewed: 12/03/2018 Reviewed by: Ariela Lovett - Fully Assessed Reason for Visit: Follow Up [171] Primary Visit Diagnosis:IC (interstitial cystitis) [N30.10] Other Visit Diagnoses:Urinary tract infection without hematuria, site unspecified [N39.0] Vaginal atrophy [N95.2] Order(s):UA CHEMSTRIP ONLY [SQUA] Order #: [id number] FUTURE URINE CULTURE [SQURCUL] Order #: [id number] conjugated estrogens (PREMARIN) vaginal creamUse 0.5 g [...] infection) [N39.0] Other instructions from your clinician: [facility] FACTS LAB HOURS: Lab is open [...] by CELESTE SHAFFER CNP on 12/03/18 Normal [facility] PROGRESSon 12-03-2018 PROGRESS HNO ID: [id number] Author: Celeste Shaffer Service: ? Author Type: Nurse Practitioner Type: Progress Notes Filed: 12/03/2018 4:23 PM Note Text: Jersey Dow [address] [place] [address] HISTORY OF PRESENT ILLNESS: Seen 09/11/18 for cystitis Pt stated that had pain in bladder in 2011 went to urologist in [place] cysto and bladder bx completed and noted [...] evaluation, U/A, culture Celeste Shaffer APRN.JB Normal [facility] Urine Cultureon 09-12-2018 Bacteria identified Cx Nom (U) Sp. Request/Comment: - Specimen received in preservative Culture Result - No growth (<100 CFU/ml) Normal [facility] Comment on above: Performed By: #### U RCUL #### [facility] [address] [place] [address] CNOVon 09-11-2018 CNOV Office Visit (UROLLN) ---- JERSEY DOW ([id number]) 1955 F Date Time Provider Department 09/11/18 8:00 AM CELESTE SHAFFER (ACCOUNTING TUTOR) UROLLCherie During your visit today, we recorded the following information about you: Pulse Blood pressure Height 95/minute 128/86 1.626 m Ariela Lovett 09/11/2018 8:06 AM Signed [facility] FACTS LAB HOURS: Lab is open [...] prior to the scheduled exam. Celeste Shaffer, CAIN.ACCOUNTING TUTOR 09/11/2018 2:03 PM Signed Jersey Riley Paloma [address] [place] [address] is a 63 year old female and [...] month for evaluation for evaluation Celeste Shaffer APRN.ACCOUNTING TUTOR Referring Provider: SELF [200] Allergies As of [...] infection) [N39.0] Other instructions from your clinician: [facility] FACTS LAB HOURS: Lab is open [...] Status:Closed by CELESTE SHAFFER CNP on 09/11/18 [facility] PROGRESSon 09-11-2018 PROGRESS HNO ID: [id number] Author: Celeste Desai (Karlee Shaffer Service: ? 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 Normal [facility] Urinalysison 09-11-2018 Bilirubin, Urine Negative Normal Negative [facility] Comment on above: Performed By: #### U A #### [place] [address] Clarity (U) Clear Normal Clear [facility] Comment on above: Performed By: #### U A #### [place] [address] [place] [address] Color (U) Yellow Normal Yellow [facility] Comment on above: Performed By: #### U A #### [address] [address] Comments SEE COMMENT Normal [facility] Comment on above: Result Comment: Micr oscopic not warranted Performed By: #### U A #### [place] [address] [place] [address] Glucose Ql (U) Negative Normal Negative [facility] Comment on above: Performed By: #### U A #### [place] [address] [place] [address] Hemoglobin/Blood,Ur Negative Normal Negative [facility] Comment on above: Performed By: #### U A #### [place] [address] [place] [phone] Ketones Ql (U) Negative Normal Negative [facility] Comment on above: Performed By: #### U A #### [facility] [address] [place], [place] [address] Leukest Negative Normal Negative [facility] Comment on above: Performed By: #### U A #### [place] [address] [place], [place] [address] Nitrite Ql (U) Negative Normal Negative [facility] Comment on above: Performed By: #### U A #### [address] [address] pH (Bld) 7.0 Normal 4.5-8.0 [facility] Comment on above: Performed By: #### U A #### [address] [address] Protein (U) [Mass/Vol] Negative Normal Negative [facility] Comment on above: Performed By: #### U A #### [address] [address] Specific [place], Ur 1.005 Normal 1.005-1.030 [facility] Comment on above: Performed By: #### U A #### [address] [address] Urine Jayme Comment SEE COMMENT Normal [facility] Comment on above: Result Comment: N/A Performed By: #### U A #### [place] [address] [place], [place] [address] Urobilinogen Qn (U) Normal Normal Normal [facility] Comment on above: Performed By: #### U A #### [address] [address] Vital Signs Date Time Vital Sign Value Performing Clinician Facility 09-12-2022 11:45-0400 Body height 161.29 cm Abena Hawkins Other [facility] Other 09-12-2022 11:45-0400 Body mass index (BMI) [Ratio] 32.43 kg/m2 Abena Hawkins Other [facility] Other 09-12-2022 11:45-0400 Body weight 84.37 kg Abnea Hawkins Other [facility] Other 05-10-2022 10:40-0500 Body height 161.29 cm Aziz Bakhous Other [facility] Other 05-10-2022 10:40-0500 Body mass index (BMI) [Ratio] 32.5 kg/m2 Aziz Bakhous Other [facility] Other 05-10-2022 10:40-0500 Body temperature 96.2 [degF] Aziz Bakhous Other [facility] Other 05-10-2022 10:40-0500 Body weight 84.55 kg Aziz Bakhous Other [facility] Other 05-10-2022 10:40-0500 Diastolic blood pressure 98 mm[Hg] Aziz Bakhous Other [facility] Other 05-10-2022 10:40-0500 Respiratory rate 18 /min Aziz Bakhous Other [facility] Other 05-10-2022 10:40-0500 SaO2% (BldA) [Mass fraction] 96 % Aziz Bakhous Other [facility] Other 05-10-2022 10:40-0500 Systolic blood pressure 158 mm[Hg] Aziz Bakhous Other [facility] Other Encounters Encounter Date Encounter Type Care Provider Facility Start: 06-26-2023 End: 06-27-2023 Clinical Support Clementina Diego MD Work Phone: [facility] Comment on above: Encephalocele (CMS-H CC) (Primary Dx); Sensorineural hearing loss (SNHL), bilateral Start: 06-11-2023 End: 06-12-2023 ambulatory [facility] Start: 06-04-2023 End: 06-05-2023 ambulatory Kamryn Ceja MD Facility:[facility] Start: 05-30-2023 End: 05-30-2023 ambulatory Oriana Laguerre Facility:[facility] Start: 05-30-2023 End: 05-30-2023 ambulatory MD Oriana Laguerre Work Phone: [facility] Work Phone: Start: 05-30-2023 End: 05-30-2023 Patient encounter procedure MD Oriana Laguerre Work Phone: [facility] [address] Work Phone: Start: 05-07-2023 End: 05-21-[address] LATRICE PEÑA [facility] Start: 05-02-2023 End: 05-03-2023 ambulatory NATY KIRKPATRICK Not Available Start: 04-23-2023 End: 04-24-2023 ambulatory ORIANA LAGUERRE Not Available Start: 04-10-2023 End: 04-10-2023 ambulatory RHODA DOCKERY Not Available Start: 02-13-2023 ambulatory Addy De La Rosa y:ISMA Hinojosa Start: 01-18-2023 End: 01-18-2023 ambulatory Huong Santiago Facility:[facility] Start: 01-18-2023 End: 01-18-2023 ambulatory MD Oriana Laguerre Work Phone: [facility] Work Phone: Start: 01-18-2023 End: 01-18-2023 Patient encounter procedure MD Oriana Laguerre Work Phone: [facility] [address] [place] Work Phone: Start: 10-12-2022 End: 10-12-2022 ambulatory Huong Santiago Facility:[facility] Start: 09-12-2022 End: 09-12-2022 ambulatory Abena Calvey Other [facility] Other Start: 09-12-2022 Office outpatient vi sit 15 minutes Abena Calvey [facility] Start: 06-14-2022 End: 06-14-2022 ambulatory Abena Calvey Other [facility] Other Start: 06-14-2022 Office outpatient vi sit 15 minutes Abena Calvey [facility] Start: 05-10-2022 End: 05-10-2022 ambulatory Aziz Bakhous Other [facility] Other Start: 05-10-2022 Office outpatient ne w 30 minutes Aziz Bakhous [facility] Start: 03-29-2022 End: 03-29-2022 ambulatory Abena Calvey Other [facility] Other Start: 03-29-2022 Office outpatient vi sit 15 minutes Abena Calvey [facility] Start: 02-13-2022 End: 02-14-2022 ambulatory Addy ROUSSEAU Facility:[facility] Start: 12-13-2021 End: 12-13-2021 ambulatory Abena Calvey Other [facility] Other Start: 12-13-2021 Office outpatient vi sit 25 minutes Abena Calvey [facility] Start: 08-26-2021 End: 08-26-2021 ambulatory Abena Calvey Other [facility] Other Start: 08-26-2021 Encounter by bryon mortensen Oriana Laguerre [facility] Start: 08-26-2021 Office outpatient vi sit 15 minutes Abenageorgette Hawkins [facility] Start: 02-25-2021 End: 02-25-[address] DOCTOR FOURNIER Facility:[facility] Start: 04-09-2020 End: 04-10-2020 ambulatory NATY KIRKPATRICK Facility:[facility] Start: 12-25-2016 End: 12-26-2016 Ambulatory DEFAULT PHYSICIAN Facility:[facility] Procedures Date Procedure Procedure Detail Performing Clinician Start: 06-26-2023 COMPREHENSIVE HEARING TEST Clementina Diego MD Work Phone: Plan of Treatment Date Care Activity Detail Author Start: 02-20-2028 DTaP,Tdap and Td Vaccines (4 - Td or Tdap) DTaP,Tdap and Td Vaccines (4 - Td or Tdap) [facility] Start: 02-21-2024 Adult BMI Screening Adult BMI Screening [facility] Start: 02-21-2024 Tobacco Screening Tobacco Screening [facility] Start: 05-30-2023 Hemolytic complement CH50 level [facility] Start: 01-19-2023 Influenza vaccination Influenza Vaccine [facility] Start: 01-18-2023 Bacteria identified in Urine by Culture [facility] Start: 01-18-2023 Hemolytic complement CH50 level [facility] Start: 01-18-2020 Fall Risk Screening Fall Risk Screening [facility] Start: 03-15-2019 Administration of varicella zoster vaccine Zoster (Shingles) Vaccine (2 of 2) [facility] Start: 1973 Adult BMI Follow Up Plan Adult BMI Follow Up Plan [facility] Start: 1967 Depression Screening Depression Screening [facility] Start: 1955 Medicare Annual Wellness Visit Medicare Annual Wellness Visit [facility] Complement C3 [Mass/volume] in Serum or Plasma [facility] Complement C3 [Mass/volume] in Serum or Plasma [facility] Complement C4 [Mass/volume] in Serum or Plasma [facility] Complement C4 [Mass/volume] in Serum or Plasma [facility] Immunizations Immunization Date Immunization Notes Care Provider Fa [facility] 02-09-2020 influenza virus vaccine, unspecified formulation [facility]oda Jin AUD [facility] 01-18-2019 zoster vaccine, unspecified formulation hRoda Jin AUD Work Phone: [facility] Payers Date Payer Category Payer Self-pay [id number] 2019 Medicare 2019 Unknown 1959 Medicare [id number] 1959 Unknown [id number] 1955 Unknown [id number] 2.16.84 [id number] 1955 Unknown [id number] 2.16.84 0.1.377255.3.579.2.593 1955 Unknown [id number] 2.16.8 40.1.895420.3.579.2.727 1955 Unknown [id number] 2.16.8 40.1.083513.3.579.2.727 1955 Unknown [id number] 2.16.840 .1.065938.3.579.2.1259 1955 Unknown [id number] 2.16.840 .1.510412.3.579.2.1259 1955 Unknown [id number] 2.16.840 .1.324812.3.579.2.1259 1955 Unknown [id number] 2.16.84 0.1.874653.3.579.2.1286 1955 Unknown [id number] 2.16. 840.1.141925.3.579.2.196 1955 Unknown [id number] 2.16. 840.1.821548.3.579.2.196 1955 Unknown [id number] 2.16.8 40.1.060192.3.579.2.1286 Unknown [id number] 2.16.8 40.1.180765.3.579.2.531 Unknown [id number] 2.16.8 40.1.174868.3.579.2.531 Unknown [id number] 2.16.8 40.1.782590.3.579.2.531 Social History Date Type Detail Facility Start: 07-01-2020 End: 02-20-2023 Sex Assigned At [facility] Start: 02-11-2021 End: 03-15-2022 Tobacco smoking status NHIS Never smoked tobacco (finding) [facility] Start: 1955 Sex Assigned At Female F [facility] Start: 03-15-2022 Tobacco use and exposure Smokeless tobacco non-user [facility] Start: 02-21-2023 Alcohol intake 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 (finding) [facility] Start: 07-01-2020 End: 02-20-2023 History of Social function [facility] Childcare Unknown [facility] Start: 1955 Sex Assigned At Not on file P [facility] Medical Equipment Procedure Code Equipment Code Equipment Origin al Text Equipment Identifier Dates Cement Bn Hydros et Sub Void Saad Ca Phos 3ml Inj Ostcndc Strl - Sna - [id number] Start: 02-20-2023 Graft Snth Tiss Thk2.5mm Thk.45mm 24d16lu Pe Npor Mdpr Tsi - Sna - [id number] Start: 02-20-2023 Stem Fem 4 2 Tpr Flt [place] Mectagrip Hip Lateralize + - [id number] Start: 06-30-2021 Screw Bn 20mm 6. 5mm Flt Hd Canc Hip Mpact - [id number] Start: 06-30-2021 Goals Date Patient Goal [...] Dow 68 y.o., was seen today at [facility] for a comprehensive audiologic evaluation. She was [...] patient. YARA Reyes documented in this encounter [facility] 09-12-2022 Evaluation note Encounter Date Diagnosis [...] Pain in right hand (ICD-10 - M79.641) [facility] Other 01-25-2023 Evaluation note* Encounter Date Diagnosis Assessment Notes Treatment Notes Treatment Clinical Notes May, Arthritis of carpometacarpal joint (ICD-10 - M19.049) Bilateral thumb [facility] joints injected with cortisone under sterile technique, patient tolerated well May, Pain in left hand (ICD-10 - M79.642) May, Pain in right hand (ICD-10 - M79.641) [facility] Other 12-21-2022 Evaluation note* Encounter Date Diagnosis [...] will continue same follow-up blood pressure medication [facility] Other 11-09-2022 Evaluation note* Encounter Date Diagnosis [...] Pain in right hand (ICD-10 - M79.641) [facility] Other 07-26-2022 Evaluation note* Encounter Date Diagnosis [...] Pain in right hand (ICD-10 - M79.641) [facility] Other 04-08-2022 Evaluation note* Encounter Date Diagnosis [...] Pain in right hand (ICD-10 - M79.641) [facility] Other Evaluation noteNo InformationNort [employer] Other Evaluation noteNo assessment information available [facility] Work Phone: Evaluation note* Diagnosis [facility]ph[facility])- Primary Encephalocele Sensorineural hearing loss (SNHL), bilateral documented in this encounter [facility] N[facility]ative - Reported* Type Description Date Medical History chronic fatigue Medical History rheumatoid arthritis Medical History sjogren syndrome Medical History lupus Surgical History tonsillectomy and adenoidectomy Surgical History cervix repair Surgical History mastoidectomy Surgical History skull surgery Hospitalization History see above Hospitalization History kidney infection Hospitalization History child Hospitalization History broken arm [facility] Other Hiszxwt general Narrative - Reported* Type Description Date [...] Hospitalization History COMPLICATIONS AFTER SKUL L SURGERY [facility] Other InstructionsNot on filedocumented in this encounter [facility] Summary Purpose Family History No Family [...] section and content) DATE CREATED AUTHOR 11/14/2017 [facility] DATE CREATED AUTHOR AUTHOR'S ORGANIZ ATION 12/05/2018 [facility] DATE CREATED AUTHOR AUTHOR'S ORGANIZ ATION 03/17/2021 [facility] DATE CREATED AUTHOR AUTHOR'S ORGANIZ ATION 05/25/2021 [facility] dical Specialist DATE CREATED AUTHOR AUTHOR'S ORGANIZ ATION 12/25/2022 [facility] DATE CREATED AUTHOR AUTHOR'S ORGANIZ ATION 05/07/2023 [facility] dical Specialists [facility] DATE CREATED AUTHOR AUTHOR'S ORGANIZ ATION 05/21/2023 [facility] DATE CREATED AUTHOR AUTHOR'S ORGANIZ ATION 06/15/2023 [facility] DATE CREATED AUTHOR AUTHOR'S ORGANIZ ATION 06/29/2023 [facility] DATE CREATED AUTHOR AUTHOR'S ORGANIZ ATION 07/02/2023 [facility] REASON FOR VISIT (unrecogniz ed section and content) Specialty Diagnoses / Procedures Referred By Contac t Referred To Contact Diagnoses Encephalocele ([facility]) Procedures Comprehensive hearing test Clementina Diego MD 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 [facility] [employer] provides no warranty or guarantee of the accuracy or completeness of information in this document.
== END 2023-07-05 14:34 | disposition home or self-care (01) ==
LOC: PM 14:42
PROVIDERS: PCP Family Medicine; Visit Provider Nurse Practitioner
DX: M47.816 Spondylosis without myelopathy or radiculopathy, lumbar region (principal); M48.062 Spinal stenosis, lumbar region with neurogenic claudication
CPT/HCPCS: G0463

== ENCOUNTER 2023-07-30 07:32 | Day surgery (SDC) | payer MEDICARE, OTHER, SELFPAY ==
--- OUTSIDE RECORDS SUMMARY | 2023-07-30 07:36 | XMS_ITS | CCD ---
Author Name Unknown Address [address] [place] [address] Organization [facility] Care Team Providers Care [place] Performer Name Role Phone PHYSICIAN, DEFAULT Unavailable Unavailable PHYSICIAN, DEFAULT Unavailable Unavailable ORINAA LAGUERRE Unavailable Unavailable MISC, DR CHEEK Attending [...] Care Provider MD Endy Abreu Attending Provider Oriana Laguerre MD Primary Care Provider Huong Santiago Admitting Unavailable Huong Santiago Attending Unavailable Oriana Laguerre Primary Care Unavailable Huong Santiago Attending Unavailable Oriana Laguerre Primary Care Unavailable Huong Santiago Admitting Unavailable Oriana Laguerre Primary Care Unavailable Endy Abreu Admitting Unavailable Endy Abreu Attending Unavailable RHODA JIN Attending Unavailable CLEMENTINA DIEGO Referring Unavailable ORIANA LAGUERRE Primary Care Unavailable Marcial RAMIREZ, Kamryn Rodriguez Attending Unavailable Marcial RAMIREZ, Kamryn Rodriguez Attending Unavailable Marcial RAMIREZ, Kamryn Rodriguez Attending Unavailable Allergies Allergy Classification Reported Allergen(s) Allergy Type Date of Onset Reaction(s) Facility (1 source) Sulfonamides (Antibiotic); Translations: [SULFA] Propensity to adverse reactions (disorder) 11-11-19 11 [facility] Repository (4 sources) gabapentin; Translations: [gabapentin] Drug Allergy 02-12-20 [facility] Repository (1 source) rosuvastatin Drug Allergy 02-26-20 [facility] Repository (1 source) Sulfonamides (Antibiotic) Drug allergy (disorder) 02-26-20 [facility] Repository (8 sources) gabapentin Drug Allergy 11-02-19 17 [facility] (7 sources) Sulfacetamide / Sulfur Drug Allergy Unknown [employer] Other (1 source) Sulfonamides (Antibiotic); Translations: [sulfa drugs] Propensity to adverse reactions (disorder) [facility] Repository (6 sources) Ciprofloxacin; Translations: [CIPROFLOXACIN] Drug Allergy 02-12-20 Unknown Reaction [facility] (3 sources) Sulfacetamide; Translations: [sulfacetamide] Drug Allergy 02-12-20 21 Vomiting [facility] (3 sources) Sulfur; Translations: [sulfur] Drug Allergy 02-12-20 Vomiting [facility] (2 sources) gabapentin; Translations: [GABAPENTIN (BULK)] Drug Allergy 11-02-19 17 [facility] Repository (3 sources) Hmg-Coa Reductase Inhibitors (Statins); Translations: [SDFGBTF-QZL-QET REDUCTASE INHIBITORS] Propensity to adverse reactions to drug (disorder) 11-02-19 17 pain [facility] Repository (3 sources) Sulfonamides (Antibiotic); Translations: [SULFA (SULFONAMIDE ANTIBIOTICS)] Propensity to adverse reactions to drug (disorder) 11-02-19 17 GI Disturbance [facility] Repository (1 source) gabapentin Drug Allergy 12-13-19 23 [facility] Repository Medications Current Medications Medication Drug Class(es) [...] as needed Orally every 6 hrs Active [id number] 200 actuat albuterol 0.09 mg/actuat metered dose [...] Orally Once a day Active fluocinolone acetonide 0.42302 mg/mg topical ointment (4 sources) Corticosteroid Start: [...] twice daily for 90 days Apr, Active likxxhms-iwco-rge4-C-man g-bosw 750-625-30 mg tablet (1 source) take 1 tablet by mouth once daily njpldpbk-diqd-zni5-C-ma ng-bosw 750-625-30 mg tablet Take 1 tablet by mouth daily. 0 Active glucosamine 750 mg oral tablet (3 sources) Glucosamine 750 MG as directed Orally Active hydroCHLOROthiazide 12.5 mg oral tablet (7 sources) Thiazide Diuretic Start: 02-11-2021 Hydrochlorothiazide Active 12.5 MG PO As Directed February 10, 2021 11:00pm take 1 capsule by [facility] every twenty-four hours hydroCHLOROthiazide 12.5 MG 1 [...] by mouth daily. 0 Active lactobacillus acidophilus [id number] unt / pectin 100 mg oral tablet [...] tablet (4 sources) [facility] magnesium oxide 500 mg [...] 1 tablet Orally Once a day Active ddsswkgq-qjfb-OV-calc ium &mins (THERAGRAN-M) 9 mg iron-400 mcg tablet (1 source) fdtaboer-exud-RU -calc ium &mins (THERAGRAN-M) 9 mg iron-400 [...] capsule Orally Once a day Active thyroid (long term) 120 mg oral tablet (10 sources) Start: 10-31-2016 Thyroid (Pork) ([place] Thyroid) 120 mg tablet Active 120 MG [...] suspension (20 sources) Corticosteroid Start: 03-29-2022 Kenalog-40 09 Nov, 2022 40 mg Start: 08-26-2021 Kenalog-40 Nov, 20 [...] testOr dered By: Roya Schroeder on 06-26-2023 [place] Alanine aminotransferase [En zymatic activity/volume] in Serum or PlasmaOrdered By: Endy Abreu on 05-30-2023 ALT [Catalytic activity/Vol] 16 U/L 7-52 [facility] Albumin [Mass/volume] in Ser um or Plasma by Bromocresol green (BCG) dye binding methoOrdered By: Endy Abreu on 05-30-2023 Albumin BCG dye [Mass/Vol] 4.2 g/dL 3.5-5.7 [facility] Alkaline phosphatase [Enzyma tic activity/volume] in Serum or PlasmaOrdered By: Endy Abreu on 05-30-2023 ALP [Catalytic activity/Vol] 109 U/L 34-104 [facility] Aspartate aminotransferase [ Enzymatic activity/volume] in Serum or PlasmaOrdered By: Endy Abreu on 05-30-2023 AST [Catalytic activity/Vol] 22 U/L 13-39 [facility] Automated erythrocytes count in urine sediment (number/area)Ordered By: Endy Abreu on 05-30-2023 RBC Auto (Urine sed) [#/Area] 0-1 [HPF] 0-4 [facility] Automated leukocytes count i n urine sediment (number/area)Ordered By: Endy Abreu on 05-30-2023 WBC Auto (Urine sed) [#/Area] 0-1 [HPF] 0-4 [facility] Basophils Auto (Bld) [#/Vol] Ordered By: Endy Abreu on 05-30-2023 Basophils (Bld) [#/Vol] 0.1 10*3/uL 0.0-0.2 [facility] Basophils/100 WBC Auto (Bld) Ordered By: Endy Abreu on 05-30-2023 Basophils/100 WBC (Bld) 1.1 % . [facility] Bilirubin Test strip Ql (U)O rdered By: Endy Emersonrow on 05-30-2023 Bilirubin Ql (U) Negative Negative [facility] Bilirubin.total [Mass/volume ] in Serum or PlasmaOrdered By: Endy Abreu on 05-30-2023 Bilirubin [Mass/Vol] 0.5 mg/dL 0.3-1.0 [facility] Calcium [Mass/volume] in Ser um or PlasmaOrdered By: Endy Abreu on 05-30-2023 Calcium [Mass/Vol] 10.0 mg/dL 8.6-10.3 [facility] Carbon dioxide, total [Moles /volume] in Serum or PlasmaOrdered By: Endy Abreu on 05-30-2023 CO2 [Moles/Vol] 26.9 mmol/L 21.0-31.0 [facility] Chloride [Moles/volume] in S mary ellen or PlasmaOrdered By: Endy Abreu on 05-30-2023 Chloride [Moles/Vol] 98 mmol/L 98-107 [facility] Color Auto (U)Ordered By: Ngoc Abreu on 05-30-2023 Color (U) Yellow Yellow [facility] Complement C3on 05-30-2023 Complement C3 143 mg/dL Normal 82-167 [facility] Comment on above: Result Comment: Perf ormed at: CB - [facility] [address] [id number] Manual Control Auger Press Operator: Marvel Barahona PhD, Phone: [phone] Performed By: #### C MP, ESR, CBC, ADDONUAPLUS #### [place] [address] [place] #### CH50, C3, C4 #### [facility] , Complement C4on 05-30-2023 Complement C4 29 mg/dL Normal 12-38 [facility] Comment on above: Result Comment: PERF ORMED BY: [place] [address] PATHOLOGIST [employer] SUPERVISOR ALTHEA BARRAGAN M.D. Performed By: #### C MP, ESR, CBC, ADDONUAPLUS #### [address] #### CH50, C3, C4 #### [facility] , Complement Total (CH50)on Complement Total (CH50) >60 Normal >41 [facility] Comment on above: Result Comment: Age Male [...] determine out of range values. Performed at: [facility] [address] [id number] Manual Control [employer] Press Operator: Marvel Barahona PhD, Phone: [phone] PERFORMED BY: [place] [address] PATHOLOGIST [employer] SUPERVISOR ALTHEA BARRAGAN M.D. Performed By: #### C MP, ESR, CBC, ADDONUAPLUS #### [address] #### CH50, C3, C4 #### [facility] , Complete Blood Count Auto Di ffon 05-30-2023 Basophils (Bld) [#/Vol] 0.1 10*3/uL Normal 0.0-0.2 [facility] Comment on above: Performed By: #### C MP, ESR, CBC, ADDONUAPLUS #### [address] #### CH50, C3, C4 #### [facility] , Basophils/100 WBC (Bld) 1.1 % Normal . [facility] Comment on above: Performed By: #### C MP, ESR, CBC, ADDONUAPLUS #### [address] [address] [place] #### CH50, C3, C4 #### [facility] , Eosinophils (Bld) [#/Vol] 0.0 10*3/uL Normal 0.0-0.45 [facility] Comment on above: Performed By: #### C MP, ESR, CBC, ADDONUAPLUS #### [address] #### CH50, C3, C4 #### [facility] , Eosinophils/100 WBC (Bld) 0.6 % Normal . [facility] Comment on above: Performed By: #### C MP, ESR, CBC, ADDONUAPLUS #### [address] #### CH50, C3, C4 #### [facility] , Erythrocyte distribution width (RBC) [Ratio] 13.8 % Normal 11.9-15.3 [facility] Comment on above: Performed By: #### C MP, ESR, CBC, ADDONUAPLUS #### [address] #### CH50, C3, C4 #### [facility] , Hematocrit (Bld) [Volume fraction] 36.4 % Normal 34.0-46.4 [facility] Comment on above: Performed By: #### C MP, ESR, CBC, ADDONUAPLUS #### [place] [address] [place] #### CH50, C3, C4 #### [facility] , Hemoglobin (Bld) [Mass/Vol] 12.3 g/dL Normal 11.8-15.4 [facility] Comment on above: Performed By: #### C MP, ESR, CBC, ADDONUAPLUS #### [place] [address] [place] #### CH50, C3, C4 #### [facility] , Lymphocytes (Bld) [#/Vol] 2.4 10*3/uL Normal 1.00-4.8 [facility] Comment on above: Performed By: #### C MP, ESR, CBC, ADDONUAPLUS #### [address] #### CH50, C3, C4 #### [facility] , Lymphocytes/100 WBC (Bld) 29.2 % Normal . [facility] Comment on above: Performed By: #### C MP, ESR, CBC, ADDONUAPLUS #### [address] #### CH50, C3, C4 #### [facility] , MCH (RBC) [Entitic mass] 31.0 pg Normal 24.7-34.3 [facility] Comment on above: Performed By: #### C MP, ESR, CBC, ADDONUAPLUS #### [address] #### CH50, C3, C4 #### [facility] , MCV (RBC) [Entitic vol] 91.5 fL Normal 80-100 [facility] Comment on above: Performed By: #### C MP, ESR, CBC, ADDONUAPLUS #### [address] #### CH50, C3, C4 #### [facility] , Mean Corpuscular HGB Conc 33.8 g/dL Normal 32.0-35.0 [facility] Comment on above: Performed By: #### C MP, ESR, CBC, ADDONUAPLUS #### [place] [address] [place] #### CH50, C3, C4 #### [facility] , Monocytes (Bld) [#/Vol] 0.5 10*3/uL Normal 0.0-0.8 [facility] Comment on above: Performed By: #### C MP, ESR, CBC, ADDONUAPLUS #### [facility] [address] [place] [address] [place] #### CH50, C3, C4 #### [facility] , Monocytes/100 WBC (Bld) 6.2 % Normal . [facility] Comment on above: Performed By: #### C MP, ESR, CBC, ADDONUAPLUS #### [facility] [address] [place] [address] [place] #### CH50, C3, C4 #### [facility] , Neutrophils (Bld) [#/Vol] 5.1 10*3/uL Normal 1.8-7.7 [facility] Comment on above: Performed By: #### C MP, ESR, CBC, ADDONUAPLUS #### [address] #### CH50, C3, C4 #### [facility] , Neutrophils/100 WBC (Bld) 62.9 % Normal . [facility] Comment on above: Performed By: #### C MP, ESR, CBC, ADDONUAPLUS #### [facility] [address] [place] [address] [place] #### CH50, C3, C4 #### [facility] , NRBC% 0.0 /100{WBC} Normal 0-0.5 [facility] Comment on above: Performed By: #### C MP, ESR, CBC, ADDONUAPLUS #### [place] [address] [place] #### CH50, C3, C4 #### [facility] , Platelet mean volume (Bld) [Entitic vol] 7.4 fL Normal 6.3-10.7 [facility] Comment on above: Performed By: #### C MP, ESR, CBC, ADDONUAPLUS #### [place] [address] [place] #### CH50, C3, C4 #### [facility] , Platelets (Bld) [#/Vol] 461 10*3/uL High 150-450 [facility] Comment on above: Performed By: #### C MP, ESR, CBC, ADDONUAPLUS #### [facility] [address] [place] [address] #### CH50, C3, C4 #### [facility] , RBC (Bld) [#/Vol] 3.97 10*6/uL Normal 3.60-5.00 [facility] Comment on above: Performed By: #### C MP, ESR, CBC, ADDONUAPLUS #### [facility] [address] [place] [address] [place] #### CH50, C3, C4 #### [facility] , WBC (Bld) [#/Vol] 8.1 10*3/uL Normal 3.8-11.6 [facility] Comment on above: Performed By: #### C MP, ESR, CBC, ADDONUAPLUS #### [facility] [address] [place] [address] #### CH50, C3, C4 #### [facility] , Comprehensive Metabolic Pane chema 05-30-2023 Albumin [Mass/Vol] 4.2 g/dL Normal 3.5-5.7 [facility] Comment on above: Performed By: #### C MP, ESR, CBC, ADDONUAPLUS #### [facility] [address] [place] [address] [place] #### CH50, C3, C4 #### [facility] , Albumin/Globulin [Mass ratio] 1.8 {ratio} Normal [facility] Comment on above: Performed By: #### C MP, ESR, CBC, ADDONUAPLUS #### [facility] [address] [place] [address] [place] #### CH50, C3, C4 #### [facility] , ALP [Catalytic activity/Vol] 109 U/L High 34-104 [facility] Comment on above: Result Comment: PERF ORMED BY: [place] [address] PATHOLOGIST [employer] SUPER[employer] ALTHEA BARRAGAN M.D. Performed By: #### C MP, ESR, CBC, ADDONUAPLUS #### [address] #### CH50, C3, C4 #### [facility] , ALT [Catalytic activity/Vol] 16 U/L Normal 7-52 [facility] Comment on above: Performed By: #### C MP, ESR, CBC, ADDONUAPLUS #### [address] #### CH50, C3, C4 #### [facility] , Anion gap [Moles/Vol] 12.2 mmol/L Normal 6.0-15.0 [facility] Comment on above: Performed By: #### C MP, ESR, CBC, ADDONUAPLUS #### [facility] [address] [place] [address] #### CH50, C3, C4 #### [facility] , AST [Catalytic activity/Vol] 22 U/L Normal 13-39 [facility] Comment on above: Performed By: #### C MP, ESR, CBC, ADDONUAPLUS #### [facility] [address] [place] [address] [place] #### CH50, C3, C4 #### [facility] , Bilirubin [Mass/Vol] 0.5 mg/dL Normal 0.3-1.0 [facility] Comment on above: Performed By: #### C MP, ESR, CBC, ADDONUAPLUS #### [facility] [address] [place] [address] [place] #### CH50, C3, C4 #### [facility] , Calcium [Mass/Vol] 10.0 mg/dL Normal 8.6-10.3 [facility] Comment on above: Performed By: #### C MP, ESR, CBC, ADDONUAPLUS #### [facility] [address] [place] [address] [place] #### CH50, C3, C4 #### [facility] , Chloride [Moles/Vol] 98 mmol/L Normal 98-107 [facility] Comment on above: Performed By: #### C MP, ESR, CBC, ADDONUAPLUS #### [place] [address] [place] #### CH50, C3, C4 #### [facility] , CO2 [Moles/Vol] 26.9 mmol/L Normal 21.0-31.0 [facility] Comment on above: Performed By: #### C MP, ESR, CBC, ADDONUAPLUS #### [facility] [address] [place] [address] [place] #### CH50, C3, C4 #### [facility] , Creatinine [Mass/Vol] 0.86 mg/dL Normal 0.60-1.20 [facility] Comment on above: Performed By: #### C MP, ESR, CBC, ADDONUAPLUS #### [place] [address] [place] #### CH50, C3, C4 #### [facility] , GFR/1.73 sq M.predicted MDRD (S/P/Bld) [Vol rate/Area] mL/min/{1.73_m2} Normal [facility] Comment on above: Performed By: #### C MP, ESR, CBC, ADDONUAPLUS #### [facility] [address] [place] [address] [place] #### CH50, C3, C4 #### [facility] , Globulin (S) [Mass/Vol] 2.4 g/dL Normal [facility] Comment on above: Performed By: #### C MP, ESR, CBC, ADDONUAPLUS #### [facility] [address] [place] [address] #### CH50, C3, C4 #### [facility] , Glucose [Mass/Vol] 123 mg/dL High 70-100 [facility] Comment on above: Result Comment: [place] Glucose Reference Range is dependent on time and content of last meal. Glucose of more than 200 mg/dL in a nonstressed, ambulatory subject supports the diagnosis of Diabetes Mellitus. ADA recommended reference range Performed By: #### C MP, ESR, CBC, ADDONUAPLUS #### [place] [address] [place] #### CH50, C3, C4 #### [facility] , Potassium [Moles/Vol] 4.1 mmol/L Normal 3.5-5.1 [facility] Comment on above: Performed By: #### C MP, ESR, CBC, ADDONUAPLUS #### [place] [address] [place] #### CH50, C3, C4 #### [facility] , Protein [Mass/Vol] 6.6 g/dL Normal 6.4-8.9 [facility] Comment on above: Performed By: #### C MP, ESR, CBC, ADDONUAPLUS #### [place] [address] [place] #### CH50, C3, C4 #### [facility] , Sodium [Moles/Vol] 133 mmol/L Low 136-145 [facility] Comment on above: Performed By: #### C MP, ESR, CBC, ADDONUAPLUS #### [place] [address] [place] #### CH50, C3, C4 #### [facility] , Urea nitrogen [Mass/Vol] 20 mg/dL Normal 7-25 [facility] Comment on above: Performed By: #### C MP, ESR, CBC, ADDONUAPLUS #### [facility] [address] [place] [address] #### CH50, C3, C4 #### [facility] , Creatinine [Mass/volume] in Serum or PlasmaOrdered By: Endy Abreu on 05-30-2023 Creatinine [Mass/Vol] 0.86 mg/dL 0.60-1.20 [facility] Dipstick and Microscopicon 0 05-30-2023 Appearance (U) Clear Normal Clear [facility] Comment on above: Order Comment: Name Collection Type:: Clean-Voided Midstream Performed By: #### C MP, ESR, CBC, ADDONUAPLUS #### [facility] [address] [place] [address] #### CH50, C3, C4 #### [facility] , Bacteria,Urine None Seen Normal None Seen [facility] Comment on above: Order Comment: Name Collection Type:: Clean-Voided Midstream Performed By: #### C MP, ESR, CBC, ADDONUAPLUS #### [facility] [address] [place] [address] #### CH50, C3, C4 #### [facility] , Bilirubin,Urine Negative Normal Negative [facility] Comment on above: Order Comment: Name Collection Type:: Clean-Voided Midstream Performed By: #### C MP, ESR, CBC, ADDONUAPLUS #### [facility] [address] [place] [address] #### CH50, C3, C4 #### [facility] , Color (U) Yellow Normal Yellow [facility] Comment on above: Order Comment: Name Collection Type:: Clean-Voided Midstream Performed By: #### C MP, ESR, CBC, ADDONUAPLUS #### [facility] [address] [place] [address] #### CH50, C3, C4 #### [facility] , Glucose Ql (U) Normal Normal Normal [facility] Comment on above: Order Comment: Name Collection Type:: Clean-Voided Midstream Performed By: #### C MP, ESR, CBC, ADDONUAPLUS #### [facility] [address] [place] [address] #### CH50, C3, C4 #### [facility] , Hyaline Casts,Urine None Seen Normal 0-8 [facility] Comment on above: Order Comment: Name Collection Type:: Clean-Voided Midstream Result Comment: PERF ORMED BY: [place] [address] PATHOLOGIST [employer] SUPERVISOR ALTHEA BARRAGAN M.D. Performed By: #### C MP, ESR, CBC, ADDONUAPLUS #### [address] #### CH50, C3, C4 #### [facility] , Ketones Ql (U) Negative Normal Negative [facility] Comment on above: Order Comment: Name Collection Type:: Clean-Voided Midstream Performed By: #### C MP, ESR, CBC, ADDONUAPLUS #### [facility] [address] [place] [address] #### CH50, C3, C4 #### [facility] , Leukocyte esterase Test strip Ql (U) Negative Normal Negative [facility] Comment on above: Order Comment: Name Collection Type:: Clean-Voided Midstream Performed By: #### C MP, ESR, CBC, ADDONUAPLUS #### [address] #### CH50, C3, C4 #### [facility] , Nitrite,Urine Negative Normal Negative [facility] Comment on above: Order Comment: Name Collection Type:: Clean-Voided Midstream Performed By: #### C MP, ESR, CBC, ADDONUAPLUS #### [address] #### CH50, C3, C4 #### [facility] , Occult Blood,Urine Negative Normal Negative [facility] Comment on above: Order Comment: Name Collection Type:: Clean-Voided Midstream Performed By: #### C MP, ESR, CBC, ADDONUAPLUS #### [address] #### CH50, C3, C4 #### [facility] , pH (U) 6.5 [pH] Normal 5.0-9.0 [facility] Comment on above: Order Comment: Name Collection Type:: Clean-Voided Midstream Performed By: #### C MP, ESR, CBC, ADDONUAPLUS #### [address] #### CH50, C3, C4 #### [facility] , Protein,Urine Negative Normal Negative [facility] Comment on above: Order Comment: Name Collection Type:: Clean-Voided Midstream Performed By: #### C MP, ESR, CBC, ADDONUAPLUS #### [address] #### CH50, C3, C4 #### [facility] , RBC LM.HPF (Urine sed) [#/Area] 0 /[HPF] Normal 0-4 [facility] Comment on above: Order Comment: Name Collection Type:: Clean-Voided Midstream Performed By: #### C MP, ESR, CBC, ADDONUAPLUS #### [address] #### CH50, C3, C4 #### [facility] , Specificy [place],Urine 1.011 Normal 1.001-1.030 [facility] Comment on above: Order Comment: Name Collection Type:: Clean-Voided Midstream Performed By: #### C MP, ESR, CBC, ADDONUAPLUS #### [place] [address] [place] #### CH50, C3, C4 #### [facility] , Squamous Epithelial Cell,Urine None Seen Normal 0-2 [facility] Comment on above: Order Comment: Name Collection Type:: Clean-Voided Midstream Performed By: #### C MP, ESR, CBC, ADDONUAPLUS #### [facility] [address] [place] [address] #### CH50, C3, C4 #### [facility] , Urobilinogen,Urine Normal Normal Normal [facility] Comment on above: Order Comment: Name Collection Type:: Clean-Voided Midstream Performed By: #### C MP, ESR, CBC, ADDONUAPLUS #### [facility] [address] [place] [address] #### CH50, C3, C4 #### [facility] , WBC LM.HPF (Urine sed) [#/Area] 0 /[HPF] Normal 0-4 [facility] Comment on above: Order Comment: Name Collection Type:: Clean-Voided Midstream Performed By: #### C MP, ESR, CBC, ADDONUAPLUS #### [facility] [address] [place] [address] #### CH50, C3, C4 #### [facility] , Eosinophils Auto (Bld) [#/Vo l]Ordered By: Endy Abreu on 05-30-2023 Eosinophils (Bld) [#/Vol] 0.0 10*3/uL 0.0-0.45 [facility] Eosinophils/100 WBC Auto (Bl d)Ordered By: Endy Abreu on 05-30-2023 Eosinophils/100 WBC (Bld) 0.6 % . [facility] Erythrocyte Sedimentation Ra sid 05-30-2023 ESR (Bld) [Velocity] 16 mm/h Normal 0-29 [facility] Comment on above: Result Comment: PERF ORMED BY: [place] [address] PATHOLOGIST [employer] SUPERVIS[employer] ALTHEA BARRAGAN M.D. Performed By: #### C MP, ESR, CBC, ADDONUAPLUS #### [facility] [address] #### CH50, C3, C4 #### [facility] , Erythrocyte distribution wid th Auto (RBC) [Ratio]Ordered By: Endy Abreu on 05-30-2023 Erythrocyte distribution width (RBC) [Ratio] 13.8 % 11.9-15.3 [facility] Erythrocyte sedimentation ra te by Photometric methodOrdered By: Endy Abreu on 05-30-2023 ESR Photometric method (Bld) [Velocity] 16 mm/hr 0-29 [facility] Globulin Calc (S) [Mass/Vol] Ordered By: Endy Abreu on 05-30-2023 Globulin (S) [Mass/Vol] 2.4 g/dL [facility] Glucose [Mass/volume] in Ser um or PlasmaOrdered By: Endy Abreu on 05-30-2023 Glucose [Mass/Vol] 123 mg/dL 70-100 [facility] Comment on above: ADA recommended refe rence rangeRandom Glucose Reference Range is dependent on time and content of last meal. Glucose of more than 200 mg/dL in a nonstressed, ambulatory subject supports the diagnosis of Diabetes Mellitus. Hematocrit Auto (Bld) [Volum e fraction]Ordered By: Endy Abreu on 05-30-2023 Hematocrit (Bld) [Volume fraction] 36.4 % 34.0-46.4 [facility] Hemoglobin [Mass/volume] in BloodOrdered By: Endy Abreu on 05-30-2023 Hemoglobin (Bld) [Mass/Vol] 12.3 g/dL 11.8-15.4 [facility] Ketones Auto test strip (U) [Mass/Vol]Ordered By: Endy Abreu on 05-30-2023 Ketones (U) [Mass/Vol] Negative Negative [facility] - UrinalysisOrder ed By: Endy Abreu on 05-30-2023 Hyaline casts LM Ql (Urine sed) None seen [LPF] 0-8 [facility] Leukocytes [#/volume] correc leonor for nucleated erythrocytes in Blood by Automated counOrdered By: Endy Abreu on 05-30-2023 WBC corrected for nucl RBC Auto (Bld) [#/Vol] 8.1 10*3/uL 3.8-11.6 [facility] Lymphocytes Auto (Bld) [#/Vo l]Ordered By: Endy Abreu on 05-30-2023 Lymphocytes (Bld) [#/Vol] 2.4 10*3/uL 1.00-4.8 [facility] Lymphocytes/100 WBC Auto (Bl d)Ordered By: Endy Abreu on 05-30-2023 Lymphocytes/100 WBC (Bld) 29.2 % . [facility] MCH Auto (RBC) [Entitic mass ]Ordered By: Endy Abreu on 05-30-2023 MCH (RBC) [Entitic mass] 31.0 pg 24.7-34.3 [facility] MCHC Auto (RBC) [Mass/Vol]Or dered By: Endy Abreu on 05-30-2023 MCHC (RBC) [Mass/Vol] 33.8 g/dL 32.0-35.0 [facility] MCV Auto (RBC) [Entitic vol] Ordered By: Endy Abreu on 05-30-2023 MCV (RBC) [Entitic vol] 91.5 fL 80-100 [facility] Monocytes Auto (Bld) [#/Vol] Ordered By: Endy Abreu on 05-30-2023 Monocytes (Bld) [#/Vol] 0.5 10*3/uL 0.0-0.8 [facility] Monocytes/100 WBC Auto (Bld) Ordered By: Endy Abreu on 05-30-2023 Monocytes/100 WBC (Bld) 6.2 % . [facility] Neutrophils Auto (Bld) [#/Vo l]Ordered By: Endy Abreu on 05-30-2023 Neutrophils (Bld) [#/Vol] 5.1 10*3/uL 1.8-7.7 [facility] Neutrophils/100 WBC Auto (Bl d)Ordered By: Endy Abreu on 05-30-2023 Neutrophils/100 WBC (Bld) 62.9 % . [facility] Nitrite Test strip Ql (U)Ord ered By: Endy Abreu on 05-30-2023 Nitrite Ql (U) Negative Negative [facility] No Panel InformationOrdered By: Endy Abreu on 05-30-2023 Estimated GFR (CKD-EPI) > 60.0 mL/Min [facility] Creatinine Clearance (Chem N/A [facility] Nucleated erythrocytes [Pres ence] in Blood by Automated countOrdered By: Endy Abreu on 05-30-2023 Nucleated RBC Auto Ql (Bld) 0.0 /100{WBC} 0-0.5 [facility] Platelet mean volume Auto (B ld) [Entitic vol]Ordered By: Endy Abreu on 05-30-2023 Platelet mean volume (Bld) [Entitic vol] 7.4 fL 6.3-10.7 [facility] Platelets Auto (Bld) [#/Vol] Ordered By: Endy Abreu on 05-30-2023 Platelets (Bld) [#/Vol] 461 10*3/uL 150-450 [facility] Potassium [Moles/volume] in Serum or PlasmaOrdered By: Endy Abreu on 05-30-2023 Potassium [Moles/Vol] 4.1 mmol/L 3.5-5.1 [facility] Protein Auto test strip (U) [Mass/Vol]Ordered By: Endy Abreu on 05-30-2023 Protein (U) [Mass/Vol] Negative Negative [facility] Protein [Mass/volume] in Ser um or PlasmaOrdered By: Endy Abreu on 05-30-2023 Protein [Mass/Vol] 6.6 g/dL 6.4-8.9 [facility] RBC Auto (Bld) [#/Vol]Ordere d By: Endy Abreu on 05-30-2023 RBC (Bld) [#/Vol] 3.97 10*6/uL 3.60-5.00 [facility] Serum or plasma albumin/glob ulin mass ratioOrdered By: Endy Abreu on 05-30-2023 Albumin/Globulin [Mass ratio] 1.8 {ratio} [facility] Serum or plasma anion gap de terminationOrdered By: Endy Abreu on 05-30-2023 Anion gap [Moles/Vol] 12.2 mmol/L 6.0-15.0 [facility] Sodium [Moles/volume] in Ser um or PlasmaOrdered By: Endy Abreu on 05-30-2023 Sodium [Moles/Vol] 133 mmol/L 136-145 [facility] Specific gravity Auto test s trip (U) [Rel density]Ordered By: Endy Abreu on 05-30-2023 Specific gravity (U) [Rel density] 1.011 1.001-1.030 [facility] Squamous epithelial cells de tection in urine sediment by light microscopyOrdered By: Endy Abreu on 05-30-2023 Epithelial cells.squamous LM Ql (Urine sed) None seen [HPF] 0-2 [facility] Urea nitrogen [Mass/volume] in Serum or PlasmaOrdered By: Endy Abreu on 05-30-2023 Urea nitrogen [Mass/Vol] 20 mg/dL 7-25 [facility] Urine bacteria detection by automated methodOrdered By: Endy Abreu on 05-30-2023 Bacteria Auto Ql (U) None seen None Seen [facility] Urine clarity by refractomet ry automatedOrdered By: Endy Abreu on 05-30-2023 Clarity Refractometry automated (U) Clear Clear [facility] Urine glucose measurement by automated test strip (mass/volume)Ordered By: Endy Abreu on 05-30-2023 Glucose Auto test strip (U) [Mass/Vol] Normal mg/dL Normal [facility] Urine hemoglobin detection b y automated test stripOrdered By: Endy Abreu on 05-30-2023 Hemoglobin Auto test strip Ql (U) Negative Negative [facility] Urine leukocyte esterase det ection by automated test stripOrdered By: Endy Abreu on 05-30-2023 Leukocyte esterase Auto test strip Ql (U) Negative Negative [facility] Urobilinogen Auto test strip (U) [Mass/Vol]Ordered By: Endy Abreu on 05-30-2023 Urobilinogen (U) [Mass/Vol] Normal mg/dL Normal [facility] WBC Auto (Bld) [#/Vol]Ordere d By: Endy Abreu on 05-30-2023 WBC (Bld) [#/Vol] 8.1 10*3/uL 3.8-11.6 [facility] pH Auto test strip (U)Ordere d By: Endy Abreu on 05-30-2023 pH (U) 6.5 [pH] 5.0-9.0 [facility] BI MAMMOGRAM SCREENING TOMOS YNTHESIS BILATERALon 05-02-2023 [...] IS VERY IMPORTANT TO YOUR HEALTH. THE [employer] GUIDELINES RECOMMEND THAT WOMEN 40 [...] 01-18-2023 ALT [Catalytic activity/Vol] 25 U/L 7-52 [facility] Albumin [Mass/volume] in Ser um or Plasma by Bromocresol green (BCG) dye binding methoOrdered By: Endy Abreu on 01-18-2023 Albumin BCG dye [Mass/Vol] 4.0 g/dL 3.5-5.7 [facility] Alkaline phosphatase [Enzyma tic activity/volume] in Serum or PlasmaOrdered By: Endy Abreu on 01-18-2023 ALP [Catalytic activity/Vol] 100 U/L 34-104 [facility] Aspartate aminotransferase [ Enzymatic activity/volume] in Serum or PlasmaOrdered By: Endy Abreu on 01-18-2023 AST [Catalytic activity/Vol] 29 U/L 13-39 [facility] Automated erythrocytes count in urine sediment (number/area)Ordered By: Endy Abreu on 01-18-2023 RBC Auto (Urine sed) [#/Area] 3-4 [HPF] 0-4 [facility] Automated leukocytes count i n urine sediment (number/area)Ordered By: Endy Abreu on 01-18-2023 WBC Auto (Urine sed) [#/Area] 10-19 [HPF] 0-4 [facility] Basophils Auto (Bld) [#/Vol] Ordered By: Endy Abreu on 01-18-2023 Basophils (Bld) [#/Vol] 0.1 10*3/uL 0.0-0.2 [facility] Basophils/100 WBC Auto (Bld) Ordered By: Endy Abreu on 01-18-2023 Basophils/100 WBC (Bld) 1.3 % . [facility] Bilirubin Test strip Ql (U)O rdered By: Endy Abreu on 01-18-2023 Bilirubin Ql (U) Negative Negative [facility] Bilirubin.total [Mass/volume ] in Serum or PlasmaOrdered By: Endy Abreu on 01-18-2023 Bilirubin [Mass/Vol] 0.4 mg/dL 0.3-1.0 [facility] Calcium [Mass/volume] in Ser um or PlasmaOrdered By: Endy Abreu on 01-18-2023 Calcium [Mass/Vol] 9.9 mg/dL 8.6-10.3 [facility] Carbon dioxide, total [Moles /volume] in Serum or PlasmaOrdered By: Endy Abreu on 01-18-2023 CO2 [Moles/Vol] 30.4 mmol/L 21.0-31.0 [facility] Chloride [Moles/volume] in S mary ellen or PlasmaOrdered By: Endy Abreu on 01-18-2023 Chloride [Moles/Vol] 101 mmol/L 98-107 [facility] Color Auto (U)Ordered By: Ngoc Abreu on 01-18-2023 Color (U) Yellow Yellow [facility] Complement C3on 01-18-2023 Complement C3 160 mg/dL Normal 82-167 [facility] Comment on above: Result Comment: Perf ormed at: - [facility] [id number] Manual [employer] Operator: Marvel Barahona PhD, Phone: [phone] Performed By: #### C MP, ESR, CBC, ADDONUAPLUS #### [address] #### CH50, C3, C4 #### [facility] , Complement C4on 01-18-2023 Complement C4 32 mg/dL Normal 12-38 [facility] Comment on above: Result Comment: PERF ORMED BY: [place] [address] PATHOLOGIST [employer] SUPERVISOR ALTHEA BARRAGAN M.D. Performed By: #### C MP, ESR, CBC, ADDONUAPLUS #### [address] #### CH50, C3, C4 #### [facility] , Complement Total (CH50)on Complement Total (CH50) >60 Normal >41 [facility] Comment on above: Result Comment: Age Male [...] determine out of range values. Performed at: [facility] [id number] Manual [employer] Operator: Marvel Barahona PhD, Phone: [phone] PERFORMED BY: [place] [address] PATHOLOGIST [employer] SUPER[employer] ALTHEA BARRAGAN M.D. Performed By: #### C MP, ESR, CBC, ADDONUAPLUS #### [address] #### CH50, C3, C4 #### [facility] , Complete Blood Count Auto Di ffon 01-18-2023 Basophils (Bld) [#/Vol] 0.1 10*3/uL Normal 0.0-0.2 [facility] Comment on above: Performed By: #### E SR, CBC, ADDONUAPLUS, CUU, CMP #### [address] #### CH50, C3, C4 #### [facility] , Basophils/100 WBC (Bld) 1.3 % Normal . [facility] Comment on above: Performed By: #### E SR, CBC, ADDONUAPLUS, CUU, CMP #### [address] #### CH50, C3, C4 #### [facility] , Eosinophils (Bld) [#/Vol] 0.1 10*3/uL Normal 0.0-0.45 [facility] Comment on above: Performed By: #### E SR, CBC, ADDONUAPLUS, CUU, CMP #### [place] [address] [place] #### CH50, C3, C4 #### [facility] , Eosinophils/100 WBC (Bld) 2.1 % Normal . [facility] Comment on above: Performed By: #### E SR, CBC, ADDONUAPLUS, CUU, CMP #### [place] [address] [place] #### CH50, C3, C4 #### [facility] , Erythrocyte distribution width (RBC) [Ratio] 13.2 % Normal 11.9-15.3 [facility] Comment on above: Performed By: #### E SR, CBC, ADDONUAPLUS, CUU, CMP #### [place] [address] [place] #### CH50, C3, C4 #### [facility] , Hematocrit (Bld) [Volume fraction] 37.1 % Normal 34.0-46.4 [facility] Comment on above: Performed By: #### E SR, CBC, ADDONUAPLUS, CUU, CMP #### [address] #### CH50, C3, C4 #### [facility] , Hemoglobin (Bld) [Mass/Vol] 12.4 g/dL Normal 11.8-15.4 [facility] Comment on above: Performed By: #### E SR, CBC, ADDONUAPLUS, CUU, CMP #### [address] #### CH50, C3, C4 #### [facility] , Lymphocytes (Bld) [#/Vol] 1.4 10*3/uL Normal 1.00-4.8 [facility] Comment on above: Performed By: #### E SR, CBC, ADDONUAPLUS, CUU, CMP #### [facility] [address] [place] [address] [place] #### CH50, C3, C4 #### [facility] , Lymphocytes/100 WBC (Bld) 26.3 % Normal . [facility] Comment on above: Performed By: #### E SR, CBC, ADDONUAPLUS, CUU, CMP #### [place] [address] [place] #### CH50, C3, C4 #### [facility] , MCH (RBC) [Entitic mass] 31.0 pg Normal 24.7-34.3 [facility] Comment on above: Performed By: #### E SR, CBC, ADDONUAPLUS, CUU, CMP #### [place] [address] [place] #### CH50, C3, C4 #### [facility] , MCV (RBC) [Entitic vol] 92.6 fL Normal 80-100 [facility] Comment on above: Performed By: #### E SR, CBC, ADDONUAPLUS, CUU, CMP #### [address] #### CH50, C3, C4 #### [facility] , Mean Corpuscular HGB Conc 33.5 g/dL Normal 32.0-35.0 [facility] Comment on above: Performed By: #### E SR, CBC, ADDONUAPLUS, CUU, CMP #### [address] #### CH50, C3, C4 #### [facility] , Monocytes (Bld) [#/Vol] 0.4 10*3/uL Normal 0.0-0.8 [facility] Comment on above: Performed By: #### E SR, CBC, ADDONUAPLUS, CUU, CMP #### [address] #### CH50, C3, C4 #### [facility] , Monocytes/100 WBC (Bld) 8.1 % Normal . [facility] Comment on above: Performed By: #### E SR, CBC, ADDONUAPLUS, CUU, CMP #### [facility] [address] [place] [address] [place] #### CH50, C3, C4 #### [facility] , Neutrophils (Bld) [#/Vol] 3.4 10*3/uL Normal 1.8-7.7 [facility] Comment on above: Performed By: #### E SR, CBC, ADDONUAPLUS, CUU, CMP #### [facility] [address] [place] [address] [place] #### CH50, C3, C4 #### [facility] , Neutrophils/100 WBC (Bld) 62.2 % Normal . [facility] Comment on above: Performed By: #### E SR, CBC, ADDONUAPLUS, CUU, CMP #### [facility] [address] [place] [address] [place] #### CH50, C3, C4 #### [facility] , NRBC% 0.1 /100{WBC} Normal 0-0.5 [facility] Comment on above: Performed By: #### E SR, CBC, ADDONUAPLUS, CUU, CMP #### [address] #### CH50, C3, C4 #### [facility] , Platelet mean volume (Bld) [Entitic vol] 7.5 fL Normal 6.3-10.7 [facility] Comment on above: Performed By: #### E SR, CBC, ADDONUAPLUS, CUU, CMP #### [facility] [address] [place] [address] [place] #### CH50, C3, C4 #### [facility] , Platelets (Bld) [#/Vol] 377 10*3/uL Normal 150-450 [facility] Comment on above: Performed By: #### E SR, CBC, ADDONUAPLUS, CUU, CMP #### [place] [address] [place] #### CH50, C3, C4 #### [facility] , RBC (Bld) [#/Vol] 4.01 10*6/uL Normal 3.60-5.00 [facility] Comment on above: Performed By: #### E SR, CBC, ADDONUAPLUS, CUU, CMP #### [facility] [address] [place] [address] [place] #### CH50, C3, C4 #### [facility] , WBC (Bld) [#/Vol] 5.4 10*3/uL Normal 3.8-11.6 [facility] Comment on above: Performed By: #### E SR, CBC, ADDONUAPLUS, CUU, CMP #### [address] #### CH50, C3, C4 #### [facility] , Comprehensive Metabolic Pane chema 01-18-2023 Albumin [Mass/Vol] 4.0 g/dL Normal 3.5-5.7 [facility] Comment on above: Performed By: #### C MP, ESR, CBC, ADDONUAPLUS #### [address] #### CH50, C3, C4 #### [facility] , Albumin/Globulin [Mass ratio] 1.6 {ratio} Normal [facility] Comment on above: Performed By: #### C MP, ESR, CBC, ADDONUAPLUS #### [address] #### CH50, C3, C4 #### [facility] , ALP [Catalytic activity/Vol] 100 U/L Normal 34-104 [facility] Comment on above: Result Comment: PERF ORMED BY: [place] [address] PATHOLOGIST [employer]PER[employer] ALTHEA BARRAGAN M.D. Performed By: #### C MP, ESR, CBC, ADDONUAPLUS #### [place] [address] [place] #### CH50, C3, C4 #### [facility] , ALT [Catalytic activity/Vol] 25 U/L Normal 7-52 [facility] Comment on above: Performed By: #### C MP, ESR, CBC, ADDONUAPLUS #### [facility] [address] [place] [address] [place] #### CH50, C3, C4 #### [facility] , Anion gap [Moles/Vol] 9.5 mmol/L Normal 6.0-15.0 [facility] Comment on above: Performed By: #### C MP, ESR, CBC, ADDONUAPLUS #### [facility] [address] [place] [address] [place] #### CH50, C3, C4 #### [facility] , AST [Catalytic activity/Vol] 29 U/L Normal 13-39 [facility] Comment on above: Performed By: #### C MP, ESR, CBC, ADDONUAPLUS #### [address] #### CH50, C3, C4 #### [facility] , Bilirubin [Mass/Vol] 0.4 mg/dL Normal 0.3-1.0 [facility] Comment on above: Performed By: #### C MP, ESR, CBC, ADDONUAPLUS #### [address] #### CH50, C3, C4 #### [facility] , Calcium [Mass/Vol] 9.9 mg/dL Normal 8.6-10.3 [facility] Comment on above: Performed By: #### C MP, ESR, CBC, ADDONUAPLUS #### [place] [address] [place] #### CH50, C3, C4 #### [facility] , Chloride [Moles/Vol] 101 mmol/L Normal 98-107 [facility] Comment on above: Performed By: #### C MP, ESR, CBC, ADDONUAPLUS #### [place] [address] [place] #### CH50, C3, C4 #### [facility] , CO2 [Moles/Vol] 30.4 mmol/L Normal 21.0-31.0 [facility] Comment on above: Performed By: #### C MP, ESR, CBC, ADDONUAPLUS #### [place] [address] [place] #### CH50, C3, C4 #### [facility] , Creatinine [Mass/Vol] 0.83 mg/dL Normal 0.60-1.20 [facility] Comment on above: Performed By: #### C MP, ESR, CBC, ADDONUAPLUS #### [address] #### CH50, C3, C4 #### [facility] , GFR/1.73 sq M.predicted MDRD (S/P/Bld) [Vol rate/Area] mL/min/{1.73_m2} [facility] Comment on above: Performed By: #### C MP, ESR, CBC, ADDONUAPLUS #### [address] #### CH50, C3, C4 #### [facility] , Globulin (S) [Mass/Vol] 2.5 g/dL Normal [facility] Comment on above: Performed By: #### C MP, ESR, CBC, ADDONUAPLUS #### [place] [address] [place] #### CH50, C3, C4 #### [facility] , Glucose [Mass/Vol] 94 mg/dL Normal 70-100 [facility] Comment on above: Result Comment: [place] om Glucose Reference Range is dependent on time and content of last meal. Glucose of more than 200 mg/dL in a nonstressed, ambulatory subject supports the diagnosis of Diabetes Mellitus. ADA recommended reference range Performed By: #### C MP, ESR, CBC, ADDONUAPLUS #### [place] [address] [place] #### CH50, C3, C4 #### [facility] , Potassium [Moles/Vol] 4.9 mmol/L Normal 3.5-5.1 [facility] Comment on above: Performed By: #### C MP, ESR, CBC, ADDONUAPLUS #### [place] [address] [place] #### CH50, C3, C4 #### [facility] , Protein [Mass/Vol] 6.5 g/dL Normal 6.4-8.9 [facility] Comment on above: Performed By: #### C MP, ESR, CBC, ADDONUAPLUS #### [facility] [address] [place] [address] [place] #### CH50, C3, C4 #### [facility] , Sodium [Moles/Vol] 136 mmol/L Normal 136-145 [facility] Comment on above: Performed By: #### C MP, ESR, CBC, ADDONUAPLUS #### [place] [address] [place] #### CH50, C3, C4 #### [facility] , Urea nitrogen [Mass/Vol] 22 mg/dL Normal 7-25 [facility] Comment on above: Performed By: #### C MP, ESR, CBC, ADDONUAPLUS #### [facility] [address] [place] [address] [place] #### CH50, C3, C4 #### [facility] , Creatinine [Mass/volume] in Serum or PlasmaOrdered By: Endy Abreu on 01-18-2023 Creatinine [Mass/Vol] 0.83 mg/dL 0.60-1.20 [facility] Dipstick and Microscopicon 0 01-18-2023 Appearance (U) Clear Normal Clear [facility] Comment on above: Order Comment: Name Collection Type:: Clean-Voided Midstream Performed By: #### E SR, CBC, ADDONUAPLUS, CUU, CMP #### [address] [place] [address] [place] #### CH50, C3, C4 #### [facility] , Bacteria,Urine 1+ High None Seen [facility] Comment on above: Order Comment: Name Collection Type:: Clean-Voided Midstream Performed By: #### E SR, CBC, ADDONUAPLUS, CUU, CMP #### [facility] [address] [place] [address] #### CH50, C3, C4 #### [facility] , Bilirubin,Urine Negative Normal Negative [facility] Comment on above: Order Comment: Name Collection Type:: Clean-Voided Midstream Performed By: #### E SR, CBC, ADDONUAPLUS, CUU, CMP #### [facility] [address] [place] [address] #### CH50, C3, C4 #### [facility] , Color (U) Yellow Normal Yellow [facility] Comment on above: Order Comment: Name Collection Type:: Clean-Voided Midstream Performed By: #### E SR, CBC, ADDONUAPLUS, CUU, CMP #### [facility] [address] [place] [address] #### CH50, C3, C4 #### [facility] , Glucose Ql (U) Normal Normal Normal [facility] Comment on above: Order Comment: Name Collection Type:: Clean-Voided Midstream Performed By: #### E SR, CBC, ADDONUAPLUS, CUU, CMP #### [facility] [address] [place] [address] #### CH50, C3, C4 #### [facility] , Hyaline Casts,Urine 0-8 Normal 0-8 [facility] Comment on above: Order Comment: Name Collection Type:: Clean-Voided Midstream Result Comment: PERF ORMED BY: [place] [address] PATHOLOGIST [employer] SUPER[employer] ALTHEA BARRAGAN M.D. Performed By: #### E SR, CBC, ADDONUAPLUS, CUU, CMP #### [address] #### CH50, C3, C4 #### [facility] , Ketones Ql (U) Negative Normal Negative [facility] Comment on above: Order Comment: Name Collection Type:: Clean-Voided Midstream Performed By: #### E SR, CBC, ADDONUAPLUS, CUU, CMP #### [address] #### CH50, C3, C4 #### [facility] , Leukocyte esterase Test strip Ql (U) 3+ High Negative [facility] Comment on above: Order Comment: Name Collection Type:: Clean-Voided Midstream Performed By: #### E SR, CBC, ADDONUAPLUS, CUU, CMP #### [address] #### CH50, C3, C4 #### [facility] , Nitrite,Urine Negative Normal Negative [facility] Comment on above: Order Comment: Name Collection Type:: Clean-Voided Midstream Performed By: #### E SR, CBC, ADDONUAPLUS, CUU, CMP #### [address] #### CH50, C3, C4 #### [facility] , Occult Blood,Urine Negative Normal Negative [facility] Comment on above: Order Comment: Name Collection Type:: Clean-Voided Midstream Performed By: #### E SR, CBC, ADDONUAPLUS, CUU, CMP #### [address] #### CH50, C3, C4 #### [facility] , pH (U) 6.0 [pH] Normal 5.0-9.0 [facility] Comment on above: Order Comment: Name Collection Type:: Clean-Voided Midstream Performed By: #### E SR, CBC, ADDONUAPLUS, CUU, CMP #### [facility] [address] [place] [address] #### CH50, C3, C4 #### [facility] , Protein,Urine Trace High Negative [facility] Comment on above: Order Comment: Name Collection Type:: Clean-Voided Midstream Performed By: #### E SR, CBC, ADDONUAPLUS, CUU, CMP #### [address] #### CH50, C3, C4 #### [facility] , RBC,Urine 3-4 Normal 0-4 [facility] Comment on above: Order Comment: Name Collection Type:: Clean-Voided Midstream Performed By: #### E SR, CBC, ADDONUAPLUS, CUU, CMP #### [address] #### CH50, C3, C4 #### [facility] , Specificy [place],Urine 1.023 Normal 1.001-1.030 [facility] Comment on above: Order Comment: Name Collection Type:: Clean-Voided Midstream Performed By: #### E SR, CBC, ADDONUAPLUS, CUU, CMP #### [address] #### CH50, C3, C4 #### [facility] , Squamous Epithelial Cell,Urine 3-4 High 0-2 [facility] Comment on above: Order Comment: Name Collection Type:: Clean-Voided Midstream Performed By: #### E SR, CBC, ADDONUAPLUS, CUU, CMP #### [address] #### CH50, C3, C4 #### [facility] , Urobilinogen,Urine Normal Normal Normal [facility] Comment on above: Order Comment: Name Collection Type:: Clean-Voided Midstream Performed By: #### E SR, CBC, ADDONUAPLUS, CUU, CMP #### [facility] [address] [place] [address] #### CH50, C3, C4 #### [facility] , WBC,Urine 10-19 High 0-4 [facility] Comment on above: Order Comment: Name Collection Type:: Clean-Voided Midstream Performed By: #### E SR, CBC, ADDONUAPLUS, CUU, CMP #### [facility] [address] [place] [address] #### CH50, C3, C4 #### [facility] , Eosinophils Auto (Bld) [#/Vo l]Ordered By: Endy Abreu on 01-18-2023 Eosinophils (Bld) [#/Vol] 0.1 10*3/uL 0.0-0.45 [facility] Eosinophils/100 WBC Auto (Bl d)Ordered By: Endy Abreu on 01-18-2023 Eosinophils/100 WBC (Bld) 2.1 % . [facility] Erythrocyte Sedimentation Ra sid 01-18-2023 ESR (Bld) [Velocity] 10 mm/h Normal 0-29 [facility] Comment on above: Result Comment: PERF ORMED BY: [place] [address] PATHOLOGIST [employer] SUPER[employer] ALTHEA BARRAGAN M.D. Performed By: #### E SR, CBC, ADDONUAPLUS, CUU, CMP #### [facility] [address] [place] [address] #### CH50, C3, C4 #### [facility] , Erythrocyte distribution wid th Auto (RBC) [Ratio]Ordered By: Endy Abreu on 01-18-2023 Erythrocyte distribution width (RBC) [Ratio] 13.2 % 11.9-15.3 [facility] Erythrocyte sedimentation ra te by Photometric methodOrdered By: Endy Abreu on 01-18-2023 ESR Photometric method (Bld) [Velocity] 10 mm/hr 0-29 [facility] Globulin Calc (S) [Mass/Vol] Ordered By: Endy Abreu on 01-18-2023 Globulin (S) [Mass/Vol] 2.5 g/dL [facility] Glucose [Mass/volume] in Ser um or PlasmaOrdered By: Endy Abreu on 01-18-2023 Glucose [Mass/Vol] 94 mg/dL 70-100 [facility] Comment on above: ADA recommended refe rence rangeRandom Glucose Reference Range is dependent on time and content of last meal. Glucose of more than 200 mg/dL in a nonstressed, ambulatory subject supports the diagnosis of Diabetes Mellitus. Hematocrit Auto (Bld) [Volum e fraction]Ordered By: Endy Abreu on 01-18-2023 Hematocrit (Bld) [Volume fraction] 37.1 % 34.0-46.4 [facility] Hemoglobin [Mass/volume] in BloodOrdered By: Endy Abreu on 01-18-2023 Hemoglobin (Bld) [Mass/Vol] 12.4 g/dL 11.8-15.4 [facility] Ketones Auto test strip (U) [Mass/Vol]Ordered By: Endy Abreu on 01-18-2023 Ketones (U) [Mass/Vol] Negative Negative [facility] - UrinalysisOrder ed By: Endy Abreu on 01-18-2023 Hyaline casts LM Ql (Urine sed) 0-8 [LPF] 0-8 [facility] Leukocytes [#/volume] correc leonor for nucleated erythrocytes in Blood by Automated counOrdered By: Endy Abreu on 01-18-2023 WBC corrected for nucl RBC Auto (Bld) [#/Vol] 5.4 10*3/uL 3.8-11.6 [facility] Lymphocytes Auto (Bld) [#/Vo l]Ordered By: Endy Abreu on 01-18-2023 Lymphocytes (Bld) [#/Vol] 1.4 10*3/uL 1.00-4.8 [facility] Lymphocytes/100 WBC Auto (Bl d)Ordered By: Endy Abreu on 01-18-2023 Lymphocytes/100 WBC (Bld) 26.3 % . [facility] MCH Auto (RBC) [Entitic mass ]Ordered By: Endy Abreu on 01-18-2023 MCH (RBC) [Entitic mass] 31.0 pg 24.7-34.3 [facility] MCHC Auto (RBC) [Mass/Vol]Or dered By: Endy Abreu on 01-18-2023 MCHC (RBC) [Mass/Vol] 33.5 g/dL 32.0-35.0 [facility] MCV Auto (RBC) [Entitic vol] Ordered By: Endy Abreu on 01-18-2023 MCV (RBC) [Entitic vol] 92.6 fL 80-100 F [facility] Monocytes Auto (Bld) [#/Vol] Ordered By: Endy Abreu on 01-18-2023 Monocytes (Bld) [#/Vol] 0.4 10*3/uL 0.0-0.8 [facility] Monocytes/100 WBC Auto (Bld) Ordered By: Endy Abreu on 01-18-2023 Monocytes/100 WBC (Bld) 8.1 % . [facility] Neutrophils Auto (Bld) [#/Vo l]Ordered By: Endy Abreu on 01-18-2023 Neutrophils (Bld) [#/Vol] 3.4 10*3/uL 1.8-7.7 [facility] Neutrophils/100 WBC Auto (Bl d)Ordered By: Endy Abreu on 01-18-2023 Neutrophils/100 WBC (Bld) 62.2 % . [facility] Nitrite Test strip Ql (U)Ord ered By: Endy Abreu on 01-18-2023 Nitrite Ql (U) Negative Negative [facility] No Panel InformationOrdered By: Endy Abreu on 01-18-2023 Estimated GFR (CKD-EPI) > 60.0 mL/Min [facility] Creatinine Clearance (Chem N/A [facility] Nucleated erythrocytes [Pres ence] in Blood by Automated countOrdered By: Endy Abreu on 01-18-2023 Nucleated RBC Auto Ql (Bld) 0.1 /100{WBC} 0-0.5 [facility] Platelet mean volume Auto (B ld) [Entitic vol]Ordered By: Endy Abreu on 01-18-2023 Platelet mean volume (Bld) [Entitic vol] 7.5 fL 6.3-10.7 [facility] Platelets Auto (Bld) [#/Vol] Ordered By: Endy Abreu on 01-18-2023 Platelets (Bld) [#/Vol] 377 10*3/uL 150-450 [facility] Potassium [Moles/volume] in Serum or PlasmaOrdered By: Endy Abreu on 01-18-2023 Potassium [Moles/Vol] 4.9 mmol/L 3.5-5.1 [facility] Protein Auto test strip (U) [Mass/Vol]Ordered By: Endy Abreu on 01-18-2023 Protein (U) [Mass/Vol] Trace mg/dL Negative F [facility] Protein [Mass/volume] in Ser um or PlasmaOrdered By: Endy Abreu on 01-18-2023 Protein [Mass/Vol] 6.5 g/dL 6.4-8.9 [facility] RBC Auto (Bld) [#/Vol]Ordere d By: Endy Abreu on 01-18-2023 RBC (Bld) [#/Vol] 4.01 10*6/uL 3.60-5.00 [facility] Serum or plasma albumin/glob ulin mass ratioOrdered By: Endy Abreu on 01-18-2023 Albumin/Globulin [Mass ratio] 1.6 {ratio} [facility] Serum or plasma anion gap de terminationOrdered By: Endy Abreu on 01-18-2023 Anion gap [Moles/Vol] 9.5 mmol/L 6.0-15.0 [facility] Sodium [Moles/volume] in Ser um or PlasmaOrdered By: Endy Abreu on 01-18-2023 Sodium [Moles/Vol] 136 mmol/L 136-145 [facility] Specific gravity Auto test s trip (U) [Rel density]Ordered By: Endy Abreu on 01-18-2023 Specific gravity (U) [Rel density] 1.023 1.001-1.030 [facility] Squamous epithelial cells de tection in urine sediment by light microscopyOrdered By: Endy Abreu on 01-18-2023 Epithelial cells.squamous LM Ql (Urine sed) 3-4 [HPF] 0-2 [facility] Urea nitrogen [Mass/volume] in Serum or PlasmaOrdered By: Endy Abreu on 01-18-2023 Urea nitrogen [Mass/Vol] 22 mg/dL 7-25 [facility] Urine Cultureon 01-18-2023 Bacteria identified Cx Nom (U) 15,000 colonies/ml mixed bacterial skin contaminants 2 Days PERFORMED BY: [place] [address] PATHOLOGIST [employer] LATHEA BARRAGAN M.D. Normal [facility] Comment on above: Performed By: #### C MP, ESR, CBC, ADDONUAPLUS #### [place] [address] [place] #### CH50, C3, C4 #### [facility] , Urine bacteria detection by automated methodOrdered By: Endy Abreu on 01-18-2023 Bacteria Auto Ql (U) 1+ None Seen [facility] Urine clarity by refractomet ry automatedOrdered By: Endy Abreu on 01-18-2023 Clarity Refractometry automated (U) Clear Clear [facility] Urine glucose measurement by automated test strip (mass/volume)Ordered By: Endy Abreu on 01-18-2023 Glucose Auto test strip (U) [Mass/Vol] Normal mg/dL Normal [facility] Urine hemoglobin detection b y automated test stripOrdered By: Endy Abreu on 01-18-2023 Hemoglobin Auto test strip Ql (U) Negative Negative [facility] Urine leukocyte esterase det ection by automated test stripOrdered By: Endy Abreu on 01-18-2023 Leukocyte esterase Auto test strip Ql (U) 3+ Negative [facility] Urobilinogen Auto test strip (U) [Mass/Vol]Ordered By: Endy Abreu on 01-18-2023 Urobilinogen (U) [Mass/Vol] Normal mg/dL Normal [facility] WBC Auto (Bld) [#/Vol]Ordere d By: Endy Abreu on 01-18-2023 WBC (Bld) [#/Vol] 5.4 10*3/uL 3.8-11.6 [facility] pH Auto test strip (U)Ordere d By: Endy Abreu on 01-18-2023 pH (U) 6.0 [pH] 5.0-9.0 [facility] Auth for Release of Medical Recordson 12-25-2022 Auth for Release of Medical Records [id number] 42#1.00CD:127 Normal [facility] Complement C3on 10-12-2022 Complement C3 134 mg/dL Normal 82-167 [facility] Comment on above: Result Comment: Perf ormed at: [facility] [place] [id number] Manual Control [employer]er Press Operator: Marvel Barahona PhD, Phone: [phone] Performed By: #### C MP, ESR, CBC, ADDONUAPLUS #### [facility] [address] [place] [address] #### CH50, C3, C4 #### [facility] , Complement C4on 10-12-2022 Complement C4 29 mg/dL Normal 12-38 [facility] Comment on above: Result Comment: PERF ORMED BY: [place] [address] PATHOLOGIST [employer] ALTHEA BARRAGAN M.D. Performed By: #### C MP, ESR, CBC, ADDONUAPLUS #### [facility] [address] [place] [address] #### CH50, C3, C4 #### [facility] , Complement Total (CH50)on Complement Total (CH50) >60 Normal >41 F [facility] Comment on above: Result Comment: Age Male [...] out of range values. Performed at: - [address] [id number] Manual Control [employer] Press Operator: Marvel Barahona PhD, Phone: [phone] PERFORMED BY: [place] [address] PATHOLOGIST [employer] ALTHEA BARRAGAN M.D. Performed By: #### C MP, ESR, CBC, ADDONUAPLUS #### [address] #### CH50, C3, C4 #### [facility] , Complete Blood Count Auto Di ffon 10-12-2022 Basophils (Bld) [#/Vol] 0.1 10*3/uL Normal 0.0-0.2 [facility] Comment on above: Performed By: #### C MP, ESR, CBC, ADDONUAPLUS #### [address] #### CH50, C3, C4 #### [facility] , Basophils/100 WBC (Bld) 0.8 % Normal . [facility] Comment on above: Performed By: #### C MP, ESR, CBC, ADDONUAPLUS #### [place] [address] [place] #### CH50, C3, C4 #### [facility] , Eosinophils (Bld) [#/Vol] 0.2 10*3/uL Normal 0.0-0.45 [facility] Comment on above: Performed By: #### C MP, ESR, CBC, ADDONUAPLUS #### [place] [address] [place] #### CH50, C3, C4 #### [facility] , Eosinophils/100 WBC (Bld) 2.6 % Normal . [facility] Comment on above: Performed By: #### C MP, ESR, CBC, ADDONUAPLUS #### [address] #### CH50, C3, C4 #### [facility] , Erythrocyte distribution width (RBC) [Ratio] 13.0 % Normal 11.9-15.3 [facility] Comment on above: Performed By: #### C MP, ESR, CBC, ADDONUAPLUS #### [place] [address] [place] #### CH50, C3, C4 #### [facility] , Hematocrit (Bld) [Volume fraction] 35.9 % Normal 34.0-46.4 [facility] Comment on above: Performed By: #### C MP, ESR, CBC, ADDONUAPLUS #### [address] #### CH50, C3, C4 #### [facility] , Hemoglobin (Bld) [Mass/Vol] 12.1 g/dL Normal 11.8-15.4 [facility] Comment on above: Performed By: #### C MP, ESR, CBC, ADDONUAPLUS #### [address] #### CH50, C3, C4 #### [facility] , Lymphocytes (Bld) [#/Vol] 1.9 10*3/uL Normal 1.00-4.8 [facility] Comment on above: Performed By: #### C MP, ESR, CBC, ADDONUAPLUS #### [place] [address] [place] #### CH50, C3, C4 #### [facility] , Lymphocytes/100 WBC (Bld) 27.9 % Normal . [facility] Comment on above: Performed By: #### C MP, ESR, CBC, ADDONUAPLUS #### [place] [address] [place] #### CH50, C3, C4 #### [facility] , MCH (RBC) [Entitic mass] 32.1 pg Normal 24.7-34.3 [facility] Comment on above: Performed By: #### C MP, ESR, CBC, ADDONUAPLUS #### [address] #### CH50, C3, C4 #### [facility] , MCV (RBC) [Entitic vol] 95.1 fL Normal 80-100 [facility] Comment on above: Performed By: #### C MP, ESR, CBC, ADDONUAPLUS #### [address] #### CH50, C3, C4 #### [facility] , Mean Corpuscular HGB Conc 33.8 g/dL Normal 32.0-35.0 [facility] Comment on above: Performed By: #### C MP, ESR, CBC, ADDONUAPLUS #### [address] #### CH50, C3, C4 #### [facility] , Monocytes (Bld) [#/Vol] 0.4 10*3/uL Normal 0.0-0.8 [facility] Comment on above: Performed By: #### C MP, ESR, CBC, ADDONUAPLUS #### [place] [address] [place] #### CH50, C3, C4 #### [facility] , Monocytes/100 WBC (Bld) 6.2 % Normal . [facility] Comment on above: Performed By: #### C MP, ESR, CBC, ADDONUAPLUS #### [place] [address] [place] #### CH50, C3, C4 #### [facility] , Neutrophils (Bld) [#/Vol] 4.3 10*3/uL Normal 1.8-7.7 [facility] Comment on above: Performed By: #### C MP, ESR, CBC, ADDONUAPLUS #### [address] #### CH50, C3, C4 #### [facility] , Neutrophils/100 WBC (Bld) 62.5 % Normal . [facility] Comment on above: Performed By: #### C MP, ESR, CBC, ADDONUAPLUS #### [address] #### CH50, C3, C4 #### [facility] , NRBC% 0.1 /100{WBC} Normal 0-0.5 [facility] Comment on above: Performed By: #### C MP, ESR, CBC, ADDONUAPLUS #### [address] #### CH50, C3, C4 #### [facility] , Platelet mean volume (Bld) [Entitic vol] 7.7 fL Normal 6.3-10.7 [facility] Comment on above: Performed By: #### C MP, ESR, CBC, ADDONUAPLUS #### [address] #### CH50, C3, C4 #### [facility] , Platelets (Bld) [#/Vol] 321 10*3/uL Normal 150-450 [facility] Comment on above: Performed By: #### C MP, ESR, CBC, ADDONUAPLUS #### [place] [address] [place] #### CH50, C3, C4 #### [facility] , RBC (Bld) [#/Vol] 3.77 10*6/uL Normal 3.60-5.00 [facility] Comment on above: Performed By: #### C MP, ESR, CBC, ADDONUAPLUS #### [address] #### CH50, C3, C4 #### [facility] , WBC (Bld) [#/Vol] 6.9 10*3/uL Normal 3.8-11.6 [facility] Comment on above: Performed By: #### C MP, ESR, CBC, ADDONUAPLUS #### [facility] [address] [place] [address] #### CH50, C3, C4 #### [facility] , Comprehensive Metabolic Pane chema 10-12-2022 Albumin [Mass/Vol] 3.9 g/dL Normal 3.5-5.7 [facility] Comment on above: Performed By: #### C MP, ESR, CBC, ADDONUAPLUS #### [address] #### CH50, C3, C4 #### [facility] , Albumin/Globulin [Mass ratio] 1.6 {ratio} Normal [facility] Comment on above: Performed By: #### C MP, ESR, CBC, ADDONUAPLUS #### [address] #### CH50, C3, C4 #### [facility] , ALP [Catalytic activity/Vol] 97 U/L Normal 34-104 [facility] Comment on above: Result Comment: PERF ORMED BY: [place] [address] PATHOLOGIST [employer] ALTHEA BARRAGAN M.D. Performed By: #### C MP, ESR, CBC, ADDONUAPLUS #### [place] [address] [place] #### CH50, C3, C4 #### [facility] , ALT [Catalytic activity/Vol] 28 U/L Normal 7-52 [facility] Comment on above: Performed By: #### C MP, ESR, CBC, ADDONUAPLUS #### [facility] [address] [place] [address] #### CH50, C3, C4 #### [facility] , Anion gap [Moles/Vol] 9.9 mmol/L Normal 6.0-15.0 [facility] Comment on above: Performed By: #### C MP, ESR, CBC, ADDONUAPLUS #### [facility] [address] [place] [address] [place] #### CH50, C3, C4 #### [facility] , AST [Catalytic activity/Vol] 31 U/L Normal 13-39 [facility] Comment on above: Performed By: #### C MP, ESR, CBC, ADDONUAPLUS #### [address] #### CH50, C3, C4 #### [facility] , Bilirubin [Mass/Vol] 0.6 mg/dL Normal 0.3-1.0 [facility] Comment on above: Performed By: #### C MP, ESR, CBC, ADDONUAPLUS #### [facility] [address] [place] [address] [place] #### CH50, C3, C4 #### [facility] , Calcium [Mass/Vol] 9.2 mg/dL Normal 8.6-10.3 [facility] Comment on above: Performed By: #### C MP, ESR, CBC, ADDONUAPLUS #### [place] [address] [place] #### CH50, C3, C4 #### [facility] , Chloride [Moles/Vol] 100 mmol/L Normal 98-107 [facility] Comment on above: Performed By: #### C MP, ESR, CBC, ADDONUAPLUS #### [facility] [address] [place] [address] [place] #### CH50, C3, C4 #### [facility] , CO2 [Moles/Vol] 28.4 mmol/L Normal 21.0-31.0 [facility] Comment on above: Performed By: #### C MP, ESR, CBC, ADDONUAPLUS #### [place] [address] [place] #### CH50, C3, C4 #### [facility] , Creatinine [Mass/Vol] 0.92 mg/dL Normal 0.60-1.20 [facility] Comment on above: Performed By: #### C MP, ESR, CBC, ADDONUAPLUS #### [place] [address] [place] #### CH50, C3, C4 #### [facility] , GFR/1.73 sq M.predicted MDRD (S/P/Bld) [Vol rate/Area] mL/min/{1.73_m2} Normal [facility] Comment on above: Performed By: #### C MP, ESR, CBC, ADDONUAPLUS #### [place] [address] [place] #### CH50, C3, C4 #### [facility] , Globulin (S) [Mass/Vol] 2.5 g/dL Normal [facility] Comment on above: Performed By: #### C MP, ESR, CBC, ADDONUAPLUS #### [facility] [address] [place] [address] [place] #### CH50, C3, C4 #### [facility] , Glucose [Mass/Vol] 109 mg/dL High 70-100 [facility] Comment on above: Result Comment: [place] Glucose Reference Range is dependent on time and content of last meal. Glucose of more than 200 mg/dL in a nonstressed, ambulatory subject supports the diagnosis of Diabetes Mellitus. ADA recommended reference range Performed By: #### C MP, ESR, CBC, ADDONUAPLUS #### [place] [address] [place] #### CH50, C3, C4 #### [facility] , Potassium [Moles/Vol] 4.3 mmol/L Normal 3.5-5.1 [facility] Comment on above: Performed By: #### C MP, ESR, CBC, ADDONUAPLUS #### [place] [address] [place] #### CH50, C3, C4 #### [facility] , Protein [Mass/Vol] 6.4 g/dL Normal 6.4-8.9 [facility] Comment on above: Performed By: #### C MP, ESR, CBC, ADDONUAPLUS #### [address] #### CH50, C3, C4 #### [facility] , Sodium [Moles/Vol] 134 mmol/L Low 136-145 [facility] Comment on above: Performed By: #### C MP, ESR, CBC, ADDONUAPLUS #### [address] #### CH50, C3, C4 #### [facility] , Urea nitrogen [Mass/Vol] 19 mg/dL Normal 7-25 [facility] Comment on above: Performed By: #### C MP, ESR, CBC, ADDONUAPLUS #### [place] [address] [place] #### CH50, C3, C4 #### [facility] , Dipstick and Microscopicon 0 10-12-2022 Appearance (U) Clear Normal Clear [facility] Comment on above: Order Comment: Name Collection Type:: Clean-Voided Midstream Performed By: #### C MP, ESR, CBC, ADDONUAPLUS #### [place] [address] [place] #### CH50, C3, C4 #### [facility] , Bacteria,Urine None Seen Normal None Seen [facility] Comment on above: Order Comment: Name Collection Type:: Clean-Voided Midstream Performed By: #### C MP, ESR, CBC, ADDONUAPLUS #### [address] #### CH50, C3, C4 #### [facility] , Bilirubin,Urine Negative Normal Negative [facility] Comment on above: Order Comment: Name Collection Type:: Clean-Voided Midstream Performed By: #### C MP, ESR, CBC, ADDONUAPLUS #### [address] #### CH50, C3, C4 #### [facility] , Color (U) Yellow Normal Yellow [facility] Comment on above: Order Comment: Name Collection Type:: Clean-Voided Midstream Performed By: #### C MP, ESR, CBC, ADDONUAPLUS #### [address] #### CH50, C3, C4 #### [facility] , Glucose Ql (U) Normal Normal Normal [facility] Comment on above: Order Comment: Name Collection Type:: Clean-Voided Midstream Performed By: #### C MP, ESR, CBC, ADDONUAPLUS #### [address] #### CH50, C3, C4 #### [facility] , Hyaline Casts,Urine None Seen Normal 0-8 [facility] Comment on above: Order Comment: Name Collection Type:: Clean-Voided Midstream Result Comment: PERF ORMED BY: [place] [address] PATHOLOGIST [employer] SUPER[employer] ALTHEA BARRAGAN M.D. Performed By: #### C MP, ESR, CBC, ADDONUAPLUS #### [address] #### CH50, C3, C4 #### [facility] , Ketones Ql (U) Negative Normal Negative [facility] Comment on above: Order Comment: Name Collection Type:: Clean-Voided Midstream Performed By: #### C MP, ESR, CBC, ADDONUAPLUS #### [address] #### CH50, C3, C4 #### [facility] , Leukocyte esterase Test strip Ql (U) Negative Normal Negative [facility] Comment on above: Order Comment: Name Collection Type:: Clean-Voided Midstream Performed By: #### C MP, ESR, CBC, ADDONUAPLUS #### [address] #### CH50, C3, C4 #### [facility] , Nitrite,Urine Negative Normal Negative [facility] Comment on above: Order Comment: Name Collection Type:: Clean-Voided Midstream Performed By: #### C MP, ESR, CBC, ADDONUAPLUS #### [address] #### CH50, C3, C4 #### [facility] , Occult Blood,Urine Negative Normal Negative [facility] Comment on above: Order Comment: Name Collection Type:: Clean-Voided Midstream Performed By: #### C MP, ESR, CBC, ADDONUAPLUS #### [facility] [address] [place] [address] #### CH50, C3, C4 #### [facility] , pH (U) 6.0 [pH] Normal 5.0-9.0 [facility] Comment on above: Order Comment: Name Collection Type:: Clean-Voided Midstream Performed By: #### C MP, ESR, CBC, ADDONUAPLUS #### [address] #### CH50, C3, C4 #### [facility] , Protein,Urine Negative Normal Negative [facility] Comment on above: Order Comment: Name Collection Type:: Clean-Voided Midstream Performed By: #### C MP, ESR, CBC, ADDONUAPLUS #### [address] #### CH50, C3, C4 #### [facility] , RBC,Urine 3-4 Normal 0-4 [facility] Comment on above: Order Comment: Name Collection Type:: Clean-Voided Midstream Performed By: #### C MP, ESR, CBC, ADDONUAPLUS #### [address] #### CH50, C3, C4 #### [facility] , Specificy [place],Urine 1.019 Normal 1.001-1.030 [facility] Comment on above: Order Comment: Name Collection Type:: Clean-Voided Midstream Performed By: #### C MP, ESR, CBC, ADDONUAPLUS #### [address] #### CH50, C3, C4 #### [facility] , Squamous Epithelial Cell,Urine None Seen Normal 0-2 [facility] Comment on above: Order Comment: Name Collection Type:: Clean-Voided Midstream Performed By: #### C MP, ESR, CBC, ADDONUAPLUS #### [address] #### CH50, C3, C4 #### [facility] , Urobilinogen,Urine Normal Normal Normal [facility] Comment on above: Order Comment: Name Collection Type:: Clean-Voided Midstream Performed By: #### C MP, ESR, CBC, ADDONUAPLUS #### [address] #### CH50, C3, C4 #### [facility] , WBC LM.HPF (Urine sed) [#/Area] 0 /[HPF] Normal 0-4 [facility] Comment on above: Order Comment: Name Collection Type:: Clean-Voided Midstream Performed By: #### C MP, ESR, CBC, ADDONUAPLUS #### [facility] [address] #### CH50, C3, C4 #### [facility] , Erythrocyte Sedimentation Ra sid 10-12-2022 ESR (Bld) [Velocity] 12 mm/h Normal 0-29 [facility] Comment on above: Result Comment: PERF ORMED BY: [place] [address] PATHOLOGIST [employer] SUPER[employer] ALTHEA BARRAGAN M.D. Performed By: #### C MP, ESR, CBC, ADDONUAPLUS #### [facility] [address] #### CH50, C3, C4 #### [facility] , Pre-Certification Formon Pre-Certification Form [id number] 62#1.00CD:127 Normal [facility] Family Medicine Office/Clini c Noteon 02-13-2022 Family Medicine Office/Clinic Note Chief Complaint Yearly Check Up HPI Staff Jersey is a 66 year old female who presents for a yearly follow up. She has a chronic history of hypothyroidism. Currently taking [place] Thyroid 120mg once daily, as directed without adverse reaction. Patient denies fatigue, palpitations, hot/cold intolerance, constipation, hair/skin/nail issues. She has recent labs to review. She continues to fill her hormones through [facility] in [place]. History of Present Illness I have reviewed [...] In 1 year [address] [place] [address]- Additional Instructions: Problem List/Past Medical History Ongoing [...] Tab, 50 mg= 1 tab(s), Oral, Daily [facility] Thyroid 120 mg oral tablet, 120 mg= 1 tab(s), Oral, Daily, 3 refills [facility] Thyroid 30 mg oral tablet, See Instructions [...] inactivated - Not Given Patient Refuses Normal [facility] Comment on above: Result Comment: Elec tronically Signed By: Addy ROUSSEAU DO\.br\Date and Time Signed: 02/13/22 14:08 EDT Pre-Visit Planningon 022 Pre-Visit Planning -- From: Bianca WARD, Piedad To: Addy ROUSSEAU DO; Sent: 02/10/2022 09:19:11 EDT Subject: Pre-Visit Planning Due Date/Time: 02/10/2022 09:19:00 EDT Caller Name: JERSEY DOW; Caller Number: , FYI During pre-visit planning review the [facility] report shows that Naty Kirkpatrick documented e27.40 unspecified adrenocortical insufficiency on 03/16/2021. I do not have the actual document so I do not have further details. MARIN Alaniz, RN, [facility], [facility] -- From: Addy ROUSSEAU DO To: Bianca WARD, Piedad; Sent: 02/11/2022 11:06:34 EDT Subject: RE: Pre-Visit Planning Caller Name: JERSEY DOW; Caller Number: Stefanie , M I will look into it thanks Normal [address] [facility] Lab Reportson 02-10-2022 Lab Reports [id number] 13#1.00CD:127 Normal [facility] Basic Metabolic Panelon 01-0 Anion gap [Moles/Vol] 18 mmol/L Normal 12-20 [facility] Comment on above: Result Comment: Effe ctive 05/26/2019 reference range changed. Performed By: #### B MP, CBC #### [facility] [address] [place], [place] [id number] Calcium [Mass/Vol] 10.2 mg/dL Normal 8.6-10.2 [facility] Specialist Comment on above: Performed By: #### B MP, CBC #### [facility] [address] [place], [place] [id number] Chloride [Moles/Vol] 99 mmol/L Normal 98-107 [facility] Comment on above: Performed By: #### B MP, CBC #### [facility] [address] [place], [place] [id number] CO2 [Moles/Vol] 22 mmol/L Normal 20-[address] [facility] Specialist Comment on above: Performed By: #### B MP, CBC #### [facility] [address] [place], [place] [id number] Creatinine [Mass/Vol] 0.7 mg/dL Normal 0.6-1.4 [facility] Comment on above: Performed By: #### B MP, CBC #### [facility] [address] [place], [place] [id number] eGFRAA 109 mL/min/1.73m2 Normal >60 [facility] Comment on above: Performed By: #### B MP, CBC #### [facility] [address] [place], [place] [id number] eGFRNAA 90 mL/min/1.73m2 Normal >60 [facility] Comment on above: Performed By: #### B MP, CBC #### [facility] [address] [place], [place] [id number] Glucose [Mass/Vol] 88 mg/dL Normal 65-99 [facility] Comment on above: Result Comment: For FASTING Glucose --- ADA reference ranges: Normal 65-99 mg/dl Prediabetes 100-125 Diabetes >/= 126 Performed By: #### B MP, CBC #### [facility] [address] [place], [place] [id number] Potassium [Moles/Vol] 4.6 mmol/L Normal 3.5-5.5 [facility] Comment on above: Performed By: #### B MP, CBC #### [facility] [address] [place], [place] [id number] Sodium [Moles/Vol] 134 mmol/L Low 135-146 [facility] Specialist Comment on above: Performed By: #### B MP, CBC #### [facility] [address] [place], [place] [id number] Urea nitrogen [Mass/Vol] 17 mg/dL Normal 7-25 [facility] Comment on above: Performed By: #### B MP, CBC #### [facility] [address] [place], [place] [id number] Complete Blood Counton 05-23 Erythrocyte distribution width (RBC) [Ratio] 12.5 % Normal 11.0-15.0 [facility] Comment on above: Performed By: #### B MP, CBC #### [facility] [address] [place], [place] [id number] Hematocrit (Bld) [Volume fraction] 38.5 % Normal 35.0-47.[address] [facility] Specialist Comment on above: Performed By: #### B MP, CBC #### [facility] [address] [place], [place] [id number] Hemoglobin (Bld) [Mass/Vol] 12.8 g/dL Normal 11.6-15.[address] [facility] Specialist Comment on above: Performed By: #### B MP, CBC #### [facility] [address] [place], [place] [id number] MCH (RBC) [Entitic mass] 31.6 pg Normal 27.0-33.[address] [facility] Specialist Comment on above: Performed By: #### B MP, CBC #### [facility] [address] [place], [place] [id number] MCHC (RBC) [Mass/Vol] 33.2 g/dL Normal 32.0-36.0 [facility] Comment on above: Performed By: #### B MP, CBC #### [facility] [address] [place], [place] [id number] MCV (RBC) [Entitic vol] 95 fL Normal 80-100 [facility] Comment on above: Performed By: #### B MP, CBC #### [facility] [address] [place], [place] [id number] Platelet mean volume (Bld) [Entitic vol] 9.40 fL Normal 7.50-12.50 [facility] Specialist Comment on above: Performed By: #### B MP, CBC #### [facility] [address] [place], [place] [id number] Platelets (Bld) [#/Vol] 372 10*3/uL Normal 140-[address] [facility] Specialist Comment on above: Performed By: #### B MP, CBC #### [facility] [address] [place], [place] [id number] RBC (Bld) [#/Vol] 4.05 10*6/uL Normal 3.90-5.20 [facility] Specialist Comment on above: Performed By: #### B MP, CBC #### [facility] [address] [place], [place] [id number] RDW-SD 43.9 fL Normal 37.0-50.0 [facility] Advertising Clerk Comment on above: Performed By: #### B MP, CBC #### [facility] [address] [place], [place] [id number] WBC (Bld) [#/Vol] 6.4 10*3/uL Normal 3.8-11.0 [facility] Specialist Comment on above: Performed By: #### B MP, CBC #### [facility] [address] [place], [place] [id number] Q - SARS CoV2 COVID 19 Ab Ig To 05-23-2021 SARS-CoV-2 (COVID-19) Ab IA Qn >150.00 High <1.[address] [facility] Specialist Comment on above: Order Comment: [facility] Testing performed at: [employer], [employer] [facility], [address] [place] [address], [address] [place] [address], [phone], Letter Of Credit Document Examiner: Mihir Arzola MD [facility] Collection Date/Time: [facility] [...] providers and patients using the following websites: http://patient.PhysioSonics.com/Atellica-HCP http://patient.Simply Easier Paymentss.com/Atellica-Patients Healthcare Providers: For additional information please refer to: http://education.[employer]ioSonics.Phle[employer]/faq/YPG363 (This link is being provided for informational/educational purposes only.) This test has been authorized by the FDA under an Emergency Use Authorization (EUA) for use by authorized laboratories. The FDA authorized labeling is available on the [employer] website: www.[employer]le[employer]/Covid19. Performed By: #### 3 [id number] #### [facility] Default [address] [place] [address] XR Chest 2 Views*on 05-18-20 21 XR [...] by Atul Bentley on 05/18/2021 [address] [facility] Specialist MRI Hip w/o Righton 05-03-20 21 MRI [...] by Bentley Hua on 05/03/2021 1548 Normal [facility] SCREENING MAMMOGRAM W/RUY, BILATERAL*on 04-28-2021 SCREENING [...] VERY IMPORTANT TO YOUR HEALTH. THE CURRENT [employer] GUIDELINES RECOMMENDS ANNUAL MAMMOGRAPHY BEGINNING AT AGE 40 THIS FACILITY USES A REMINDER SYSTEM TO ENSURE ALL PATIENTS RECEIVE REMINDER NOTIFICATIONS AT THE APPROPRIATE TIME BASED ON THE RECOMMENDATIONS OF THIS EXAM. Report reported and signed by Atul Bentley on 04/28/2021 1533 Normal [facility] COVID-19 PCRon 04-11-2020 SARS-CoV-2 (COVID-19) RNA GRISELDA+probe Ql (Unsp spec) Not detected Normal Not Detected [facility] Comment on above: Result Comment: This nucleic acid amplification test was developed and its performance characteristics determined by [employer]. Nucleic acid amplification tests include PCR and [...] assay. Performed By: #### C VDPCR #### [facility] [address] [place] [address] Giselle Brock 12-03-2018 ZIGGY Office Visit (LAWRENCE) ---- JERSEY DOW ([id number]) 1955 F Date Time Provider Department 12/03/18 4:00 PM CELESTE SHAFFER During your visit today, we recorded the following information about you: Pulse Blood pressure Weight 100/minute 148/70 79.4 kg Ariela Lovett 12/03/2018 3:45 PM Signed [facility] FACTS LAB HOURS: Lab is open [...] prior to the scheduled exam. Celeste Shaffer, TEXTILE CLOTHING AND FOOTWEAR MECHANIC.[facility] 12/03/2018 4:23 PM Signed Jersey Dow [address] [place] [address] HISTORY OF PRESENT ILLNESS: Seen 09/11/18 for [...] evaluation for evaluation, U/A, culture Celeste Shaffer APRN.HAT SPRAYER Referring Provider: CELESTE SHAFFER [[id number]] Allergies As of Date: 12/03/2018 Noted Allergy Reaction GABAPENTIN 09/11/2018 4 - Hives Date Reviewed: 12/03/2018 Reviewed by: Ariela Lovett - Fully Assessed Reason for Visit: Follow Up [171] Primary Visit Diagnosis:IC (interstitial cystitis) [N30.10] Other Visit Diagnoses:Urinary tract infection without hematuria, site unspecified [N39.0] Vaginal atrophy [N95.2] Order(s):UA CHEMSTRIP ONLY [SQUA] Order #: [id number] FUTURE URINE CULTURE [SQURCUL] Order #: [id number] conjugated estrogens (PREMARIN) vaginal creamUse 0.5 g [...] Other instructions from your clinician: [facility] FACTS LAB HOURS: Lab is open 7:30am to 6pm M-TH, open 7:30am -5pm on Sunday and open [...] Status:Closed by CELESTE SHAFFER CNP on 12/03/18 [facility] PROGRESSon 12-03-2018 PROGRESS HNO ID: [id number] Author: Celeste Shaffer Service: ? Author Type: Nurse Practitioner Type: Progress Notes Filed: 12/03/2018 4:23 PM Note Text: Jersey Dow [facility] [address] HISTORY OF PRESENT ILLNESS: Seen 09/11/18 for [...] evaluation, U/A, culture Celeste Shaffer APRN.JB Normal [facility] Urine Cultureon 09-12-2018 Bacteria identified Cx Nom (U) Sp. Request/Comment: - Specimen received in preservative Culture Result - No growth (<100 CFU/ml) Normal [facility] Comment on above: Performed By: #### U RCUL #### [facility] [address] [place] [id number] CNOVon 09-11-2018 CNOV Office Visit (UROLLN) ---- JERSEY DOW ([id number]) 1955 F Date Time Provider Department 09/11/18 8:00 AM CELESTE SHAFFER (HAT SPRAYER) UROLLCherie During your visit today, we recorded the following information about you: Pulse Blood pressure Height 95/minute 128/86 1.626 m Ariela Lovett 09/11/2018 8:06 AM Signed [facility] FACTS LAB HOURS: Lab is open [...] prior to the scheduled exam. Celeste Shaffer APRN.HAT SPRAYER 09/11/2018 2:03 PM Signed Jersey Dow [address] [address] is a 63 year old female and [...] month for evaluation for evaluation Celeste Shaffer APRN.HAT SPRAYER Referring Provider: SELF [200] Allergies As of [...] Other instructions from your clinician: [facility] FACTS LAB HOURS: Lab is open [...] Status:Closed by CELESTE SHAFFER CNP on 09/11/18 [facility] PROGRESSon 09-11-2018 PROGRESS HNO ID: [id number] Author: Celeste Desai (Karlee Shaffer Service: ? 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.HAT SPRAYER Normal [facility] Urinalysison 09-11-2018 Bilirubin, Urine Negative Normal Negative [facility] Comment on above: Performed By: #### U A #### [facility] [address] [place] [phone] Clarity (U) Clear Normal Clear [facility] Comment on above: Performed By: #### U A #### [facility] [address] [place] [address] Color (U) Yellow Normal Yellow [facility] Comment on above: Performed By: #### U A #### [facility] [address] [place] [address] Comments SEE COMMENT Normal [facility] Comment on above: Result Comment: Micr oscopic not warranted Performed By: #### U A #### [facility] [address] [place] [address] Glucose Ql (U) Negative Normal Negative [facility] Comment on above: Performed By: #### U A #### [facility] [address] [place] [address] Hemoglobin/Blood,Ur Negative Normal Negative [facility] Comment on above: Performed By: #### U A #### [facility] [address] [place], [place] [address] Ketones Ql (U) Negative Normal Negative [facility] Comment on above: Performed By: #### U A #### [facility] [address] [place], [place] [address] Leukest Negative Normal Negative [facility] Comment on above: Performed By: #### U A #### [place] [address] Nitrite Ql (U) Negative Normal Negative [facility] Comment on above: Performed By: #### U A #### [address] [address] pH (Bld) 7.0 Normal 4.5-8.0 [facility] Comment on above: Performed By: #### U A #### [place] [address] Protein (U) [Mass/Vol] Negative Normal Negative [facility] Comment on above: Performed By: #### U A #### [place] [address] Specific [place], Ur 1.005 Normal 1.005-1.030 [facility] Comment on above: Performed By: #### U A #### [place] [address] Urine Jayme Comment SEE COMMENT Normal [facility] Comment on above: Result Comment: N/A Performed By: #### U A #### [address] [address] Urobilinogen Qn (U) Normal Normal Normal [facility] Comment on above: Performed By: #### U A #### [address] [address] Vital Signs Date Time Vital Sign Value Performing Clinician Facility 09-12-2022 11:45-0400 Body height 161.29 cm Abena Hawkins Other [facility] Other 09-12-2022 11:45-0400 Body mass index (BMI) [Ratio] 32.43 kg/m2 Abena Hawkins Other [facility] Other 09-12-2022 11:45-0400 Body weight 84.37 kg Abena Hawkins Other [facility] Other 05-10-2022 10:40-0500 Body height 161.29 cm Azvalentin Rivalroos Other [facility] Other 05-10-2022 10:40-0500 Body mass index (BMI) [Ratio] 32.5 kg/m2 Azvalentin Rivalroos Other [facility] Other 05-10-2022 10:40-0500 Body temperature 96.2 [degF] Aziz Rivalroos Other [facility] Other 05-10-2022 10:40-0500 Body weight 84.55 kg Aziz Bakhous Other [facility] Other 05-10-2022 10:40-0500 Diastolic blood pressure 98 mm[Hg] Aziz Bakhous Other [facility] Other 05-10-2022 10:40-0500 Respiratory rate 18 /min Aziz Amobeehous Other [facility] Other 05-10-2022 10:40-0500 SaO2% (BldA) [Mass fraction] 96 % Aziz Bakhous Other [facility] Other 05-10-2022 10:40-0500 Systolic blood pressure 158 mm[Hg] José Miguel Grey Other [facility] [employer] Other Encounters Encounter Date Encounter Type Care Provider Facility Start: 07-02-2023 End: 07-03-2023 [facility]ulatory [facility] Start: 06-26-2023 End: 06-27-2023 Clinical Support Clementina Diego MD Work Phone: [facility] [place] [facility] - Audiology Comment on above: Encephalocele (CMS-H CC) (Primary Dx); Sensorineural hearing loss (SNHL), bilateral Start: 06-11-2023 End: 06-12-2023 ambulatory Kamryn Ceja MD Facility: [facility] Start: 06-04-2023 End: 06-05-2023 ambulatory Kamryn Ceja MD Facility[facility] Start: 05-30-2023 End: 05-30-2023 ambulatory Oriana Laguerre Facility:[facility] Start: 05-30-2023 End: 05-30-2023 ambulatory MD Oriana Laguerre Work Phone: [facility] Work Phone: Start: 05-30-2023 End: 05-30-2023 Patient encounter procedure MD Oriana Laguerre Work Phone: [facility] [address] Work Phone: Start: 05-07-2023 End: 05-21-2023 ambulatory LATRICE Lora CASEY [facility] Start: 05-02-2023 End: 05-03-2023 ambulatory NATY KIRKPATRICK Not Available Start: 04-23-2023 End: 04-24-2023 ambulatory ORIANA LAGUERRE Not Available Start: 04-10-2023 End: 04-10-2023 ambulatory RHODA DOCKERY Not Available Start: 02-13-2023 ambulatory Addy De La Rosa y:ISMA Hinojosa Start: 01-18-2023 End: 01-18-2023 ambulatory Huong L Obsurendraeyer Facility:[facility] Start: 01-18-2023 End: 01-18-2023 ambulatory MD Oriana Laguerre Work Phone: [facility] Work Phone: Start: 01-18-2023 End: 01-18-2023 Patient encounter procedure MD Oriana Laguerre Work Phone: [facility] [address] [place] Work Phone: Start: 10-12-2022 End: 10-12-2022 ambulatory Huong L Obermeyer Facility:[facility] Start: 09-12-2022 End: 09-12-2022 ambulatory Abena Calvey Other [employer] Other Start: 09-12-2022 Office outpatient vi sit 15 minutes Abena Calvey [facility] Start: 06-14-2022 End: 06-14-2022 ambulatory Abena Calvey Other [employer] [facility] Other Start: 06-14-2022 Office outpatient vi sit 15 minutes Abena Calvey [facility] Start: 05-10-2022 End: 05-10-2022 ambulatory Aziz Bakhous Other [employer] [facility] Other Start: 05-10-2022 Office outpatient ne w 30 minutes Aziz Bakhous [facility] Start: 03-29-2022 End: 03-29-2022 ambulatory Abena Calvey Other [facility] Other Start: 03-29-2022 Office outpatient vi sit 15 minutes Abena Calvey [facility] Start: 02-13-2022 End: 02-14-2022 ambulatory Addy ROUSSEAU Facility:[facility] Start: 12-13-2021 End: 12-13-2021 ambulatory Abena Calvey Other [employer] Other Start: 12-13-2021 Office outpatient vi sit 25 minutes Abenageorgette Hawkins [facility] Start: 08-26-2021 End: 08-26-2021 ambulatory Abenageorgette Hawkins Other [facility] [employer] Other Start: 08-26-2021 Encounter by bryon Laguerre [facility] Start: 08-26-2021 Office outpatient vi sit 15 minutes Abenageorgette Hawkins [facility] Start: 02-25-2021 End: 02-25-[address] DOCTOR FOURNIER Facility:[facility] Start: 04-09-2020 End: 04-10-2020 ambulatory NATY KIRKPATRICK Facility:[facility] Start: 12-25-2016 End: 12-26-2016 Ambulatory DEFAULT PHYSICIAN Facility:[facility] Procedures Date Procedure Procedure Detail Performing Clinician Start: 06-26-2023 COMPREHENSIVE HEARING TEST Clementina Diego MD Work Phone: Plan of Treatment Date Care Activity Detail Author Start: 02-20-2028 DTaP,Tdap and Td Vaccines (4 - Td or Tdap) DTaP,Tdap and Td Vaccines (4 - Td or Tdap) [place] Start: 02-21-2024 Adult BMI Screening Adult BMI Screening [facility] Start: 02-21-2024 Tobacco Screening Tobacco Screening [facility] Start: 05-30-2023 Hemolytic complement CH50 level [facility] Start: 01-19-2023 Influenza vaccination Influenza Vaccine [place] Start: 01-18-2023 Bacteria identified in Urine by Culture [facility] Start: 01-18-2023 Hemolytic complement CH50 level [facility] Start: 01-18-2020 Fall Risk Screening Fall Risk Screening [place] Start: 03-15-2019 Administration of varicella zoster vaccine Zoster (Shingles) Vaccine (2 of 2) [place] Start: 1973 Adult BMI Follow Up Plan Adult BMI Follow Up Plan [facility] Start: 1967 Depression Screening Depression Screening [facility] Start: 1955 Medicare Annual Wellness Visit Medicare Annual Wellness Visit [facility] [facility] Complement C3 [Mass/volume] in Serum or Plasma [facility] Complement C3 [Mass/volume] in Serum or Plasma [facility] Complement C4 [Mass/volume] in Serum or Plasma [facility] Complement C4 [Mass/volume] in Serum or Plasma [facility] Immunizations Immunization Date Immunization Notes Care Provider Radha harris 02-09-2020 influenza virus vaccine, unspecified formulation Rhoda Jin AUD [facility] 01-18-2019 zoster vaccine, unspecified formulation Rhoda Jin AUD Work Phone: [facility] Payers Date Payer Category Payer Self-pay [id number] 2019 Medicare [id number] 2019 Unknown 1959 Medicare [id number] 1959 Unknown [id number] 1955 Unknown [id number] 2.16.84 0.1.825864.3.579.2.593 1955 Unknown [id number] 2.16.84 0.1.314808.3.579.2.593 1955 Unknown [id number] 2.16.8 40.1.737394.3.579.2.727 1955 Unknown [id number] 2.16.8 40.1.806746.3.579.2.727 1955 Unknown [id number] 2.16.840 .1.480341.3.579.2.1259 1955 Unknown [id number] 2.16.840 .1.516200.3.579.2.1259 1955 Unknown [id number] 2.16.840 .1.495049.3.579.2.1259 1955 Unknown [id number] 2.16.84 0.1.918384.3.579.2.1286 1955 Unknown [id number] 2.16.8 40.1.648070.3.579.2.1286 1955 Unknown [id number] 2.16. 840.1.065148.3.579.2.196 1955 Unknown [id number] 2.16. 840.1.755439.3.579.2.196 1955 Unknown [id number] 2.16. 840.1.962648.3.579.2.196 Unknown [id number] 2.16.8 40.1.672000.3.579.2.531 Unknown [id number] 2.16.8 40.1.059341.3.579.2.531 Unknown [id number] 2.16.8 40.1.816914.3.579.2.531 Social History Date Type Detail Facility Start: 07-01-2020 End: 02-20-2023 Sex Assigned At [facility] Start: 02-11-2021 End: 03-15-2022 Tobacco smoking status NHIS Never smoked tobacco (finding) [facility] Start: 1955 Sex Assigned At Female F [facility] Start: 03-15-2022 Tobacco use and exposure Smokeless tobacco non-user [place] Start: 02-21-2023 Alcohol intake Current non-dr metal pourer of alcohol (finding) [facility] Start: 07-01-2020 End: 02-20-2023 History of Social function [place] Childcare Unknown [facility] Start: 1955 Sex Assigned At Not on file P [facility] Medical Equipment Procedure Code Equipment Code Equipment Origin al Text Equipment Identifier Dates Cement Bn Hydros et Sub Void Saad Ca Phos 3ml Inj Ostcndc Strl - Sna - [id number] Start: 02-20-2023 Graft Snth Tiss Thk2.5mm Thk.45mm [id number] Pe Npor Mdpr Tsi - Sna - [id number] Start: 02-20-2023 Stem Fem 4 2 Tpr Flt [place] Mectagrip Hip Lateralize + - [id number] Start: 06-30-2021 Screw Bn 20mm 6. 5mm Flt Hd Canc Hip Mpact - [id number] Start: 06-30-2021 Goals Date Patient Goal [...] 68 y.o., was seen today at [facility] for a comprehensive audiologic evaluation. She [...] patient. YARA Reyes documented in this encounter [place] 09-12-2022 Evaluation note Encounter Date Diagnosis Assessment [...] Pain in right hand (ICD-10 - M79.641) [facility] Other 01-25-2023 Evaluation note* Encounter Date Diagnosis Assessment Notes Treatment Notes Treatment Clinical Notes May, Arthritis of carpometacarpal joint (ICD-10 - M19.049) Bilateral thumb [facility] joints injected with cortisone under sterile technique, patient tolerated well May, Pain in left hand (ICD-10 - M79.642) May, Pain in right hand (ICD-10 - M79.641) [employer] [facility] Other 12-21-2022 Evaluation note* Encounter Date Diagnosis [...] will continue same follow-up blood pressure medication [facility] Other 11-09-2022 Evaluation note* Encounter Date Diagnosis [...] Pain in right hand (ICD-10 - M79.641) [employer] [facility] Other 07-26-2022 Evaluation note* Encounter Date Diagnosis [...] Pain in right hand (ICD-10 - M79.641) [employer] [facility] Other 04-08-2022 Evaluation note* Encounter Date Diagnosis [...] Pain in right hand (ICD-10 - M79.641) [employer] Other Evaluation noteNo InformationNort [employer] Other Evaluation noteNo assessment information available [facility] Work Phone: Evaluation note* Diagnosis Encephalocele ([facility])- Primary Encephalocele Sensorineural hearing loss (SNHL), bilateral documented in this encounter [facility] general Narrative - Reported* Type Description Date Medical History chronic fatigue Medical History rheumatoid arthritis Medical History sjogren syndrome Medical History lupus Surgical History tonsillectomy and adenoidectomy Surgical History cervix repair Surgical History mastoidectomy Surgical History skull surgery Hospitalization History see above Hospitalization History kidney infection Hospitalization History child Hospitalization History broken arm [employer] Other History general Narrative - Reported* Type Description Date [...] Hospitalization History COMPLICATIONS AFTER SKUL L SURGERY [employer] [facility] Other InstructionsNot on filedocumented in this encounter [facility] Summary Purpose Family History No Family History [...] and content) DATE CREATED AUTHOR 11/14/2017 [facility] DATE CREATED AUTHOR AUTHOR'S ORGANIZ ATION 12/05/2018 [facility] DATE CREATED AUTHOR AUTHOR'S ORGANIZ ATION 03/17/2021 [facility] DATE CREATED AUTHOR AUTHOR'S ORGANIZ ATION 05/25/2021 [facility]ical Specialist DATE CREATED AUTHOR AUTHOR'S ORGANIZ ATION 12/25/2022 [facility] DATE CREATED AUTHOR AUTHOR'S ORGANIZ ATION 05/07/2023 [facility] DATE CREATED AUTHOR AUTHOR'S ORGANIZ ATION 05/21/2023 [facility] DATE CREATED AUTHOR AUTHOR'S ORGANIZ ATION 06/29/2023 [facility] DATE CREATED AUTHOR AUTHOR'S ORGANIZ ATION 07/02/2023 [facility] DATE CREATED AUTHOR AUTHOR'S ORGANIZ ATION 07/08/2023 [facility] REASON FOR VISIT (unrecogniz ed section and content) Specialty Diagnoses / Procedures Referred By Contac t Referred To Contact Diagnoses Encephalocele ([facility]) Procedures Comprehensive hearing test Clementina Diego MD [address] [place] [address] Referral ID Status Reason Start Date Expiration Date V isits Requested Visits Authorized [id number] Pending Review 03/13/2023 03/12/2024 1 1 Care [...] Active Endy Abreu MD Attending Provider Active [place] Performer Relationship Specialty Start Date End Date Oriana Laguerre MD [address] [place] [address] PCP - General Family Medicine 10/06/16 Goals [...] BE BASED ON THE PRIMARY CLINICAL RECORDS. [facility] [employer] [facility]. provides no warranty or guarantee of the accuracy or completeness of information in this document.
[2023-07-30 07:38] VITALS: BP 172/93; PULSE 84; RESP 16; TEMP 36; O2SAT 98
[2023-07-30 08:20] VITALS: BP 156/74; PULSE 84; RESP 18; O2SAT 95
[2023-07-30] MEDS: LIDOCAINE HCL 2% 400 MG/20 ML MDV 15 ML INJ (08:27)
[2023-07-30] MEDS: TRIAMCINOLONE ACETONIDE 40 MG/ML VIAL 80 MG INJ (08:27)
[2023-07-30] MEDS: BUPIVACAINE HCL 0.25% PF 25 MG/10 ML VIAL 4 ML INJ (08:27)
[2023-07-30 08:31] VITALS: BP 131/65; PULSE 69; RESP 18; O2SAT 96
--- NOTE | 2023-07-30 08:35 | P.ON_ITS ---
Date of procedure: 07/30/23 Pre-op diagnosis: Lumbar spondylosis Post-op diagnosis: same as pre-op Procedure: Procedure: Bilateral L4-5, L5-S1 radiofrequency ablation Medications: Bupivacaine 0.25% 6cc, lidocaine 2% 5cc, kenalog 80mg The patient was seen and examined in the preoperative holding area.? The site was marked.? Written informed consent was obtained and placed on the chart.? The patient was brought to the medical procedure unit and placed in the prone position.? A timeout was completed verifying correct patient, procedure, positioning, and special requirements.? The skin overlying the target points, the designated medial branch, were prepped and draped in the usual sterile fashion.? The target point was achieved with a 20-gauge 15 cm with a 10 mm curved active tip radiofrequency cannula under direct fluoroscopic visualization.? The needle was inserted at level L4 on the right side. Needle tip position was confirmed with lateral fluoroscopic position.? Motor stimulation was carried out at 2 Hz up to 5 volts with the absence of extremity activity.? This was repeated at level L5, S1 on right side.?? Sensory stimulation was carried out.? Concordant pain was realized at the above- mentioned sites.? Then radiofrequency lesioning was carried out times 90 seconds at 80 degrees times 2 lesions at each level.? The radiofrequency probe was removed prior to cannula removal.? The above-mentioned injectate was placed in 1 mL increments.? The needle was removed. The same procedure, with the same steps, was then completed on the left side at the same levels. Insertion sites were covered.? The patient was taken to the postoperative recovery area and monitored for an appropriate length of time before being found suitable for discharge in the company of a responsible adult. Anesthesia: Local Surgeon: Kamryn Ceja Pathology: none sent Condition: stable Disposition: no change
== END 2023-07-30 08:40 | disposition home or self-care (01) ==
LOC: SURGOUT 07:33
PROVIDERS: PCP Family Medicine; Visit Provider Anesthesiology
DX: M47.816 Spondylosis without myelopathy or radiculopathy, lumbar region (principal)
CPT/HCPCS: 64635; 64636

== ENCOUNTER 2023-08-30 13:58 | Outpatient (OUT) | payer MEDICARE, OTHER, SELFPAY ==
--- NOTE | 2023-08-30 14:25 | PM.CN ---
Consult Note: HPI Data of Consult Patient: known to practice within the last 3 years Consult date: 06/04/23 Requesting Physician: Angie Casarez NP Primary Care Provider: CAR Rich Narrative Reason for consult: low back pain Narrative: 68yof who presents for evaluation. ongoing axial low back pain for several years, recently worsened. mri shows multilevel facet arthropathy and spondylosis. engages in >6 weeks of provider directed home exercises, with minimal benefit. utilizing mobic and tizanidine, with mild benefit. otherwise denies adverse med side effects. recently underwent bilateral L4-5 L5-S1 facet medial branch thermal RFA with 85% improvement in pain and functional ability. Patient would like to discuss additional options for chronic pain as she reports overall OA pain and myofascial pain. Patient has an allergy to gabapentin and sulfa drugs. cc:: CC: Angie Casarez NP Review of Systems ROS Status of ROS 10 or more systems reviewed and unremarkable except as noted in history and below Musculoskeletal Reports: back pain PFSH PFSH Medical History Lupus ?M32.9 - Systemic lupus erythematosus, unspecified (ICD-10) Heartburn ?R12 - Heartburn (ICD-10) Hypothyroid ?E03.9 - Hypothyroidism, unspecified (ICD-10) Asthma ?J45.909 - Unspecified asthma, uncomplicated (ICD-10) Palpitations ?R00.2 - Palpitations (ICD-10) Surgical History History of hand surgery ?Z98.890 - Other specified postprocedural states (ICD-10) History of ear surgery ?Z98.890 - Other specified postprocedural states (ICD-10) History of hip surgery ?Z98.890 - Other specified postprocedural states (ICD-10) History of shoulder surgery ?Z98.890 - Other specified postprocedural states (ICD-10) Meds Home Medications and Allergies Home Medications ?Medication ?Instructions ?Recorded ?Confirmed ?Type albuterol 90 mcg/actuation aerosol mcg inhalation 06/05/23 History inhaler carvedilol 12.5 mg tablet 25 mg PO Q12H 06/05/23 07/30/23 History cyclosporine 0.05 % eye drops in a 1 drp ophthalmic (eye) Q12H 06/05/23 07/30/23 History dropperette (Restasis) hydrochlorothiazide 12.5 mg tablet 12.5 mg PO DAILY 06/05/23 07/30/23 History hydroxychloroquine 200 mg tablet 200 mg PO BID 06/05/23 07/30/23 History (Plaquenil) losartan 100 mg tablet 100 mg PO DAILY 06/05/23 07/30/23 History meloxicam 15 mg tablet 15 mg PO DAILY 06/05/23 07/30/23 History metoprolol succinate 25 mg 12.5 mg PO DAILY 06/05/23 07/30/23 History tablet,extended release 24 hr omeprazole 20 mg capsule,delayed 20 mg PO DAILY 06/05/23 07/30/23 History release thyroid (pork) 90 mg tablet 90 mg PO DAILY 06/05/23 07/30/23 History ([place] Thyroid) tizanidine 4 mg tablet 4 mg PO BEDTIME 06/05/23 07/30/23 History Allergies Allergy/AdvReac Type Severity Reaction Status Date / Time amoxicillin Allergy Verified 07/30/23 07:43 ciprofloxacin [From Cipro] Allergy Verified 07/30/23 07:43 gabapentin Allergy Verified 07/30/23 07:43 Sulfa (Sulfonamide Allergy Verified 07/30/23 07:43 Antibiotics) Exam Constitutional Documenting provider has reviewed patient's vital signs: yes Common normals: no apparent distress, oriented x3, healthy appearing, alert and well nourished General appearance: cooperative [facility] Common normals: normocephalic, hearing grossly normal bilaterally and moist oral mucous membranes Head and scalp: normocephalic Eye Common normals: PERRL Pupil: PERRL Neck & C-Spine Common normals: full ROM General: normal visual inspection Chest Common normals: inspection of chest normal Respiratory Common normals: normal respiratory effort, no retractions and no use of accessory muscles Back & Pelvis Lumbar spine/lower back: normal to inspection and lumbar ROM normal Sacroiliac joints: SI joints normal Other: myofascial pain without trigger points noted on exam diffuse tenderness Neuro Common normals: oriented x3, CN's II-XII intact bilaterally, moves all extremities, no focal motor deficits, no sensory deficits noted and deep tendon reflexes 2+ bilaterally Sensorium/orientation: alert Motor exam: strength 5/5 throughout and no movement abnormalities noted Psych Common normals: mental status grossly normal, thought process normal, cooperative, affect normal, speech normal and activity/motor behavior normal Speech: normal speech Thought process: normal thought process Results Additional Findings Additional findings: If on a controlled substance or opioids, I have checked an [place]AR[place] report on this patient and there are no aberrancies noted in the prescribing history.??If on a controlled substance or opioid a drug screen was completed and reviewed within the last year, and if there has not been a drug screen completed we ordered one today to monitor higher risk, state monitored pain medication use. As part of providing excellent, safe, comprehensive care, the following was completed at our patient's visit: 1. A medication reconciliation and review to ensure accurate knowledge of current/active medications, including asking our patients to inform us about any [id number] medications or herbal remedies/nutritional supplements/alternative remedies. 2. A review to specifically ensure our patients have had annual screening for screening for depression, screening for tobacco use, and screening for unhealthy alcohol use. For concerning screenings had a discussion with the patient, provided patient education, and recommended follow-up with primary care provider when appropriate. If patient noted with a risk of falling, they received education on strength, gait, and balance training to prevent future risk of falling. Assessment and Plan Assessment and Plan (1) Lumbar spondylosis: Assessment and Plan: significant improvement, greater than 80% improvement in low back pain from bilateral L4/5 L5/S1 facet RFA (2) Lumbar stenosis with neurogenic claudication: (3) Chronic pain syndrome: (4) Myofascial pain syndrome: Plan start duloxetine 30mg HS, consider increasing dose to 60mg HS in 1 month. pt to call to evaluate response. I feel patient will benefit with OA, CPS, and hx of connective tissue disorders questionable FM continue HEP as tolerated continue f/u with rheumatology f/u 3 months in person
== END 2023-08-30 13:59 | disposition home or self-care (01) ==
LOC: PM 13:59
PROVIDERS: PCP Family Medicine; Visit Provider Nurse Practitioner
DX: M47.816 Spondylosis without myelopathy or radiculopathy, lumbar region (principal); M48.062 Spinal stenosis, lumbar region with neurogenic claudication; G89.4 Chronic pain syndrome; M79.18 Myalgia, other site
CPT/HCPCS: G0463

== ENCOUNTER 2023-10-31 09:43 | Outpatient (OUT) | payer MEDICARE, OTHER, SELFPAY ==
--- NOTE | 2023-10-31 09:56 | P.CN_ITS ---
Consult Note: HPI Data of Consult Patient: known to practice within the last 3 years Consult date: 06/04/23 Requesting Physician: Angie Casarez NP Primary Care Provider: CAR Rich Narrative Reason for consult: low back pain Narrative: 68yof who presents for evaluation. ongoing axial low back pain for several years, recently worsened. mri shows multilevel facet arthropathy and spondylosis. engages in >6 weeks of provider directed home exercises, with minimal benefit. utilizing mobic and tizanidine, with mild benefit. otherwise denies adverse med side effects. recently underwent bilateral L4-5 L5-S1 facet medial branch thermal RFA with 85% improvement in pain and functional ability fo r 2 months per patient. Patient would like to discuss additional options for chronic pain as she reports overall OA pain and myofascial pain. Patient has an allergy to gabapentin and sulfa drugs. Patient reports flair up of moderate to severe pain in whole back, arms, and legs for which rheumatology prescribed medrol dose pack and tramadol which has significantly improved the patients pain. Patient reporting pain 3-/10 in low back increased with standing and walking. cc:: CC: Angie Casarez NP Review of Systems ROS Status of ROS 10 or more systems reviewed and unremark able except as noted in history and below Musculoskeletal Reports: back pain PFSH PFSH Medical History Lupus ?M32.9 - Systemic lupus erythematosus, unspecified (ICD-10) Heartburn ?R12 - Heartburn (ICD-10) Hypothyroid ?E03.9 - Hypothyroidism, unspecified (ICD-10) Asthma ?J45.909 - Unspecified asthma, uncomplicated (ICD-10) Palpitations ?R00.2 - Palpitations (ICD-10) Surgical History History of hand surgery ?Z98.890 - Other specified postprocedural states (ICD-10) History of ear surgery ?Z98.890 - Other specified postprocedural states (ICD-10) History of hip surgery ?Z98.890 - Other specified postprocedural states (ICD-10) History of shoulder surgery ?Z98.890 - Other specified postprocedural states (ICD-10) Meds Home Medications and Allergies Home Medications ?Medication ?Instructions ?Recorded ?Confirmed ?Type albuterol 90 mcg/actuation aerosol mcg inhalation 06/05/23 History inhaler carvedilol 12.5 mg tablet 25 mg PO Q12H 06/05/23 07/30/23 History cyclosporine 0.05 % eye drops in a 1 drp ophthalmic (eye) Q12H 06/05/23 07/30/23 History dropperette (Restasis) hydrochlorothiazide 12.5 mg tablet 12.5 mg PO DAILY 06/05/23 07/30/23 History hydroxychloroquine 200 mg tablet 200 mg PO BID 06/05/23 07/30/23 History (Plaquenil) losartan 100 mg tablet 100 mg PO DAILY 06/05/23 07/30/23 History meloxicam 15 mg tablet 15 mg PO DAILY 06/05/23 07/30/23 History metoprolol succinate 25 mg 12.5 mg PO DAILY 06/05/23 07/30/23 History tablet,extended release 24 hr omeprazole 20 mg capsule,delayed 20 mg PO DAILY 06/05/23 07/30/23 History release thyroid (pork) 90 mg tablet 90 mg PO DAILY 06/05/23 07/30/23 History ([place] Thyroid) tizanidine 4 mg tablet 4 mg PO BEDTIME 06/05/23 07/30/23 History Allergies Allergy/AdvReac Type Severity Reaction Status Date / Time amoxicillin Allergy Verified 07/30/23 07:43 ciprofloxacin [From Cipro] Allergy Verified 07/30/23 07:43 gabapentin Allergy Verified 07/30/23 07:43 Sulfa (Sulfonamide Allergy Verified 07/30/23 07:43 Antibiotics) Exam Constitutional Documenting provider has reviewed patient's vital signs: yes Common normals: no apparent distress, oriented x3, healthy appearing, alert and well nourished General appearance: cooperative [facility] Common normals: normocephalic, hearing grossly normal bilaterally and moist oral mucous membranes Head and scalp: normocephalic Eye Common normals: PERRL Pupil: PERRL Neck & C-Spine Common normals: full ROM General: normal visual inspection Chest Common normals: inspection of chest normal Respiratory Common normals: normal respiratory effort, no retractions and no use of accessory muscles Back & Pelvis Thoracic spine/upper back: normal to inspection and thoracic ROM normal Lumbar spine/lower back: normal to inspection, lumbar ROM normal and straight leg raise negative bilaterally Sacroiliac joints: SI joints normal Other: sensation intact BLE strength 5/5 in BLE no radiculopathy on exam negative bilateral salomon(patricks), gaenslens, thigh thrust, compression test myofascial tenderness noted Extremity Common normals: normal to inspection and full ROM Neuro Common normals: oriented x3, CN's II-XII intact bilaterally, moves all extremities, no focal motor deficits, no sensory deficits noted, deep tendon reflexes 2+ bilaterally and gait normal Sensorium/orientation: alert Motor exam: strength 5/5 throughout and no movement abnormalities noted Psych Common normals: mental status grossly normal, thought process normal, cooperative, affect normal, speech normal and activity/motor behavior normal Speech: normal speech Thought process: normal thought process Results Additional Findings Additional findings: If on a controlled substance or opioids, I have checked an [place] report on this patient and there are no aberrancies noted in the prescribing history.??If on a controlled substance or opioid a drug screen was completed and reviewed within the last year, and if there has not been a drug screen completed we ordered one today to monitor higher risk, state monitored pain medication use. As part of providing excellent, safe, comprehensive care, the following was com pleted at our patient's visit: 1. A medication reconciliation and review to ensure accurate knowledge of current/active medications, including asking our patients to inform us about any [id number] medications or herbal remedies/nutritional supplements/alternative remedies. 2. A review to specifically ensure our patients have had annual screening for screening for depression, screening for tobacco use, and screening for unhealthy alcohol use. For concerning screenings had a discussion with the patient, provided patient education, and recommended follow-up with primary care provider when appropriate. If patient noted with a risk of falling, they received education on strength, gait, and balance training to prevent future risk of falling. Assessment and Plan Assessment and Plan (1) Lumbar spondylosis: Assessment and Plan: significant improvement, greater than 80% improvement in low back pain from bilateral L4/5 L5/S1 facet RFA (2) Lumbar stenosis with neurogenic claudication: Assessment and Plan: negative exam (3) Chronic pain syndrome: (4) Myofascial pain syndrome: Plan patient was unable to tolerate duloxetine 30 mg daily, could consider LDN in the future continue HEP as tolerated continue f/u with rheumatology, they have recently placed patient on medrol dose pack and tramadol 50mg PRN. Patient is finding significant benefit to these medications, no longer noticing arm and leg pain. As noted above no facet mediated pain, no evidence of lumbar radiculopathy, sacroilitis, or lumbar stenosis with NC. Patient does have myofascial pain on exam and is going to utilize tizanidine and TENS. If patients pain worsens I have asked her to call and I will bring her back for an evaluation. Patient can continue medications through rheumatology. Can consider lumbar BETTE if neurogenic claudication symptoms worsen, but per patient symptoms have significantly improved.
--- OUTSIDE RECORDS SUMMARY | 2023-10-31 10:00 | XMS_ITS | CCD ---
Author Organization [facility] CliniSyut Care Team Providers Care Blue Leather Setter Name Role Phone PHYSICIAN, DEFAULT Unavailable Unavailable PHYSICIAN, DEFAULT Unavailable Unavailable ORIANA LAGUERRE Unavailable Unavailable MISC, DR CHEEK Attending Unavailable MISC, DR CHEEK Admitting Unavailable MISC, DR CHEEK Consulting Unavailable SHADE, DR ORIANA Lora Primary Care Unavailable NATY KIRKPATRICK Admitting Unavailable NATY KIRKPATRICK Consulting Unavailable NATY KIRKPATRICK Attending Unavailable SHADE, DR ORIANA Lora Referring Unavailable Abena Hawkins Unavailable Shade Oriana Unavailable José Miguel Grey Unavailable Addy ROUSSEAU Attending Unavailable Addy ROUSSAEU Attending Unavailable MD Oriana Laguerre Primary Care Provider ESTEPHANIE Santiago-Beverly Monahan Attending Provider MD Oriana Laguerre Primary Care Provider MD Alisia Franz Attending Provider [phone] Oriana Laguerre MD Primary Care Provider Huong Santiago Admitting Unavailable Huong Santiago Attending Unavailable Shade Oriana Primary Care Unavailable Huong Santiago Attending Unavailable Oriana Laguerre Primary Care Unavailable Huong Santiago Admitting Unavailable Oriana Laguerre Primary Care Unavailable Alisia Franz Admitting Unavailable Alisia Franz Attending Unavailable RHODA JIN Attending Unavailable CLEMENTINA DIEGO Referring Unavailable ORIANA LAGUERRE Primary Care Unavailable Marcial RAMIREZ, Kamryn Rodriguez Attending Unavailable Marcial RAMIREZ, Andrius Rodriguez Attending Unavailable Marcial RAMIREZ, Andrius Jennifer Attending Unavailable Marcial RAMIREZ, Kamryn Rodriguze Attending Unavailable RHODA DOCKERY Attending Unavailable PUMPJOHN Attending Unavailable WONDERLY, ORIANA B Attending Unavailable NATY KIRKPATRICK Referring Unavailable LATRICE PEÑA Referring Unavailable WONDERLY, ORIANA Lora Primary Care Unavailable LATRICE PEÑA Referring Unavailable WONDERLY, ORIANA Lora Primary Care Unavailable ALISIA FRANZ Referring Unavailable WONDERLY, ORIANA B Primary Care Unavailable LATRICE PEÑA Referring Unavailable WONDERLY, ORIANA Lora Primary Care Unavailable WONDERLY, ORIANA B Primary Care Unavailable LATRICE PEÑA Referring Unavailable Allergies Allergy Classification Reported Allergen(s) Allergy Type Date of Onset Reaction(s) Facility (1 source) Sulfonamides (Antibiotic); Translations: [SULFA] Propensity to adverse reactions (disorder) 11-11-19 11 [facility] Repository (4 sources) gabapentin; Translations: [gabapentin] Drug Allergy 02-12-20 21 [facility] Repository (1 source) rosuvastatin Drug Allergy 02-26-20 21 [facility] Repository (1 source) Sulfonamides (Antibiotic) Drug allergy (disorder) 02-26-20 21 [facility] Repository (8 sources) gabapentin Drug Allergy 11-02-19 17 [facility] (7 sources) Sulfacetamide / Sulfur Drug Allergy Unknown [facility] Other (1 source) Sulfonamides (Antibiotic); Translations: [sulfa drugs] Propensity to adverse reactions (disorder) [facility] Repository (6 sources) Ciprofloxacin; Translations: [ciprofloxacin] Drug Allergy 02-12-20 21 Unknown Reaction [facility] (3 sources) Sulfacetamide; Translations: [sulfacetamide] Drug Allergy 02-12-20 21 Vomiting [facility] (3 sources) Sulfur; Translations: [sulfur] Drug Allergy 02-12-20 21 Vomiting [facility] (3 sources) HMG-CoA reductase inhibitor; Translations: [EXAIXRH-KNC-DGG REDUCTASE INHIBITORS] Propensity to adverse reactions to drug 11-02-19 17 pain [facility] (3 sources) Sulfonamides (Antibiotic); Translations: [SULFA (SULFONAMIDE ANTIBIOTICS)] Propensity to adverse reactions to drug 11-02-19 17 GI Disturbance [facility] (1 source) gabapentin Drug Allergy 12-13-19 23 [facility] Repository (2 sources) gabapentin; Translations: [GABAPENTIN (BULK)] Drug Allergy 11-02-19 17 [facility] Repository Medications Current Medications Medication Drug Class(es) [...] as needed Orally every 6 hrs Active [id number] 200 actuat albuterol 0.09 mg/actuat metered dose [...] 12.5 mg oral tablet (4 sources) alpha-Adrenergic Salas, beta-Adrenergic Salas Start: 03-06-2022 take 1 tablet by mouth [...] Orally Once a day Active fluocinolone acetonide 0.93101 mg/mg topical ointment (4 sources) Corticosteroid Start: [...] twice daily for 90 days Apr, Active vlofeiol-ungy-syt1-C-man g-bosw 750-625-30 mg tablet (1 source) take 1 tablet by mouth once daily zxebgfcj-lzak-dns4-C-ma ng-bosw 750-625-30 mg tablet Take 1 tablet by mouth daily. 0 Active glucosamine 750 mg oral tablet (3 sources) Glucosamine 750 MG as directed Orally Active hydroCHLOROthiazide 12.5 mg oral tablet (7 sources) Thiazide Diuretic Start: 02-11-2021 Hydrochlorothiazide Active 12.5 MG PO As Directed February 10, 2021 11:00pm take [address] capsule [address] [facility] every twenty-four hours hydroCHLOROthiazide 12.5 MG 1 [...] by mouth daily. 0 Active lactobacillus acidophilus [id number] unt / pectin 100 mg oral tablet (1 source) take 1 tablet by mouth once daily at breakfast acidophilus-pectin, citrus 25 million cell -100 mg tablet Take 1 tablet by mouth daily with breakfast. 0 Active losartan potassium 50 mg oral tablet (10 sources) Angiotensin 2 Receptor Salas Start: 02-11-2021 Losartan Active 50 MG PO As Directed February 10, 2021 11:00pm Start: 10-17-2016 losartan (COZA AR) 100 mg tablet 1 tablet (100 mg total) in the morning. 0 10/17/2016 Active magnesium oxide 500 mg oral tablet (4 sources) take 1 tablet by [facility] in the morning magnesium oxide 500 mg [...] extended release oral tablet (1 source) beta-Adrenergic Salas take 1 tablet by mouth once daily in the morning metoprolol succinate XL (TOPROL XL) 25 mg 24 hr tablet TAKE 1 TABLET BY MOUTH EVERY MORNING 0 Active Multi Vitamin Daily - (3 sources) take 1 tablet by mouth once daily Multi Vitamin Daily - 1 tablet Orally Once a day Active aszsdpxe-xecj-XF-calc ium &mins (THERAGRAN-M) 9 mg iron-400 mcg tablet (1 source) ocfkgtud-fllc-LV -calc ium &mins (THERAGRAN-M) 9 mg iron-400 [...] capsule Orally Once a day Active thyroid (detention) 120 mg oral tablet (10 sources) Start: 10-31-2016 Thyroid (Pork) ([place] Thyroid) 120 mg tablet Active 120 MG [...] [Encephalocele, 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 Osteoarthritis (17 sources) Arthropathy of joint of hand; Translations: [Primary osteoarthritis, unspecified hand] Onset: 2 Resolved: 2 Chronic Other aftercare (1 source) Other intermediate (current) drug therapy; Translations: [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) drug therapy] Onset: 4 Episodic Other connective tissue disease (5 sources) Pain in left hand Onset: 2 Resolved: 2 Episodic Other connective tissue disease (5 sources) Pain in right hand Onset: 2 Resolved: 2 Episodic Other connective tissue disease (1 source) Enthesopathy, unspecified; Translations: [Enthesopathy, unspecified] Onset: 4 Episodic Other ear and sense organ disorders [...] sources) Dysphagia; Translations: [Dysphagia, unspecified] 02-11-2021 Episodic Other non-traumatic joint disorders (1 source) Pain in right wrist; Translations: [Pain in right wrist] Onset: 4 Episodic Systemic lupus erythematosus and connective tissue disorders (2 sources) Systemic involvement of connective tissue, unspecified; Translations: [...] of colon] Onset: 11-15-2016 11-15-2016 Episodic Other connective tissue disease (1 source) Other enthesopathies, not elsewhere classified; Translations: [Other enthesopathies, not elsewhere classified] Onset: 05-07-2023 Episodic Other non-traumatic joint disorders (1 source) [...] Test Name Value Interpretation Reference Range Facility CBC AND AUTO DIFFon 10-03-19 ABSOLUTE BASOPHIL 0.1 X10E9/L Normal 0.0-0.2 [facility] Comment on above: Performed By: #### C BCA, 14551-7, CMP, C34 #### [facility] ([id number]) [address] [place] [address] ABSOLUTE NEUTROPHIL 3.6 X10E9/L Normal 1.5-6.6 [facility] Comment on above: Performed By: #### C BCA, 49325-9, CMP, C34 #### [facility] ([id number]) [address] [facility] [address] [place] [address] Basophils/100 WBC (Bld) 2.0 % Normal P [facility] Comment on above: Performed By: #### C BCA, 54356-7, CMP, C34 #### [facility] ([id number]) [address], [address] [place] [address] Eosinophils (Bld) [#/Vol] 0.2 10*3/uL Normal 0.0-0.4 [place] Comment on above: Performed By: #### C GREGORIA, 48866-6, CMP, C34 #### [facility] ([id number]) [address], [facility] [address] [place] [address] Eosinophils/100 WBC (Bld) 3.4 % Normal [place] Comment on above: Performed By: #### C GREGORIA, 56268-4, CMP, C34 #### [facility] ([id number]) [address], [facility] [address] [place] [address] Erythrocyte distribution width (RBC) [Ratio] 14.8 % Normal 11.5-15.0 [place] Comment on above: Performed By: #### Beverly KINNEY, 01218-9, CMP, C34 #### [facility] ([id number]) [address], [facility] [address] [place] [address] Hematocrit (Bld) [Volume fraction] 33.8 % Low 35-47 [place] Comment on above: Performed By: #### Beverly KINNEY, 43920-2, CMP, C34 #### [facility] ([id number]) [address], [facility] [address] [place] [address] Hemoglobin (Bld) [Mass/Vol] 11.5 g/dL Low 11.7-15.5 [place] Comment on above: Performed By: #### Beverly BCA, 65864-5, CMP, C34 #### [facility] ([id number]) [address], [facility] [address] [place] [address] Lymphocytes (Bld) [#/Vol] 1.5 10*3/uL Normal 1.0-3.5 [place] Comment on above: Performed By: #### Beverly BCA, 21533-3, CMP, C34 #### [facility] ([id number]) [address], [address] [place] [address] Lymphocytes/100 WBC (Bld) 24.9 % Normal [place] Comment on above: Performed By: #### Beverly KINNEY, 73995-2, CMP, C34 #### [facility] ([id number]) [address], [address] [place] [address] MCH (RBC) [Entitic mass] 30.8 pg Normal 27-34 [place] Comment on above: Performed By: #### Beverly KINNEY, 50152-5, CMP, C34 #### [facility] ([id number]) [address], [address] [place] [address] MCHC (RBC) [Mass/Vol] 34.0 g/dL Normal 32-36 [facility] Comment on above: Performed By: #### Beverly KINNEY, 04951-6, CMP, C34 #### [facility] ([id number]) [address], [address] [place] [address] MCV (RBC) [Entitic vol] 91 fL Normal 80-100 [facility] Comment on above: Performed By: #### Beverly KINNEY, 59255-6, CMP, C34 #### [facility] ([id number]) [address], [address] [place] [address] Monocytes (Bld) [#/Vol] 0.5 10*3/uL Normal 0-0.9 [place] Comment on above: Performed By: #### Beverly KINNEY, 15768-7, CMP, C34 #### [facility] ([id number]) [address], [address] [place] [address] Monocytes/100 WBC (Bld) 8.1 % Normal P [facility] Comment on above: Performed By: #### Beverly KINNEY, 95192-4, CMP, C34 #### [facility] ([id number]) [address], [facility] [address] [place] [address] Neutrophils/100 WBC (Bld) 61.6 % Normal [place] Comment on above: Performed By: #### Beverly KINNEY, 49533-7, CMP, C34 #### [facility] ([id number]) [address] [address] [place] [address] Platelet mean volume (Bld) [Entitic vol] 7.5 fL Normal 7-12 [place] Comment on above: Performed By: #### Beverly KINNEY, 84746-7, CMP, C34 #### [facility] ([id number]) [address] [address] [place] [address] Platelets (Bld) [#/Vol] 384 10*3/uL Normal 150-450 [place] Comment on above: Performed By: #### Beverly KINNEY, 81359-8, CMP, C34 #### [facility] ([id number]) [address] [address] [place] [address] RBC COUNT 3.73 X10E12/L Low 3.80-5.20 [place] Comment on above: Performed By: #### Beverly KINNEY, 25016-5, CMP, C34 #### [facility] ([id number]) [address] [address] [place] [address] WBC (Bld) [#/Vol] 5.9 10*3/uL Normal 4.0-11.0 [facility] Comment on above: Performed By: #### Beverly KINNEY, 41657-6, CMP, C34 #### [facility] ([id number]) [address] [address] [address] [place] [address] COMPLEMENT PROFILEon 024 COMPLEMENT C3 143 mg/dL Normal 86-184 [place] Comment on above: Performed By: #### Beverly KINNEY, 28868-4, CMP, C34 #### [facility] ([id number]) [address], [address] [place] [address] COMPLEMENT C4 40 mg/dL Normal 16-47 [place] Comment on above: Performed By: #### C BCA, 10168-0, CMP, C34 #### [facility] ([id number]) [address], [address] [place] [address] COMPREHENSIVE METABOLIC PANE Steven 10-03-2023 Albumin [Mass/Vol] 4.0 g/dL Normal 3.2-5.3 [facility] Comment on above: Performed By: #### C BCA, 32034-9, CMP, C34 #### [facility] ([id number]) [address], [address] [place] [address] ALP [Catalytic activity/Vol] 107 U/L Normal 39-130 [place] Comment on above: Performed By: #### C BCA, 81460-3, CMP, C34 #### [facility] ([id number]) [address], [address] [place] [address] ALT [Catalytic activity/Vol] 28 U/L Normal 0-31 [place] Comment on above: Performed By: #### C BCA, 05035-7, CMP, C34 #### [facility] ([id number]) [address], [address] [place] [address] Anion gap [Moles/Vol] 7 mmol/L Normal 5-15 [facility] Comment on above: Performed By: #### C BCA, 04668-1, CMP, C34 #### [facility] ([id number]) [address], [address] [place] [address] AST [Catalytic activity/Vol] 33 U/L Normal 0-41 [place] Comment on above: Performed By: #### C BCA, 21623-4, CMP, C34 #### [facility] ([id number]) [address], [address] [place] [address] Bilirubin [Mass/Vol] 0.5 mg/dL Normal 0.3-1.2 [facility] Comment on above: Performed By: #### C BCA, 88529-2, CMP, C34 #### [facility] ([id number]) [address], [address] [place] [address] Calcium [Mass/Vol] 9.6 mg/dL Normal 8.5-10.5 [facility] Comment on above: Performed By: #### C BCA, 21402-4, CMP, C34 #### [facility] ([id number]) [address], [address] [place] [address] Chloride [Moles/Vol] 101 mmol/L Normal 98-109 [facility] Comment on above: Performed By: #### Beverly BCA, 13882-8, CMP, C34 #### [facility] ([id number]) [address] [address] [place] [address] CO2 [Moles/Vol] 28 mmol/L Normal 22-32 [place] Comment on above: Performed By: #### Beverly BCA, 64108-5, CMP, C34 #### [facility] ([id number]) [address], [address] [place] [address] Creatinine [Mass/Vol] 0.80 mg/dL Normal 0.40-1.00 [facility] Comment on above: Result Comment: METH OD TRACEABLE TO IDMS STANDARD Performed By: #### C BCA, 41842-3, CMP, C34 #### [facility] ([id number]) [address], [address] [place] [address] GFR/1.73 sq M.predicted among non-blacks MDRD (S/P/Bld) [Vol rate/Area] 80 mL/min/{1.73_m2} Normal >59 [place] Comment on above: Result Comment: Reported eGFR is based on the CKD-EPI 2020 equation that does not use a race coefficient. Performed By: #### C GREGORIA, 38333-8, CMP, C34 #### [facility] ([id number]) [address], [address] [place] [address] Glucose [Mass/Vol] 90 mg/dL Normal 65-99 [facility] Comment on above: Performed By: #### C GREGORIA, 85027-2, CMP, C34 #### [facility] ([id number]) [address], [facility] [address] [place] [address] Potassium [Moles/Vol] 4.3 mmol/L Normal 3.5-5.0 [facility] Comment on above: Performed By: #### C GREGORIA, 30584-4, CMP, C34 #### [facility] ([id number]) [address], [address] [place] [address] Protein [Mass/Vol] 6.8 g/dL Normal 6.0-8.0 [facility] Comment on above: Performed By: #### C GREGORIA, 52898-1, CMP, C34 #### [facility] ([id number]) [address], [address] [place] [address] Sodium [Moles/Vol] 136 mmol/L Normal 134-146 [facility] Comment on above: Performed By: #### C GREGORIA, 29452-3, CMP, C34 #### [facility] ([id number]) [address] [address] [place] [address] Urea nitrogen [Mass/Vol] 17 mg/dL Normal 5-27 [place] Comment on above: Performed By: #### C BCA, 02454-5, CMP, C34 #### [facility] ([id number]) [address], [address] [place] [address] Complement total hemolytic C H50 Qnon 10-03-2023 COMPLEMENT TOTAL See Below Normal [facility] Comment on above: Result Comment: NOTE TEST RESULT FLAG UNIT REF.RANGE --------- Complmnt Def. Assay 72.6 U/mL 41.7-95.1 Total complement function test is used as an aid in diagnosis of complement deficiencies. It measures the function of the classical pathway including terminal complement components. Clinical correlation is required. Test Performed By: [facility] [address] [place] [address] Creative Services Producer: Olivier Reis III, M.D. CLIA #[id number] Performed By: #### 4 532-8 #### [facility] ([id number]) [address] [place] [address] ESR Photometric method (Bld) [Velocity]on 10-03-2023 ESR, ERYTHROCYTE SEDIMENTATION RATE 8 mm/h Normal 0-30 [place] Comment on above: Performed By: #### C BCA, 24349-3, CMP, C34 #### [facility] ([id number]) [address], [address] [place] [address] URINALYSISon 10-03-2023 Bilirubin Ql (U) MODERATE Abnormal NEG [facility] Comment on above: Result Comment: Not confirmed, interpret positive results with caution. Performed By: #### U A #### [facility] ([id number]) [address], [address] [place] [address] BLOOD/HGB Negative Normal NEG [place] Comment on above: Performed By: #### U A #### [facility] ([id number]) [address], [address] [place] [address] Color (U) YELLOW Normal YELLOW [place] Comment on above: Performed By: #### U A #### [facility] ([id number]) [address], [address] [place] [address] Glucose Ql (U) Negative Normal NEG [place] Comment on above: Performed By: #### U A #### [facility] ([id number]) [address], [address] [place] [address] Ketones Ql (U) Negative Normal NEG [place] Comment on above: Performed By: #### U A #### [facility] ([id number]) [address], [address] [place] [address] Leukocyte esterase Test strip Ql (U) Negative Normal NEG [place] Comment on above: Performed By: #### U A #### [facility] ([id number]) [address] [place] [address] MUCOUS PRESENT Abnormal NONE [place] Comment on above: Performed By: #### U A #### [facility] ([id number]) [address], [address] [place] [address] Nitrite Ql (U) Negative Normal NEG [place] Comment on above: Performed By: #### U A #### [facility] ([id number]) [address] [place] [address] pH (U) 6.5 [pH] Normal 5.0-8.5 [place] Comment on above: Performed By: #### U A #### [facility] ([id number]) [address], [address] [place] [address] Protein Ql (U) Trace Abnormal NEG [place] Comment on above: Performed By: #### U A #### [facility] ([id number]) [address], [address] [place] [address] R.B.CELLS <1 Normal 0-5 [place] Comment on above: Performed By: #### U A #### [facility] ([id number]) [address], [address] [place] [address] Specific gravity (U) [Rel density] 1.018 Normal 1.003-1.035 [place] Comment on above: Performed By: #### U A #### [facility] ([id number]) [address], [address] [place] [address] SQUAMOUS EPITHELIUM <1 Normal 0-5 [facility] Comment on above: Performed By: #### U A #### [facility] ([id number]) [address], [address] [place] [address] TURBIDITY CLEAR Normal CLEAR [place] Comment on above: Performed By: #### U A #### [facility] ([id number]) [address], [address] [place] [address] Urobilinogen (U) [Mass/Vol] mg/dL Normal <1.1 [place] Comment on above: Performed By: #### U A #### [facility] ([id number]) [address], [address] [place] [address] W.B.CELLS 1 /hpf Normal 0-5 [place] Comment on above: Performed By: #### U A #### [facility] ([id number]) [address], [address] [place] [address] XR CHEST 2 VWSon 10-03-2023 XR CHEST 2 VWS XR CHEST 2 VWS PA and lateral chest: HISTORY: Preoperative exam. Anesthesia clearance. 2 views the chest are obtained. Cardiac and mediastinal contours are within normal limits. Lungs are clear. There is no pneumothorax, effusion, or focal consolidation. Osseous structures appear intact. IMPRESSION: No acute findings. 4 Finalized by Marvel Arzate MD on 10/03/2023 2:07 PM Normal [place] Comprehensive hearing testOr dered By: Roya Schroeder on 06-26-2023 [facility] Alanine aminotransferase [En zymatic activity/volume] in Serum or PlasmaOrdered By: Alisia Franz on 05-30-2023 ALT [Catalytic activity/Vol] 16 U/L 7-52 [facility] Albumin [Mass/volume] in Ser um or Plasma by Bromocresol green (BCG) dye binding methoOrdered By: Alisia Franz on 05-30-2023 Albumin BCG dye [Mass/Vol] 4.2 g/dL 3.5-5.7 [facility] Alkaline phosphatase [Enzyma tic activity/volume] in Serum or PlasmaOrdered By: Alisia Franz on 05-30-2023 ALP [Catalytic activity/Vol] 109 U/L 34-104 [facility] Aspartate aminotransferase [ Enzymatic activity/volume] in Serum or PlasmaOrdered By: Alisia Franz on 05-30-2023 AST [Catalytic activity/Vol] 22 U/L 13-39 [facility] Automated erythrocytes count in urine sediment (number/area)Ordered By: Alisia Franz on 05-30-2023 RBC Auto (Urine sed) [#/Area] 0-1 [HPF] 0-4 [facility] Automated leukocytes count i n urine sediment (number/area)Ordered By: Alisia Franz on 05-30-2023 WBC Auto (Urine sed) [#/Area] 0-1 [HPF] 0-4 [facility] Basophils Auto (Bld) [#/Vol] Ordered By: Alisia Franz on 05-30-2023 Basophils (Bld) [#/Vol] 0.1 10*3/uL 0.0-0.2 [facility] Basophils/100 WBC Auto (Bld) Ordered By: Alisia Franz on 05-30-2023 Basophils/100 WBC (Bld) 1.1 % . [facility] Bilirubin Test strip Ql (U)O rdered By: Alisia Franz on 05-30-2023 Bilirubin Ql (U) Negative Negative [facility] Bilirubin.total [Mass/volume ] in Serum or PlasmaOrdered By: Alisia Franz on 05-30-2023 Bilirubin [Mass/Vol] 0.5 mg/dL 0.3-1.0 [facility] Calcium [Mass/volume] in Ser um or PlasmaOrdered By: Alisia Franz on 05-30-2023 Calcium [Mass/Vol] 10.0 mg/dL 8.6-10.3 [facility] Carbon dioxide, total [Moles /volume] in Serum or PlasmaOrdered By: Alisia Franz on 05-30-2023 CO2 [Moles/Vol] 26.9 mmol/L 21.0-31.0 [facility] Chloride [Moles/volume] in S mary ellen or PlasmaOrdered By: Alisia Franz on 05-30-2023 Chloride [Moles/Vol] 98 mmol/L 98-107 [facility] Color Auto (U)Ordered By: Ngoc Franz on 05-30-2023 Color (U) Yellow Yellow [facility] Complement C3on 05-30-2023 Complement C3 143 mg/dL Normal 82-167 [facility] Comment on above: Result Comment: Perf ormed at: CB - [facility] [place] [id number] Ophthalmology Surgical Technician: Marvel Barahona PhD, Phone: [phone] Performed By: #### C MP, ESR, CBC, ADDONUAPLUS #### [address] #### CH50, C3, C4 #### [facility] , Complement C4on 05-30-2023 Complement C4 29 mg/dL Normal 12-38 [facility] Comment on above: Result Comment: PERF ORMED BY: [place] [address] PATHOLOGIST ASSISTANT PROFESSOR OF CHEMISTRY ALTHEA BARRAGAN M.D. Performed By: #### C MP, ESR, CBC, ADDONUAPLUS #### [address] #### CH50, C3, C4 #### [facility] , Complement Total (CH50)on Complement Total (CH50) >60 Normal >41 [facility] Comment on above: Result Comment: Age [...] out of range values. Performed at: - [address] [id number] Ophthalmology Surgical Technician: Marvel Barahona PhD, Phone: [phone] PERFORMED BY: [place], [place] [id number] PATHOLOGIST ASSISTANT PROFESSOR OF CHEMISTRY ALTHEA BARRAGAN M.D. Performed By: #### C MP, ESR, CBC, ADDONUAPLUS #### [address] #### CH50, C3, C4 #### [facility] , Complete Blood Count Auto Di ffon 05-30-2023 Basophils (Bld) [#/Vol] 0.1 10*3/uL Normal 0.0-0.2 [facility] Comment on above: Performed By: #### C MP, ESR, CBC, ADDONUAPLUS #### [address] #### CH50, C3, C4 #### [facility] , Basophils/100 WBC (Bld) 1.1 % Normal . [facility] Comment on above: Performed By: #### C MP, ESR, CBC, ADDONUAPLUS #### [place] [address] [place] #### CH50, C3, C4 #### [facility] , Eosinophils (Bld) [#/Vol] 0.0 10*3/uL Normal 0.0-0.45 [facility] Comment on above: Performed By: #### C MP, ESR, CBC, ADDONUAPLUS #### [address] #### CH50, C3, C4 #### [facility] , Eosinophils/100 WBC (Bld) 0.6 % Normal . [facility] Comment on above: Performed By: #### C MP, ESR, CBC, ADDONUAPLUS #### [address] #### CH50, C3, C4 #### [facility] , Erythrocyte distribution width (RBC) [Ratio] 13.8 % Normal 11.9-15.3 [facility] Comment on above: Performed By: #### C MP, ESR, CBC, ADDONUAPLUS #### [address] #### CH50, C3, C4 #### [facility] , Hematocrit (Bld) [Volume fraction] 36.4 % Normal 34.0-46.4 [facility] Comment on above: Performed By: #### C MP, ESR, CBC, ADDONUAPLUS #### [address] #### CH50, C3, C4 #### [facility] , Hemoglobin (Bld) [Mass/Vol] 12.3 g/dL Normal 11.8-15.4 [facility] Comment on above: Performed By: #### C MP, ESR, CBC, ADDONUAPLUS #### [place] [address] [place] #### CH50, C3, C4 #### [facility] , Lymphocytes (Bld) [#/Vol] 2.4 10*3/uL Normal 1.00-4.8 [facility] Comment on above: Performed By: #### C MP, ESR, CBC, ADDONUAPLUS #### [place] [address] [place] #### CH50, C3, C4 #### [facility] , Lymphocytes/100 WBC (Bld) 29.2 % Normal . [facility] Comment on above: Performed By: #### C MP, ESR, CBC, ADDONUAPLUS #### [facility] [address] [place] [address] [place] #### CH50, C3, C4 #### [facility] , MCH (RBC) [Entitic mass] 31.0 pg Normal 24.7-34.3 [facility] Comment on above: Performed By: #### C MP, ESR, CBC, ADDONUAPLUS #### [address] #### CH50, C3, C4 #### [facility] , MCV (RBC) [Entitic vol] 91.5 fL Normal 80-100 [facility] Comment on above: Performed By: #### C MP, ESR, CBC, ADDONUAPLUS #### [address] #### CH50, C3, C4 #### [facility] , Mean Corpuscular HGB Conc 33.8 g/dL Normal 32.0-35.0 [facility] Comment on above: Performed By: #### C MP, ESR, CBC, ADDONUAPLUS #### [address] #### CH50, C3, C4 #### [facility] , Monocytes (Bld) [#/Vol] 0.5 10*3/uL Normal 0.0-0.8 [facility] Comment on above: Performed By: #### C MP, ESR, CBC, ADDONUAPLUS #### [facility] [address] [place] [address] [place] #### CH50, C3, C4 #### [facility] , Monocytes/100 WBC (Bld) 6.2 % Normal . [facility] Comment on above: Performed By: #### C MP, ESR, CBC, ADDONUAPLUS #### [facility] [address] [place] [address] #### CH50, C3, C4 #### [facility] , Neutrophils (Bld) [#/Vol] 5.1 10*3/uL Normal 1.8-7.7 [facility] Comment on above: Performed By: #### C MP, ESR, CBC, ADDONUAPLUS #### [facility] [address] [place] [address] #### CH50, C3, C4 #### [facility] , Neutrophils/100 WBC (Bld) 62.9 % Normal . [facility] Comment on above: Performed By: #### C MP, ESR, CBC, ADDONUAPLUS #### [address] #### CH50, C3, C4 #### [facility] , NRBC% 0.0 /100{WBC} Normal 0-0.5 [facility] Comment on above: Performed By: #### C MP, ESR, CBC, ADDONUAPLUS #### [facility] [address] [place] [address] #### CH50, C3, C4 #### [facility] , Platelet mean volume (Bld) [Entitic vol] 7.4 fL Normal 6.3-10.7 [facility] Comment on above: Performed By: #### C MP, ESR, CBC, ADDONUAPLUS #### [place] [address] [place] #### CH50, C3, C4 #### [facility] , Platelets (Bld) [#/Vol] 461 10*3/uL High 150-450 [facility] Comment on above: Performed By: #### C MP, ESR, CBC, ADDONUAPLUS #### [place] [address] [place] #### CH50, C3, C4 #### [facility] , RBC (Bld) [#/Vol] 3.97 10*6/uL Normal 3.60-5.00 [facility] Comment on above: Performed By: #### C MP, ESR, CBC, ADDONUAPLUS #### [address] #### CH50, C3, C4 #### [facility] , WBC (Bld) [#/Vol] 8.1 10*3/uL Normal 3.8-11.6 [facility] Comment on above: Performed By: #### C MP, ESR, CBC, ADDONUAPLUS #### [address] #### CH50, C3, C4 #### [facility] , Comprehensive Metabolic Pane steven 05-30-2023 Albumin [Mass/Vol] 4.2 g/dL Normal 3.5-5.7 [facility] Comment on above: Performed By: #### C MP, ESR, CBC, ADDONUAPLUS #### [address] #### CH50, C3, C4 #### [facility] , Albumin/Globulin [Mass ratio] 1.8 {ratio} Normal [facility] Comment on above: Performed By: #### C MP, ESR, CBC, ADDONUAPLUS #### [address] #### CH50, C3, C4 #### [facility] , ALP [Catalytic activity/Vol] 109 U/L High 34-104 [facility] Comment on above: Result Comment: PERF ORMED BY: [place] [address] PATHOLOGIST ASSISTANT PROFESSOR OF CHEMISTRY ALTHEA BARRAGAN M.D. Performed By: #### C MP, ESR, CBC, ADDONUAPLUS #### [place] [address] [place] #### CH50, C3, C4 #### [facility] , ALT [Catalytic activity/Vol] 16 U/L Normal 7-52 [facility] Comment on above: Performed By: #### C MP, ESR, CBC, ADDONUAPLUS #### [address] #### CH50, C3, C4 #### [facility] , Anion gap [Moles/Vol] 12.2 mmol/L Normal 6.0-15.0 [facility] Comment on above: Performed By: #### C MP, ESR, CBC, ADDONUAPLUS #### [address] #### CH50, C3, C4 #### [facility] , AST [Catalytic activity/Vol] 22 U/L Normal 13-39 [facility] Comment on above: Performed By: #### C MP, ESR, CBC, ADDONUAPLUS #### [address] #### CH50, C3, C4 #### [facility] , Bilirubin [Mass/Vol] 0.5 mg/dL Normal 0.3-1.0 [facility] Comment on above: Performed By: #### C MP, ESR, CBC, ADDONUAPLUS #### [facility] [address] [place] [address] [place] #### CH50, C3, C4 #### [facility] , Calcium [Mass/Vol] 10.0 mg/dL Normal 8.6-10.3 [facility] Comment on above: Performed By: #### C MP, ESR, CBC, ADDONUAPLUS #### [place] [address] [place] #### CH50, C3, C4 #### [facility] , Chloride [Moles/Vol] 98 mmol/L Normal 98-107 [facility] Comment on above: Performed By: #### C MP, ESR, CBC, ADDONUAPLUS #### [facility] [address] [place] [address] [place] #### CH50, C3, C4 #### [facility] , CO2 [Moles/Vol] 26.9 mmol/L Normal 21.0-31.0 [facility] Comment on above: Performed By: #### C MP, ESR, CBC, ADDONUAPLUS #### [place] [address] [place] #### CH50, C3, C4 #### [facility] , Creatinine [Mass/Vol] 0.86 mg/dL Normal 0.60-1.20 [facility] Comment on above: Performed By: #### C MP, ESR, CBC, ADDONUAPLUS #### [facility] [address] [place] [address] [place] #### CH50, C3, C4 #### [facility] , GFR/1.73 sq M.predicted MDRD (S/P/Bld) [Vol rate/Area] mL/min/{1.73_m2} [facility] Comment on above: Performed By: #### C MP, ESR, CBC, ADDONUAPLUS #### [facility] [address] [place] [address] [place] #### CH50, C3, C4 #### [facility] , Globulin (S) [Mass/Vol] 2.4 g/dL Normal [facility] Comment on above: Performed By: #### C MP, ESR, CBC, ADDONUAPLUS #### [facility] [address] [place] [address] [place] #### CH50, C3, C4 #### [facility] , Glucose [Mass/Vol] 123 mg/dL High 70-100 [facility] Comment on above: Result Comment: [place] om Glucose Reference Range is dependent on time and content of last meal. Glucose of more than 200 mg/dL in a nonstressed, ambulatory subject supports the diagnosis of Diabetes Mellitus. ADA recommended reference range Performed By: #### C MP, ESR, CBC, ADDONUAPLUS #### [address] #### CH50, C3, C4 #### [facility] , Potassium [Moles/Vol] 4.1 mmol/L Normal 3.5-5.1 [facility] Comment on above: Performed By: #### C MP, ESR, CBC, ADDONUAPLUS #### [address] #### CH50, C3, C4 #### [facility] , Protein [Mass/Vol] 6.6 g/dL Normal 6.4-8.9 [facility] Comment on above: Performed By: #### C MP, ESR, CBC, ADDONUAPLUS #### [place] [address] [place] #### CH50, C3, C4 #### [facility] , Sodium [Moles/Vol] 133 mmol/L Low 136-145 [facility] Comment on above: Performed By: #### C MP, ESR, CBC, ADDONUAPLUS #### [place] [address] [place] #### CH50, C3, C4 #### [facility] , Urea nitrogen [Mass/Vol] 20 mg/dL Normal 7-25 [facility] Comment on above: Performed By: #### C MP, ESR, CBC, ADDONUAPLUS #### [place] [address] [place] #### CH50, C3, C4 #### [facility] , Creatinine [Mass/volume] in Serum or PlasmaOrdered By: Alisia Franz on 05-30-2023 Creatinine [Mass/Vol] 0.86 mg/dL 0.60-1.20 [facility] Dipstick and Microscopicon 0 05-30-2023 Appearance (U) Clear Normal Clear [facility] Comment on above: Order Comment: Name Collection Type:: Clean-Voided Midstream Performed By: #### C MP, ESR, CBC, ADDONUAPLUS #### [address] #### CH50, C3, C4 #### [facility] , Bacteria,Urine None Seen Normal None Seen [facility] Comment on above: Order Comment: Name Collection Type:: Clean-Voided Midstream Performed By: #### C MP, ESR, CBC, ADDONUAPLUS #### [address] #### CH50, C3, C4 #### [facility] , Bilirubin,Urine Negative Normal Negative [facility] Comment on above: Order Comment: Name Collection Type:: Clean-Voided Midstream Performed By: #### C MP, ESR, CBC, ADDONUAPLUS #### [address] #### CH50, C3, C4 #### [facility] , Color (U) Yellow Normal Yellow [facility] Comment on above: Order Comment: Name Collection Type:: Clean-Voided Midstream Performed By: #### C MP, ESR, CBC, ADDONUAPLUS #### [address] #### CH50, C3, C4 #### [facility] , Glucose Ql (U) Normal Normal Normal [facility] Comment on above: Order Comment: Name Collection Type:: Clean-Voided Midstream Performed By: #### C MP, ESR, CBC, ADDONUAPLUS #### [address] #### CH50, C3, C4 #### [facility] , Hyaline Casts,Urine None Seen Normal 0-8 [facility] Comment on above: Order Comment: Name Collection Type:: Clean-Voided Midstream Result Comment: PERF ORMED BY: [place] [address] PATHOLOGIST ASSISTANT PROFESSOR OF CHEMISTRY ALTHEA BARRAGAN M.D. Performed By: #### C MP, ESR, CBC, ADDONUAPLUS #### [address] #### CH50, C3, C4 #### [facility] , Ketones Ql (U) Negative Normal Negative [facility] Comment on above: Order Comment: Name Collection Type:: Clean-Voided Midstream Performed By: #### C MP, ESR, CBC, ADDONUAPLUS #### [address] #### CH50, C3, C4 #### [facility] , Leukocyte esterase Test strip Ql (U) Negative Normal Negative [facility] Comment on above: Order Comment: Name Collection Type:: Clean-Voided Midstream Performed By: #### C MP, ESR, CBC, ADDONUAPLUS #### [facility] [address] [place] [address] #### CH50, C3, C4 #### [facility] , Nitrite,Urine Negative Normal Negative [facility] Comment on above: Order Comment: Name Collection Type:: Clean-Voided Midstream Performed By: #### C MP, ESR, CBC, ADDONUAPLUS #### [address] #### CH50, C3, C4 #### [facility] , Occult Blood,Urine Negative Normal Negative [facility] Comment on above: Order Comment: Name Collection Type:: Clean-Voided Midstream Performed By: #### C MP, ESR, CBC, ADDONUAPLUS #### [place] [address] [place] #### CH50, C3, C4 #### [facility] , pH (U) 6.5 [pH] Normal 5.0-9.0 [facility] Comment on above: Order Comment: Name Collection Type:: Clean-Voided Midstream Performed By: #### C MP, ESR, CBC, ADDONUAPLUS #### [address] #### CH50, C3, C4 #### [facility] , Protein,Urine Negative Normal Negative [facility] Comment on above: Order Comment: Name Collection Type:: Clean-Voided Midstream Performed By: #### C MP, ESR, CBC, ADDONUAPLUS #### [address] #### CH50, C3, C4 #### [facility] , RBC LM.HPF (Urine sed) [#/Area] 0 /[HPF] Normal 0-4 [facility] Comment on above: Order Comment: Name Collection Type:: Clean-Voided Midstream Performed By: #### C MP, ESR, CBC, ADDONUAPLUS #### [address] #### CH50, C3, C4 #### [facility] , Specificy [place],Urine 1.011 Normal 1.001-1.030 [facility] Comment on above: Order Comment: Name Collection Type:: Clean-Voided Midstream Performed By: #### C MP, ESR, CBC, ADDONUAPLUS #### [address] #### CH50, C3, C4 #### [facility] , Squamous Epithelial Cell,Urine None Seen Normal 0-2 [facility] Comment on above: Order Comment: Name Collection Type:: Clean-Voided Midstream Performed By: #### C MP, ESR, CBC, ADDONUAPLUS #### [address] #### CH50, C3, C4 #### [facility] , Urobilinogen,Urine Normal Normal Normal [facility] Comment on above: Order Comment: Name Collection Type:: Clean-Voided Midstream Performed By: #### C MP, ESR, CBC, ADDONUAPLUS #### [address] #### CH50, C3, C4 #### [facility] , WBC LM.HPF (Urine sed) [#/Area] 0 /[HPF] Normal 0-4 [facility] Comment on above: Order Comment: Name Collection Type:: Clean-Voided Midstream Performed By: #### C MP, ESR, CBC, ADDONUAPLUS #### [address] #### CH50, C3, C4 #### [facility] , Eosinophils Auto (Bld) [#/Vo l]Ordered By: Alisia Franz on 05-30-2023 Eosinophils (Bld) [#/Vol] 0.0 10*3/uL 0.0-0.45 [facility] Eosinophils/100 WBC Auto (Bl d)Ordered By: Alisia Franz on 05-30-2023 Eosinophils/100 WBC (Bld) 0.6 % . [facility] Erythrocyte Sedimentation Ra sid 05-30-2023 ESR (Bld) [Velocity] 16 mm/h Normal 0-29 [facility] Comment on above: Result Comment: PERF ORMED BY: [place] [address] PATHOLOGIST ASSISTANT PROFESSOR OF CHEMISTRY ALTHEA BARRAGAN M.D. Performed By: #### C MP, ESR, CBC, ADDONUAPLUS #### [address] #### CH50, C3, C4 #### [facility] , Erythrocyte distribution wid th Auto (RBC) [Ratio]Ordered By: Alisia Franz on 05-30-2023 Erythrocyte distribution width (RBC) [Ratio] 13.8 % 11.9-15.3 [facility] Erythrocyte sedimentation ra te by Photometric methodOrdered By: Alisia Franz on 05-30-2023 ESR Photometric method (Bld) [Velocity] 16 mm/hr 0-29 [facility] Globulin Calc (S) [Mass/Vol] Ordered By: Alisia Franz on 05-30-2023 Globulin (S) [Mass/Vol] 2.4 g/dL [facility] Glucose [Mass/volume] in Ser um or PlasmaOrdered By: Alisia Franz on 05-30-2023 Glucose [Mass/Vol] 123 mg/dL 70-100 [facility] Comment on above: ADA recommended refe rence rangeRandom Glucose Reference Range is dependent on time and content of last meal. Glucose of more than 200 mg/dL in a nonstressed, ambulatory subject supports the diagnosis of Diabetes Mellitus. Hematocrit Auto (Bld) [Volum e fraction]Ordered By: Alisia Franz on 05-30-2023 Hematocrit (Bld) [Volume fraction] 36.4 % 34.0-46.4 [facility] Hemoglobin [Mass/volume] in BloodOrdered By: Alisia Franz on 05-30-2023 Hemoglobin (Bld) [Mass/Vol] 12.3 g/dL 11.8-15.4 [facility] Ketones Auto test strip (U) [Mass/Vol]Ordered By: Alisia Franz on 05-30-2023 Ketones (U) [Mass/Vol] Negative Negative [facility] - UrinalysisOrder ed By: Alisia Franz on 05-30-2023 Hyaline casts LM Ql (Urine sed) None seen [LPF] 0-8 [facility] Leukocytes [#/volume] correc leonor for nucleated erythrocytes in Blood by Automated counOrdered By: Alisia Franz on 05-30-2023 WBC corrected for nucl RBC Auto (Bld) [#/Vol] 8.1 10*3/uL 3.8-11.6 [facility] Lymphocytes Auto (Bld) [#/Vo l]Ordered By: Alisia Franz on 05-30-2023 Lymphocytes (Bld) [#/Vol] 2.4 10*3/uL 1.00-4.8 [facility] Lymphocytes/100 WBC Auto (Bl d)Ordered By: Alisia Franz on 05-30-2023 Lymphocytes/100 WBC (Bld) 29.2 % . [facility] MCH Auto (RBC) [Entitic mass ]Ordered By: Alisia Franz on 05-30-2023 MCH (RBC) [Entitic mass] 31.0 pg 24.7-34.3 [facility] MCHC Auto (RBC) [Mass/Vol]Or dered By: Alisia Franz on 05-30-2023 MCHC (RBC) [Mass/Vol] 33.8 g/dL 32.0-35.[address] [facility] MCV Auto (RBC) [Entitic vol] Ordered By: Alisia Franz on 05-30-2023 MCV (RBC) [Entitic vol] 91.5 fL 80-100 [facility] Monocytes Auto (Bld) [#/Vol] Ordered By: Alisia Franz on 05-30-2023 Monocytes (Bld) [#/Vol] 0.5 10*3/uL 0.0-0.8 [facility] Monocytes/100 WBC Auto (Bld) Ordered By: Alisia Franz on 05-30-2023 Monocytes/100 WBC (Bld) 6.2 % . [facility] Neutrophils Auto (Bld) [#/Vo l]Ordered By: Alisia Franz on 05-30-2023 Neutrophils (Bld) [#/Vol] 5.1 10*3/uL 1.8-7.7 [facility] Neutrophils/100 WBC Auto (Bl d)Ordered By: Alisia Franz on 05-30-2023 Neutrophils/100 WBC (Bld) 62.9 % . [facility] Nitrite Test strip Ql (U)Ord ered By: Alisia Franz on 05-30-2023 Nitrite Ql (U) Negative Negative [facility] No Panel InformationOrdered By: Alisia Franz on 05-30-2023 Estimated GFR (CKD-EPI) > 60.0 mL/Min [facility] Creatinine Clearance (Chem N/A [facility] Nucleated erythrocytes [Pres ence] in Blood by Automated countOrdered By: Alisia Franz on 05-30-2023 Nucleated RBC Auto Ql (Bld) 0.0 /100{WBC} 0-0.5 [facility] Platelet mean volume Auto (B ld) [Entitic vol]Ordered By: Alisia Franz on 05-30-2023 Platelet mean volume (Bld) [Entitic vol] 7.4 fL 6.3-10.7 [facility] Platelets Auto (Bld) [#/Vol] Ordered By: Alisia Franz on 05-30-2023 Platelets (Bld) [#/Vol] 461 10*3/uL 150-450 [facility] Potassium [Moles/volume] in Serum or PlasmaOrdered By: Alisia Franz on 05-30-2023 Potassium [Moles/Vol] 4.1 mmol/L 3.5-5.1 [facility] Protein Auto test strip (U) [Mass/Vol]Ordered By: Alisia Franz on 05-30-2023 Protein (U) [Mass/Vol] Negative Negative [facility] Protein [Mass/volume] in Ser um or PlasmaOrdered By: Alisia Franz on 05-30-2023 Protein [Mass/Vol] 6.6 g/dL 6.4-8.9 [facility] RBC Auto (Bld) [#/Vol]Ordere d By: Alisia Franz on 05-30-2023 RBC (Bld) [#/Vol] 3.97 10*6/uL 3.60-5.00 [facility] Serum or plasma albumin/glob ulin mass ratioOrdered By: Alisia Franz on 05-30-2023 Albumin/Globulin [Mass ratio] 1.8 {ratio} [facility] Serum or plasma anion gap de terminationOrdered By: Alisia Franz on 05-30-2023 Anion gap [Moles/Vol] 12.2 mmol/L 6.0-15.0 [facility] Sodium [Moles/volume] in Ser um or PlasmaOrdered By: Alisia Franz on 05-30-2023 Sodium [Moles/Vol] 133 mmol/L 136-145 [facility] Specific gravity Auto test s trip (U) [Rel density]Ordered By: Alisia Franz on 05-30-2023 Specific gravity (U) [Rel density] 1.011 1.001-1.030 [facility] Squamous epithelial cells de tection in urine sediment by light microscopyOrdered By: Alisia Franz on 05-30-2023 Epithelial cells.squamous LM Ql (Urine sed) None seen [HPF] 0-2 [facility] Urea nitrogen [Mass/volume] in Serum or PlasmaOrdered By: Alisia Franz on 05-30-2023 Urea nitrogen [Mass/Vol] 20 mg/dL 7-25 [facility] Urine bacteria detection by automated methodOrdered By: Alisia Franz on 05-30-2023 Bacteria Auto Ql (U) None seen None Seen [facility] Urine clarity by refractomet ry automatedOrdered By: Alisia Franz on 05-30-2023 Clarity Refractometry automated (U) Clear Clear [facility] Urine glucose measurement by automated test strip (mass/volume)Ordered By: Alisia Franz on 05-30-2023 Glucose Auto test strip (U) [Mass/Vol] Normal mg/dL Normal [facility] Urine hemoglobin detection b y automated test stripOrdered By: Alisia Franz on 05-30-2023 Hemoglobin Auto test strip Ql (U) Negative Negative [facility] Urine leukocyte esterase det ection by automated test stripOrdered By: Alisia Franz on 05-30-2023 Leukocyte esterase Auto test strip Ql (U) Negative Negative [facility] Urobilinogen Auto test strip (U) [Mass/Vol]Ordered By: Alisia Franz on 05-30-2023 Urobilinogen (U) [Mass/Vol] Normal mg/dL Normal [facility] WBC Auto (Bld) [#/Vol]Ordere d By: Alisia Franz on 05-30-2023 WBC (Bld) [#/Vol] 8.1 10*3/uL 3.8-11.6 [facility] pH Auto test strip (U)Ordere d By: Alisia Franz on 05-30-2023 pH (U) 6.5 [pH] 5.0-9.0 [facility] BI MAMMOGRAM SCREENING TOMOS YNTHESIS BILATERALon [...] IS VERY IMPORTANT TO YOUR HEALTH. THE [employer] GUIDELINES RECOMMEND THAT WOMEN 40 [...] Normal Not Available DEXA BONE DENSITYon 03-19-20 23 DEXA BONE DENSITY DEXA BONE DENSITY : [...] zymatic activity/volume] in Serum or PlasmaOrdered By: Alisia Franz on 01-18-2023 ALT [Catalytic activity/Vol] 25 U/L 7-52 [facility] Albumin [Mass/volume] in Ser um or Plasma by Bromocresol green (BCG) dye binding methoOrdered By: Alisia Franz on 01-18-2023 Albumin BCG dye [Mass/Vol] 4.0 g/dL 3.5-5.7 [facility] Alkaline phosphatase [Enzyma tic activity/volume] in Serum or PlasmaOrdered By: Alisia Franz on 01-18-2023 ALP [Catalytic activity/Vol] 100 U/L 34-104 [facility] Aspartate aminotransferase [ Enzymatic activity/volume] in Serum or PlasmaOrdered By: Alisia Franz on 01-18-2023 AST [Catalytic activity/Vol] 29 U/L 13-39 [facility] Automated erythrocytes count in urine sediment (number/area)Ordered By: Alisia Franz on 01-18-2023 RBC Auto (Urine sed) [#/Area] 3-4 [HPF] 0-4 [facility] Automated leukocytes count i n urine sediment (number/area)Ordered By: Alisia Frazn on 01-18-2023 WBC Auto (Urine sed) [#/Area] 10-19 [HPF] 0-4 [facility] Basophils Auto (Bld) [#/Vol] Ordered By: Alisia Franz on 01-18-2023 Basophils (Bld) [#/Vol] 0.1 10*3/uL 0.0-0.2 [facility] Basophils/100 WBC Auto (Bld) Ordered By: Alisia Franz on 01-18-2023 Basophils/100 WBC (Bld) 1.3 % . [facility] Bilirubin Test strip Ql (U)O rdered By: Alisia Franz on 01-18-2023 Bilirubin Ql (U) Negative Negative [facility] Bilirubin.total [Mass/volume ] in Serum or PlasmaOrdered By: Alisia Franz on 01-18-2023 Bilirubin [Mass/Vol] 0.4 mg/dL 0.3-1.0 [facility] Calcium [Mass/volume] in Ser um or PlasmaOrdered By: Alisia Franz on 01-18-2023 Calcium [Mass/Vol] 9.9 mg/dL 8.6-10.3 [facility] Carbon dioxide, total [Moles /volume] in Serum or PlasmaOrdered By: Alisia Franz on 01-18-2023 CO2 [Moles/Vol] 30.4 mmol/L 21.0-31.0 [facility] Chloride [Moles/volume] in S mary ellen or PlasmaOrdered By: Alisia Franz on 01-18-2023 Chloride [Moles/Vol] 101 mmol/L 98-107 [facility] Color Auto (U)Ordered By: Ngoc Franz on 01-18-2023 Color (U) Yellow Yellow [facility] Complement C3on 01-18-2023 Complement C3 160 mg/dL Normal 82-167 [facility] Comment on above: Result Comment: Perf ormed at: CB - [facility] [id number] Ophthalmology Surgical Technician: Marvel Barahona PhD, Phone: [phone] Performed By: #### C MP, ESR, CBC, ADDONUAPLUS #### [address] #### CH50, C3, C4 #### [facility] , Complement C4on 01-18-2023 Complement C4 32 mg/dL Normal 12-38 [facility] Comment on above: Result Comment: PERF ORMED BY: [place] [address] PATHOLOGIST ASSISTANT PROFESSOR OF CHEMISTRY ALTHEA BARRAGAN M.D. Performed By: #### C MP, ESR, CBC, ADDONUAPLUS #### [address] #### CH50, C3, C4 #### [facility] , Complement Total (CH50)on Complement Total (CH50) >60 Normal >41 [facility] Comment on above: Result Comment: Age [...] out of range values. Performed at: - [facility] [id number] Ophthalmology Surgical Technician: Marvel Barahona PhD, Phone: [phone] PERFORMED BY: [place] [id number] PATHOLOGIST ASSISTANT PROFESSOR OF CHEMISTRY ALTHEA BARRAGAN M.D. Performed By: #### C MP, ESR, CBC, ADDONUAPLUS #### [address] #### CH50, C3, C4 #### [facility] , Complete Blood Count Auto Di ffon 01-18-2023 Basophils (Bld) [#/Vol] 0.1 10*3/uL Normal 0.0-0.2 [facility] Comment on above: Performed By: #### E SR, CBC, ADDONUAPLUS, CUU, CMP #### [address] #### CH50, C3, C4 #### [facility] , Basophils/100 WBC (Bld) 1.3 % Normal . [facility] Comment on above: Performed By: #### E SR, CBC, ADDONUAPLUS, CUU, CMP #### [address] #### CH50, C3, C4 #### [facility] , Eosinophils (Bld) [#/Vol] 0.1 10*3/uL Normal 0.0-0.45 [facility] Comment on above: Performed By: #### E SR, CBC, ADDONUAPLUS, CUU, CMP #### [place] [address] [place] #### CH50, C3, C4 #### [facility] , Eosinophils/100 WBC (Bld) 2.1 % Normal . [facility] Comment on above: Performed By: #### E SR, CBC, ADDONUAPLUS, CUU, CMP #### [facility] [address] [place] [address] [place] #### CH50, C3, C4 #### [facility] , Erythrocyte distribution width (RBC) [Ratio] 13.2 % Normal 11.9-15.3 [facility] Comment on above: Performed By: #### E SR, CBC, ADDONUAPLUS, CUU, CMP #### [place] [address] [place] #### CH50, C3, C4 #### [facility] , Hematocrit (Bld) [Volume fraction] 37.1 % Normal 34.0-46.4 [facility] Comment on above: Performed By: #### E SR, CBC, ADDONUAPLUS, CUU, CMP #### [address] #### CH50, C3, C4 #### [facility] , Hemoglobin (Bld) [Mass/Vol] 12.4 g/dL Normal 11.8-15.4 [facility] Comment on above: Performed By: #### E SR, CBC, ADDONUAPLUS, CUU, CMP #### [address] #### CH50, C3, C4 #### [facility] , Lymphocytes (Bld) [#/Vol] 1.4 10*3/uL Normal 1.00-4.8 [facility] Comment on above: Performed By: #### E SR, CBC, ADDONUAPLUS, CUU, CMP #### [address] #### CH50, C3, C4 #### [facility] , Lymphocytes/100 WBC (Bld) 26.3 % Normal . [facility] Comment on above: Performed By: #### E SR, CBC, ADDONUAPLUS, CUU, CMP #### [facility] [address] [place] [address] [place] #### CH50, C3, C4 #### [facility] , MCH (RBC) [Entitic mass] 31.0 pg Normal 24.7-34.3 [facility] Comment on above: Performed By: #### E SR, CBC, ADDONUAPLUS, CUU, CMP #### [address] #### CH50, C3, C4 #### [facility] , MCV (RBC) [Entitic vol] 92.6 fL Normal 80-100 [facility] Comment on above: Performed By: #### E SR, CBC, ADDONUAPLUS, CUU, CMP #### [facility] [address] [place] [address] [place] #### CH50, C3, C4 #### [facility] , Mean Corpuscular HGB Conc 33.5 g/dL Normal 32.0-35.0 [facility] Comment on above: Performed By: #### E SR, CBC, ADDONUAPLUS, CUU, CMP #### [address] #### CH50, C3, C4 #### [facility] , Monocytes (Bld) [#/Vol] 0.4 10*3/uL Normal 0.0-0.8 [facility] Comment on above: Performed By: #### E SR, CBC, ADDONUAPLUS, CUU, CMP #### [place] [address] [place] #### CH50, C3, C4 #### [facility] , Monocytes/100 WBC (Bld) 8.1 % Normal . [facility] Comment on above: Performed By: #### E SR, CBC, ADDONUAPLUS, CUU, CMP #### [address] #### CH50, C3, C4 #### [facility] , Neutrophils (Bld) [#/Vol] 3.4 10*3/uL Normal 1.8-7.7 [facility] Comment on above: Performed By: #### E SR, CBC, ADDONUAPLUS, CUU, CMP #### [facility] [address] [place] [address] [place] #### CH50, C3, C4 #### [facility] , Neutrophils/100 WBC (Bld) 62.2 % Normal . [facility] Comment on above: Performed By: #### E SR, CBC, ADDONUAPLUS, CUU, CMP #### [facility] [address] [place] [address] #### CH50, C3, C4 #### [facility] , NRBC% 0.1 /100{WBC} Normal 0-0.5 [facility] Comment on above: Performed By: #### E SR, CBC, ADDONUAPLUS, CUU, CMP #### [facility] [address] [place] [address] [place] #### CH50, C3, C4 #### [facility] , Platelet mean volume (Bld) [Entitic vol] 7.5 fL Normal 6.3-10.7 [facility] Comment on above: Performed By: #### E SR, CBC, ADDONUAPLUS, CUU, CMP #### [address] #### CH50, C3, C4 #### [facility] , Platelets (Bld) [#/Vol] 377 10*3/uL Normal 150-450 [facility] Comment on above: Performed By: #### E SR, CBC, ADDONUAPLUS, CUU, CMP #### [address] #### CH50, C3, C4 #### [facility] , RBC (Bld) [#/Vol] 4.01 10*6/uL Normal 3.60-5.00 [facility] Comment on above: Performed By: #### E SR, CBC, ADDONUAPLUS, CUU, CMP #### [facility] [address] [place] [address] [place] #### CH50, C3, C4 #### [facility] , WBC (Bld) [#/Vol] 5.4 10*3/uL Normal 3.8-11.6 [facility] Comment on above: Performed By: #### E SR, CBC, ADDONUAPLUS, CUU, CMP #### [address] [place] [address] [place] #### CH50, C3, C4 #### [facility] , Comprehensive Metabolic Pane steven 01-18-2023 Albumin [Mass/Vol] 4.0 g/dL Normal 3.5-5.7 [facility] Comment on above: Performed By: #### C MP, ESR, CBC, ADDONUAPLUS #### [facility] [address] [place] [address] #### CH50, C3, C4 #### [facility] , Albumin/Globulin [Mass ratio] 1.6 {ratio} Normal [facility] Comment on above: Performed By: #### C MP, ESR, CBC, ADDONUAPLUS #### [address] #### CH50, C3, C4 #### [facility] , ALP [Catalytic activity/Vol] 100 U/L Normal 34-104 [facility] Comment on above: Result Comment: PERF ORMED BY: [place] [address] PATHOLOGIST ASSISTANT PROFESSOR OF CHEMISTRY ALTHEA BARRAGAN M.D. Performed By: #### C MP, ESR, CBC, ADDONUAPLUS #### [address] #### CH50, C3, C4 #### [facility] , ALT [Catalytic activity/Vol] 25 U/L Normal 7-52 [facility] Comment on above: Performed By: #### C MP, ESR, CBC, ADDONUAPLUS #### [facility] [address] [place] [address] [place] #### CH50, C3, C4 #### [facility] , Anion gap [Moles/Vol] 9.5 mmol/L Normal 6.0-15.0 [facility] Comment on above: Performed By: #### C MP, ESR, CBC, ADDONUAPLUS #### [facility] [address] [place] [address] #### CH50, C3, C4 #### [facility] , AST [Catalytic activity/Vol] 29 U/L Normal 13-39 [facility] Comment on above: Performed By: #### C MP, ESR, CBC, ADDONUAPLUS #### [facility] [address] [place] [address] [place] #### CH50, C3, C4 #### [facility] , Bilirubin [Mass/Vol] 0.4 mg/dL Normal 0.3-1.0 [facility] Comment on above: Performed By: #### C MP, ESR, CBC, ADDONUAPLUS #### [address] #### CH50, C3, C4 #### [facility] , Calcium [Mass/Vol] 9.9 mg/dL Normal 8.6-10.3 [facility] Comment on above: Performed By: #### C MP, ESR, CBC, ADDONUAPLUS #### [place] [address] [place] #### CH50, C3, C4 #### [facility] , Chloride [Moles/Vol] 101 mmol/L Normal 98-107 [facility] Comment on above: Performed By: #### C MP, ESR, CBC, ADDONUAPLUS #### [facility] [address] [place] [address] [place] #### CH50, C3, C4 #### [facility] , CO2 [Moles/Vol] 30.4 mmol/L Normal 21.0-31.0 [facility] Comment on above: Performed By: #### C MP, ESR, CBC, ADDONUAPLUS #### [place] [address] [place] #### CH50, C3, C4 #### [facility] , Creatinine [Mass/Vol] 0.83 mg/dL Normal 0.60-1.20 [facility] Comment on above: Performed By: #### C MP, ESR, CBC, ADDONUAPLUS #### [place] [address] [place] #### CH50, C3, C4 #### [facility] , GFR/1.73 sq M.predicted MDRD (S/P/Bld) [Vol rate/Area] mL/min/{1.73_m2} Normal [facility] Comment on above: Performed By: #### C MP, ESR, CBC, ADDONUAPLUS #### [place] [address] [place] #### CH50, C3, C4 #### [facility] , Globulin (S) [Mass/Vol] 2.5 g/dL Normal [facility] Comment on above: Performed By: #### C MP, ESR, CBC, ADDONUAPLUS #### [place] [address] [place] #### CH50, C3, C4 #### [facility] , Glucose [Mass/Vol] 94 mg/dL Normal 70-100 [facility] Comment on above: Result Comment: [facility] Glucose Reference Range is dependent on time and content of last meal. Glucose of more than 200 mg/dL in a nonstressed, ambulatory subject supports the diagnosis of Diabetes Mellitus. ADA recommended reference range Performed By: #### C MP, ESR, CBC, ADDONUAPLUS #### [place] [address] [place] #### CH50, C3, C4 #### [facility] , Potassium [Moles/Vol] 4.9 mmol/L Normal 3.5-5.1 [facility] Comment on above: Performed By: #### C MP, ESR, CBC, ADDONUAPLUS #### [place] [address] [place] #### CH50, C3, C4 #### [facility] , Protein [Mass/Vol] 6.5 g/dL Normal 6.4-8.9 [facility] Comment on above: Performed By: #### C MP, ESR, CBC, ADDONUAPLUS #### [facility] [address] [place] [address] [place] #### CH50, C3, C4 #### [facility] , Sodium [Moles/Vol] 136 mmol/L Normal 136-145 [facility] Comment on above: Performed By: #### C MP, ESR, CBC, ADDONUAPLUS #### [facility] [address] [place] [address] #### CH50, C3, C4 #### [facility] , Urea nitrogen [Mass/Vol] 22 mg/dL Normal 7-25 [facility] Comment on above: Performed By: #### C MP, ESR, CBC, ADDONUAPLUS #### [place] [address] [place] #### CH50, C3, C4 #### [facility] , Creatinine [Mass/volume] in Serum or PlasmaOrdered By: Alisia Franz on 01-18-2023 Creatinine [Mass/Vol] 0.83 mg/dL 0.60-1.20 [facility] Dipstick and Microscopicon 0 01-18-2023 Appearance (U) Clear Normal Clear [facility] Comment on above: Order Comment: Name Collection Type:: Clean-Voided Midstream Performed By: #### E SR, CBC, ADDONUAPLUS, CUU, CMP #### [facility] [address] [place] [address] [place] #### CH50, C3, C4 #### [facility] , Bacteria,Urine 1+ High None Seen [facility] Comment on above: Order Comment: Name Collection Type:: Clean-Voided Midstream Performed By: #### E SR, CBC, ADDONUAPLUS, CUU, CMP #### [facility] [address] [place] [address] #### CH50, C3, C4 #### [facility] , Bilirubin,Urine Negative Normal Negative [facility] Comment on above: Order Comment: Name Collection Type:: Clean-Voided Midstream Performed By: #### E SR, CBC, ADDONUAPLUS, CUU, CMP #### [facility] [address] [place] [address] #### CH50, C3, C4 #### [facility] , Color (U) Yellow Normal Yellow [facility] Comment on above: Order Comment: Name Collection Type:: Clean-Voided Midstream Performed By: #### E SR, CBC, ADDONUAPLUS, CUU, CMP #### [address] #### CH50, C3, C4 #### [facility] , Glucose Ql (U) Normal Normal Normal [facility] Comment on above: Order Comment: Name Collection Type:: Clean-Voided Midstream Performed By: #### E SR, CBC, ADDONUAPLUS, CUU, CMP #### [facility] [address] [place] [address] #### CH50, C3, C4 #### [facility] , Hyaline Casts,Urine 0-8 Normal 0-8 [facility] Comment on above: Order Comment: Name Collection Type:: Clean-Voided Midstream Result Comment: PERF ORMED BY: [place] [address] PATHOLOGIST ASSISTANT PROFESSOR OF CHEMISTRY ALTHEA BARRAGAN M.D. Performed By: #### E SR, CBC, ADDONUAPLUS, CUU, CMP #### [address] #### CH50, C3, C4 #### [facility] , Ketones Ql (U) Negative Normal Negative [facility] Comment on above: Order Comment: Name Collection Type:: Clean-Voided Midstream Performed By: #### E SR, CBC, ADDONUAPLUS, CUU, CMP #### [facility] [address] [place] [address] #### CH50, C3, C4 #### [facility] , Leukocyte esterase Test strip Ql (U) 3+ High Negative [facility] Comment on above: Order Comment: Name Collection Type:: Clean-Voided Midstream Performed By: #### E SR, CBC, ADDONUAPLUS, CUU, CMP #### [address] #### CH50, C3, C4 #### [facility] , Nitrite,Urine Negative Normal Negative [facility] Comment on above: Order Comment: Name Collection Type:: Clean-Voided Midstream Performed By: #### E SR, CBC, ADDONUAPLUS, CUU, CMP #### [address] #### CH50, C3, C4 #### [facility] , Occult Blood,Urine Negative Normal Negative [facility] Comment on above: Order Comment: Name Collection Type:: Clean-Voided Midstream Performed By: #### E SR, CBC, ADDONUAPLUS, CUU, CMP #### [address] #### CH50, C3, C4 #### [facility] , pH (U) 6.0 [pH] Normal 5.0-9.0 [facility] Comment on above: Order Comment: Name Collection Type:: Clean-Voided Midstream Performed By: #### E SR, CBC, ADDONUAPLUS, CUU, CMP #### [address] #### CH50, C3, C4 #### [facility] , Protein,Urine Trace High Negative [facility] Comment on above: Order Comment: Name Collection Type:: Clean-Voided Midstream Performed By: #### E SR, CBC, ADDONUAPLUS, CUU, CMP #### [address] #### CH50, C3, C4 #### [facility] , RBC,Urine 3-4 Normal 0-4 [facility] Comment on above: Order Comment: Name Collection Type:: Clean-Voided Midstream Performed By: #### E SR, CBC, ADDONUAPLUS, CUU, CMP #### [address] #### CH50, C3, C4 #### [facility] , Specificy [place],Urine 1.023 Normal 1.001-1.030 [facility] Comment on above: Order Comment: Name Collection Type:: Clean-Voided Midstream Performed By: #### E SR, CBC, ADDONUAPLUS, CUU, CMP #### [address] #### CH50, C3, C4 #### [facility] , Squamous Epithelial Cell,Urine 3-4 High 0-2 [facility] Comment on above: Order Comment: Name Collection Type:: Clean-Voided Midstream Performed By: #### E SR, CBC, ADDONUAPLUS, CUU, CMP #### [address] #### CH50, C3, C4 #### [facility] , Urobilinogen,Urine Normal Normal Normal [facility] Comment on above: Order Comment: Name Collection Type:: Clean-Voided Midstream Performed By: #### E SR, CBC, ADDONUAPLUS, CUU, CMP #### [address] #### CH50, C3, C4 #### [facility] , WBC,Urine 10-19 High 0-4 [facility] Comment on above: Order Comment: Name Collection Type:: Clean-Voided Midstream Performed By: #### E SR, CBC, ADDONUAPLUS, CUU, CMP #### [facility] [address] [place] [address] [place] #### CH50, C3, C4 #### [facility] , Eosinophils Auto (Bld) [#/Vo l]Ordered By: Alisia Franz on 01-18-2023 Eosinophils (Bld) [#/Vol] 0.1 10*3/uL 0.0-0.45 [facility] Eosinophils/100 WBC Auto (Bl d)Ordered By: Alisia Franz on 01-18-2023 Eosinophils/100 WBC (Bld) 2.1 % . [facility] Erythrocyte Sedimentation Ra sid 01-18-2023 ESR (Bld) [Velocity] 10 mm/h Normal 0-29 [facility] Comment on above: Result Comment: PERF ORMED BY: [place] [address] PATHOLOGIST ASSISTANT PROFESSOR OF CHEMISTRY ALTHEA BARRAGAN M.D. Performed By: #### E SR, CBC, ADDONUAPLUS, CUU, CMP #### [facility] [address] [place] [address] #### CH50, C3, C4 #### [facility] , Erythrocyte distribution wid th Auto (RBC) [Ratio]Ordered By: Alisia Franz on 01-18-2023 Erythrocyte distribution width (RBC) [Ratio] 13.2 % 11.9-15.3 [facility] Erythrocyte sedimentation ra te by Photometric methodOrdered By: Alisia Franz on 01-18-2023 ESR Photometric method (Bld) [Velocity] 10 mm/hr 0-29 [facility] Globulin Calc (S) [Mass/Vol] Ordered By: Alisia Franz on 01-18-2023 Globulin (S) [Mass/Vol] 2.5 g/dL [facility] Glucose [Mass/volume] in Ser um or PlasmaOrdered By: Alisia Franz on 01-18-2023 Glucose [Mass/Vol] 94 mg/dL 70-100 [facility] Comment on above: ADA recommended refe rence rangeRandom Glucose Reference Range is dependent on time and content of last meal. Glucose of more than 200 mg/dL in a nonstressed, ambulatory subject supports the diagnosis of Diabetes Mellitus. Hematocrit Auto (Bld) [Volum e fraction]Ordered By: Alisia Franz on 01-18-2023 Hematocrit (Bld) [Volume fraction] 37.1 % 34.0-46.4 [facility] Hemoglobin [Mass/volume] in BloodOrdered By: Alisia Franz on 01-18-2023 Hemoglobin (Bld) [Mass/Vol] 12.4 g/dL 11.8-15.4 [facility] Ketones Auto test strip (U) [Mass/Vol]Ordered By: Alisia Franz on 01-18-2023 Ketones (U) [Mass/Vol] Negative Negative [facility] - UrinalysisOrder ed By: Alisia Franz on 01-18-2023 Hyaline casts LM Ql (Urine sed) 0-8 [LPF] 0-8 [facility] Leukocytes [#/volume] correc leonor for nucleated erythrocytes in Blood by Automated counOrdered By: Alisia Franz on 01-18-2023 WBC corrected for nucl RBC Auto (Bld) [#/Vol] 5.4 10*3/uL 3.8-11.6 [facility] Lymphocytes Auto (Bld) [#/Vo l]Ordered By: Alisia Franz on 01-18-2023 Lymphocytes (Bld) [#/Vol] 1.4 10*3/uL 1.00-4.8 [facility] Lymphocytes/100 WBC Auto (Bl d)Ordered By: Alisia Franz on 01-18-2023 Lymphocytes/100 WBC (Bld) 26.3 % . [facility] MCH Auto (RBC) [Entitic mass ]Ordered By: Alisia Franz on 01-18-2023 MCH (RBC) [Entitic mass] 31.0 pg 24.7-34.3 [facility] MCHC Auto (RBC) [Mass/Vol]Or dered By: Alisia Franz on 01-18-2023 MCHC (RBC) [Mass/Vol] 33.5 g/dL 32.0-35.[address] [facility] MCV Auto (RBC) [Entitic vol] Ordered By: Alisia Franz on 01-18-2023 MCV (RBC) [Entitic vol] 92.6 fL 80-100 [facility] Monocytes Auto (Bld) [#/Vol] Ordered By: Alisia Franz on 01-18-2023 Monocytes (Bld) [#/Vol] 0.4 10*3/uL 0.0-0.8 [facility] Monocytes/100 WBC Auto (Bld) Ordered By: Alisia Franz on 01-18-2023 Monocytes/100 WBC (Bld) 8.1 % . [facility] Neutrophils Auto (Bld) [#/Vo l]Ordered By: Alisia Franz on 01-18-2023 Neutrophils (Bld) [#/Vol] 3.4 10*3/uL 1.8-7.7 [facility] Neutrophils/100 WBC Auto (Bl d)Ordered By: Alisia Franz on 01-18-2023 Neutrophils/100 WBC (Bld) 62.2 % . [facility] Nitrite Test strip Ql (U)Ord ered By: Alisia Franz on 01-18-2023 Nitrite Ql (U) Negative Negative [facility] No Panel InformationOrdered By: Alisia Franz on 01-18-2023 Estimated GFR (CKD-EPI) > 60.0 mL/Min [facility] Creatinine Clearance (Chem N/A [facility] Nucleated erythrocytes [Pres ence] in Blood by Automated countOrdered By: Alisia Franz on 01-18-2023 Nucleated RBC Auto Ql (Bld) 0.1 /100{WBC} 0-0.5 [facility] Platelet mean volume Auto (B ld) [Entitic vol]Ordered By: Alisia Franz on 01-18-2023 Platelet mean volume (Bld) [Entitic vol] 7.5 fL 6.3-10.7 [facility] Platelets Auto (Bld) [#/Vol] Ordered By: Alisia Franz on 01-18-2023 Platelets (Bld) [#/Vol] 377 10*3/uL 150-450 [facility] Potassium [Moles/volume] in Serum or PlasmaOrdered By: Alisia Franz on 01-18-2023 Potassium [Moles/Vol] 4.9 mmol/L 3.5-5.1 [facility] Protein Auto test strip (U) [Mass/Vol]Ordered By: Alisia Franz on 01-18-2023 Protein (U) [Mass/Vol] Trace mg/dL Negative [facility] Protein [Mass/volume] in Ser um or PlasmaOrdered By: Alisia Franz on 01-18-2023 Protein [Mass/Vol] 6.5 g/dL 6.4-8.9 [facility] RBC Auto (Bld) [#/Vol]Ordere d By: Alisia Franz on 01-18-2023 RBC (Bld) [#/Vol] 4.01 10*6/uL 3.60-5.00 [facility] Serum or plasma albumin/glob ulin mass ratioOrdered By: Alisia Franz on 01-18-2023 Albumin/Globulin [Mass ratio] 1.6 {ratio} [facility] Serum or plasma anion gap de terminationOrdered By: Alisia Franz on 01-18-2023 Anion gap [Moles/Vol] 9.5 mmol/L 6.0-15.0 [facility] Sodium [Moles/volume] in Ser um or PlasmaOrdered By: Alisia Franz on 01-18-2023 Sodium [Moles/Vol] 136 mmol/L 136-145 [facility] Specific gravity Auto test s trip (U) [Rel density]Ordered By: Alisia Franz on 01-18-2023 Specific gravity (U) [Rel density] 1.023 1.001-1.030 [facility] Squamous epithelial cells de tection in urine sediment by light microscopyOrdered By: Alisia Franz on 01-18-2023 Epithelial cells.squamous LM Ql (Urine sed) 3-4 [HPF] 0-2 [facility] Urea nitrogen [Mass/volume] in Serum or PlasmaOrdered By: Alisia Franz on 01-18-2023 Urea nitrogen [Mass/Vol] 22 mg/dL 7-25 [facility] Urine Cultureon 01-18-2023 Bacteria identified Cx Nom (U) 15,000 colonies/ml mixed bacterial skin contaminants 2 Days PERFORMED BY: [place] [address] PATHOLOGIST ASSISTANT PROFESSOR OF CHEMISTRY ALTHEA BARRAGAN M.D. [facility] Comment on above: Performed By: #### C MP, ESR, CBC, ADDONUAPLUS #### [place] [address] [place] #### CH50, C3, C4 #### [facility] , Urine bacteria detection by automated methodOrdered By: Alisia Franz on 01-18-2023 Bacteria Auto Ql (U) 1+ None Seen [facility] Urine clarity by refractomet ry automatedOrdered By: Alisia Franz on 01-18-2023 Clarity Refractometry automated (U) Clear Clear [facility] Urine glucose measurement by automated test strip (mass/volume)Ordered By: Alisia Franz on 01-18-2023 Glucose Auto test strip (U) [Mass/Vol] Normal mg/dL Normal [facility] Urine hemoglobin detection b y automated test stripOrdered By: Alisia Franz on 01-18-2023 Hemoglobin Auto test strip Ql (U) Negative Negative [facility] Urine leukocyte esterase det ection by automated test stripOrdered By: Alisia Franz on 01-18-2023 Leukocyte esterase Auto test strip Ql (U) 3+ Negative [facility] Urobilinogen Auto test strip (U) [Mass/Vol]Ordered By: Alisia Franz on 01-18-2023 Urobilinogen (U) [Mass/Vol] Normal mg/dL Normal [facility] WBC Auto (Bld) [#/Vol]Ordere d By: Alisia Franz on 01-18-2023 WBC (Bld) [#/Vol] 5.4 10*3/uL 3.8-11.6 [facility] pH Auto test strip (U)Ordere d By: Alisia Franz on 01-18-2023 pH (U) 6.0 [pH] 5.0-9.0 [facility] Auth for Release of Medical Recordson 12-25-2022 Auth for Release of Medical Records [id number] Normal [facility] Complement C3on 10-12-2022 Complement C3 134 mg/dL Normal 82-167 [facility] Comment on above: Result Comment: Perf ormed at: [address] [id number] Ophthalmology Surgical Technician: Marvel Barahona PhD, Phone: [phone] Performed By: #### C MP, ESR, CBC, ADDONUAPLUS #### [address] #### CH50, C3, C4 #### [facility] , Complement C4on 10-12-2022 Complement C4 29 mg/dL Normal 12-38 [facility] Comment on above: Result Comment: PERF ORMED BY: [place] [address] PATHOLOGIST ASSISTANT PROFESSOR OF CHEMISTRY ALTHEA BARRAGAN M.D. Performed By: #### C MP, ESR, CBC, ADDONUAPLUS #### [address] #### CH50, C3, C4 #### [facility] , Complement Total (CH50)on Complement Total (CH50) >60 Normal >41 [facility] Comment on above: Result Comment: Age [...] determine out of range values. Performed at: [facility] [address] [id number] Ophthalmology Surgical Technician: Marvel Barahona PhD, Phone: [phone] PERFORMED BY: [place] [address] PATHOLOGIST ASSISTANT PROFESSOR OF CHEMISTRY ALTHEA BARRAGAN M.D. Performed By: #### C MP, ESR, CBC, ADDONUAPLUS #### [address] #### CH50, C3, C4 #### [facility] , Complete Blood Count Auto Di ffon 10-12-2022 Basophils (Bld) [#/Vol] 0.1 10*3/uL Normal 0.0-0.2 [facility] Comment on above: Performed By: #### C MP, ESR, CBC, ADDONUAPLUS #### [address] #### CH50, C3, C4 #### [facility] , Basophils/100 WBC (Bld) 0.8 % Normal . [facility] Comment on above: Performed By: #### C MP, ESR, CBC, ADDONUAPLUS #### [address] #### CH50, C3, C4 #### [facility] , Eosinophils (Bld) [#/Vol] 0.2 10*3/uL Normal 0.0-0.45 [facility] Comment on above: Performed By: #### C MP, ESR, CBC, ADDONUAPLUS #### [address] #### CH50, C3, C4 #### [facility] , Eosinophils/100 WBC (Bld) 2.6 % Normal . [facility] Comment on above: Performed By: #### C MP, ESR, CBC, ADDONUAPLUS #### [place] [address] [place] #### CH50, C3, C4 #### [facility] , Erythrocyte distribution width (RBC) [Ratio] 13.0 % Normal 11.9-15.3 [facility] Comment on above: Performed By: #### C MP, ESR, CBC, ADDONUAPLUS #### [address] #### CH50, C3, C4 #### [facility] , Hematocrit (Bld) [Volume fraction] 35.9 % Normal 34.0-46.4 [facility] Comment on above: Performed By: #### C MP, ESR, CBC, ADDONUAPLUS #### [place] [address] [place] #### CH50, C3, C4 #### [facility] , Hemoglobin (Bld) [Mass/Vol] 12.1 g/dL Normal 11.8-15.4 [facility] Comment on above: Performed By: #### C MP, ESR, CBC, ADDONUAPLUS #### [address] #### CH50, C3, C4 #### [facility] , Lymphocytes (Bld) [#/Vol] 1.9 10*3/uL Normal 1.00-4.8 [facility] Comment on above: Performed By: #### C MP, ESR, CBC, ADDONUAPLUS #### [address] #### CH50, C3, C4 #### [facility] , Lymphocytes/100 WBC (Bld) 27.9 % Normal . [facility] Comment on above: Performed By: #### C MP, ESR, CBC, ADDONUAPLUS #### [place] [address] [place] #### CH50, C3, C4 #### [facility] , MCH (RBC) [Entitic mass] 32.1 pg Normal 24.7-34.3 [facility] Comment on above: Performed By: #### C MP, ESR, CBC, ADDONUAPLUS #### [place] [address] [place] #### CH50, C3, C4 #### [facility] , MCV (RBC) [Entitic vol] 95.1 fL Normal 80-100 [facility] Comment on above: Performed By: #### C MP, ESR, CBC, ADDONUAPLUS #### [place] [address] [place] #### CH50, C3, C4 #### [facility] , Mean Corpuscular HGB Conc 33.8 g/dL Normal 32.0-35.0 [facility] Comment on above: Performed By: #### C MP, ESR, CBC, ADDONUAPLUS #### [place] [address] [place] #### CH50, C3, C4 #### [facility] , Monocytes (Bld) [#/Vol] 0.4 10*3/uL Normal 0.0-0.8 [facility] Comment on above: Performed By: #### C MP, ESR, CBC, ADDONUAPLUS #### [place] [address] [place] #### CH50, C3, C4 #### [facility] , Monocytes/100 WBC (Bld) 6.2 % Normal . [facility] Comment on above: Performed By: #### C MP, ESR, CBC, ADDONUAPLUS #### [facility] [address] [place] [address] [place] #### CH50, C3, C4 #### [facility] , Neutrophils (Bld) [#/Vol] 4.3 10*3/uL Normal 1.8-7.7 [facility] Comment on above: Performed By: #### C MP, ESR, CBC, ADDONUAPLUS #### [place] [address] [place] #### CH50, C3, C4 #### [facility] , Neutrophils/100 WBC (Bld) 62.5 % Normal . [facility] Comment on above: Performed By: #### C MP, ESR, CBC, ADDONUAPLUS #### [address] #### CH50, C3, C4 #### [facility] , NRBC% 0.1 /100{WBC} Normal 0-0.5 [facility] Comment on above: Performed By: #### C MP, ESR, CBC, ADDONUAPLUS #### [address] #### CH50, C3, C4 #### [facility] , Platelet mean volume (Bld) [Entitic vol] 7.7 fL Normal 6.3-10.7 [facility] Comment on above: Performed By: #### C MP, ESR, CBC, ADDONUAPLUS #### [address] #### CH50, C3, C4 #### [facility] , Platelets (Bld) [#/Vol] 321 10*3/uL Normal 150-450 [facility] Comment on above: Performed By: #### C MP, ESR, CBC, ADDONUAPLUS #### [address] #### CH50, C3, C4 #### [facility] , RBC (Bld) [#/Vol] 3.77 10*6/uL Normal 3.60-5.00 [facility] Comment on above: Performed By: #### C MP, ESR, CBC, ADDONUAPLUS #### [place] [address] [place] #### CH50, C3, C4 #### [facility] , WBC (Bld) [#/Vol] 6.9 10*3/uL Normal 3.8-11.6 [facility] Comment on above: Performed By: #### C MP, ESR, CBC, ADDONUAPLUS #### [facility] [address] [place] [address] #### CH50, C3, C4 #### [facility] , Comprehensive Metabolic Pane steven 10-12-2022 Albumin [Mass/Vol] 3.9 g/dL Normal 3.5-5.7 [facility] Comment on above: Performed By: #### C MP, ESR, CBC, ADDONUAPLUS #### [facility] [address] [place] [address] #### CH50, C3, C4 #### [facility] , Albumin/Globulin [Mass ratio] 1.6 {ratio} Normal [facility] Comment on above: Performed By: #### C MP, ESR, CBC, ADDONUAPLUS #### [address] #### CH50, C3, C4 #### [facility] , ALP [Catalytic activity/Vol] 97 U/L Normal 34-104 [facility] Comment on above: Result Comment: PERF ORMED BY: [place] [address] PATHOLOGIST ASSISTANT PROFESSOR OF CHEMISTRY ALTHEA BARRAGAN M.D. Performed By: #### C MP, ESR, CBC, ADDONUAPLUS #### [address] #### CH50, C3, C4 #### [facility] , ALT [Catalytic activity/Vol] 28 U/L Normal 7-52 [facility] Comment on above: Performed By: #### C MP, ESR, CBC, ADDONUAPLUS #### [facility] [address] [place] [address] #### CH50, C3, C4 #### [facility] , Anion gap [Moles/Vol] 9.9 mmol/L Normal 6.0-15.0 [facility] Comment on above: Performed By: #### C MP, ESR, CBC, ADDONUAPLUS #### [facility] [address] [place] [address] #### CH50, C3, C4 #### [facility] , AST [Catalytic activity/Vol] 31 U/L Normal 13-39 [facility] Comment on above: Performed By: #### C MP, ESR, CBC, ADDONUAPLUS #### [facility] [address] [place] [address] #### CH50, C3, C4 #### [facility] , Bilirubin [Mass/Vol] 0.6 mg/dL Normal 0.3-1.0 [facility] Comment on above: Performed By: #### C MP, ESR, CBC, ADDONUAPLUS #### [address] #### CH50, C3, C4 #### [facility] , Calcium [Mass/Vol] 9.2 mg/dL Normal 8.6-10.3 [facility] Comment on above: Performed By: #### C MP, ESR, CBC, ADDONUAPLUS #### [facility] [address] [place] [address] #### CH50, C3, C4 #### [facility] , Chloride [Moles/Vol] 100 mmol/L Normal 98-107 [facility] Comment on above: Performed By: #### C MP, ESR, CBC, ADDONUAPLUS #### [place] [address] [place] #### CH50, C3, C4 #### [facility] , CO2 [Moles/Vol] 28.4 mmol/L Normal 21.0-31.0 [facility] Comment on above: Performed By: #### C MP, ESR, CBC, ADDONUAPLUS #### [place] [address] [place] #### CH50, C3, C4 #### [facility] , Creatinine [Mass/Vol] 0.92 mg/dL Normal 0.60-1.20 [facility] Comment on above: Performed By: #### C MP, ESR, CBC, ADDONUAPLUS #### [place] [address] [place] #### CH50, C3, C4 #### [facility] , GFR/1.73 sq M.predicted MDRD (S/P/Bld) [Vol rate/Area] mL/min/{1.73_m2} Normal [facility] Comment on above: Performed By: #### C MP, ESR, CBC, ADDONUAPLUS #### [place] [address] [place] #### CH50, C3, C4 #### [facility] , Globulin (S) [Mass/Vol] 2.5 g/dL Normal [facility] Comment on above: Performed By: #### C MP, ESR, CBC, ADDONUAPLUS #### [place] [address] [place] #### CH50, C3, C4 #### [facility] , Glucose [Mass/Vol] 109 mg/dL High 70-100 [facility] Comment on above: Result Comment: [place] Glucose Reference Range is dependent on time and content of last meal. Glucose of more than 200 mg/dL in a nonstressed, ambulatory subject supports the diagnosis of Diabetes Mellitus. ADA recommended reference range Performed By: #### C MP, ESR, CBC, ADDONUAPLUS #### [place] [address] [place] #### CH50, C3, C4 #### [facility] , Potassium [Moles/Vol] 4.3 mmol/L Normal 3.5-5.1 [facility] Comment on above: Performed By: #### C MP, ESR, CBC, ADDONUAPLUS #### [place] [address] [place] #### CH50, C3, C4 #### [facility] , Protein [Mass/Vol] 6.4 g/dL Normal 6.4-8.9 [facility] Comment on above: Performed By: #### C MP, ESR, CBC, ADDONUAPLUS #### [place] [address] [place] #### CH50, C3, C4 #### [facility] , Sodium [Moles/Vol] 134 mmol/L Low 136-145 [facility] Comment on above: Performed By: #### C MP, ESR, CBC, ADDONUAPLUS #### [address] #### CH50, C3, C4 #### [facility] , Urea nitrogen [Mass/Vol] 19 mg/dL Normal 7-25 [facility] Comment on above: Performed By: #### C MP, ESR, CBC, ADDONUAPLUS #### [address] #### CH50, C3, C4 #### [facility] , Dipstick and Microscopicon 0 10-12-2022 Appearance (U) Clear Normal Clear [facility] Comment on above: Order Comment: Name Collection Type:: Clean-Voided Midstream Performed By: #### C MP, ESR, CBC, ADDONUAPLUS #### [place] [address] [place] #### CH50, C3, C4 #### [facility] , Bacteria,Urine None Seen Normal None Seen [facility] Comment on above: Order Comment: Name Collection Type:: Clean-Voided Midstream Performed By: #### C MP, ESR, CBC, ADDONUAPLUS #### [place] [address] [place] #### CH50, C3, C4 #### [facility] , Bilirubin,Urine Negative Normal Negative [facility] Comment on above: Order Comment: Name Collection Type:: Clean-Voided Midstream Performed By: #### C MP, ESR, CBC, ADDONUAPLUS #### [address] #### CH50, C3, C4 #### [facility] , Color (U) Yellow Normal Yellow [facility] Comment on above: Order Comment: Name Collection Type:: Clean-Voided Midstream Performed By: #### C MP, ESR, CBC, ADDONUAPLUS #### [address] #### CH50, C3, C4 #### [facility] , Glucose Ql (U) Normal Normal Normal [facility] Comment on above: Order Comment: Name Collection Type:: Clean-Voided Midstream Performed By: #### C MP, ESR, CBC, ADDONUAPLUS #### [address] #### CH50, C3, C4 #### [facility] , Hyaline Casts,Urine None Seen Normal 0-8 [facility] Comment on above: Order Comment: Name Collection Type:: Clean-Voided Midstream Result Comment: PERF ORMED BY: [place] [address] PATHOLOGIST ASSISTANT PROFESSOR OF CHEMISTRY ALTHEA BARRAGAN M.D. Performed By: #### C MP, ESR, CBC, ADDONUAPLUS #### [address] #### CH50, C3, C4 #### [facility] , Ketones Ql (U) Negative Normal Negative [facility] Comment on above: Order Comment: Name Collection Type:: Clean-Voided Midstream Performed By: #### C MP, ESR, CBC, ADDONUAPLUS #### [address] #### CH50, C3, C4 #### [facility] , Leukocyte esterase Test strip Ql (U) Negative Normal Negative [facility] Comment on above: Order Comment: Name Collection Type:: Clean-Voided Midstream Performed By: #### C MP, ESR, CBC, ADDONUAPLUS #### [address] #### CH50, C3, C4 #### [facility] , Nitrite,Urine Negative Normal Negative [facility] Comment on above: Order Comment: Name Collection Type:: Clean-Voided Midstream Performed By: #### C MP, ESR, CBC, ADDONUAPLUS #### [address] #### CH50, C3, C4 #### [facility] , Occult Blood,Urine Negative Normal Negative [facility] Comment on above: Order Comment: Name Collection Type:: Clean-Voided Midstream Performed By: #### C MP, ESR, CBC, ADDONUAPLUS #### [address] #### CH50, C3, C4 #### [facility] , pH (U) 6.0 [pH] Normal 5.0-9.0 [facility] Comment on above: Order Comment: Name Collection Type:: Clean-Voided Midstream Performed By: #### C MP, ESR, CBC, ADDONUAPLUS #### [address] #### CH50, C3, C4 #### [facility] , Protein,Urine Negative Normal Negative [facility] Comment on above: Order Comment: Name Collection Type:: Clean-Voided Midstream Performed By: #### C MP, ESR, CBC, ADDONUAPLUS #### [address] #### CH50, C3, C4 #### [facility] , RBC,Urine 3-4 Normal 0-4 [facility] Comment on above: Order Comment: Name Collection Type:: Clean-Voided Midstream Performed By: #### C MP, ESR, CBC, ADDONUAPLUS #### [address] #### CH50, C3, C4 #### [facility] , Specificy [place],Urine 1.019 Normal 1.001-1.030 [facility] Comment on above: Order Comment: Name Collection Type:: Clean-Voided Midstream Performed By: #### C MP, ESR, CBC, ADDONUAPLUS #### [address] #### CH50, C3, C4 #### [facility] , Squamous Epithelial Cell,Urine None Seen Normal 0-2 [facility] Comment on above: Order Comment: Name Collection Type:: Clean-Voided Midstream Performed By: #### C MP, ESR, CBC, ADDONUAPLUS #### [address] #### CH50, C3, C4 #### [facility] , Urobilinogen,Urine Normal Normal Normal [facility] Comment on above: Order Comment: Name Collection Type:: Clean-Voided Midstream Performed By: #### C MP, ESR, CBC, ADDONUAPLUS #### [address] #### CH50, C3, C4 #### [facility] , WBC LM.HPF (Urine sed) [#/Area] 0 /[HPF] Normal 0-4 [facility] Comment on above: Order Comment: Name Collection Type:: Clean-Voided Midstream Performed By: #### C MP, ESR, CBC, ADDONUAPLUS #### [address] #### CH50, C3, C4 #### [facility] , Erythrocyte Sedimentation Ra sid 10-12-2022 ESR (Bld) [Velocity] 12 mm/h Normal 0-29 [facility] Comment on above: Result Comment: PERF ORMED BY: [place] [address] PATHOLOGIST ASSISTANT PROFESSOR OF CHEMISTRY ALTHEA BARRAGAN M.D. Performed By: #### C MP, ESR, CBC, ADDONUAPLUS #### [address] #### CH50, C3, C4 #### [facility] , Pre-Certification Formon Pre-Certification Form [id number] 62#1.00CD:127 Normal [facility] Family Medicine Office/Clini c Noteon 02-13-2022 Family Medicine Office/Clinic Note Chief Complaint Yearly Check Up HPI Staff Jersey is a 66 year old female who presents for a yearly follow up. She has a chronic history of hypothyroidism. Currently taking [place] Thyroid 120mg once daily, as directed without adverse reaction. Patient denies fatigue, palpitations, hot/cold intolerance, constipation, hair/skin/nail issues. She has recent labs to review. She continues to fill her hormones through [facility] in [place]. History of Present Illness I have reviewed [...] come down will start low dose beta salas 5. Hypothyroidism (E03.8: Other specified hypothyroidism) will decrease dose. d/c the 30's Orders: thyroid desiccated, See Instructions, 1 tab(s) Oral 3 times weekly with 120., # 36 tab(s), Refills(s) 3, Pharmacy: [facility] 536, 162, cm, 02/01/21 11:08:00 EDT, Height/Length Dosing, 84.7, kg, 02/01/21 11:08:00 EDT, Weight Dosing Follow-up With When Contact Information Addy ROUSSEAU DO, FAM In 1 year [address] [place] [address]- Additional Instructions: Problem List/Past Medical History Ongoing [...] Tab, 50 mg= 1 tab(s), Oral, Daily [employer] Thyroid 120 mg oral tablet, 120 mg= 1 tab(s), Oral, Daily, 3 refills [employer] Thyroid 30 mg oral tablet, See Instructions [...] inactivated - Not Given Patient Refuses Normal [facility] Comment on above: Result Comment: Elec tronically Signed By: Addy ROUSSEAU DO\.br\Date and Time Signed: 02/13/22 14:08 EDT Pre-Visit Planningon 022 Pre-Visit Planning -- From: Bianca WARD, Piedad To: Addy ROUSSEAU DO; Sent: 02/10/2022 09:19:11 EDT Subject: Pre-Visit Planning Due Date/Time: 02/10/2022 09:19:00 EDT Caller Name: JERSEY DOW; Caller Number: , [facility] During pre-visit planning review the Car[facility] report shows that Naty Kirkpatrick documented e27.40 unspecified adrenocortical insufficiency on 03/16/2021. I do not have the actual document so I do not have further details. MARIN Alaniz, RN, CCM, CCDS -- From: Addy ROUSSEAU DO To: Bianca WARD, Piedad; Sent: 02/11/2022 11:06:34 EDT Subject: RE: Pre-Visit Planning Caller Name: JERSEY DOW; Caller Number: Stefanie , M I will look into it thanks Normal [address] [facility] Lab Reportson 02-10-2022 Lab Reports [id number] 13#1.00CD:127 Normal [facility] Basic Metabolic Panelon 01-0 Anion gap [Moles/Vol] 18 mmol/L Normal 12-20 [facility] Comment on above: Result Comment: Effe ctive 05/26/2019 reference range changed. Performed By: #### B MP, CBC #### [facility] [address] [place], [place] [id number] Calcium [Mass/Vol] 10.2 mg/dL Normal 8.6-10.[address] [facility] Specialist Comment on above: Performed By: #### B MP, CBC #### [facility] [address] [place], [place] [id number] Chloride [Moles/Vol] 99 mmol/L Normal 98-107 [facility] Comment on above: Performed By: #### B MP, CBC #### [facility] [address] [place], [place] [id number] CO2 [Moles/Vol] 22 mmol/L Normal 20-31 [facility] Comment on above: Performed By: #### B MP, CBC #### [facility] [address] [place], [place] [id number] Creatinine [Mass/Vol] 0.7 mg/dL Normal 0.6-1.4 [facility] Specialist Comment on above: Performed By: #### B MP, CBC #### [facility] [address] [place], [place] [id number] eGFRAA 109 mL/min/1.73m2 Normal >60 [facility] Specialist Comment on above: Performed By: #### B MP, CBC #### [facility] [address] [place], [place] [id number] eGFRNAA 90 mL/min/1.73m2 Normal >60 [facility] Comment on above: Performed By: #### B MP, CBC #### [facility] [address] [place], [place] [id number] Glucose [Mass/Vol] 88 mg/dL Normal 65-99 [facility] Comment on above: Result Comment: For FASTING Glucose --- ADA reference ranges: Normal 65-99 mg/dl Prediabetes 100-125 Diabetes >/= 126 Performed By: #### B MP, CBC #### [facility] [address] [place], [place] [id number] Potassium [Moles/Vol] 4.6 mmol/L Normal 3.5-5.5 [facility] Comment on above: Performed By: #### B MP, CBC #### [facility] [address] [place], [place] [id number] Sodium [Moles/Vol] 134 mmol/L Low 135-146 [facility] Comment on above: Performed By: #### B MP, CBC #### [facility] [address] [place], [place] [id number] Urea nitrogen [Mass/Vol] 17 mg/dL Normal 7-25 [facility] Comment on above: Performed By: #### B MP, CBC #### [facility] [address] [place], [place] [id number] Complete Blood Counton 05-23 Erythrocyte distribution width (RBC) [Ratio] 12.5 % Normal 11.0-15.0 [facility] Comment on above: Performed By: #### B MP, CBC #### [facility] [address] [place], [place] [id number] Hematocrit (Bld) [Volume fraction] 38.5 % Normal 35.0-47.0 [facility] Comment on above: Performed By: #### B MP, CBC #### [facility] [address] [place], [place] [id number] Hemoglobin (Bld) [Mass/Vol] 12.8 g/dL Normal 11.6-15.5 [facility] Specialist Comment on above: Performed By: #### B MP, CBC #### [facility] [address] [place], [place] [id number] MCH (RBC) [Entitic mass] 31.6 pg Normal 27.0-33.0 [facility] Comment on above: Performed By: #### B MP, CBC #### [facility] [address] [place], [place] [id number] MCHC (RBC) [Mass/Vol] 33.2 g/dL Normal 32.0-36.0 [facility] Comment on above: Performed By: #### B MP, CBC #### [facility] [address] [place], [place] [id number] MCV (RBC) [Entitic vol] 95 fL Normal 80-100 [facility] Comment on above: Performed By: #### B MP, CBC #### [facility] [address] [place], [place] [id number] Platelet mean volume (Bld) [Entitic vol] 9.40 fL Normal 7.50-12.50 [facility] Comment on above: Performed By: #### B MP, CBC #### [facility] [address] [place], [place] [id number] Platelets (Bld) [#/Vol] 372 10*3/uL Normal 140-400 [facility] Comment on above: Performed By: #### B MP, CBC #### [facility] [address] [place], [place] [id number] RBC (Bld) [#/Vol] 4.05 10*6/uL Normal 3.90-5.20 [facility] Comment on above: Performed By: #### B MP, CBC #### [facility] [address] [place], [place] [id number] RDW-SD 43.9 fL Normal 37.0-50.0 [facility] Comment on above: Performed By: #### B MP, CBC #### [facility] [address] [place], [place] [id number] WBC (Bld) [#/Vol] 6.4 10*3/uL Normal 3.8-11.0 [facility] Comment on above: Performed By: #### B MP, CBC #### [facility] [address] [place], [place] [id number] Q - SARS CoV2 COVID 19 Ab Ig To 05-23-2021 SARS-CoV-2 (COVID-19) Ab IA Qn >150.00 High <1.00 [facility] Comment on above: Order Comment: [facility] Testing performed at: Q, [facility], [address] [facility], [address] [place], [address], Creative Services Producer: Mihir Arzola MD [facility] Collection Date/Time: [facility] [...] providers and patients using the following websites: http://patient.Hydrophi.com/[facility]-HCP http://patient.Hydrophi.com/[facility]-Patients Healthcare Providers: For additional information please refer to: http://education.Boundary/faq/NEA768 (This link is being provided for informational/educational purposes only.) This test has been authorized by the FDA under an Emergency Use Authorization (EUA) for use by authorized laboratories. The FDA authorized labeling is available on the [employer] website: www.Sensus Experience/Covid19. Performed By: #### 3 [id number] #### [facility] [address] [place] [address] XR Chest 2 Views*on 05-18-20 21 XR [...] by Atul Bentley on 05/18/2021 1321 Normal [facility] MRI Hip w/o Righton 05-03-20 21 MRI [...] by Bentley Hua on 05/03/2021 1548 Normal [facility] SCREENING MAMMOGRAM W/RUY, BILATERAL*on 04-28-2021 SCREENING [...] VERY IMPORTANT TO YOUR HEALTH. THE CURRENT [employer] GUIDELINES RECOMMENDS ANNUAL MAMMOGRAPHY BEGINNING AT AGE 40 THIS FACILITY USES A REMINDER SYSTEM TO ENSURE ALL PATIENTS RECEIVE REMINDER NOTIFICATIONS AT THE APPROPRIATE TIME BASED ON THE RECOMMENDATIONS OF THIS EXAM. Report reported and signed by Atul Bentley on 04/28/2021 1533 Normal [facility] COVID-19 PCRon 04-11-2020 SARS-CoV-2 (COVID-19) RNA GRISELDA+probe Ql (Unsp spec) Not detected Normal Not Detected [facility] Comment on above: Result Comment: This nucleic acid amplification test was developed and its performance characteristics determined by [facility]. Nucleic acid amplification tests include PCR and [...] assay. Performed By: #### C VDPCR #### [facility] [address] [place] [address] Giselle Blankenship Delmy 12-03-2018 CNOV Office Visit (UROLLN) ---- JERSEY DOW ([id number]) 1955 F Date Time Provider Department 12/03/18 4:00 PM LUCHO SHAFFER During your visit today, we recorded the following information about you: Pulse Blood pressure Weight 100/minute 148/70 79.4 kg Ariela Lovett 12/03/2018 3:45 PM Signed [facility] FACTS LAB HOURS: Lab is [...] one day prior to the scheduled exam. Lucho Shaffer, CONCRETE PUMP OPERATOR HELPER.WATER SAFETY TEACHER 12/03/2018 4:23 PM Signed [place] [address] [place] [id number] HISTORY OF PRESENT ILLNESS: Seen 09/11/18 for cystitis Pt stated that had pain in bladder in 2011 went to urologist in [place] cysto and bladder bx completed and noted [...] bladder in 2012 went to urologist in [place] cysto and bladder bx completed and noted it was IC, pt stated that get yeast and PLAN: (Management Options): Will get urine if becomes symptomatic Pt take powder cologene for IC Bio identical hormones Cont premarin vaginal cream Probiotics tabs and natural Cont increase water intake rto 6 month for evaluation for evaluation, U/A, culture Lucho Shaffer APRN.WATER SAFETY TEACHER Referring Provider: LUCHO SHAFFER [[id number]] Allergies As of Date: 12/03/2018 Noted Allergy Reaction GABAPENTIN 09/11/2018 4 - Hives Date Reviewed: 12/03/2018 Reviewed by: Ariela Lovett - Fully Assessed Reason for Visit: Follow Up [171] Primary Visit Diagnosis:IC (interstitial cystitis) [N30.10] Other Visit Diagnoses:Urinary tract infection without hematuria, site unspecified [N39.0] Vaginal atrophy [N95.2] Order(s):UA CHEMSTRIP ONLY [SQUA] Order #: [id number] FUTURE URINE CULTURE [SQURCUL] Order #: [id number] conjugated estrogens (PREMARIN) vaginal creamUse 0.5 g [...] Other instructions from your clinician: [facility] FACTS LAB HOURS: Lab is [...] and Disposition History Recorded Encounter Status:Closed by LUCHO SHAFFER CNP on 12/03/18 Normal [facility] PROGRESSon 12-03-2018 PROGRESS HNO ID: [id number] Author: Lucho Shaffer Service: ? Author Type: Nurse Practitioner Type: Progress Notes Filed: 12/03/2018 4:23 PM Note Text: Jersey Dow [address] [place] [id number] HISTORY OF PRESENT ILLNESS: Seen 09/11/18 for cystitis Pt stated that had pain in bladder in 2011 went to urologist in [place] cysto and bladder bx completed and noted [...] bladder in 2012 went to urologist in [place] cysto and bladder bx completed and noted it was IC, pt stated that get yeast and PLAN: (Management Options): Will get urine if becomes symptomatic Pt take powder cologene for IC Bio identical hormones Cont premarin vaginal cream Probiotics tabs and natural Cont increase water intake rto 6 month for evaluation for evaluation, U/A, culture Lucho Shaffer APRN.WATER SAFETY TEACHER Normal [facility] Urine Cultureon 09-12-2018 Bacteria identified Cx Nom (U) Sp. Request/Comment: - Specimen received in preservative Culture Result - No growth (<100 CFU/ml) Normal [facility] Comment on above: Performed By: #### U RCUL #### [facility] [address] [place] [address] CNOVon 09-11-2018 CNOV Office Visit (UROLLN) ---- JERSEY DOW ([id number]) 1955 F Date Time Provider Department 09/11/18 8:00 AM LUCHO SHAFFER (WATER SAFETY TEACHER) UROLLN During your visit today, we recorded the following information about you: Pulse Blood pressure Height 95/minute 128/86 1.626 m Ariela Lovett 09/11/2018 8:06 AM Signed [facility] FACTS LAB HOURS: Lab is [...] one day prior to the scheduled exam. Lucho Shaffer, CAIN.WATER SAFETY TEACHER 09/11/2018 2:03 PM Signed Jersey Dow [address] [place] [id number] is a 63 year old female and is here today at the request of SELF. My final recommendation will be communicated back to the requesting physician by way of shared medical record or letter. Ms. Dow presents with chief complaints of: IC/bladder pain HISTORY OF PRESENT ILLNESS: Coming for cystitis Pt stated that had pain in bladder in 2011 went to urologist in [place] cysto and bladder bx completed and noted [...] rto 3 month for evaluation for evaluation Lucho Shaffer APRN.WATER SAFETY TEACHER Referring Provider: SELF [200] Allergies As of [...] Other instructions from your clinician: [facility] FACTS LAB HOURS: Lab is [...] and Disposition History Recorded Encounter Status:Closed by LUCHO SHAFFER CNP on 09/11/18 [facility] PROGRESSon 09-11-2018 PROGRESS HNO ID: [id number] Author: Lucho Desai ([place]) Edmund Service: ? Author Type: Nurse Practitioner Type: Progress Notes Filed: 09/11/2018 2:03 PM Note Text: Jerseynathaniel Dow [address] [place] [place] [id number] is a 63 year old female and is here today at the request of SELF. My final recommendation will be communicated back to the requesting physician by way of shared medical record or letter. Ms. Dow presents with chief complaints of: IC/bladder pain HISTORY OF PRESENT ILLNESS: Coming for cystitis Pt stated that had pain in bladder in 2011 went to urologist in [place] cysto and bladder bx completed and noted [...] rto 3 month for evaluation for evaluation Lucho Shaffer APRN.WATER SAFETY TEACHER Normal [facility] Urinalysison 09-11-2018 Bilirubin, Urine Negative Normal Negative [facility] Comment on above: Performed By: #### U A #### [place] [id number] [place] [phone] Clarity (U) Clear Normal Clear [facility] Comment on above: Performed By: #### U A #### [place] [phone] Color (U) Yellow Normal Yellow [facility] Comment on above: Performed By: #### U A #### [place] [phone] Comments SEE COMMENT Normal [facility] Comment on above: Result Comment: Micr oscopic not warranted Performed By: #### U A #### [place] [phone] Glucose Ql (U) Negative Normal Negative [facility] Comment on above: Performed By: #### U A #### [place] [phone] Hemoglobin/Blood,Ur Negative Normal Negative [facility] Comment on above: Performed By: #### U A #### [place] [phone] Ketones Ql (U) Negative Normal Negative [facility] Comment on above: Performed By: #### U A #### [place] [phone] Leukest Negative Normal Negative [facility] Comment on above: Performed By: #### U A #### [facility] [address], [place] [id number] Nitrite Ql (U) Negative Normal Negative [facility] Comment on above: Performed By: #### U A #### [id number] [place], [place] [address] pH (Bld) 7.0 Normal 4.5-8.0 [facility] Comment on above: Performed By: #### U A #### [place] [id number] [place], [place] [address] Protein (U) [Mass/Vol] Negative Normal Negative [facility] Comment on above: Performed By: #### U A #### [address] [address] Specific [place], Ur 1.005 Normal 1.005-1.030 [facility] Comment on above: Performed By: #### U A #### [address] [address] Urine Jayme Comment SEE COMMENT Normal [facility] Comment on above: Result Comment: N/A Performed By: #### U A #### [address] [address] Urobilinogen Qn (U) Normal Normal Normal [facility] Comment on above: Performed By: #### U A #### [address] [address] Vital Signs Date Time Vital Sign Value Performing Clinician Facility 09-12-2022 11:45-0400 Body height 161.29 cm Abena Hawkins Other [facility] Other 09-12-2022 11:45-0400 Body mass index (BMI) [Ratio] 32.43 kg/m2 Abena Hawkins Other [facility] Other 09-12-2022 11:45-0400 Body weight 84.37 kg Abena Hawkins Other [facility] Other 05-10-2022 10:40-0500 Body height 161.29 cm Azvalentin Carters Other [facility] Other 05-10-2022 10:40-0500 Body mass index (BMI) [Ratio] 32.5 kg/m2 Azvalentin Bakhous Other [facility] Other 05-10-2022 10:40-0500 Body temperature 96.2 [degF] Aziz Bakhous Other [facility] Other 05-10-2022 10:40-0500 Body weight 84.55 kg Azvalentin Bakhous Other [facility] Other 05-10-2022 10:40-0500 Diastolic blood pressure 98 mm[Hg] Aziz Bakhous Other [facility] Other 05-10-2022 10:40-0500 Respiratory rate 18 /min Azvalentin Bakhous Other [facility] Other 05-10-2022 10:40-0500 SaO2% (BldA) [Mass fraction] 96 % Aziz Bakhous Other [facility] Other 05-10-2022 10:40-0500 Systolic blood pressure 158 mm[Hg] Aziz Bakhous Other [facility] Other Encounters Encounter Date Encounter Type Care Provider Facility Start: 10-22-2023 ambulatory ORIANA Briggs [facility] Start: 10-03-2023 Encounter for other preprocedural examination [facility] Start: 10-03-2023 End: 10-03-2023 ambulatory LATRICE L[facility] Start: 09-24-2023 End: 09-24-2023 ambulatory JOHN PUMP Not Available Start: 07-30-2023 End: 07-31-2023 ambulatory Kamryn Ceja MD Facility:[facility] Start: 07-02-2023 End: 07-03-2023 ambulatory Kamryn Ceja MD Facility:[facility] Start: 06-26-2023 End: 06-27-2023 Clinical Support Clementina Diego MD Work Phone: [facility] Comment on above: Encephalocele (CMS-H CC) (Primary Dx); Sensorineural hearing loss (SNHL), bilateral Start: 06-11-2023 End: 06-12-2023 ambulatory [facility] Start: 06-04-2023 End: 06-05-2023 ambulatory Kamryn Ceja MD Facility:[facility] Start: 05-30-2023 End: 05-30-2023 ambulatory Oriana Laguerre Facility:[facility] Start: 05-30-2023 End: 05-30-2023 ambulatory MD Oriana Laguerre Work Phone: [facility] Work Phone: Start: 05-30-2023 End: 05-30-2023 Patient encounter procedure MD Oriana Laguerre Work Phone: [facility] [address] Work Phone: Start: 05-07-2023 End: 05-21-2023 ambulatory LATRICE Geno [facility] Start: 05-02-2023 End: 05-03-2023 ambulatory NATY KIRKPATRICK Not Available Start: 04-23-2023 End: 04-24-2023 ambulatory ORIANA LAGUERRE Not Available Start: 04-10-2023 End: 04-10-2023 ambulatory RHODA DOCKERY Not Available Start: 02-13-2023 ambulatory Addy ROUSSEAU Facilit y:[facility] Start: 01-18-2023 End: 01-18-2023 ambulatory Huong L Obermeyer Facility:[facility] Start: 01-18-2023 End: 01-18-2023 ambulatory MD Oriana Laguerre Work Phone: [facility] Work Phone: Start: 01-18-2023 End: 01-18-2023 Patient encounter procedure MD Oriana Laguerre Work Phone: [facility] [address] [place] Work Phone: Start: 10-12-2022 End: 10-12-2022 ambulatory Huong Adamsermeyer Facility:[facility] Start: 09-12-2022 End: 09-12-2022 ambulatory Abena Calvey Other [facility] Other Start: 09-12-2022 Office outpatient vi sit 15 minutes Abena Calvey [facility] Start: 06-14-2022 End: 06-14-2022 ambulatory Abena Calvey Other [facility] Other Start: 06-14-2022 Office outpatient vi sit 15 minutes Abena Calvey [facility] Start: 05-10-2022 End: 05-10-2022 ambulatory Aziz Bakhous Other [facility] Other Start: 05-10-2022 Office outpatient ne w 30 minutes Aziz Bakhous [facility] Start: 03-29-2022 End: 03-29-2022 ambulatory Abena Calvey Other [facility] Other Start: 03-29-2022 Office outpatient vi sit 15 minutes Abena Calvey [facility] Start: 02-13-2022 End: 02-14-2022 ambulatory Addy ROUSSEAU Facility:[facility] Start: 12-13-2021 End: 12-13-2021 ambulatory Abena Hawkins Other [facility] Other Start: 12-13-2021 Office outpatient vi sit 25 minutes Abena Hawkins [facility] Start: 08-26-2021 End: 08-26-2021 ambulatory Abena Hawkins Other [facility] Other Start: 08-26-2021 Encounter by compute r festus Laguerre [facility] Start: 08-26-2021 Office outpatient vi sit 15 minutes Abenageorgette Hawkins [facility] Start: 02-25-2021 End: 02-25-[address] DOCTOR FOURNIER Facility:[facility] Start: 04-09-2020 End: 04-10-2020 ambulatory NATY KIRKPATRICK Facility:[facility] Start: 12-25-2016 End: 12-26-2016 Ambulatory DEFAULT PHYSICIAN Facility:[facility] Procedures Date Procedure Procedure Detail Performing Clinician Start: 06-26-2023 COMPREHENSIVE HEARING TEST Clementina Diego MD Work Phone: Plan of Treatment Date Care Activity Detail Author Start: 02-20-2028 DTaP,Tdap and Td Vaccines (4 - Td or Tdap) DTaP,Tdap and Td Vaccines (4 - Td or Tdap) [facility] Start: 02-21-2024 Adult BMI Screening Adult BMI Screening [facility] Start: 02-21-2024 Tobacco Screening Tobacco Screening [facility] Start: 05-30-2023 Hemolytic complement [facility] Start: 01-19-2023 Influenza vaccination Influenza Vaccine [facility] Start: 01-18-2023 Bacteria identified in Urine by Culture [facility] Start: 01-18-2023 Hemolytic complement [facility] Start: 01-18-2020 Fall Risk Screening Fall Risk Screening [facility] Start: 03-15-2019 Administration of varicella zoster vaccine Zoster (Shingles) Vaccine (2 of 2) [facility] Start: 1973 Adult BMI Follow Up Plan Adult BMI Follow Up Plan [facility] Start: 1967 Depression Screening Depression Screening [facility] Start: 1955 Medicare Annual Wellness Visit Medicare Annual Wellness Visit [facility] Complement C3 [Mass/volume] in Serum or Plasma [facility] Complement C3 [Mass/volume] in Serum or Plasma [facility] Complement C4 [Mass/volume] in Serum or Plasma [facility] Complement C4 [Mass/volume] in Serum or Plasma [facility] Immunizations Immunization Date Immunization Notes Care Provider Fa cili 02-09-2020 influenza virus vaccine, unspecified formulation Rhoda Jin AUD Work Phone: [facility] [employer] [facility] 01-18-2019 zoster vaccine, unspecified formulation Rhoda Jin AUD Work Phone: [facility] Payers Date Payer Category Payer Self-pay [id number] 2019 Medicare [id number] 2019 Unknown 1959 Medicare [id number] 1959 Unknown [id number] 1955 Unknown [id number] 2.16.84 0.1.733222.3.579.2.593 1955 Unknown [id number] 2.16.84 0.1.379852.3.579.2.593 1955 Unknown [id number] 2.16.8 40.1.861617.3.579.2.727 1955 Unknown [id number] 2.16.8 40.1.328830.3.579.2.727 1955 Unknown [id number] 2.16.8 40.1.123363.3.579.2.1286 1955 Unknown [id number] 2.16. 840.1.589131.3.579.2.196 1955 Unknown [id number] 2.16. 840.1.578761.3.579.2.196 1955 Unknown [id number] 2.16. 840.1.442483.3.579.2.196 1955 Unknown [id number] 2.16. 840.1.687480.3.579.2.196 1955 Unknown [id number] 2.16.84 0.1.473137.3.579.2.1259 1955 Unknown [id number] 2.16.840 .1.844545.3.579.2.1259 1955 Unknown [id number] 2.16.840 .1.066631.3.579.2.1259 1955 Unknown [id number] 2.16.840 .1.858766.3.579.2.1259 1955 Unknown [id number] 2.16.8 40.1.277298.3.579.2.1286 1955 Unknown [id number] 2.16.8 40.1.273662.3.579.2.1286 1955 Unknown [id number] 2.16.8 40.1.856515.3.579.2.1286 1955 Unknown [id number] 2.16.8 40.1.389517.3.579.2.1286 1955 Unknown [id number] 2.16.84 0.1.747497.3.579.2.1286 Unknown [id number] 2.16.8 40.1.069472.3.579.2.531 Unknown [id number] 2.16.8 40.1.067068.3.579.2.531 Unknown [id number] 2.16.8 40.1.987319.3.579.2.531 Social History Date Type Detail Facility Start: 07-01-2020 End: 02-20-2023 Sex Assigned At [facility] Start: 02-11-2021 End: 03-15-2022 Tobacco smoking status OHIS Never smoked tobacco (finding) [facility] Start: 1955 Sex Assigned At Female [facility] Start: 03-15-2022 Tobacco use and exposure Smokeless tobacco non-user [facility] Start: 02-21-2023 Alcohol intake Current non-dr edge inker uppers of alcohol (finding) [facility] Start: 07-01-2020 End: 02-20-2023 History of Social function [facility] Childcare Unknown [facility] Start: 1955 Sex Assigned At Not on file P [facility] Medical Equipment Procedure Code Equipment Code Equipment Origin al Text Equipment Identifier Dates Cement Bn Hydros et Sub Void Saad Ca Phos 3ml Inj Ostcndc Strl - Sna - [id number] Start: 02-20-2023 Graft Snth Tiss Thk2.5mm Thk.45mm [id number] Pe Npor Mdpr Tsi - Sna - [id number] Start: 02-20-2023 Stem Fem 4 2 Tpr Flt [place] Mectagrip Hip Lateralize + - [id number] Start: 06-30-2021 Screw Bn 20mm 6. 5mm Flt Hd Canc Hip Mpact - [id number] Start: 06-30-2021 Goals Date Patient Goal Desired Activity /State Personal health goal Comment on above: Formatting of this n ote might be different from the original. Evaluation of progress towards goal: In progress: DC to home with outpatient therapy. Clinical Notes 08-26-2021 to 06-26-2023 Rhoda Jin, AUD - 06/26/2023 1:00 PM EST Note Date & Type Note Facility 06-26-2023 History of Presen t illness Narrative HEARING EVALUATION REPORT Patient: Jersey Dow : 1955 Date: 06/26/2023 Ordering Provider: Clementina Diego MD History: Jersey Dow 68 y.o., was seen today at [facility] for a comprehensive audiologic evaluation. She [...] patient. YARA Reyes documented in this encounter [facility] 09-12-2022 Evaluation note Encounter Date Diagnosis [...] Pain in right hand (ICD-10 - M79.641) [facility] Other 01-25-2023 Evaluation note* Encounter Date Diagnosis Assessment Notes Treatment Notes Treatment Clinical Notes May, Arthritis of carpometacarpal joint (ICD-10 - M19.049) Bilateral thumb [facility]MC joints injected with cortisone under sterile technique, patient tolerated well May, Pain in left hand (ICD-10 - M79.642) May, Pain in right hand (ICD-10 - M79.641) [facility] Other 12-21-2022 Evaluation note* Encounter Date Diagnosis [...] will continue same follow-up blood pressure medication [facility] Other 11-09-2022 Evaluation note* Encounter Date Diagnosis [...] Pain in right hand (ICD-10 - M79.641) [facility] Other 07-26-2022 Evaluation note* Encounter Date Diagnosis [...] Pain in right hand (ICD-10 - M79.641) [facility] Other 04-08-2022 Evaluation note* Encounter Date Diagnosis [...] Pain in right hand (ICD-10 - M79.641) [facility] Other Evaluation noteNo [facility] [employer] Other Evaluation noteNo assessment information available [facility] Work Phone: Evaluation note* 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 hearing loss (SNHL), bilateral documented [facility] this encounter [facility] Gnowsis SystemHistory general Narrative - Reported* Type Description Date Medical History chronic fatigue Medical History rheumatoid arthritis Medical History sjogren syndrome Medical History lupus Surgical History tonsillectomy and adenoidectomy Surgical History cervix repair Surgical History mastoidectomy Surgical History skull surgery Hospitalization History see above Hospitalization History kidney infection Hospitalization History child Hospitalization History broken arm [facility] Other History general Narrative - Reported* Type [...] Hospitalization History COMPLICATIONS AFTER SKUL L SURGERY [facility] Other InstructionsNot on filedocumented in this encounter [employer] Summary Purpose Family History No Family History Records Found Relationship Condition Age at Onset Recorded Date/T leona Not Specified Heart disease Unknown brother Hypertension Unknown Diabetes mellitus Unknown natural son Malignant neoplasm Unknown Advance Directives No Advanced Directives Records Found Advance Directive Response Recorded Date/ Time Advance Directives No December 23 7:16am Advance Directive Response Recorded Date/ Time Advance Directives No [place] 5[address], 2 020 6:16am Latest Code Status on File Code [...] section and content) DATE CREATED AUTHOR 11/14/2017 [facility] DATE CREATED AUTHOR AUTHOR'S ORGANIZ ATION 12/05/2018 [facility] DATE CREATED AUTHOR AUTHOR'S ORGANIZ ATION 03/17/2021 [facility] DATE CREATED AUTHOR AUTHOR'S ORGANIZ ATION 05/25/2021 [facility] DATE CREATED AUTHOR AUTHOR'S ORGANIZ ATION 12/25/2022 [facility] DATE CREATED AUTHOR AUTHOR'S ORGANIZ ATION 06/29/2023 [facility] DATE CREATED AUTHOR AUTHOR'S ORGANIZ ATION 07/02/2023 [facility] DATE CREATED AUTHOR AUTHOR'S ORGANIZ ATION 08/07/2023 [facility] DATE CREATED AUTHOR AUTHOR'S ORGANIZ ATION 09/25/2023 [facility] d[facility] Specialists [facility] DATE CREATED AUTHOR AUTHOR'S ORGANIZ ATION 10/27/2023 [facility] REASON FOR VISIT (unrecogniz ed section and content) Specialty Diagnoses / Procedures Referred By Contac t Referred To Contact Diagnoses Encephalocele ([facility]) Procedures Comprehensive hearing test Clementina Diego MD [address] [place] [address] Referral ID Status Reason Start Date Expiration Date V isits Requested Visits Authorized [id number] Pending Review 03/13/2023 03/12/2024 1 1 Care Teams (unrecognized sec tion and content) Team Status: Active Member Role Status Dates Oriana Laguerre MD Primary Care Provider Active Team Status: Inactive Member Role Status Dates Oriana Laguerre MD Primary Care Provider Active SHANKAR Gamble Attending Provider Active Team Status: Inactive Member Role Status Dates Oriana Laguerre MD Primary Care Provider Active Alisia Franz MD Attending Provider Active Blue Leather Setter Relationship Specialty Start Date End Date Oriana Laguerre MD [address] [place] [address] PCP - General Family Medicine 10/06/16 Goals [...] BE BASED ON THE PRIMARY CLINICAL RECORDS. [employer] [facility]. provides no warranty or guarantee of the accuracy or completeness of information in this document.
== END 2023-10-31 09:44 | disposition home or self-care (01) ==
LOC: PM 09:43
PROVIDERS: PCP Family Medicine; Visit Provider Nurse Practitioner
DX: M47.816 Spondylosis without myelopathy or radiculopathy, lumbar region (principal); M48.062 Spinal stenosis, lumbar region with neurogenic claudication; G89.4 Chronic pain syndrome; M79.18 Myalgia, other site
CPT/HCPCS: G0463